=== PATIENT | male | born 1940 | race Caucasian/White ===

== ENCOUNTER → 2017-07-11 08:20 | Outpatient (CLI) | payer MEDICARE, SELFPAY ==
[2017-07-11 08:59] VITALS: BMI 25.4
== END ==
PROVIDERS: Family Provider Nurse Practitioner Family; PCP Nurse Practitioner Family; Visit Provider Internal Medicine
DX: Z45.2 Encounter for adjustment and management of vascular access device (principal); C91.10 Chronic lymphocytic leukemia of B-cell type not having achieved remission
CPT/HCPCS: 96523; J1642

== ENCOUNTER 2017-08-15 09:45 | Outpatient (CLI) | payer MEDICARE, SELFPAY ==
[2017-08-15 10:06] VITALS: BMI 26.4
[2017-08-15 10:17] LABS: Basophils % 0.1 % (0.1-2.0); Eosinophils # 0.5 K/mm3 (0.0-0.4); Eosinophils % 7.9 % (0.1-12.0); Hematocrit 37.8 % (42.0-52.0); Hemoglobin 12.1 g/dL (14.1-18.0); Lymphocytes # 1.9 K/mm3 (0.7-4.5); Mean Corpuscular HGB Conc 31.9 g/dL (31.8-35.4); Mean Corpuscular Hemoglobin 26.9 pg (27.0-31.2); Mean Corpuscular Volume 84.3 fl (80-94); Monocytes # 0.6 K/mm3 (0.1-1.0); Monocytes % 8.6 % (1.7-9.3); Neutrophils # 3.9 K/mm3 (1.8-7.8); Neutrophils % 56.4 % (37.0-80.0); Platelet Count 206 K/mm3 (142-424); Red Blood Count 4.49 M/mm3 (4.60-6.20); Red Cell Distribution Width 13.9 % (11.5-17.5); White Blood Count 6.9 K/mm3 (4.8-10.8)
[2017-08-15 10:26] LABS: Alanine Aminotransferase 19 U/L (12-78); Albumin Level 3.3 gm/dL (3.4-5.0); Albumin/Globulin Ratio 0.9 (1.1-1.8); Alkaline Phosphatase 80 U/L (46-116); Anion Gap 12.9 mEq/L (5-15); Aspartate Amino Transferase 14 U/L (15-37); Bilirubin,Total 0.4 mg/dL (0.2-1.0); Blood Urea Nitrogen 29 mg/dL (7-18); Calcium 8.4 mg/dL (8.5-10.1); Carbon Dioxide 26 mmol/L (21.0-32.0); Chloride 107 mmol/L (98-107); Creatinine Clearance Estimated 53 mL/min (0-300); Creatinine,Serum 1.33 mg/dL (0.70-1.30); Estimated Glomerular Filt Rate 52 ml/min (>60); GFR (African American) 63 ML/MIN (>60); Globulin 3.6 gm/dl (1.3-3.2); Glucose 87 mg/dL (74-106); Potassium 3.9 mmoL/L (3.5-5.1); Sodium 142 mmol/L (136-145); Total Protein,Serum 6.9 gm/dL (6.4-8.2)
== END 2017-08-15 10:10 | disposition home or self-care (01) ==
LOC: INF 18:31
PROVIDERS: Family Provider Nurse Practitioner Family; PCP Nurse Practitioner Family; Visit Provider Internal Medicine
DX: C91.10 Chronic lymphocytic leukemia of B-cell type not having achieved remission (principal)
CPT/HCPCS: 80053; 85025; J1642

== ENCOUNTER 2017-09-12 09:45 | Outpatient (CLI) | payer MEDICARE, SELFPAY | END 2017-09-12 10:29 | disposition home or self-care (01) | LOC: INF 10:11 | PROVIDERS: Family Provider Nurse Practitioner Family; PCP Nurse Practitioner Family; Visit Provider Internal Medicine | DX: C91.10 Chronic lymphocytic leukemia of B-cell type not having achieved remission (principal); Z45.2 Encounter for adjustment and management of vascular access device | CPT/HCPCS: 96523; J1642 ==

== ENCOUNTER 2017-10-10 10:05 | Outpatient (CLI) | payer MEDICARE, SELFPAY | END 2017-10-10 10:30 | disposition home or self-care (01) | LOC: INF 14:48 | PROVIDERS: Family Provider Nurse Practitioner Family; PCP Nurse Practitioner Family; Visit Provider Internal Medicine | DX: Z45.2 Encounter for adjustment and management of vascular access device (principal) | CPT/HCPCS: 96523; J1642 ==

== ENCOUNTER 2017-10-10 18:07 | Observation (INO) ==
--- NOTE | 2017-10-10 18:58 | Emergency Department Note ---
ED Disposition Clinical Impression: Angina pectoris Disposition: Still a Patient Condition on Discharge: Good Referrals: Randy Flores APRN [Primary Care Provider] - - Critical Care Critical Care Time: No Attestation: On 10/10/17, the high probability of a clinically significant, sudden or life threatening deterioration of the following system(s) required my full and direct attention, intervention and personal management. The time I documented below is in addition to time spent performing reported procedures but includes the following listed in this critical care notation. Medical Decision Making - Ryan Inquiry Pt receiving controlled substance: No Vital Signs: 10/10/17 18:08 Temperature 98.0 F Temperature Source Oral Pulse Rate [Right Brachial] 70 Respiratory Rate 18 Blood Pressure [Right Arm] 151/78 Blood Pressure Mean [Right Arm] 102 Blood Pressure Source [Right Arm] Manual Cuff/ Doppler Blood Pressure Position [Right Arm] Sitting 02 Sat by Pulse Oximetry 98 Oxygen Delivery Method Room Air - Lab Data Lab Results 10/10/17 18:30: Sodium 144, Potassium 4.0, Chloride 109 H, Carbon Dioxide 25, Anion Gap 14.0, BUN 23 H, Creatinine 1.09, Estimated Creat Clear 62, Estimated GFR 66, Est GFR ( Amer) 79, Glucose 82, Calcium 8.9, Total Bilirubin 0.2 , AST 21, ALT 19, Alkaline Phosphatase 83, Total Creatine Kinase 152, CK-MB (CK- 2) 3.5, CK-MB (CK-2) Rel Index 2.3, Troponin I < 0.02, Total Protein 7.5, Albumin 3.8, Globulin 3.7 H, Albumin/Globulin Ratio 1.0 L 10/10/17 19:02: WBC 6.4, RBC 4.57 L, Hgb 12.8 L, Hct 39.5 L, MCV 86.5, MCH 28.1 , MCHC 32.5, RDW 14.2, Plt Count 197, MPV 8.0, Neut % (Auto) 53.6, Lymph % (Auto ) 32.2, [place] % (Auto) 7.2, Eos % (Auto) 6.9, Baso % (Auto) 0.1, Neut # (Auto) 3.4, Lymph # (Auto) 2.1, [place] # (Auto) 0.5, Eos # (Auto) 0.4, Baso # (Auto) 0.0 Result diagrams: 10/10/17 19:02 10/10/17 18:30 Orders (Tests/Meds): ED MEDICATIONS Discontinued Medications Generic Name Dose Route Start Last Admin Trade Name Willie PRN Reason Stop Dose Admin Aspirin 324 mg 10/10/17 19:09 Aspirin 81mg Chewable Tablet PO 10/10/17 19:10 ONCE ONE ORDERS Category Date Time Status XR chest portable Stat Exams 10/10/17 18:13 Taken 12-lead EKG Request [ECG Request by /Nse] Stat Y 10/10/17 18:13 Ordered - Radiology Data #1 Image(s): Chest Image Reviewed: Yes I reviewed the patient's radiology image hiatal hernia, nad. port-a-cath, pacer, cabg. - ECG Data Tracing #1 EKG interpreted by Baldomero Madden MD: Rhythm: Dual-chamber paced rhythm Rate: 70 Medical Decision Narrative: 8:00 PM: I have discussed the case with Dr. Garcia who agrees to admit the patient to the hospital. We discussed the patient's clinical information, including history, exam, laboratory and radiology results and ED course. Per hospital procedure, I will write temporary bridge inpatient orders on the patient. Specific orders requested by the admitting physician: consult Dr. Musa 7:45 PM: Dr. Musa notified. Chest Pain HPI - General Chief Complaint: PAIN Stated Complaint: INTERMITTENT CP Time Seen by Provider: 10/10/17 18:57 Mode of Arrival: Ambulatory Limitations: No Limitations Description of Symptoms (Recalled from ER Triage Doc. by RN): INTERMITTENT CP - History of Present Illness HPI narrative: The patient is sent from his primary care provider's office, Randy Flores. He has a prior history of coronary artery disease with coronary artery bypass graft several years ago. States he has been having intermittent chest pain left anterior chest for 2 weeks that last about 5 minutes. Shortness of breath "yes and no". No diaphoresis or nausea. No pain at present. States he has had similar pains every 2-3 months since his bypass surgery but now it is more frequent, coming on every 2-3 days. States the only medication he takes his pain medication for his knees. He used to be on a baby aspirin a day, but stopped taking it because nobody told him that he needed to keep taking it. Former smoker. He is not on any medications for blood pressure or cholesterol. Gymnastics Coach Or Instructor is Dr. Musa. - Related Data Previous Rx's Medication Instructions Recorded aspirin 325 mg tablet 325 mg PO DAILY #90 tab 10/10/17 hydrocodone 7.5 mg-acetaminophen 1 tab PO TIDP PRN #90 tab 10/10/17 325 mg tablet tamsulosin 0.4 mg capsule 0.4 mg PO DAILY #90 cap 10/10/17 Allergies Allergy/AdvReac Type Severity Reaction Status Date / Time No Known Allergies Allergy Verified 10/10/17 13:11 [place] History I have reviewed the patient's past medical history: Yes Medical History: Reports:: Cancer Laterality Cases: Bilateral: Tonsillectomy Other Surgeries: Yes: Cardiac Surgery Amputation: No Fractures: No - Social History Smoking Status: Never smoker Tobacco Type: cigarettes Alcohol Intake: never Substance Use Type: denies use - Psychiatric History Expresses thoughts of harming self/others: None Suicide Plan Description: No Plan Family Hx:: No significant family history ROS Obtained: Yes All systems reviewed & no additional complaints - Constitutional Constitutional: Denies excessive sweating, Denies fever(s) - Cardiovascular Cardiovascular: Reports chest pain, Denies leg edema - Respiratory Respiratory: No cough, Yes dyspnea - Gastrointestinal Gastrointestingal: Denies: abdominal pain, nausea, vomiting Physical Exam - General General appearance: alert, in no apparent distress - Head Head exam: atraumatic, normocephalic, normal inspection - Eye Eye exam: Present: normal appearance, PERRL, EOMI - ENT ENT exam: Present: normal exam, normal oropharynx, mucous membranes moist, TM's normal bilaterally, normal external ear exam - Neck Neck exam: Present: normal inspection, full ROM, trachea midline. Absent: meningismus, lymphadenopathy - Chest Chest inspection: Present: normal inspection, symmetric chest wall rise. Absent : tenderness - Respiratory Respiratory exam: Present: normal lung sounds bilaterally. Absent: respiratory distress - Cardiovascular Cardiovascular exam: Present: regular rate, normal rhythm. Absent: JVD - Abdominal Exam Abdominal exam: Present: soft, normal bowel sounds. Absent: distention, tenderness, guarding - Extremities Exam Extremities exam: Present: normal inspection, full ROM, normal capillary refill. Absent: calf tenderness - Back Exam Back exam: Present: normal inspection. Absent: tenderness - Neurological Exam Neurological exam: Present: alert, oriented X3 - Psychiatric Psychiatric exam: Present: normal affect, normal mood - Skin Skin exam: Present: warm, dry, intact, normal color
[2017-10-10 19:08] LABS: Basophils % 0.1 % (0.1-2.0); Eosinophils # 0.4 K/mm3 (0.0-0.4); Eosinophils % 6.9 % (0.1-12.0); Hematocrit 39.5 % (42.0-52.0); Hemoglobin 12.8 g/dL (14.1-18.0); Lymphocytes # 2.1 K/mm3 (0.7-4.5); Lymphocytes % 32.2 K/mm3 (10-50); Mean Corpuscular HGB Conc 32.5 g/dL (31.8-35.4); Mean Corpuscular Hemoglobin 28.1 pg (27.0-31.2); Mean Corpuscular Volume 86.5 fl (80-94); Monocytes # 0.5 K/mm3 (0.1-1.0); Monocytes % 7.2 % (1.7-9.3); Neutrophils # 3.4 K/mm3 (1.8-7.8); Neutrophils % 53.6 % (37.0-80.0); Platelet Count 197 K/mm3 (142-424); Red Blood Count 4.57 M/mm3 (4.60-6.20); Red Cell Distribution Width 14.2 % (11.5-17.5); White Blood Count 6.4 K/mm3 (4.8-10.8)
[2017-10-10 19:21] LABS: Alanine Aminotransferase 19 U/L (12-78); Albumin Level 3.8 gm/dL (3.4-5.0); Alkaline Phosphatase 83 U/L (46-116); Aspartate Amino Transferase 21 U/L (15-37); Bilirubin,Total 0.2 mg/dL (0.2-1.0); Blood Urea Nitrogen 23 mg/dL (7-18); Calcium 8.9 mg/dL (8.5-10.1); Carbon Dioxide 25 mmol/L (21.0-32.0); Chloride 109 mmol/L (98-107); Creatine Kinase 152 U/L (39-308); Globulin 3.7 gm/dl (1.3-3.2); Glucose 82 mg/dL (74-106); Sodium 144 mmol/L (136-145); Total Protein,Serum 7.5 gm/dL (6.4-8.2)
--- NOTE | 2017-10-11 07:34 | Pharmacy Consult Notes ---
[facility] Pharmacy VTE Monitoring - Patient Demographics Admission date: 10/11/17 Report Date: 10/11/17 Time: 07:34 Allergies/Adverse Reactions: Patient Allergies No Known Allergies Allergy (Verified 10/10/17 13:11) Height: 1.75 m Weight: 76.657 kg Patient Problems: Current Active Problems Angina pectoris (Acute) - VTE Risk Labs: VTE Related Lab Results Hgb 12.8 g/dL (14.1-18.0) L 10/10/17 19:02 Hct 39.5 % (42.0-52.0) L 10/10/17 19:02 Plt Count 197 K/mm3 (142-424) 10/10/17 19:02 BUN 23 mg/dL (7-18) H 10/10/17 18:30 Creatinine 1.09 mg/dL (0.70-1.30) 10/10/17 18:30 Estimated Creat Clear 62 mL/min (0-300) 10/10/17 18:30 Was VTE Risk Assessment Performed: Yes VTE Risk Level: Very Low Risk - Prophylaxis VTE Prophylaxis Ordered?: Yes Types of VTE Prophylaxis: TEDS Knee High Location of Applied Device: Bilateral Lower Extremeties - VTE Diagnosis Confirmed Treatment or plan recommended: Continue Current Treatment
--- NOTE | 2017-10-11 10:07 | Consult Report ---
History of Present Illness Consult date: 10/11/17 Requesting physician: James Garcia Consult reason: chest pain Chief complaint: Chest pain and shortness of breath Additional Medical History:: 1. Coronary Artery Disease. a. Coronary Artery Bypass Graft in 2000 (Bicuspid aortic valve) b. Angioplasty in 2001 2. Dual chamber pacemaker (2016) 3. Murmur at the Left sternal border radiating toward the neck. a. History of Systolic ejection murmur. Last Echo (2016) LVEF 60%. 4. Carotid Bruit Left a. Last CNI (2015) Impression: 20-49% stenosis of right carotid and 50-60% stenosis of left internal 4. Hypertension- uncontrolled. a. No current medication regimen. 5. Hyperlipidemia a. No current medication regimen. 6. Chronic Lymphotic Leukemia a. Diagnosed in 2016. No treatment for the past 4 months. 7. Arthritis History of present illness: 77 year old white male admitted to ICU last evening with angina pectoris and shortness of breath. Pt is a poor historian. Daughter at bedside. Daughter stated "not certain on all father's medical history". Pt stated he has been having increase midsternal shooting chest pain with shortness of breath for the past two weeks, lasting for a few minutes. Pt stated last episode of chest pain was yesterday when he was being evaluated by his PCP. Denies physical exertion prior to chest pain. Pt stated, "the pain just comes and goes". Pt stated that his shortness of breath only occurs with the chest pain. Pt complains of dizziness accompanying the chest pain. Pt stated one episode of falling due to the dizziness in the past few days. No injuries noted from the fall. Pt noted on assessment with systolic murmur. Carotid bruit also noted on the left. Pt has history of coronary artery disease, coronary bypass graft ( Bicuspid valve) and dual chamber pacemaker (2016). There is also history of hypertension and hyperlipidemia. Pt is not currently taking any medications. Pt stated that "he was not told he needed to continue to take his medications. Pt had been diagnosed with Chronic Lymphotic Leukemia (2016). Last treatment was 4 months ago. Pt denies chest pain or shortness of breath during this cardiology consult. Pt was last seen via Dr. Musa ([facility] in 2017). Initial EKG performed in the ER, revealed Electronic atrial pacemaker with Nonspecific intraventricular block with rate of 70bpm. Baseline labs in the ER were unremarkable with exception of BUN 23 and Troponin < 0.02. Only one Troponin was drawn prior to hospital admission. Chest xray: moderate size hiatal hernia, prior CABG with no change with no acute findings. Therefore patient was admitted to ICU with Cardiac consult for further evaluation and treatment. [facility] History Medical History: Reports:: Arrhythmia, Cancer (hx of Leukemia), Carotid Stenosis , Internal Pacemaker (2017), Myocardial Infarction Denies:: Diabetes Mellitus Type 1, Diabetes Mellitus Type 2, MRSA Other Medical History: Reports: Arthritis, Chemotherapy Laterality Cases: Left: Other, Bilateral: Tonsillectomy Other Surgeries: Yes: Angioplasty (1999), CABG (1999), Cardiac Surgery, Pacemaker (2016) Amputation: No Fractures: No - *Social History Educational Level: Completed High School Smoking Status: Former smoker Tobacco Type: cigarettes # Packs/Day (cigarettes): 1 #Yrs smoked (if former smoker): 30 Smoking End Date: 1982 Alcohol Intake: never Substance Use Type: denies use Occupational Status: retired Housing: house Household Members: spouse, family, children - Psychiatric History Expresses thoughts of harming self/others: None Suicide Plan Description: No Plan *Family Hx:: No significant family history, Cancer Meds Home Medications Medication Instructions Recorded Confirmed Type Aspirin [Aspirin 325mg Tab] 325 mg PO DAILY 10/11/17 10/11/17 History Hydrocodone/Acetaminophen 1 each PO TIDP PRN 10/11/17 10/11/17 History [Hydrocodon-Acetaminoph 7.5-325] Tamsulosin HCl [Flomax] 0.4 mg PO DAILY 10/11/17 10/11/17 History Allergies Allergy/AdvReac Type Severity Reaction Status Date / Time No Known Allergies Allergy Verified 10/10/17 13:11 Review of Systems - Constitutional Reports fatigue, Reports weakness - ENT Reports abnormal hearing, Reports poor balance, Reports dizziness - *Cardiovascular Reports chest pain, Reports chest pain at rest, Reports chest pain with activity , Reports shortness of breath, Reports shortness of breath with activity, Reports lightheadedness - *Respiratory Reports shortness of breath, Reports shortness of breath with activity, Denies cough, Denies pain on inspiration, Denies pain with cough, Denies stridor, Denies wheezing - *Gastrointestinal Denies abdominal pain, Denies belching - *Genitourinary Denies difficulty urinating Comments: Pt denies Prostate issues even though pt is currently taking Flomax daily at home. - Integumentary/Breasts Denies non-healing lesions - *Neurologic Reports lack of coordination Comments: One fall noted a few days prior to admission. - Endocrine Denies cold intolerance, Denies excessive sweating, Denies heat intolerance, Denies rapid, pounding, or irregular heartbeat Exam Vital signs and Labs for Last 24 Hours: Temp Pulse Resp BP Pulse Ox 98.1 F 70 20 190/150 99 10/11/17 08:00 10/11/17 08:00 10/11/17 08:00 10/11/17 09:32 10/11/17 08:00 I & O for Last 24 hours: Intake & Output 10/08/17 10/09/17 10/10/17 10/11/17 23:59 23:59 23:59 23:59 Intake Total 240 / 240 Balance 240 / 240 Weight 169 lb 169 lb - Constitutional no acute distress, average body habitus, cooperative - *Routine Neck Exam Present: supple, full ROM, carotid bruit, trachea midline. Absent: JVD Comments: Carotid Bruit noted of the Left carotid. - *Routine Respiratory Exam Present: CTA bilaterally. Absent: rales, rhonchi, stridor, wheezes, crackles - *Routine Cardiovascular Exam Present: Normal S1, Normal S2, murmur - *Routine Abdominal Exam Present: soft. Absent: distended, guarding, mass - *Routine Extremities Exam Present: full ROM, pulses intact, normal capillary refill. Absent: cyanosis, clubbing, edema - *Routine Neurological Exam Present: alert, oriented X3, CN II-XII intact, normal speech - Detailed Cardiovascular Exam Comments: Systolic murmur Assessment and Plan (1) Pacemaker Current visit: Yes Status: Acute Category: Medical Code(s): Z95.0 - Presence of cardiac pacemaker (2) Angina pectoris Current visit: Yes Status: Acute Category: Medical Code(s): I20.9 - Angina pectoris, unspecified (3) Dizziness Current visit: No Status: Acute Category: Medical Code(s): R42 - Dizziness and giddiness (4) Intermittent left-sided chest pain Current visit: No Status: Acute Category: Medical Code(s): R07.89 - Other chest pain (5) Coronary artery disease Current visit: Yes Status: Acute Category: Medical Code(s): I25.10 - Atherosclerotic heart disease of [place] coronary artery without angina pectoris (6) Hypertension Current visit: Yes Status: Acute Category: Medical Code(s): I10 - Essential (primary) hypertension (7) Carotid stenosis Current visit: Yes Status: Acute Category: Medical Code(s): I65.29 - Occlusion and stenosis of unspecified carotid artery (8) Chronic lymphocytic leukemia Current visit: Yes Status: Acute Category: Medical Code(s): C91.90 - Lymphoid leukemia, unspecified not having achieved remission - Assessment and plan all Dx Assessment and Plan for all problems:: Plan: 1. Left Heart Catherization: Intermittent chest pain and shortness of breath. Recommended benefits of heart catherization due to chest pain. Pt and family agreeable. 2. Obtain Echocardiogram to assess LV function and valve status. Systolic murmur was noted. 3. Obtain Carotid doppler duplex to assess severity of Carotid Bruit. 4. Obtain Liver and Lipid panel for hyperlipidemia 5. Start Coreg 12.5mg po twice daily for hypertension. 6. Start Aspirin 81mg po daily for coronary artery disease. 7. Start Atorvastatin 40mg po nightly for hyperlipidemia. 8. Start Losartan 50/12.5mg po daily for Hypertension. 9. Add Aldactone 25mg po daily for Hypertension. 10. Repeat BMP in am and in one week 11. Follow up in clinic one week.
--- NOTE | 2017-10-11 13:09 | Carotid Imaging Report ---
"Cerebrovascular Exam Indications: 780.4 Dizziness and giddiness. IMPRESSIONS 1. The bilateral vertebral arteries are patent with normal antegrade flow. 2. Study suggests 20-49% stenosis involving the right internal carotid artery. No change from the study of January 2016. 3. Study suggests 50-69% stenosis involving the left internal carotid artery. No change from the study of January 2016. Carotid duplex study. Complete study and Doppler flow study including spectral analysis, color and islas scale imaging. Height: Height: 175.3cm. Height: 69in. Weight: Weight: 76.7kg. Weight: 168.6lb. Body mass index: BMI: 25kg/m^2. Body surface area: BSA: 1.94m^2. Location: Bedside. Patient status: Inpatient. Tables: Arterial flow: + +---------+---------+ |Location |V sys |V ed | + +---------+---------+ |Right CCA - proximal|101cm/s |32.2cm/s | + +---------+---------+ |Right CCA - distal |-81.7cm/s|-21.2cm/s| + +---------+---------+ |Right ECA |-220cm/s |-58.9cm/s| + +---------+---------+ |Right ICA - proximal|-92.3cm/s|-30.4cm/s| + +---------+---------+ |Right ICA - mid |-99.2cm/s|-37.7cm/s| + +---------+---------+ |Right ICA - distal |-92.2cm/s|-32.1cm/s| + +---------+---------+ |Right vertebral |-46.8cm/s|-17.7cm/s| + +---------+---------+ |Left CCA - proximal |108cm/s |27cm/s | + +---------+---------+ |Left CCA - distal |-79.8cm/s|-26.4cm/s| + +---------+---------+ |Left ECA |-110cm/s |-20.1cm/s| + +---------+---------+ |Left ICA - proximal |-131cm/s |-45.6cm/s| + +---------+---------+ |Left ICA - mid |-139cm/s |-55cm/s | + +---------+---------+ |Left ICA - distal |-119cm/s |-51.9cm/s| + +---------+---------+ |Left vertebral |-39.7cm/s|-18.1cm/s| + +---------+---------+ Velocity ratios: + + + + | |Right, V sys|Left, V sys| + + + + |Max ICA/dist CCA|1.2 |1.7 | + + + + (Report amended ) Electronically signed by: Dima Malik [id number]"
--- NOTE | 2017-10-11 17:00 | H&P/Discharge Summary ---
General - General Admission date: 10/11/17 Discharge date: 10/11/17 *Admission Date: 10/11/17 *Chief complaint: chest pain *History of present illness: 77 year old white male admitted to ICU last evening with angina pectoris and shortness of breath. Pt is a poor historian. Daughter at bedside. Daughter stated "not certain on all father's medical history". Pt stated he has been having increase midsternal shooting chest pain with shortness of breath for the past two weeks, lasting for a few minutes. Pt stated last episode of chest pain was yesterday when he was being evaluated by his PCP. Denies physical exertion prior to chest pain. Pt stated, "the pain just comes and goes". Pt stated that his shortness of breath only occurs with the chest pain. Pt complains of dizziness accompanying the chest pain. Pt stated one episode of falling due to the dizziness in the past few days. No injuries noted from the fall. Pt noted on assessment with systolic murmur. Carotid bruit also noted on the left. Pt has history of coronary artery disease, coronary bypass graft ( Bicuspid valve) and dual chamber pacemaker (2015). There is also history of hypertension and hyperlipidemia. Pt is not currently taking any medications. Pt stated that "he was not told he needed to continue to take his medications. Pt had been diagnosed with Chronic Lymphotic Leukemia (2015). Last treatment was 4 months ago. Pt denies chest pain or shortness of breath during this cardiology consult. Pt was last seen via Dr. Musa ([facility] in 2017). [facility] History I have reviewed the patient's past medical history: Yes Medical History: Reports:: Arrhythmia, Cancer (hx of Leukemia), Carotid Stenosis , Internal Pacemaker (2017), Myocardial Infarction Denies:: Diabetes Mellitus Type 1, Diabetes Mellitus Type 2, MRSA Other Medical History: Reports: Arthritis, Chemotherapy Laterality Cases: Left: Other, Bilateral: Tonsillectomy Other Surgeries: Yes: Angioplasty (1999), CABG (1999), Cardiac Surgery, Pacemaker (2016) Amputation: No Fractures: No - *Social History Educational Level: Completed High School Smoking Status: Former smoker Tobacco Type: cigarettes # Packs/Day (cigarettes): 1 #Yrs smoked (if former smoker): 30 Smoking End Date: 1982 Alcohol Intake: never Substance Use Type: denies use Occupational Status: retired Housing: house Household Members: spouse, family, children - Psychiatric History Expresses thoughts of harming self/others: None Suicide Plan Description: No Plan *Family Hx:: No significant family history, Cancer Review of Systems - Constitutional Denies fatigue - Eyes Denies bulging eyes - ENT Denies change in voice - *Cardiovascular Reports chest pain, Reports chest pain at rest, Reports chest pain with activity , Reports shortness of breath, Denies fast heart rate - *Respiratory Denies chest congestion - *Gastrointestinal Denies change in bowel habits - *Genitourinary Denies urinary incontinence - *Musculoskeletal Denies decreased muscle mass - Integumentary/Breasts Denies rash - *Neurologic Reports abnormal hearing, Reports unsteadiness, Reports dizziness, Reports lack of coordination, Reports weakness - Psychiatric Denies anxiety - Endocrine Denies flushing - Hematologic/Lymphatic Denies enlarged lymph nodes - Allergic/Immunologic Denies hives Exam Vital signs and Labs for Last 24 Hours: Temp Pulse Resp BP Pulse Ox 98.1 F 70 16 98/61 95 10/11/17 08:00 10/11/17 14:10 10/11/17 14:10 10/11/17 14:10 10/11/17 14:10 I & O for Last 24 hours: Intake & Output 10/09/17 10/10/17 10/11/17 10/12/17 11:59 11:59 11:59 11:59 Intake Total 240 / 240 Balance 240 / 240 Weight 169 lb - Constitutional no acute distress - *Routine HEENT Exam Head: Present: normocephalic Eye: Present: PERRL ENT: Present: mucous membranes moist - *Routine Neck Exam Present: full ROM - *Routine Respiratory Exam Present: CTA bilaterally - *Routine Cardiovascular Exam Comments: pacemaker - *Routine Abdominal Exam Present: soft, normoactive bowel sounds - *Routine Extremities Exam Present: full ROM - Routine Back/Spine/Pelvis Exam Back/Spine: Present: full ROM - *Routine Skin Exam Present: intact Comments: cath site no signs of bleeding - *Routine Neurological Exam Present: alert, oriented X3 - Routine Psychiatric Exam Present: normal affect Hospital Course Hospital Course: cartid IMPRESSIONS 1. The bilateral vertebral arteries are patent with normal antegrade flow. 2. Study suggests 20-49% stenosis involving the right internal carotid artery. No change from the study of January 2016. 3. Study suggests 50-69% stenosis involving the left internal carotid artery. No change from the study of January 2016. Carotid duplex study. Complete study and Doppler flow study including spectral analysis, color and islas scale imaging. Height: Height: 175.3cm. Height: 69in. Weight: Weight: 76.7kg. Weight: 168.6lb. Body mass index: BMI: 25kg/m^2. Body surface area: BSA: 1.94m^2. Location: Bedside cath iMPRESSION: 1. Coronary artery disease as described above 2. Left ventricular dysfunction with large anterior apical hypokinesis 3. Elevated LVEDP 4. Small vessel vasculopathy PLAN: 1. Medical management for coronary artery disease 2. LDL less than 55 3. Standard therapy for systolic congestive heart failure 4. Cardiac rehabilitation 5. Urge medical compliance with patient cardiology consult: Plan: 1. Left Heart Catherization: Intermittent chest pain and shortness of breath. Recommended benefits of heart catherization due to chest pain. Pt and family agreeable. 2. Obtain Echocardiogram to assess LV function and valve status. Systolic murmur was noted. 3. Obtain Carotid doppler duplex to assess severity of Carotid Bruit. 4. Obtain Liver and Lipid panel for hyperlipidemia 5. Start Coreg 12.5mg po twice daily for hypertension. 6. Start Aspirin 81mg po daily for coronary artery disease. 7. Start Atorvastatin 40mg po nightly for hyperlipidemia. 8. Start Losartan 50/12.5mg po daily for Hypertension. 9. Add Aldactone 25mg po daily for Hypertension.- hold for now per tr 10. Repeat BMP in am and in one week 11. Follow up in clinic one week Discharge Medications Discharge Medications: Home Medications Medication Instructions Recorded Confirmed Type Aspirin [Aspirin 325mg Tab] 325 mg PO DAILY 10/11/17 10/11/17 History Hydrocodone/Acetaminophen 1 each PO TIDP PRN 10/11/17 10/11/17 History [Hydrocodon-Acetaminoph 7.5-325] Tamsulosin HCl [Flomax] 0.4 mg PO DAILY 10/11/17 10/11/17 History Disposition Disposition: Home, Self-Care
--- NOTE | 2017-10-12 12:39 | Cardiology Report ---
PROCEDURE: 2-D M-mode and color Doppler study INDICATIONS FOR THE TEST: Chest pain X COPD Heart Murmur Tobacco Smoking Palpitations Fatigue Syncope Edema Hypertension Diabetes Mellitus Rheumatic Fever SOB LOPEZ Obesity Hyperlipidemia Family History HD Additional History CAD,CABG,PACEMAKER PATIENT INFORMATION HEIGHT: 69 WEIGHT:145 GENDER: Male B/P:151/78 2-D/M-MODE INTERPRETATION: 2-D MEASUREMENTS OBSERVED VALUES IN CMS Right Ventricular Dimension (RVDd) 1.9 Interventricular Septum (Thickness)(IVsd) 1.4 Left Ventricular Internal Dimensions(LVIDd) 4.4 Left Ventricular Posterior Wall (Thickness)(LVPWd) 1.2 Aortic Root 3.5 Aortic Cusp Separation 1.8 Left Atrial Dimensions (LAD) 3.0 2D 1. Left atrium is mildly enlarged, left ventricle is normal size, there is mild concentric left ventricular hypertrophy, visually estimated ejection fraction approximately 45-50%, there appears to be moderate hypokinesis involving the distal septum and apical wall. 2. The right atrium and right ventricle are relatively normal size and function, there is a pacemaker lead seen in the right atrium and right ventricle. 3. The aortic valve is thickened and calcified leaflet continue to display mobility. 4. The mitral valve and tricuspid valve leaflets are minimally thickened. 5. The pulmonic valve is poorly visualized. 6. No significant pericardial effusion noted. DOPPLER INTERROGATION: Doppler interrogation of the aortic, mitral and tricuspid valvular presence of mild aortic, mitral and tricuspid regurgitation, the aortic outflow velocities mildly increased does not represent any significant aortic stenosis, diastolic parameters are inconclusive. Tricuspid regurgitant jet velocity insufficient for calculation of the right ventricular systolic pressure. CONCLUSION: 1. Technically difficult study because of the patient's factor and poor acoustic windows 2. Mildly enlarged left atrium, normal left ventricular size, mild concentric left ventricular hypertrophy, visually estimated ejection fraction approximately 45-50% with segmental wall motion abnormality described above. Diastolic parameters 3. Thickened and calcified aortic valve without significant aortic stenosis, there is mild aortic insufficiency. 4. Mild mitral and tricuspid regurgitation 5. No significant pericardial effusion noted.
== END 2017-10-11 18:30 | disposition home or self-care (01) ==
LOC: ICU 18:07 → ER 18:07 → ICU 20:39
PROVIDERS: ADMIT Emergency Medicine; ATTEND Emergency Medicine

== ENCOUNTER → 2017-10-25 13:02 | Outpatient (CLI) | payer MEDICARE, SELFPAY ==
--- NOTE | 2017-10-25 13:04 | NM_ITS ---
Cardiac MUGA scan: Indications for the test: Evaluate left ventricular systolic function. Procedure: Patient received total of 24.9 mCi of sodium pretechnitate, resting MIBI scan was performed in the standard view. Results: Resting cardiac MUGA scan showed an ejection fraction 53% with no obvious regional wall motion abnormality.
== END ==
PROVIDERS: Family Provider Nurse Practitioner Family; PCP Nurse Practitioner Family; Visit Provider Internal Medicine
DX: I20.9 Angina pectoris, unspecified (principal); R07.89 Other chest pain
CPT/HCPCS: 78473; A9512; A9560

== ENCOUNTER 2017-11-08 13:56 | Outpatient (CLI) | payer MEDICARE, SELFPAY ==
[2017-11-08 14:00] VITALS: BP 143/80; PULSE 91; RESP 18; TEMP 36.7; O2SAT 95
== END 2017-11-08 14:10 | disposition home or self-care (01) ==
LOC: INF 13:56
PROVIDERS: Family Provider Nurse Practitioner Family; PCP Nurse Practitioner Family; Visit Provider Internal Medicine
DX: Z45.2 Encounter for adjustment and management of vascular access device (principal)
CPT/HCPCS: 96523; J1642

== ENCOUNTER 2017-12-12 10:10 | Outpatient (CLI) | payer MEDICARE, SELFPAY ==
[2017-12-12 10:20] VITALS: BMI 24.9
[2017-12-12 10:35] VITALS: BP 112/59; PULSE 70; RESP 18; O2SAT 96
[2017-12-12 11:11] LABS: Basophils % 0.2 % (0.1-2.0); Eosinophils # 0.4 K/mm3 (0.0-0.4); Eosinophils % 4.7 % (0.1-12.0); Hemoglobin 11.9 g/dL (14.1-18.0); Lymphocytes % 40.3 K/mm3 (10-50); Mean Corpuscular HGB Conc 31.2 g/dL (31.8-35.4); Mean Corpuscular Hemoglobin 26.8 pg (27.0-31.2); Mean Corpuscular Volume 85.8 fl (80-94); Mean Platelet Volume 8.3 fl (7.4-10.4); Monocytes # 0.4 K/mm3 (0.1-1.0); Monocytes % 5.3 % (1.7-9.3); Neutrophils # 3.7 K/mm3 (1.8-7.8); Neutrophils % 49.5 % (37.0-80.0); Platelet Count 209 K/mm3 (142-424); Red Blood Count 4.43 M/mm3 (4.60-6.20); White Blood Count 7.4 K/mm3 (4.8-10.8)
[2017-12-12 11:19] LABS: Alanine Aminotransferase 18 U/L (12-78); Albumin Level 3.2 gm/dL (3.4-5.0); Alkaline Phosphatase 79 U/L (46-116); Anion Gap 13.5 mEq/L (5-15); Aspartate Amino Transferase 16 U/L (15-37); Bilirubin,Total 0.4 mg/dL (0.2-1.0); Blood Urea Nitrogen 22 mg/dL (7-18); Calcium 8.4 mg/dL (8.5-10.1); Carbon Dioxide 24 mmol/L (21.0-32.0); Chloride 111 mmol/L (98-107); Creatinine Clearance Estimated 64 mL/min (0-300); Creatinine,Serum 1.04 mg/dL (0.70-1.30); Estimated Glomerular Filt Rate 69 ml/min (>60); GFR (African American) 84 ML/MIN (>60); Globulin 3.1 gm/dl (1.3-3.2); Glucose 157 mg/dL (74-106); Potassium 3.5 mmoL/L (3.5-5.1); Sodium 145 mmol/L (136-145); Total Protein,Serum 6.3 gm/dL (6.4-8.2)
== END 2017-12-12 10:50 | disposition home or self-care (01) ==
LOC: INF 10:17
PROVIDERS: Family Provider Nurse Practitioner Family; PCP Nurse Practitioner Family; Visit Provider Internal Medicine
DX: Z45.2 Encounter for adjustment and management of vascular access device (principal); C91.10 Chronic lymphocytic leukemia of B-cell type not having achieved remission
CPT/HCPCS: 80053; 85025; 96523; J1642

== ENCOUNTER 2018-01-09 09:10 | Outpatient (CLI) | payer MEDICARE, SELFPAY ==
[2018-01-09 09:30] VITALS: BP 122/78; PULSE 68; RESP 20; TEMP 37.1; O2SAT 98
[2018-01-09 09:35] VITALS: BP 122/78; PULSE 68; RESP 20; TEMP 37.1; O2SAT 98
== END 2018-01-09 09:40 | disposition home or self-care (01) ==
LOC: INF 09:10
PROVIDERS: Family Provider Nurse Practitioner Family; PCP Nurse Practitioner Family; Visit Provider Internal Medicine
DX: Z45.2 Encounter for adjustment and management of vascular access device (principal)
CPT/HCPCS: 96523; J1642

== ENCOUNTER 2018-02-06 10:11 | Outpatient (CLI) | payer MEDICARE, SELFPAY | END 2018-02-06 10:15 | disposition home or self-care (01) | LOC: INF 10:11 | PROVIDERS: Family Provider Nurse Practitioner Family; PCP Nurse Practitioner Family; Visit Provider Internal Medicine | DX: Z45.2 Encounter for adjustment and management of vascular access device (principal) | CPT/HCPCS: 96523; J1642 ==

== ENCOUNTER 2018-03-12 10:20 | Outpatient (CLI) | payer MEDICARE, SELFPAY ==
[2018-03-12 10:30] VITALS: BP 124/73; PULSE 74; RESP 18; TEMP 36.6; O2SAT 99
== END 2018-03-12 10:50 | disposition home or self-care (01) ==
LOC: INF 10:20
PROVIDERS: Family Provider Nurse Practitioner Family; PCP Nurse Practitioner Family; Visit Provider Internal Medicine
DX: Z45.2 Encounter for adjustment and management of vascular access device (principal)
CPT/HCPCS: 96523; J1642

== ENCOUNTER 2018-04-23 08:38 | Outpatient (CLI) | payer MEDICARE, SELFPAY ==
[2018-04-23 08:38] VITALS: BMI 24.9
[2018-04-23 09:15] VITALS: BP 122/70; PULSE 68; RESP 20; TEMP 36.9; O2SAT 96
[2018-04-23 09:50] LABS: Basophils # 0.1 K/mm3 (0-0.2); Basophils % 0.4 % (0.1-2.0); Eosinophils # 0.5 K/mm3 (0.0-0.4); Eosinophils % 1.9 % (0.1-12.0); Hematocrit 39.2 % (42.0-52.0); Hemoglobin 12.5 g/dL (14.1-18.0); Lymphocytes # 16.6 K/mm3 (0.7-4.5); Lymphocytes % 66.9 K/mm3 (10-50); Mean Corpuscular HGB Conc 31.8 g/dL (31.8-35.4); Mean Corpuscular Hemoglobin 27.5 pg (27.0-31.2); Mean Corpuscular Volume 86.6 fl (80-94); Monocytes # 0.9 K/mm3 (0.1-1.0); Monocytes % 3.4 % (1.7-9.3); Neutrophils # 6.8 K/mm3 (1.8-7.8); Neutrophils % 27.3 % (37.0-80.0); Platelet Count 278 K/mm3 (142-424); Red Blood Count 4.53 M/mm3 (4.60-6.20); Red Cell Distribution Width 14.4 % (11.5-17.5); White Blood Count 24.8 K/mm3 (4.8-10.8)
[2018-04-23 09:52] LABS: MANUAL DIFFERENTIAL MANUAL DIFFERENTIAL (MANUAL DIFF)
[2018-04-23 09:53] LABS: Alanine Aminotransferase 16 U/L (12-78); Albumin Level 3.2 gm/dL (3.4-5.0); Albumin/Globulin Ratio 0.9 (1.1-1.8); Alkaline Phosphatase 73 U/L (46-116); Anion Gap 13.4 mEq/L (5-15); Aspartate Amino Transferase 16 U/L (15-37); Bilirubin,Total 0.3 mg/dL (0.2-1.0); Blood Urea Nitrogen 31 mg/dL (7-18); Calcium 8.5 mg/dL (8.5-10.1); Carbon Dioxide 25 mmol/L (21.0-32.0); Chloride 107 mmol/L (98-107); Creatinine Clearance Estimated 55 mL/min (0-300); Creatinine,Serum 1.21 mg/dL (0.70-1.30); Estimated Glomerular Filt Rate 58 ml/min (>60); GFR (African American) 70 ML/MIN (>60); Globulin 3.6 gm/dl (1.3-3.2); Glucose 96 mg/dL (74-106); Potassium 4.4 mmoL/L (3.5-5.1); Sodium 141 mmol/L (136-145); Total Protein,Serum 6.8 gm/dL (6.4-8.2)
[2018-04-23 10:11] LABS: Eosinophils % 2 % (0-3); Lymphocytes % 67 % (10-50); Monocytes % 6 % (2-9); Neutrophils % 25 % (42-76); Platelet Estimate Normal; RBC Morphology Normal; Total Cells Counted 100
== END 2018-04-23 10:10 | disposition home or self-care (01) ==
LOC: INF 08:38
PROVIDERS: Family Provider Nurse Practitioner Family; PCP Nurse Practitioner Family; Visit Provider Internal Medicine Medical Oncology
DX: Z45.2 Encounter for adjustment and management of vascular access device (principal); C91.10 Chronic lymphocytic leukemia of B-cell type not having achieved remission
CPT/HCPCS: 80053; 85007; 85025; J1642

== ENCOUNTER 2018-05-10 09:56 | Outpatient (CLI) | payer MEDICARE, SELFPAY ==
[2018-05-10 09:31] VITALS: BMI 23.9
[2018-05-10 09:56] LABS: Basophils # 0.1 K/mm3 (0-0.2); Basophils % 0.5 % (0.1-2.0); Eosinophils # 0.6 K/mm3 (0.0-0.4); Eosinophils % 2.6 % (0.1-12.0); Hematocrit 38.9 % (42.0-52.0); Hemoglobin 12.5 g/dL (14.1-18.0); Lymphocytes % 67.4 % (10-50); Mean Corpuscular HGB Conc 32.1 g/dL (31.8-35.4); Mean Corpuscular Hemoglobin 27.3 pg (27.0-31.2); Mean Platelet Volume 7.4 fl (7.4-10.4); Monocytes # 0.8 K/mm3 (0.1-1.0); Monocytes % 3.2 % (1.7-9.3); Neutrophils # 6.3 K/mm3 (1.8-7.8); Neutrophils % 26.3 % (37.0-80.0); Platelet Count 244 K/mm3 (142-424); Red Blood Count 4.58 M/mm3 (4.60-6.20); Red Cell Distribution Width 14.2 % (11.5-17.5); White Blood Count 23.8 K/mm3 (4.8-10.8)
[2018-05-10 10:00] LABS: MANUAL DIFFERENTIAL MANUAL DIFFERENTIAL (MANUAL DIFF)
[2018-05-10 10:02] LABS: Alanine Aminotransferase 16 U/L (12-78); Albumin Level 3.3 gm/dL (3.4-5.0); Albumin/Globulin Ratio 0.8 (1.1-1.8); Alkaline Phosphatase 89 U/L (46-116); Anion Gap 12.5 mEq/L (5-15); Aspartate Amino Transferase 18 U/L (15-37); Bilirubin,Total 0.3 mg/dL (0.2-1.0); Blood Urea Nitrogen 25 mg/dL (7-18); Calcium 8.8 mg/dL (8.5-10.1); Carbon Dioxide 26 mmol/L (21.0-32.0); Chloride 103 mmol/L (98-107); Creatinine Clearance Estimated 61 mL/min (50-200); Creatinine,Serum 1.05 mg/dL (0.70-1.30); Estimated Glomerular Filt Rate 68 ml/min (>60); GFR (African American) 83 ML/MIN (>60); Globulin 4.1 gm/dl (1.3-3.2); Glucose 87 mg/dL (74-106); Potassium 4.5 mmoL/L (3.5-5.1); Sodium 137 mmol/L (136-145); Total Protein,Serum 7.4 gm/dL (6.4-8.2)
--- NOTE | 2018-05-10 10:02 | CT_ITS ---
CT chest w con HISTORY: Chronic lymphocytic leukemia follow-up ITS.REASON: CLL ORDERING PHYSICIAN: Bharti Pugh MD PATIENT AGE: 77 years COMPARISON: 03/21/2016 TECHNIQUE: Axial images obtained following the administration of 75 mL of Isovue 370 . Sagittal, and coronal reformatted images are also generated and reviewed. All CT scans at the facility use one or more dose reduction, viz: automated exposure control, ma/kV adjustment per patient size (including targeted exams where dose is matched to indication, i.e. head), or iterative reconstruction technique. FINDINGS: Mildly prominent axillary lymph nodes are present bilaterally measuring up to 3.8 x 2 cm and the left axillary region and 3.1 x 1.7 cm in the right axillary region. The nodes are slightly less bulky compared to the previous exam. There is mild mediastinal adenopathy with a precarinal node measuring 2.3 x 1.7 cm. This node previously measured 2 x 1.4 cm slightly more prominent on today's exam. Subcarinal adenopathy also noted at 3.2 x 1.9 cm not significantly changed. There is a moderate sized hiatal hernia. There has been prior median sternotomy. Small nodes are present intermedius time slightly more prominent measuring up to 2.2 x 2.4 cm previously 1.8 x 1.9 cm. There are centrilobular emphysematous changes with scattered areas of fibrosis and old granulomatous disease. No change in the 4 mm nodule in the left upper lobe. No change 5 mm nodule right middle lobe. No new nodules identified Fibrotic changes present in the right apex posteriorly unchanged. No effusions or infiltrates. No acute bony anomalies. IMPRESSION: 1. Mediastinal and axillary adenopathy. There is a mixed response. The axillary adenopathy appears somewhat less bulky although mediastinal adenopathy is slightly more bulky. Supraclavicular adenopathy is unchanged. 2. No change lateral pulmonary nodule. Centrilobular emphysema with coarsened bronchovascular markings noted 3. Hiatal hernia
--- NOTE | 2018-05-10 10:02 | CT_ITS ---
CT abdomen pelvis w con CLINICAL INDICATION: Chronic lymphocytic leukemia ITS.REASON: CLL ORDERING PHYSICIAN: Bharti Pugh MD PATIENT AGE: 77 years COMPARISON: None TECHNIQUE: Axial images obtained with sagittal and coronal reformats. All CT scans at the facility use one or more dose reduction, viz: automated exposure control, ma/kV adjustment per patient size (including targeted exams where dose is matched to indication, i.e. head), or iterative reconstruction technique. PROCEDURE: Oral Contrast: Redicat IV Contrast: 75 mL's of Isovue-370. FINDINGS: There is a moderate-sized hiatal hernia. Hypodense lesion once again noted involving the mid aspect of the liver at 8 mm unchanged. A small area of decreased attenuation is present along the falciform ligament region anteriorly at 8 mm and could be due to an area of fatty liver involvement. The spleen and left adrenal glands are unremarkable. There is a right adrenal nodule at 1.6 cm which is hypodense consistent with an adrenal mild low lipoma. The kidneys have an unremarkable appearance. Unremarkable appendix. There is diverticulosis of the sigmoid colon but no evidence of diverticulitis. Prostate is slightly enlarged at 5 cm. The urinary bladder wall is slightly thickened. There is retroperitoneal adenopathy as well as scattered small lymph nodes in the abdomen. The largest node is anterior to the left psoas muscle measuring 4.5 x 2.5 cm previously 4.3 x 2.5 cm not significant changed. Extensive adenopathy is present in the external iliac region and may be very slightly more bulky compared to the previous study with the largest node measuring 5.3 x 2.9 cm previously 5.3 x 2.3 cm. No acute bony anomalies. IMPRESSION: Moderate abdominal, Donn. Annual, and pelvic adenopathy. The adenopathy is very slightly more bulky compared to the previous exam.
[2018-05-10 10:52] LABS: Eosinophils % 1 % (0-3); Lymphocytes % 62 % (10-50); Monocytes % 4 % (2-9); Neutrophils % 26 % (42-76); Platelet Estimate Normal; Total Cells Counted 100
--- NOTE | 2018-05-10 11:02 | HMH.ITSHM ---
Current Home Medications as stated by this patient Joe Davies or in home sales representative. []HYDROC
== END 2018-05-10 11:00 | disposition home or self-care (01) ==
LOC: RAD 09:56
PROVIDERS: PCP Nurse Practitioner Family; Visit Provider Internal Medicine Medical Oncology
DX: C91.10 Chronic lymphocytic leukemia of B-cell type not having achieved remission (principal)
CPT/HCPCS: 71260; 74177; 80053; 85007; 85025; J1642; Q9967

== ENCOUNTER → 2018-05-13 09:22 | Outpatient (CLI) | payer MEDICARE, SELFPAY ==
[2018-05-13] VITALS (10 sets, daily range): BP systolic 116–128; BP diastolic 71–74; PULSE 68–81; RESP 18–20; TEMP 36.9–37.1; O2SAT 95–97
== END ==
PROVIDERS: Visit Provider Internal Medicine Medical Oncology
DX: Z51.11 Encounter for antineoplastic chemotherapy (principal); C91.10 Chronic lymphocytic leukemia of B-cell type not having achieved remission
CPT/HCPCS: 96375; 96413; 96415; J9310

== ENCOUNTER 2018-05-20 09:00 | Outpatient (CLI) | payer MEDICARE, SELFPAY ==
[2018-05-20] VITALS (8 sets, daily range): BP systolic 115–142; BP diastolic 65–80; PULSE 66–72; RESP 20; TEMP 36.7–37.1; O2SAT 95–96; BMI 23.9
[2018-05-20 09:12] LABS: Basophils % 0.2 % (0.1-2.0); Eosinophils # 0.6 K/mm3 (0.0-0.4); Eosinophils % 4.2 % (0.1-12.0); Hematocrit 36.4 % (42.0-52.0); Hemoglobin 11.8 g/dL (14.1-18.0); Lymphocytes # 4.6 K/mm3 (0.7-4.5); Lymphocytes % 35.1 % (10-50); Mean Corpuscular HGB Conc 32.4 g/dL (31.8-35.4); Mean Corpuscular Hemoglobin 27.9 pg (27.0-31.2); Mean Corpuscular Volume 86.2 fl (80-94); Mean Platelet Volume 7.4 fl (7.4-10.4); Monocytes # 0.7 K/mm3 (0.1-1.0); Monocytes % 5.6 % (1.7-9.3); Neutrophils # 7.3 K/mm3 (1.8-7.8); Platelet Count 283 K/mm3 (142-424); Red Blood Count 4.23 M/mm3 (4.60-6.20); Red Cell Distribution Width 14.5 % (11.5-17.5); White Blood Count 13.2 K/mm3 (4.8-10.8)
== END 2018-05-20 14:00 | disposition home or self-care (01) ==
LOC: INF 09:00
PROVIDERS: Visit Provider Internal Medicine Medical Oncology
DX: Z51.11 Encounter for antineoplastic chemotherapy (principal); C91.10 Chronic lymphocytic leukemia of B-cell type not having achieved remission
CPT/HCPCS: 85025; 96413; 96415; J9310

== ENCOUNTER 2018-05-29 09:05 | Outpatient (CLI) | payer MEDICARE, SELFPAY ==
[2018-05-29] VITALS (12 sets, daily range): BP systolic 122–164; BP diastolic 62–96; PULSE 66–72; RESP 16–18; O2SAT 97; BMI 23.9
[2018-05-29 10:02] LABS: Basophils % 0.2 % (0.1-2.0); Eosinophils # 0.6 K/mm3 (0.0-0.4); Eosinophils % 4.8 % (0.1-12.0); Hematocrit 37.1 % (42.0-52.0); Hemoglobin 11.7 g/dL (14.1-18.0); Lymphocytes # 4.3 K/mm3 (0.7-4.5); Lymphocytes % 33.7 % (10-50); Mean Corpuscular HGB Conc 31.4 g/dL (31.8-35.4); Mean Corpuscular Hemoglobin 27.1 pg (27.0-31.2); Mean Corpuscular Volume 86.3 fl (80-94); Mean Platelet Volume 7.4 fl (7.4-10.4); Monocytes # 1.1 K/mm3 (0.1-1.0); Monocytes % 8.4 % (1.7-9.3); Neutrophils # 6.7 K/mm3 (1.8-7.8); Neutrophils % 52.9 % (37.0-80.0); Platelet Count 275 K/mm3 (142-424); Red Cell Distribution Width 14.6 % (11.5-17.5); White Blood Count 12.7 K/mm3 (4.8-10.8)
== END 2018-05-29 15:15 | disposition home or self-care (01) ==
LOC: INF 09:11
PROVIDERS: Visit Provider Internal Medicine Medical Oncology
DX: Z51.11 Encounter for antineoplastic chemotherapy (principal); C91.10 Chronic lymphocytic leukemia of B-cell type not having achieved remission
CPT/HCPCS: 85025; 96413; 96415; J9310

== ENCOUNTER 2018-06-03 08:37 | Outpatient (CLI) | payer MEDICARE, SELFPAY ==
[2018-06-03] VITALS (7 sets, daily range): BP systolic 123–154; BP diastolic 62–90; PULSE 69–78; RESP 18–20; TEMP 36.6; O2SAT 97–98; BMI 23.9
[2018-06-03 09:17] LABS: Basophils % 0.2 % (0.1-2.0); Eosinophils # 0.7 K/mm3 (0.0-0.4); Eosinophils % 5.1 % (0.1-12.0); Hematocrit 35.5 % (42.0-52.0); Hemoglobin 11.4 g/dL (14.1-18.0); Lymphocytes # 4.5 K/mm3 (0.7-4.5); Mean Corpuscular HGB Conc 32.1 g/dL (31.8-35.4); Mean Corpuscular Hemoglobin 27.8 pg (27.0-31.2); Mean Corpuscular Volume 86.5 fl (80-94); Mean Platelet Volume 7.3 fl (7.4-10.4); Monocytes # 0.8 K/mm3 (0.1-1.0); Monocytes % 5.8 % (1.7-9.3); Neutrophils # 7.6 K/mm3 (1.8-7.8); Platelet Count 291 K/mm3 (142-424); Red Blood Count 4.11 M/mm3 (4.60-6.20); Red Cell Distribution Width 14.5 % (11.5-17.5); White Blood Count 13.6 K/mm3 (4.8-10.8)
--- NOTE | 2018-06-03 10:09 | PC.NURSE ---
06/03/18 at 0930-labs noted to be in appropriate range for tx-contacted pharmacy to notify and pt premedicated at this time per order using tylenol, benedryl and solumedrol iv.
--- NOTE | 2018-06-03 10:11 | PC.NURSE ---
06/03/18 at 0945-cath estrella instilled to pt's pac while awaiting medication to be mixed per pharmacy. will reevaluate blood return in 30 min.
== END 2018-06-03 13:35 | disposition home or self-care (01) ==
LOC: INF 08:37
PROVIDERS: Visit Provider Internal Medicine Medical Oncology
DX: Z51.11 Encounter for antineoplastic chemotherapy (principal); C91.10 Chronic lymphocytic leukemia of B-cell type not having achieved remission
CPT/HCPCS: 36415; 85025; 96413; 96415; J9310

== ENCOUNTER 2018-07-08 09:17 | Outpatient (CLI) | payer MEDICARE, SELFPAY ==
[2018-07-08] VITALS (7 sets, daily range): BP systolic 132–152; BP diastolic 58–79; PULSE 69–76; RESP 18–20; TEMP 36.6; O2SAT 97–98; BMI 22.7
[2018-07-08 10:05] LABS: Basophils % 0.1 % (0.1-2.0); Eosinophils # 0.6 K/mm3 (0.0-0.4); Eosinophils % 4.8 % (0.1-12.0); Hemoglobin 11.5 g/dL (14.1-18.0); Lymphocytes # 3.1 K/mm3 (0.7-4.5); Lymphocytes % 26.5 % (10-50); Mean Corpuscular Hemoglobin 27.1 pg (27.0-31.2); Mean Corpuscular Volume 84.7 fl (80-94); Mean Platelet Volume 7.5 fl (7.4-10.4); Monocytes # 0.8 K/mm3 (0.1-1.0); Monocytes % 6.3 % (1.7-9.3); Neutrophils # 7.4 K/mm3 (1.8-7.8); Neutrophils % 62.3 % (37.0-80.0); Platelet Count 277 K/mm3 (142-424); Red Blood Count 4.25 M/mm3 (4.60-6.20); Red Cell Distribution Width 14.1 % (11.5-17.5); White Blood Count 11.8 K/mm3 (4.8-10.8)
== END 2018-07-08 13:35 | disposition home or self-care (01) ==
LOC: INF 09:17
PROVIDERS: Visit Provider Internal Medicine Medical Oncology
DX: Z51.11 Encounter for antineoplastic chemotherapy (principal); C91.10 Chronic lymphocytic leukemia of B-cell type not having achieved remission
CPT/HCPCS: 85025; 96413; 96415; J1642; J9312

== ENCOUNTER 2018-08-05 08:25 | Outpatient (CLI) | payer MEDICARE, SELFPAY ==
[2018-08-05] VITALS (7 sets, daily range): BP systolic 118–159; BP diastolic 64–88; PULSE 70–78; RESP 20; TEMP 36.6; O2SAT 96–98; BMI 24.7
[2018-08-05 09:09] LABS: Basophils % 0.2 % (0.1-2.0); Eosinophils # 0.5 K/mm3 (0.0-0.4); Eosinophils % 5.8 % (0.1-12.0); Hematocrit 35.8 % (42.0-52.0); Hemoglobin 11.2 g/dL (14.1-18.0); Lymphocytes # 2.4 K/mm3 (0.7-4.5); Lymphocytes % 28.3 % (10-50); Mean Corpuscular HGB Conc 31.2 g/dL (31.8-35.4); Mean Corpuscular Hemoglobin 26.4 pg (27.0-31.2); Mean Corpuscular Volume 84.7 fl (80-94); Mean Platelet Volume 7.3 fl (7.4-10.4); Monocytes # 0.5 K/mm3 (0.1-1.0); Neutrophils % 59.6 % (37.0-80.0); Platelet Count 246 K/mm3 (142-424); Red Blood Count 4.22 M/mm3 (4.60-6.20); White Blood Count 8.3 K/mm3 (4.8-10.8)
== END 2018-08-05 13:05 | disposition home or self-care (01) ==
LOC: INF 08:35
PROVIDERS: Visit Provider Internal Medicine Medical Oncology
DX: C91.10 Chronic lymphocytic leukemia of B-cell type not having achieved remission (principal); Z51.11 Encounter for antineoplastic chemotherapy
CPT/HCPCS: 85025; 96413; 96415; J1642; J9312

== ENCOUNTER 2018-09-02 09:29 | Outpatient (CLI) | payer MEDICARE, SELFPAY ==
[2018-09-02] VITALS (7 sets, daily range): BP systolic 130–152; BP diastolic 69–85; PULSE 69–71; RESP 18; TEMP 36.6; O2SAT 97–98; BMI 24.2
[2018-09-02 10:08] LABS: Basophils % 0.3 % (0.1-2.0); Eosinophils # 0.4 K/mm3 (0.0-0.4); Eosinophils % 4.7 % (0.1-12.0); Hematocrit 37.8 % (42.0-52.0); Hemoglobin 11.9 g/dL (14.1-18.0); Lymphocytes # 2.2 K/mm3 (0.7-4.5); Mean Corpuscular HGB Conc 31.4 g/dL (31.8-35.4); Mean Corpuscular Hemoglobin 26.5 pg (27.0-31.2); Mean Corpuscular Volume 84.3 fl (80-94); Mean Platelet Volume 8.1 fl (7.4-10.4); Monocytes # 0.6 K/mm3 (0.1-1.0); Monocytes % 7.2 % (1.7-9.3); Neutrophils # 4.6 K/mm3 (1.8-7.8); Neutrophils % 59.9 % (37.0-80.0); Platelet Count 279 K/mm3 (142-424); Red Blood Count 4.49 M/mm3 (4.60-6.20); Red Cell Distribution Width 13.7 % (11.5-17.5); White Blood Count 7.7 K/mm3 (4.8-10.8)
== END 2018-09-02 13:45 | disposition home or self-care (01) ==
LOC: INF 09:29
PROVIDERS: Visit Provider Internal Medicine Medical Oncology
DX: Z51.11 Encounter for antineoplastic chemotherapy (principal); C91.10 Chronic lymphocytic leukemia of B-cell type not having achieved remission
CPT/HCPCS: 85025; 96413; 96415; J9312

== ENCOUNTER → 2018-09-10 13:10 | Outpatient (CLI) | payer MEDICARE, SELFPAY ==
[2018-09-10 13:35] LABS: Basophils % 0.3 % (0.1-2.0); Eosinophils # 0.3 K/mm3 (0.0-0.4); Eosinophils % 4.6 % (0.1-12.0); Hematocrit 37.9 % (42.0-52.0); Hemoglobin 12.3 g/dL (14.1-18.0); Lymphocytes # 2.1 K/mm3 (0.7-4.5); Lymphocytes % 28.8 % (10-50); Mean Corpuscular HGB Conc 32.5 g/dL (31.8-35.4); Mean Corpuscular Volume 82.9 fl (80-94); Mean Platelet Volume 8.2 fl (7.4-10.4); Monocytes # 0.5 K/mm3 (0.1-1.0); Monocytes % 6.6 % (1.7-9.3); Neutrophils # 4.3 K/mm3 (1.8-7.8); Neutrophils % 59.6 % (37.0-80.0); Platelet Count 283 K/mm3 (142-424); Red Blood Count 4.57 M/mm3 (4.60-6.20); Red Cell Distribution Width 13.6 % (11.5-17.5); White Blood Count 7.2 K/mm3 (4.8-10.8)
[2018-09-10 14:58] LABS: Alanine Aminotransferase 17 U/L (12-78); Albumin Level 3.3 gm/dL (3.4-5.0); Albumin/Globulin Ratio 0.9 (1.1-1.8); Alkaline Phosphatase 83 U/L (46-116); Anion Gap 15.2 mEq/L (5-15); Aspartate Amino Transferase 22 U/L (15-37); Bilirubin,Total 0.2 mg/dL (0.2-1.0); Blood Urea Nitrogen 19 mg/dL (7-18); Calcium 8.9 mg/dL (8.5-10.1); Carbon Dioxide 25 mmol/L (21.0-32.0); Chloride 105 mmol/L (98-107); Creatinine,Serum 1.06 mg/dL (0.70-1.30); Estimated Glomerular Filt Rate 68 ml/min (>60); GFR (African American) 82 ML/MIN (>60); Globulin 3.5 gm/dl (1.3-3.2); Glucose 84 mg/dL (74-106); Potassium 4.2 mmoL/L (3.5-5.1); Sodium 141 mmol/L (136-145); Total Protein,Serum 6.8 gm/dL (6.4-8.2)
== END ==
PROVIDERS: Visit Provider Nurse Practitioner Family
DX: R39.89 Other symptoms and signs involving the genitourinary system (principal); G89.29 Other chronic pain; M54.9 Dorsalgia, unspecified; F43.9 Reaction to severe stress, unspecified
CPT/HCPCS: 80053; 85025; 87086

== ENCOUNTER 2018-10-02 08:25 | Outpatient (CLI) | payer MEDICARE, SELFPAY ==
[2018-10-02] VITALS (8 sets, daily range): BP systolic 133–158; BP diastolic 70–80; PULSE 69–74; RESP 18; TEMP 36.6; O2SAT 97–98; BMI 24.2
[2018-10-02 09:13] LABS: Basophils % 0.2 % (0.1-2.0); Eosinophils # 0.4 K/mm3 (0.0-0.4); Eosinophils % 6.4 % (0.1-12.0); Hematocrit 36.2 % (42.0-52.0); Hemoglobin 11.8 g/dL (14.1-18.0); Lymphocytes # 2.1 K/mm3 (0.7-4.5); Lymphocytes % 31.8 % (10-50); Mean Corpuscular HGB Conc 32.7 g/dL (31.8-35.4); Mean Corpuscular Hemoglobin 27.1 pg (27.0-31.2); Mean Corpuscular Volume 82.9 fl (80-94); Mean Platelet Volume 7.8 fl (7.4-10.4); Monocytes # 0.5 K/mm3 (0.1-1.0); Monocytes % 7.2 % (1.7-9.3); Neutrophils # 3.5 K/mm3 (1.8-7.8); Neutrophils % 54.4 % (37.0-80.0); Platelet Count 210 K/mm3 (142-424); Red Blood Count 4.37 M/mm3 (4.60-6.20); Red Cell Distribution Width 14.1 % (11.5-17.5); White Blood Count 6.5 K/mm3 (4.8-10.8)
== END 2018-10-02 13:15 | disposition home or self-care (01) ==
LOC: INF 08:25
PROVIDERS: Visit Provider Internal Medicine Medical Oncology
DX: Z51.11 Encounter for antineoplastic chemotherapy (principal); C91.10 Chronic lymphocytic leukemia of B-cell type not having achieved remission
CPT/HCPCS: 85025; 96413; 96415; J1642; J9312

== ENCOUNTER 2018-11-05 08:23 | Outpatient (CLI) | payer MEDICARE, SELFPAY ==
[2018-11-05] VITALS (7 sets, daily range): BP systolic 105–155; BP diastolic 53–91; PULSE 69–74; RESP 18–20; TEMP 36.4; O2SAT 97–98; BMI 24.2
[2018-11-05 09:05] LABS: Basophils % 0.2 % (0.1-2.0); Eosinophils # 0.5 K/mm3 (0.0-0.4); Eosinophils % 5.3 % (0.1-12.0); Hematocrit 37.9 % (42.0-52.0); Hemoglobin 12.3 g/dL (14.1-18.0); Lymphocytes # 2.3 K/mm3 (0.7-4.5); Lymphocytes % 24.6 % (10-50); Mean Corpuscular HGB Conc 32.5 g/dL (31.8-35.4); Mean Corpuscular Hemoglobin 26.2 pg (27.0-31.2); Mean Corpuscular Volume 80.7 fl (80-94); Mean Platelet Volume 7.8 fl (7.4-10.4); Monocytes # 0.6 K/mm3 (0.1-1.0); Monocytes % 6.4 % (1.7-9.3); Neutrophils # 5.9 K/mm3 (1.8-7.8); Neutrophils % 63.4 % (37.0-80.0); Platelet Count 289 K/mm3 (142-424); Red Cell Distribution Width 13.9 % (11.5-17.5); White Blood Count 9.2 K/mm3 (4.8-10.8)
== END 2018-11-05 13:30 | disposition home or self-care (01) ==
LOC: INF 08:23
PROVIDERS: Visit Provider Internal Medicine Medical Oncology
DX: Z51.11 Encounter for antineoplastic chemotherapy (principal); C91.10 Chronic lymphocytic leukemia of B-cell type not having achieved remission
CPT/HCPCS: 36415; 85025; 96413; 96415; J9312

== ENCOUNTER → 2018-11-18 13:43 | Outpatient (CLI) | payer MEDICARE, SELFPAY ==
--- NOTE | 2018-11-18 13:50 | XR_ITS ---
XR chest 2V HISTORY: Cough and right-sided chest pain ITS.REASON: cough ORDERING PHYSICIAN: Lorna Sims APRN PATIENT AGE: 78 years COMPARISON: 10/10/2017 FINDINGS: Prior median sternotomy. Bipolar pacemaker present from left subclavian approach. Right subclavian Mediport catheter present with the tip in the region of the SVC. There is calcified granuloma in right upper lobe and one in the left hilum. No lobar consolidation or collapse. No acute bony findings. There is a hiatal hernia noted. IMPRESSION: Chronic changes with hiatal hernia. No change with no acute finding
== END ==
PROVIDERS: PCP Nurse Practitioner Family; Visit Provider Nurse Practitioner Family
DX: R05 Cough (principal); R68.89 Other general symptoms and signs
CPT/HCPCS: 71046; 87086

== ENCOUNTER 2018-11-29 09:02 | Outpatient (CLI) | payer MEDICARE, SELFPAY ==
[2018-11-29 08:25] VITALS: BMI 23.9
[2018-11-29 08:51] LABS: Basophils % 0.2 % (0.1-2.0); Eosinophils # 0.5 K/mm3 (0.0-0.4); Eosinophils % 5.9 % (0.1-12.0); Hemoglobin 10.9 g/dL (14.1-18.0); Lymphocytes # 1.5 K/mm3 (0.7-4.5); Lymphocytes % 19.5 % (10-50); Mean Corpuscular Hemoglobin 26.1 pg (27.0-31.2); Mean Corpuscular Volume 79.1 fl (80-94); Mean Platelet Volume 7.3 fl (7.4-10.4); Monocytes # 0.5 K/mm3 (0.1-1.0); Monocytes % 5.9 % (1.7-9.3); Neutrophils # 5.4 K/mm3 (1.8-7.8); Neutrophils % 68.4 % (37.0-80.0); Platelet Count 306 K/mm3 (142-424); Red Blood Count 4.17 M/mm3 (4.60-6.20); Red Cell Distribution Width 13.7 % (11.5-17.5); White Blood Count 7.8 K/mm3 (4.8-10.8)
[2018-11-29 09:05] LABS: Alanine Aminotransferase 14 U/L (12-78); Albumin Level 2.7 gm/dL (3.4-5.0); Albumin/Globulin Ratio 0.7 (1.1-1.8); Alkaline Phosphatase 86 U/L (46-116); Anion Gap 14.5 mEq/L (5-15); Aspartate Amino Transferase 18 U/L (15-37); Bilirubin,Total 0.4 mg/dL (0.2-1.0); Blood Urea Nitrogen 15 mg/dL (7-18); Calcium 8.1 mg/dL (8.5-10.1); Carbon Dioxide 25 mmol/L (21.0-32.0); Chloride 104 mmol/L (98-107); Creatinine Clearance Estimated 60 mL/min (50-200); Creatinine,Serum 1.05 mg/dL (0.70-1.30); Estimated Glomerular Filt Rate 68 ml/min (>60); GFR (African American) 83 ML/MIN (>60); Globulin 3.8 gm/dl (1.3-3.2); Glucose 80 mg/dL (74-106); Potassium 3.5 mmoL/L (3.5-5.1); Sodium 140 mmol/L (136-145); Total Protein,Serum 6.5 gm/dL (6.4-8.2)
--- NOTE | 2018-11-29 09:10 | CT_ITS ---
CT abdomen pelvis w con CLINICAL INDICATION: Follow-up lymphoma ITS.REASON: LYMPHOMA ORDERING PHYSICIAN: Bharti Pugh MD PATIENT AGE: 78 years COMPARISON: None TECHNIQUE: Axial images obtained with sagittal and coronal reformats. All CT scans at the facility use one or more dose reduction, viz: automated exposure control, ma/kV adjustment per patient size (including targeted exams where dose is matched to indication, i.e. head), or iterative reconstruction technique. PROCEDURE: Oral Contrast: Redicat IV Contrast: 75 mL Optiray 350 performed in conjunction with the chest CT. FINDINGS: There is a large hiatal hernia. There is a central isodensity of the liver unchanged at 7 mm consistent with a cyst. Decreased attenuation is present involving the medial segment of the left hepatic lobe at the area of the falciform ligament probably related to focal fatty infiltration somewhat more prominent from the previous exam. Spleen and pancreas are unremarkable. 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 Kidneys are unremarkable. No evidence of appendicitis, intestinal obstruction, or free air. There is colonic diverticulosis with no evidence of diverticulitis. There is redundancy of the sigmoid colon.. Urinary bladder wall shows thickening. Prostate is slightly enlarged at 5 cm. There are scattered small mesenteric lymph nodes. Prominent lymph nodes are present in the external iliac region bilaterally measuring up to 4 x 2.4 cm and the left external iliac area and 2.6 cm in the right external iliac area. Is or not significantly changed. There are small inguinal lymph nodes as well. There is mild retroperitoneal adenopathy not significantly changed. There is haziness of the mesenteric fat with a small No acute bony anomalies. IMPRESSION: Overall stable CT appearance of the abdomen and pelvis. Retroperitoneal, mesenteric, and pelvic adenopathy is once again noted not significantly changed. Peripheral isodensity of the medial segment of left hepatic lobe slightly more prominent along the falciform ligament region which may be related to focal fatty infiltration
--- NOTE | 2018-11-29 09:10 | CT_ITS ---
CT chest w con HISTORY: Follow-up lymphoma ITS.REASON: LYMPHOMA ORDERING PHYSICIAN: Bharti Pugh MD PATIENT AGE: 78 years COMPARISON: 05/10/2018 TECHNIQUE: Axial images obtained following the administration of 75 mL of Optiray 350 . Sagittal, and coronal reformatted images are also generated and reviewed. All CT scans at the facility use one or more dose reduction, viz: automated exposure control, ma/kV adjustment per patient size (including targeted exams where dose is matched to indication, i.e. head), or iterative reconstruction technique. FINDINGS: There is mild diffuse thickening of the esophagus throughout its length suggesting esophagitis. There is a large hiatal hernia. There is increased soft tissue density at the GE junction possibly due to nondistention. Inflammation or neoplasm is also a consideration. Barium swallow or upper endoscopy suggested for further evaluation. Bilateral axillary adenopathy and subpectoral adenopathy is once again noted. It is somewhat difficult to compare to the previous exam as today's study was performed with the patient's arms above their head the previous study performed with the patient's arm by their side probably overall not significant changed. Small mediastinal and hilar lymph nodes are stable with the largest node in the precarinal region at 2.5 cm similar to the previous exam There are changes of COPD with centrilobular emphysema. There is a stable right apical nodule at 9 mm there is a stable nodule right middle lobe 5 mm. There are multiple small nodular opacities in the right lower lobe posteriorly which have developed in the interval which measure up to 5 mm. There is a 4 mm nodule in the left upper lobe are stable. A subpleural nodule is present in the left upper lobe anteriorly at 8 mm unchanged. No effusions or infiltrates. There are scattered granulomas. Upper abdominal images are unremarkable. There is a sclerotic area involving the right first rib and sternal junction which is unchanged. IMPRESSION: 1. Centrilobular emphysema with COPD with bilateral axillary adenopathy overall not significant change. 2. There are new nodular opacities in the right lung base posteriorly. This could be neoplastic or infectious or inflammatory. Continued follow-up suggested. Other nodular densities are stable. 3. Large hiatal hernia
== END 2018-11-29 09:15 | disposition home or self-care (01) ==
LOC: INF 09:03
PROVIDERS: PCP Emergency Medicine; Visit Provider Internal Medicine Medical Oncology
DX: C91.10 Chronic lymphocytic leukemia of B-cell type not having achieved remission (principal); K44.9 Diaphragmatic hernia without obstruction or gangrene; K76.89 Other specified diseases of liver; J43.2 Centrilobular emphysema
CPT/HCPCS: 71260; 74177; 80053; 85025; Q9967

== ENCOUNTER → 2018-12-02 08:39 | Outpatient (CLI) | payer MEDICARE, SELFPAY ==
--- NOTE | 2018-12-02 09:20 | CA_ITS ---
PROCEDURE: 2-D M-mode and color Doppler study INDICATIONS FOR THE TEST: Chest pain COPD Heart Murmur Tobacco Smoking Palpitations Fatigue+ Syncope+ Edema Hypertension+Diabetes Mellitus Rheumatic Fever SOB+LOPEZ Obesity Hyperlipidemia+ Family History HD Additional History VICKY, PACER, LEUKEMIA, [place] PATIENT INFORMATION HEIGHT: 69 WEIGHT:159 GENDER: Male B/P:97/53 2-D/M-MODE INTERPRETATION: 2-D MEASUREMENTS OBSERVED VALUES IN CMS Right Ventricular Dimension (RVDd) 2.6 Interventricular Septum (Thickness)(IVsd) 1.3 Left Ventricular Internal Dimensions(LVIDd) 5.5 Left Ventricular Posterior Wall (Thickness)(LVPWd) 0.9 Aortic Root 3.2 Aortic Cusp Separation 1.6 Left Atrial Dimensions (LAD) 3.6 2D 1. Technically difficult study because of the patient's factor and poor acoustic windows 2. Left atrium is mildly enlarged, left ventricle is normal size, mild concentric left ventricular hypertrophy, visually estimated ejection fraction 45-50%, there is abnormal septal motion. 3. The right atrium and right ventricle are normal size and contractility, there is a pacemaker lead seen right atrium and right ventricle. 4. The aortic valve is thickened and calcified with mild resection the leaflet mobility. 5. The mitral and tricuspid valve leaflets are minimally thickened. 6. The pulmonic valve is poorly present. 7. No significant pericardial effusion noted. DOPPLER INTERROGATION: 1. The maximum aortic out flow velocity recorded study 2.3 m/s, resulting in a mean gradient across valve of 10 mmHg, this represents mild aortic stenosis, there is moderate aortic insufficiency. 2. The mitral inflow velocity within normal range, there is no mitral stenosis, there is mild mitral regurgitation 3. There is moderate tricuspid regurgitation noted, calculated right ventricular systolic pressure is 35 mmHg. 4. Diastolic parameters are inconclusive. CONCLUSION: 1. Mildly enlarged left atrium, normal left ventricular size, mild concentric left ventricular hypertrophy, visually estimated ejection fraction 45-50%, there is abnormal septal motion. Diastolic parameters are inconclusive. 2. Thickened and calcified aortic valve with mild aortic stenosis, there is moderate aortic insufficiency. 3. Mild mitral and moderate tricuspid regurgitation, calculated right ventricular systolic pressure 35 mmHg. 4. No significant pericardial effusion noted.
--- NOTE | 2018-12-02 09:20 | CI_ITS ---
Cerebrovascular Exam Indications: Follow-up carotid 433.10. IMPRESSIONS 1. The bilateral vertebral arteries are patent with normal antegrade flow. 2. Study suggests 20-49% stenosis involving the right internal carotid artery. 3. Study suggests 50-69% stenosis involving the left internal carotid artery. Carotid duplex study. Complete study and Doppler flow study including spectral analysis, color and islas scale imaging. Height: Height: 175.3cm. Height: 69in. Weight: Weight: 72.6kg. Weight: 159.7lb. Body mass index: BMI: 23.6kg/m^2. Body surface area: BSA: 1.88m^2. Location: Vascular laboratory. Patient status: Outpatient. Tables: Arterial flow: + +--------+--------+ Location V sys V ed + +--------+--------+ Right CCA - proximal 104cm/s 30.6cm/s + +--------+--------+ Right CCA - distal 98.2cm/s 29.9cm/s + +--------+--------+ Right ECA 227cm/s -------- + +--------+--------+ Right ICA - proximal 108cm/s 32.4cm/s + +--------+--------+ Right ICA - mid 111cm/s 31.4cm/s + +--------+--------+ Right ICA - distal 108cm/s 33.4cm/s + +--------+--------+ Right vertebral 49.5cm/s -------- + +--------+--------+ Left CCA - proximal 98.2cm/s 25.5cm/s + +--------+--------+ Left CCA - distal 92.3cm/s 25.5cm/s + +--------+--------+ Left ECA 150cm/s -------- + +--------+--------+ Left ICA - proximal 136cm/s 41.6cm/s + +--------+--------+ Left ICA - mid 145cm/s 57.4cm/s + +--------+--------+ Left ICA - distal 119cm/s 39.3cm/s + +--------+--------+ Left vertebral 34.6cm/s -------- + +--------+--------+ Velocity ratios: + + + + + + Right, V sys Right, V ed Left, V sys Left, V ed + + + + + + Max ICA/dist CCA 1.13 1.12 1.57 2.25 + + + + + + (Report amended ) Electronically signed by: Dima Malik [id number]
--- NOTE | 2018-12-02 12:07 | NM_ITS ---
CARDIOLITE SPECT MYOCARDIAL PERFUSION LEXISCAN, REST AND STRESS: [facility] REVIEW QGS EF AND WALL MOTION EVALUATION: QPS - PERFUSION EVALUATION HISTORY: SYNCOPE, CAD DOSE: 1030 mCi technetium 99m mibi intravenously at rest followed by 30.5 mCi technetium 99m mibi following the intravenous ministration of 0.4 mg of Lexiscan. Resting blood pressure is 170/94. Stress blood pressure 139/69. FINDINGS: Ejection fraction is calculated to be 49%. Stress images reveal decreased activity in the inferior wall septum and apex while rest images reveal mildly improved activity in the above regions. Gated images calculated ejection fraction of 49% with dyskinesis of the apex and mid anterior wall. IMPRESSION: High risk abnormal stress test with inferior wall septal wall and apical wall ischemia accompanied by dyskinesis of the mid anterior apical wall. Reduced ejection fraction
--- NOTE | 2018-12-02 13:23 | HMH.ITSHM ---
Current Home Medications as stated by this patient Joe Davies or pest control service representative. []HYDROCODONE GABAPENTIN CEPHALEXIN BENZONATATE ASA ESCITALOPRAM
== END ==
PROVIDERS: PCP Emergency Medicine; Visit Provider Internal Medicine
DX: C91.90 Lymphoid leukemia, unspecified not having achieved remission (principal); I10 Essential (primary) hypertension; I25.10 Atherosclerotic heart disease of native coronary artery without angina pectoris; I65.23 Occlusion and stenosis of bilateral carotid arteries; R42 Dizziness and giddiness; R53.82 Chronic fatigue, unspecified; R55 Syncope and collapse; Z95.0 Presence of cardiac pacemaker; R09.89 Other specified symptoms and signs involving the circulatory and respiratory systems
CPT/HCPCS: 78452; 93017; 93306; 93880; A9502; J2785

== ENCOUNTER 2018-12-10 08:33 | Outpatient (CLI) | payer MEDICARE, SELFPAY ==
[2018-12-10] VITALS (8 sets, daily range): BP systolic 115–151; BP diastolic 63–74; PULSE 69–71; RESP 18–20; TEMP 36.6; O2SAT 96–97; BMI 24.2
== END 2018-12-10 13:11 | disposition home or self-care (01) ==
LOC: INF 08:33
PROVIDERS: Visit Provider Internal Medicine Medical Oncology
DX: Z51.11 Encounter for antineoplastic chemotherapy (principal); C91.10 Chronic lymphocytic leukemia of B-cell type not having achieved remission
CPT/HCPCS: 96413; 96415; J9312

== ENCOUNTER 2019-01-07 08:36 | Outpatient (CLI) | payer MEDICARE, SELFPAY ==
[2019-01-07 08:40] VITALS: BMI 23.9
[2019-01-07 09:06] LABS: Basophils % 0.3 % (0.1-2.0); Eosinophils # 0.4 K/mm3 (0.0-0.4); Eosinophils % 9.6 % (0.1-12.0); Hematocrit 36.3 % (42.0-52.0); Hemoglobin 11.4 g/dL (14.1-18.0); Lymphocytes # 1.3 K/mm3 (0.7-4.5); Lymphocytes % 28.6 % (10-50); Mean Corpuscular HGB Conc 31.4 g/dL (31.8-35.4); Mean Corpuscular Hemoglobin 26.3 pg (27.0-31.2); Mean Corpuscular Volume 83.8 fl (80-94); Mean Platelet Volume 8.3 fl (7.4-10.4); Monocytes # 0.3 K/mm3 (0.1-1.0); Monocytes % 5.9 % (1.7-9.3); Neutrophils # 2.5 K/mm3 (1.8-7.8); Neutrophils % 55.6 % (37.0-80.0); Platelet Count 236 K/mm3 (142-424); Red Blood Count 4.34 M/mm3 (4.60-6.20); Red Cell Distribution Width 15.2 % (11.5-17.5); White Blood Count 4.5 K/mm3 (4.8-10.8)
[2019-01-07 10:38] VITALS: BP 115/60; PULSE 69; RESP 20; TEMP 36.3; O2SAT 95
[2019-01-07 11:18] VITALS: BP 115/69; PULSE 71; RESP 20; O2SAT 96
[2019-01-07 11:48] VITALS: BP 133/86; PULSE 71; RESP 18; O2SAT 96
[2019-01-07 12:18] VITALS: BP 143/60; PULSE 70; RESP 20; O2SAT 96
[2019-01-07 12:48] VITALS: BP 136/67; PULSE 70; RESP 20; O2SAT 96
[2019-01-07 13:18] VITALS: BP 131/66; PULSE 72; RESP 20; O2SAT 97
== END 2019-01-07 13:20 | disposition home or self-care (01) ==
LOC: INF 08:36
PROVIDERS: Visit Provider Internal Medicine Medical Oncology
DX: C91.10 Chronic lymphocytic leukemia of B-cell type not having achieved remission (principal)
CPT/HCPCS: 85025; 96375; 96413; 96415; J9312

== ENCOUNTER 2019-02-04 08:28 | Outpatient (CLI) | payer MEDICARE, SELFPAY ==
[2019-02-04] VITALS (7 sets, daily range): BP systolic 101–127; BP diastolic 53–67; PULSE 69–78; RESP 18–20; TEMP 36.6; O2SAT 96–97; BMI 23.9
[2019-02-04 09:05] LABS: Basophils % 0.2 % (0.1-2.0); Eosinophils # 0.5 K/mm3 (0.0-0.4); Eosinophils % 5.4 % (0.1-12.0); Hematocrit 34.5 % (42.0-52.0); Hemoglobin 11.1 g/dL (14.1-18.0); Lymphocytes # 1.6 K/mm3 (0.7-4.5); Lymphocytes % 18.6 % (10-50); Mean Corpuscular HGB Conc 32.1 g/dL (31.8-35.4); Mean Corpuscular Volume 81.1 fl (80-94); Mean Platelet Volume 7.4 fl (7.4-10.4); Monocytes # 0.7 K/mm3 (0.1-1.0); Monocytes % 8.6 % (1.7-9.3); Neutrophils # 5.7 K/mm3 (1.8-7.8); Neutrophils % 67.2 % (37.0-80.0); Platelet Count 260 K/mm3 (142-424); Red Blood Count 4.26 M/mm3 (4.60-6.20); Red Cell Distribution Width 15.2 % (11.5-17.5); White Blood Count 8.5 K/mm3 (4.8-10.8)
== END 2019-02-04 13:00 | disposition home or self-care (01) ==
LOC: INF 08:29
PROVIDERS: Visit Provider Internal Medicine Medical Oncology
DX: Z51.11 Encounter for antineoplastic chemotherapy (principal); C91.10 Chronic lymphocytic leukemia of B-cell type not having achieved remission
CPT/HCPCS: 36415; 85025; 96375; 96413; 96415; J9312

== ENCOUNTER → 2019-02-28 13:58 | Outpatient (CLI) | payer MEDICARE, SELFPAY ==
[2019-02-28 15:12] LABS: Amphetamine/Metha Screen,Urine Negative ng/mL (<1000); Barbiturates Screen,Urine Negative ng/mL (<200); Benzodiazepines Screen,Urine Negative ng/mL (<200); Cannabinoid Screen,Urine Negative ng/mL (<50); Cocaine Screen,Urine Negative ng/mL (<300); Methadone Screen,Urine Negative ng/mL (<300); Opiate Screen,Urine Positive ng/mL (<300); Phencyclidine Screen,Urine Negative ng/mL (<25)
== END ==
PROVIDERS: Visit Provider Nurse Practitioner Family
DX: Z79.899 Other long term (current) drug therapy (principal)
CPT/HCPCS: 80305

== ENCOUNTER 2019-03-04 08:32 | Outpatient (CLI) | payer MEDICARE, SELFPAY ==
[2019-03-04] VITALS (7 sets, daily range): BP systolic 94–137; BP diastolic 48–73; PULSE 69–70; RESP 20; TEMP 36.5; O2SAT 96–97; BMI 23.9
[2019-03-04 08:52] LABS: Basophils % 0.3 % (0.1-2.0); Eosinophils # 0.3 K/mm3 (0.0-0.4); Eosinophils % 3.7 % (0.1-12.0); Hematocrit 36.6 % (42.0-52.0); Hemoglobin 11.7 g/dL (14.1-18.0); Lymphocytes # 1.3 K/mm3 (0.7-4.5); Lymphocytes % 19.5 % (10-50); Mean Corpuscular HGB Conc 31.9 g/dL (31.8-35.4); Mean Corpuscular Hemoglobin 26.2 pg (27.0-31.2); Mean Corpuscular Volume 82.2 fl (80-94); Mean Platelet Volume 7.4 fl (7.4-10.4); Monocytes # 0.3 K/mm3 (0.1-1.0); Monocytes % 4.8 % (1.7-9.3); Neutrophils # 4.8 K/mm3 (1.8-7.8); Neutrophils % 71.7 % (37.0-80.0); Platelet Count 250 K/mm3 (142-424); Red Blood Count 4.46 M/mm3 (4.60-6.20); Red Cell Distribution Width 14.9 % (11.5-17.5); White Blood Count 6.7 K/mm3 (4.8-10.8)
== END 2019-03-04 12:45 | disposition home or self-care (01) ==
LOC: INF 08:32
PROVIDERS: Visit Provider Internal Medicine Medical Oncology
DX: Z51.11 Encounter for antineoplastic chemotherapy (principal); C91.10 Chronic lymphocytic leukemia of B-cell type not having achieved remission
CPT/HCPCS: 85025; 96413; 96415; J9312

== ENCOUNTER 2019-04-08 08:08 | Outpatient (CLI) | payer MEDICARE, SELFPAY ==
[2019-04-08] VITALS (11 sets, daily range): BP systolic 131–161; BP diastolic 60–84; PULSE 63–72; RESP 18; TEMP 35.8–36.2; O2SAT 97–98; BMI 24.2
[2019-04-08 08:54] LABS: Basophils % 0.1 % (0.1-2.0); Eosinophils # 0.5 K/mm3 (0.0-0.4); Eosinophils % 6.4 % (0.1-12.0); Hematocrit 40.1 % (42.0-52.0); Lymphocytes # 1.6 K/mm3 (0.7-4.5); Lymphocytes % 20.5 % (10-50); Mean Corpuscular Hemoglobin 25.5 pg (27.0-31.2); Mean Corpuscular Volume 84.8 fl (80-94); Mean Platelet Volume 7.8 fl (7.4-10.4); Monocytes # 0.7 K/mm3 (0.1-1.0); Monocytes % 8.6 % (1.7-9.3); Neutrophils % 64.3 % (37.0-80.0); Platelet Count 251 K/mm3 (142-424); Red Blood Count 4.73 M/mm3 (4.60-6.20); Red Cell Distribution Width 15.7 % (11.5-17.5); White Blood Count 7.8 K/mm3 (4.8-10.8)
== END 2019-04-08 13:30 | disposition home or self-care (01) ==
LOC: INF 08:08
PROVIDERS: Visit Provider Internal Medicine Medical Oncology
DX: Z51.11 Encounter for antineoplastic chemotherapy (principal); C91.10 Chronic lymphocytic leukemia of B-cell type not having achieved remission
CPT/HCPCS: 85025; 96374; 96375; 96413; 96415; J9312

== ENCOUNTER 2019-04-22 18:25 | Inpatient (IN) ==
--- NOTE | 2019-04-22 17:47 | Emergency Department Note ---
ED Disposition Clinical Impression: Fracture of hip, right, closed Disposition: Admitted As Inpatient Condition on Discharge: Serious Referrals: Provider,Referral, [Referring] - Time of Disposition: 19:29 - Critical Care Critical Care Time: No Attestation: On , the high probability of a clinically significant, sudden or life threatening deterioration of the following system(s) required my full and direct attention, intervention and personal management. The time I documented below is in addition to time spent performing reported procedures but includes the following listed in this critical care notation. Medical Decision Making - Medical Records Medical records reviewed: Yes: I reviewed the patient's medical records. - Ryan Inquiry Pt receiving controlled substance: No Vital Signs: 04/22/19 17:43 04/22/19 18:44 04/22/19 19:13 Temperature 98.2 F Temperature Source Oral Pulse Rate [Right Radial] 81 88 88 Respiratory Rate 16 Blood Pressure [Right Arm] 131/77 140/71 134/56 L Blood Pressure Mean [Right Arm] 95 94 82 Blood Pressure Source [Right Arm] Automatic Cuff Blood Pressure Position [Right Arm] Sitting Sitting Sitting 02 Sat by Pulse Oximetry 93 L 94 L 98 Oxygen Delivery Method Room Air Nasal Cannula Nasal Cannula Oxygen Flow Rate (LPM) 4 4 - Lab Data Lab results reviewed: Yes: I reviewed the patient's lab results. Lab Results 04/22/19 18:11: WBC 16.7 H, RBC 4.78, Hgb 12.6 L, Hct 41.2 L, MCV 86.1, MCH 26.3 L, MCHC 30.5 L, RDW 15.1, Plt Count 217, MPV 8.5, Neut % (Auto) 80.7 H, Lymph % (Auto) 13.2, [place] % (Auto) 3.8, Eos % (Auto) 2.2, Baso % (Auto) 0.1, Neut # (Auto) 13.5 H, Lymph # (Auto) 2.2, [place] # (Auto) 0.6, Eos # (Auto) 0.4, Baso # (Auto) 0.0, Total Counted 100, Neutrophils % (Manual) 82 H, Lymphocytes % (Manual) 11, Monocytes % (Manual) 4, Eosinophils % (Manual) 3, Platelet Estimate Normal, Hypochromasia 1+ 04/22/19 18:11: Sodium 142, Potassium 4.0, Chloride 104, Carbon Dioxide 26, Anion Gap 16.0 H, BUN 27 H, Creatinine 1.24, Estimated Creat Clear 60, Estimated GFR 56 L, Est GFR ( Amer) 68, Glucose 109 H, Calcium 9.0, Total Bilirubin 0.4, AST 15, ALT 17, Alkaline Phosphatase 84, Troponin I < 0.02, Total Protein 7.3, Albumin 3.7, Globulin 3.6 H, Albumin/Globulin Ratio 1.0 L 04/22/19 18:11: B-Natriuretic Peptide 59 04/22/19 18:11: PT 9.9, INR 0.95 04/22/19 18:11: APTT 26.8 Result diagrams: 04/22/19 18:11 04/22/19 18:11 Orders (Tests/Meds): ED MEDICATIONS Discontinued Medications Generic Name Dose Route Start Last Admin Trade Name Freq PRN Reason Stop Dose Admin Hydromorphone HCl 1 mg 04/22/19 17:53 04/22/19 17:55 Dilaudid 2mg/Ml Syringe IV 04/22/19 17:54 1 mg ONCE ONE Administration Hydromorphone HCl 1 mg 04/22/19 19:13 04/22/19 19:14 Dilaudid 2mg/Ml Syringe IV 04/22/19 19:14 1 mg ONCE ONE Administration Ondansetron HCl 4 mg 04/22/19 17:56 04/22/19 17:56 Zofran 4mg/2ml Vial IV 04/22/19 17:57 4 mg ONCE ONE Administration ORDERS Category Date Time Status Hip XR right minimum 2 views [XR hip RT 2-3V w/pelvis] Exams 04/22/19 17:50 Taken Stat Fall HPI - General Chief Complaint: Fall Stated Complaint: FALL, RT HIP PAIN Time Seen by Provider: 04/22/19 17:40 Mode of Arrival: EMS Source of Information: Patient - History of Present Illness HPI Narrative: 78-year-old male who fell off his porch at home and landed on his right hip. EMS found pain and swelling in the right hip as well as minor deformity. MD complaint: fall Onset (ago): hour(s) (1) Fall from: standing, from height (distance) (3 ft) Fall witnessed: yes, by bystander Place fall occurred: home Loss of consciousness: none Prolonged down time: no Symptoms prior to fall: none Context: tripped/slipped Location of injury: other (Right hip) - Related Data Home Medications Medication Instructions Recorded Confirmed atorvastatin 40 mg tablet 40 mg PO DAILY 12/25/18 03/27/19 Previous Rx's Medication Instructions Recorded aspirin 81 mg tablet,delayed 81 mg PO DAILY #90 tab 03/15/18 release gabapentin 100 mg capsule 100 mg PO QHS #30 cap 03/27/19 hydrocodone 7.5 mg-acetaminophen 1 tab PO TID PRN #90 tab 03/27/19 325 mg tablet Allergies Allergy/AdvReac Type Severity Reaction Status Date / Time No Known Allergies Allergy Verified 03/27/19 08:45 [facility] History - Hepatitis A Screen Drug use history?: No Attestation statement:: This patient has been screened for Hepatitis A risk factors. I have reviewed the patient's past medical history: Yes Medical History: Reports:: Arrhythmia, Cancer, Carotid Stenosis, Coronary Artery Disease, Hyperlipidemia, Hypertension, Internal Pacemaker, Myocardial Infarction Denies:: Diabetes Mellitus Type 1, Diabetes Mellitus Type 2, MRSA Other Medical History: Reports: Arthritis, Chemotherapy, Other Comment: CHRONIC KNEE PAIN, LEUKEMIA Laterality Cases: Left: Arthroscopy Knee, Other, Bilateral: Tonsillectomy Other Surgeries: Yes: Angioplasty (1999), CABG (1999), Cardiac Catheterization, Cardiac Surgery, Open Heart Surgery, Pacemaker, Other Amputation: No Fractures: Yes Comment: OPEN HEART SURGERY, LEFT LEG SURGERY - Social History Smoking Status: Former smoker Tobacco Type: cigarettes # Packs/Day (cigarettes): 1 #Yrs smoked (if former smoker): 30 Alcohol Intake: never Alcohol Intake Frequency:: holidays/special occasions only Substance Use Type: denies use Occupational Status: retired Housing: house Household Members: spouse, family Family Hx:: Hypertension, Hyperlipidemia, Heart Attack ROS Obtained: Yes Systems reviewed as appropriate & no additional complaints - Constitutional Constitutional: Reports system reviewed and no additional complaints, except as docu - Eyes Eyes: Reports system reviewed and no additional complaints, except as docu - ENT Ears, Nose, Mouth, and Throat: Reports system reviewed and no additional complaints, except as docu - Cardiovascular Cardiovascular: Reports system reviewed and no additional complaints, except as docu - Respiratory Respiratory: Yes system reviewed and no additional complaints, except as docu - Gastrointestinal Gastrointestingal: Reports: system reviewed and no additional complaints, except as docu - Genitourinary Male Genitourinary: Reports system reviewed and no additional complaints, except as docu - Musculoskeletal Musculoskeletal: Reports joint pain, Reports joint swelling - Integumentary/Breasts Skin/Breast: Reports system reviewed and no additional complaints, except as docu - Neurologic Neurologic: Reports system reviewed and no additional complaints, except as docu - Endocrine Endocrine: Reports system reviewed and no additional complaints, except as docu - Hematologic/Lymphatic Henatologic/Lymphatic: Reports system reviewed and no additional complaints, except as docu - Allergic/Immunologic Allergic/Immunologic: Reports system reviewed and no additional complaints, except as docu Physical Exam - General General appearance: alert, in no apparent distress - Head Head exam: atraumatic, normocephalic, normal inspection - Eye Eye exam: Present: normal appearance, PERRL, EOMI - ENT ENT exam: Present: normal exam, normal oropharynx, mucous membranes moist - Neck Neck exam: Present: normal inspection, full ROM, trachea midline. Absent: meningismus, lymphadenopathy - Chest Chest inspection: Present: normal inspection, symmetric chest wall rise. Absent: tenderness - Respiratory Respiratory exam: Present: normal lung sounds bilaterally. Absent: respiratory distress - Cardiovascular Cardiovascular exam: Present: regular rate, normal rhythm. Absent: JVD - Abdominal Exam Abdominal exam: Present: soft, normal bowel sounds. Absent: distention, tenderness, guarding - Extremities Exam Extremities exam: Present: tenderness, normal capillary refill, other (Pain swelling and loss of movement in right hip.). Absent: calf tenderness - Back Exam Back exam: Present: normal inspection. Absent: tenderness - Neurological Exam Neurological exam: Present: alert, oriented X3, CN II-XII intact. Absent: motor sensory deficit - Psychiatric Psychiatric exam: Present: normal affect, normal mood - Skin Skin exam: Present: warm, dry, intact, normal color - Lymphatic Lymphatic Findings: no adenopathy
[2019-04-22 18:20] LABS: Basophils % 0.1 % (0.1-2.0); Eosinophils # 0.4 K/mm3 (0.0-0.4); Eosinophils % 2.2 % (0.1-12.0); Hematocrit 41.2 % (42.0-52.0); Hemoglobin 12.6 g/dL (14.1-18.0); Lymphocytes # 2.2 K/mm3 (0.7-4.5); Lymphocytes % 13.2 % (10-50); Mean Corpuscular HGB Conc 30.5 g/dL (31.8-35.4); Mean Corpuscular Volume 86.1 fl (80-94); Mean Platelet Volume 8.5 fl (7.4-10.4); Monocytes # 0.6 K/mm3 (0.1-1.0); Monocytes % 3.8 % (1.7-9.3); Neutrophils # 13.5 K/mm3 (1.8-7.8); Neutrophils % 80.7 % (37.0-80.0); Platelet Count 217 K/mm3 (142-424); Red Blood Count 4.78 M/mm3 (4.60-6.20); Red Cell Distribution Width 15.1 % (11.5-17.5); White Blood Count 16.7 K/mm3 (4.8-10.8)
[2019-04-22 18:26] LABS: INR 0.95 (0.9-1.1); Prothrombin Time 9.9 seconds (9.4-11.8)
[2019-04-22 18:34] LABS: Alanine Aminotransferase 17 U/L (12-78); Albumin Level 3.7 gm/dL (3.4-5.0); Alkaline Phosphatase 84 U/L (46-116); Aspartate Amino Transferase 15 U/L (15-37); Bilirubin,Total 0.4 mg/dL (0.2-1.0); Blood Urea Nitrogen 27 mg/dL (7-18); Carbon Dioxide 26 mmol/L (21.0-32.0); Chloride 104 mmol/L (98-107); Globulin 3.6 gm/dl (1.3-3.2); Glucose 109 mg/dL (74-106); Sodium 142 mmol/L (136-145); Total Protein,Serum 7.3 gm/dL (6.4-8.2)
[2019-04-22 18:38] LABS: Eosinophils % 3 % (0-3); Lymphocytes % 11 % (10-50); Monocytes % 4 % (2-9); Neutrophils % 82 % (42-76); Total Cells Counted 100
[2019-04-22 18:39] LABS: Hypochromasia 1+
--- NOTE | 2019-04-22 20:41 | History & Physical Report ---
*Admission Date: 04/22/19 *Chief complaint: Fall at home with right hip fracture *History of present illness: 78-year-old white male with history of chronic lymphocytic leukemia, pacemaker implantation and coronary disease-status post CABG 10 years ago-who presented to the hospital after going down his back steps at his home to feed his dogs and missing a step and landing in the yard. He was unable to walk because of right hip pain. Brought to the emergency department where fracture of the trochanter on the right side was noted. Admitted to hospital for pain control and orthopedic consultation for fixation. [facility] History I have reviewed the patient's past medical history: Yes Medical History: Reports:: Arrhythmia, Cancer (Chronic lymphocytic leukemia, currently in watchful waiting phase), Carotid Stenosis, Coronary Artery Disease (CABG 10 years ago, currently asymptomatic), Hyperlipidemia, Hypertension, Internal Pacemaker, Myocardial Infarction Denies:: Diabetes Mellitus Type 1, Diabetes Mellitus Type 2, MRSA *Have you ever received a pneumonia vaccine?: No *Have you received a flu vaccine this season?: No Other Medical History: Reports: Arthritis, Chemotherapy, Other Laterality Cases: Left: Arthroscopy Knee, Other, Bilateral: Tonsillectomy Other Surgeries: Yes: Angioplasty (1999), CABG (1999), Cardiac Catheterization, Cardiac Surgery, Open Heart Surgery, Pacemaker, Other Amputation: No Fractures: Yes - *Social History Educational Level: Completed High School Smoking Status: Never smoker Tobacco Type: cigarettes # Packs/Day (cigarettes): 1 #Yrs smoked (if former smoker): 30 Alcohol Intake: never Alcohol Intake Frequency:: holidays/special occasions only Substance Use Type: denies use *Occupational Status:: retired Housing: house Household Members: spouse, family *Travel in the last 8 weeks: None Family Hx:: Hypertension, Hyperlipidemia, Heart Attack Review of Systems - Review of Systems Review of systems:: pertinent systems reviewed and negative unless documented below Patient denies any kind of chest pain, reports that he might get short of breath if he walks far enough but his daughter notes that he is able to walk three fourths of a mile without shortness of air and keep up with his grandson who is on a bicycle. Does all of his activities of daily living without shortness of air or chest pain. Denies ankle swelling, denies palpitations. Takes care of his disabled at home with the assistance of his son. Only positive review of systems is joint arthritis and swelling, has seen orthopedics in the past for steroid injections. Meds Home Medications Medication Instructions Recorded Confirmed Type aspirin 81 mg tablet,delayed 81 mg PO DAILY #90 tab 03/15/18 04/22/19 Rx release atorvastatin 40 mg tablet 40 mg PO DAILY 12/25/18 04/22/19 History hydrocodone 7.5 mg-acetaminophen 1 tab PO TID PRN #90 tab 03/27/19 04/22/19 Rx 325 mg tablet Allergies Allergy/AdvReac Type Severity Reaction Status Date / Time No Known Allergies Allergy Verified 03/27/19 08:45 Exam Vital signs and Labs for Last 24 Hours: Temp Pulse Resp BP Pulse Ox 98.5 F 94 H 15 146/95 H 97 04/22/19 19:58 04/22/19 19:58 04/22/19 19:58 04/22/19 19:58 04/22/19 19:39 Laboratory Results - last 24 hr 04/22/19 18:11: WBC 16.7 H, RBC 4.78, Hgb 12.6 L, Hct 41.2 L, MCV 86.1, MCH 26.3 L, MCHC 30.5 L, RDW 15.1, Plt Count 217, MPV 8.5, Neut % (Auto) 80.7 H, Lymph % (Auto) 13.2, [place] % (Auto) 3.8, Eos % (Auto) 2.2, Baso % (Auto) 0.1, Neut # (Auto) 13.5 H, Lymph # (Auto) 2.2, [place] # (Auto) 0.6, Eos # (Auto) 0.4, Baso # (Auto) 0.0, Total Counted 100, Neutrophils % (Manual) 82 H, Lymphocytes % (Manual) 11, Monocytes % (Manual) 4, Eosinophils % (Manual) 3, Platelet Estimate Normal, Hypochromasia 1+ 04/22/19 18:11: Sodium 142, Potassium 4.0, Chloride 104, Carbon Dioxide 26, Anion Gap 16.0 H, BUN 27 H, Creatinine 1.24, Estimated Creat Clear 60, Estimated GFR 56 L, Est GFR ( Amer) 68, Glucose 109 H, Calcium 9.0, Total Bilirubin 0.4, AST 15, ALT 17, Alkaline Phosphatase 84, Troponin I < 0.02, Total Protein 7.3, Albumin 3.7, Globulin 3.6 H, Albumin/Globulin Ratio 1.0 L 04/22/19 18:11: B-Natriuretic Peptide 59 04/22/19 18:11: PT 9.9, INR 0.95 04/22/19 18:11: APTT 26.8 I & O for Last 24 hours: Intake & Output 04/20/19 04/21/19 04/22/19 04/23/19 11:59 11:59 11:59 11:59 Weight 190 lb Narrative: Patient is pleasant. Oriented x3. Slightly hard of hearing but otherwise seems to be a vigorous person in control of his faculties. Oropharynx dry but clear. No JVD. Heart rate regular with systolic ejection murmur without carotid radiation. Lungs are clear with excellent air movement bilaterally. Abdomen soft and nontender. Right hip is flexed, tender with movement. Distal extremities are warm and well-perfused. No cranial nerve deficits. Able to move all extremities well except he is limited in the right lower extremity by his hip pain. Assessment and Plan (1) Personal history of coronary atherosclerosis Current visit: Yes Status: Acute Category: Medical Code(s): Z86.79 - Personal history of other diseases of the circulatory system Patient is seen cardiology here, underwent diagnostic left heart cath in November 2018 with the following results: ANGIOGRAPHIC RESULTS: 1. The left main artery has a distal tendon 20% stenosis 2. The left anterior descending artery has an ostial 50-60% followed by a 70% stenosis which extends proximally through the mid segment. Competitive flow is identified distally from the LAD 3. The circumflex artery gives rise to a large bifurcating ramus intermedius H has 30% stenoses in the superior branch of the ramus and a proximal 40% stenosis and a large bifurcating inferior branch of the ramus. The true circumflex artery has a proximal 40% stenosis and gives rise to a small to medium solitary obtuse marginal artery 4. The right coronary artery is a dominant vessel and has proximal 20% stenosis mid vessel 30-40% stenoses 5. The HOOD ventriculogram reveals reduced ejection fraction of 45-50% 6. The left ventricular end-diastolic pressure 10 mmHg 7. The left internal mammary artery is widely patent to the mid LAD IMPRESSION: 1. Coronary artery disease as described above with adequate surgical revascularization with patent GU to the LAD 2. Mildly reduced ejection fraction 3. Normal left ventricular end-diastolic pressure Given his vigorous activity levels, excellent bypass graft results that continue as recently as November 2018 I believe patient is an excellent candidate for surgery with minimal risk. I will redo echocardiogram to make sure valvular issues are unchanged and no ejection fraction worsening has occurred. Start low-dose beta-serena at metoprolol 25 mg twice daily given his slightly elevated blood pressure and heart rate in the perioperative period. (2) Fracture of hip, right, closed Current visit: Yes Status: Acute Category: Medical Code(s): S72.001A - Fracture of unspecified part of neck of right femur, initial encounter for closed fracture Orthopedic consultation. Traction and pain control have been initiated. (3) Aortic insufficiency Current visit: No Status: Chronic Qualifiers: Cardiac valve disease etiology: etiology unspecified Qualified Code(s): I35.1 - Nonrheumatic aortic (valve) insufficiency Category: Medical Code(s): I35.1 - Nonrheumatic aortic (valve) insufficiency Check echocardiogram. Does not clinically appear hemodynamically significant.
--- NOTE | 2019-04-23 07:12 | Pharmacy Consult Notes ---
[facility] Pharmacy VTE Monitoring - Patient Demographics Admission date: 04/22/19 Report Date: 04/23/19 Time: 07:12 Allergies/Adverse Reactions: Patient Allergies No Known Allergies Allergy (Verified 03/27/19 08:45) Height: 1.83 m Weight: 72.121 kg Patient Problems: Current Active Problems Fracture of hip, right, closed (Acute) Personal history of coronary atherosclerosis (Acute) - VTE Risk Labs: VTE Related Lab Results Hgb 12.6 g/dL (14.1-18.0) L 04/22/19 18:11 Hct 41.2 % (42.0-52.0) L 04/22/19 18:11 Plt Count 217 K/mm3 (142-424) 04/22/19 18:11 PT 9.9 seconds (9.4-11.8) 04/22/19 18:11 INR 0.95 (0.9-1.1) 04/22/19 18:11 APTT 26.8 seconds (23.6-34.0) 04/22/19 18:11 BUN 27 mg/dL (7-18) H 04/22/19 18:11 Creatinine 1.24 mg/dL (0.70-1.30) 04/22/19 18:11 Estimated Creat Clear 60 mL/min (50-200) 04/22/19 18:11 Was VTE Risk Assessment Performed: Yes VTE Score: 4 VTE Risk Level: Low Risk Clinical Trial Participant: No - Prophylaxis VTE Prophylaxis Ordered?: Yes Types of VTE Prophylaxis: TEDS Knee High
--- NOTE | 2019-04-23 07:41 | Progress Note ---
Internal Medicine - PN: Subj *Date: 04/23/19 *Time: 07:41 Interval history: Patient did well overnight. Did require some oxygen. Continues to be in some pain. Alert and oriented this morning. Exam Vital signs and Labs for Last 24 Hours: Temp Pulse Resp BP Pulse Ox 99.2 F 90 14 103/65 L 91 L 04/23/19 04:00 04/23/19 04:00 04/23/19 04:00 04/23/19 04:00 04/23/19 04:00 Laboratory Results - last 24 hr 04/22/19 18:11: WBC 16.7 H, RBC 4.78, Hgb 12.6 L, Hct 41.2 L, MCV 86.1, MCH 26.3 L, MCHC 30.5 L, RDW 15.1, Plt Count 217, MPV 8.5, Neut % (Auto) 80.7 H, Lymph % (Auto) 13.2, [place] % (Auto) 3.8, Eos % (Auto) 2.2, Baso % (Auto) 0.1, Neut # (Auto) 13.5 H, Lymph # (Auto) 2.2, [place] # (Auto) 0.6, Eos # (Auto) 0.4, Baso # (Auto) 0.0, Total Counted 100, Neutrophils % (Manual) 82 H, Lymphocytes % (Manual) 11, Monocytes % (Manual) 4, Eosinophils % (Manual) 3, Platelet Estimate Normal, Hypochromasia 1+ 04/22/19 18:11: Sodium 142, Potassium 4.0, Chloride 104, Carbon Dioxide 26, Anion Gap 16.0 H, BUN 27 H, Creatinine 1.24, Estimated Creat Clear 60, Estimated GFR 56 L, Est GFR ( Amer) 68, Glucose 109 H, Calcium 9.0, Total Bilirubin 0.4, AST 15, ALT 17, Alkaline Phosphatase 84, Troponin I < 0.02, Total Protein 7.3, Albumin 3.7, Globulin 3.6 H, Albumin/Globulin Ratio 1.0 L 04/22/19 18:11: B-Natriuretic Peptide 59 04/22/19 18:11: PT 9.9, INR 0.95 04/22/19 18:11: APTT 26.8 I & O for Last 24 hours: Intake & Output 1004/21/19 04/22/19 04/23/19 11:59 11:59 11:59 11:59 Intake Total 1033 / 1033 Output Total 250 / 250 Balance 783 / 783 Weight 159 lb Narrative: Alert. Oriented x3. Lungs have good air movement. Heart rate regular. Abdomen soft and nontender. Right leg flexed and foreshortened. Significant pain with movement of the hip. Left side clear. Good distal perfusion in both feet. Assessment and Plan (1) Personal history of coronary atherosclerosis Current visit: Yes Status: Acute Category: Medical Code(s): Z86.79 - Personal history of other diseases of the circulatory system (2) Fracture of hip, right, closed Current visit: Yes Status: Acute Category: Medical Code(s): S72.001A - Fracture of unspecified part of neck of right femur, initial encounter for closed fracture (3) Aortic insufficiency Current visit: No Status: Chronic Qualifiers: Cardiac valve disease etiology: etiology unspecified Qualified Code(s): I35.1 - Nonrheumatic aortic (valve) insufficiency Category: Medical Code(s): I35.1 - Nonrheumatic aortic (valve) insufficiency - Assessment and plan all Dx Assessment and Plan for all problems:: See notes from yesterday. Agree with plan for surgery this afternoon.
[2019-04-23 08:15] LABS: Basophils % 0.1 % (0.1-2.0); Eosinophils # 0.3 K/mm3 (0.0-0.4); Eosinophils % 1.8 % (0.1-12.0); Hematocrit 41.8 % (42.0-52.0); Hemoglobin 13.2 g/dL (14.1-18.0); Lymphocytes # 2.4 K/mm3 (0.7-4.5); Lymphocytes % 14.9 % (10-50); Mean Corpuscular HGB Conc 31.6 g/dL (31.8-35.4); Mean Corpuscular Volume 84.6 fl (80-94); Mean Platelet Volume 8.6 fl (7.4-10.4); Monocytes # 0.7 K/mm3 (0.1-1.0); Monocytes % 4.3 % (1.7-9.3); Neutrophils # 12.7 K/mm3 (1.8-7.8); Platelet Count 203 K/mm3 (142-424); Red Blood Count 4.94 M/mm3 (4.60-6.20); Red Cell Distribution Width 14.9 % (11.5-17.5)
[2019-04-23 08:19] LABS: Anion Gap 13.5 mEq/L (5-15); Calcium 8.7 mg/dL (8.5-10.1)
--- NOTE | 2019-04-23 08:30 | Consult Report ---
*Admission Date: 04/22/19 *Reason for consult:: Fracture neck of femur, right hip *History of present illness: Patient is a 78-year-old white male with history of chronic lymphocytic leukemia, pacemaker implantation and coronary disease-status post CABG 10 years ago, admitted to hospital yesterday evening with right hip fracture. He presented to the hospital after going down his back steps at his home to feed his dogs and missing a step and landing in the yard. He was unable to get up and walk because of right hip pain. Brought to the emergency department where x-rays revealed a subcapital femoral neck fracture on the right side. Admitted to hospital for pain control and orthopedic management of the fracture. This morning he is complaining of some right hip pain worse with attempted movements. He denies any other injuries including head injury, neck injury, back injury, chest or abdominal injury or upper extremity injury. No numbness or tingling. No history of any dizziness, headache or neck pain. Patient denies loss of consciousness, chest pain and shortness of breath. Patient lives with his family and is fairly independent. Prior to the fall he used to walk without support and was fairly mobile and independent. He has history of degenerative arthritis and history of left tibial plateau fracture many years ago. He subsequently developed infection and the hardware was removed. He has severe degenerative arthritis in the left knee secondary to this. I have previously seen him in my office and performed steroid injections to various joints. Review of Systems - Review of Systems Review of systems:: pertinent systems reviewed and negative unless documented below - Constitutional Denies anorexia, Denies fever(s) - Eyes Denies change in vision - *Cardiovascular Denies chest pain, Denies shortness of breath - *Respiratory Denies cough, Denies shortness of breath - *Gastrointestinal Denies abdominal pain, Denies change in bowel habits - *Musculoskeletal Reports abnormal walking, Reports joint pain, Reports limited joint movement - *Neurologic Denies seizure-like activity, Denies lack of coordination [facility] History I have reviewed the patient's past medical history: Yes Medical History: Reports:: Arrhythmia, Cancer (Chronic lymphocytic leukemia, currently in watchful waiting phase), Carotid Stenosis, Coronary Artery Disease (CABG 10 years ago, currently asymptomatic), Hyperlipidemia, Hypertension, Internal Pacemaker, Myocardial Infarction Denies:: Diabetes Mellitus Type 1, Diabetes Mellitus Type 2, MRSA *Have you ever received a pneumonia vaccine?: Yes *Have you received a flu vaccine this season?: No Other Medical History: Reports: Arthritis, Chemotherapy, Other Laterality Cases: Left: Arthroscopy Knee, Other, Bilateral: Tonsillectomy Other Surgeries: Yes: Angioplasty (1999), CABG (1999), Cardiac Catheterization, Cardiac Surgery, Open Heart Surgery, Pacemaker, Other Amputation: No Fractures: Yes - *Social History Educational Level: Completed High School Smoking Status: Never smoker Tobacco Type: cigarettes # Packs/Day (cigarettes): 1 #Yrs smoked (if former smoker): 30 Alcohol Intake: never Alcohol Intake Frequency:: holidays/special occasions only Substance Use Type: denies use *Occupational Status:: retired Housing: house Household Members: spouse, family *Travel in the last 8 weeks: None Family Hx:: Hypertension, Hyperlipidemia, Heart Attack Meds Home Medications Medication Instructions Recorded Confirmed Type aspirin 81 mg tablet,delayed 81 mg PO DAILY #90 tab 03/15/18 04/22/19 Rx release atorvastatin 40 mg tablet 40 mg PO DAILY 12/25/18 04/22/19 History hydrocodone 7.5 mg-acetaminophen 1 tab PO TID PRN #90 tab 03/27/19 04/22/19 Rx 325 mg tablet Allergies Allergy/AdvReac Type Severity Reaction Status Date / Time No Known Allergies Allergy Verified 03/27/19 08:45 Exam Vital signs and Labs for Last 24 Hours: Temp Pulse Resp BP Pulse Ox 98.0 F 80 17 138/73 90 L 04/23/19 07:48 04/23/19 07:48 04/23/19 07:48 04/23/19 07:48 04/23/19 07:48 Laboratory Results - last 24 hr 04/22/19 18:11: WBC 16.7 H, RBC 4.78, Hgb 12.6 L, Hct 41.2 L, MCV 86.1, MCH 26.3 L, MCHC 30.5 L, RDW 15.1, Plt Count 217, MPV 8.5, Neut % (Auto) 80.7 H, Lymph % (Auto) 13.2, [place] % (Auto) 3.8, Eos % (Auto) 2.2, Baso % (Auto) 0.1, Neut # (Auto) 13.5 H, Lymph # (Auto) 2.2, [place] # (Auto) 0.6, Eos # (Auto) 0.4, Baso # (Auto) 0.0, Total Counted 100, Neutrophils % (Manual) 82 H, Lymphocytes % (Manual) 11, Monocytes % (Manual) 4, Eosinophils % (Manual) 3, Platelet Estimate Normal, Hypochromasia 1+ 04/22/19 18:11: Sodium 142, Potassium 4.0, Chloride 104, Carbon Dioxide 26, Anion Gap 16.0 H, BUN 27 H, Creatinine 1.24, Estimated Creat Clear 60, Estimated GFR 56 L, Est GFR ( Amer) 68, Glucose 109 H, Calcium 9.0, Total Bilirubin 0.4, AST 15, ALT 17, Alkaline Phosphatase 84, Troponin I < 0.02, Total Protein 7.3, Albumin 3.7, Globulin 3.6 H, Albumin/Globulin Ratio 1.0 L 04/22/19 18:11: B-Natriuretic Peptide 59 04/22/19 18:11: PT 9.9, INR 0.95 04/22/19 18:11: APTT 26.8 I & O for Last 24 hours: Intake & Output 04/20/19 04/21/19 04/22/19 04/23/19 11:59 11:59 11:59 11:59 Intake Total 1033 / 1033 Output Total 250 / 250 Balance 783 / 783 Weight 159 lb - Constitutional no acute distress, average body habitus, cooperative - *Routine HEENT Exam Head: Present: normocephalic, atraumatic Eye: Present: EOMI ENT: Present: mucous membranes moist - *Routine Neck Exam Present: supple, full ROM, trachea midline. Absent: lymphadenopathy - *Routine Respiratory Exam Present: CTA bilaterally. Absent: respiratory distress - *Routine Cardiovascular Exam Present: RRR, Normal S1, Normal S2 - *Routine Abdominal Exam Present: soft, normoactive bowel sounds. Absent: organomegaly - *Routine Extremities Exam Comments: On examination of his lower extremities, there is shortening of the right leg and the foot is externally rotated. On examination of the right hip the skin is normal and intact. No lacerations or abrasions noted. He has tenderness over the right hip. Any attempted movements of the right hip are painful. Thigh and calf are soft and nontender. Dorsalis pedis and posterior tibial pulses are palpable 1+ bilaterally. Sensation is grossly intact. He has good range of active foot, ankle and toe movements. Diagnostic imaging imaging: X-rays of his pelvis/right hip reviewed along with the radiologist's report. The x-rays show a displaced intracapsular fracture neck of the right femur. No other acute changes noted. A degree of osteopenia noted. - Routine Back/Spine/Pelvis Exam Back/Spine: Absent: CVA tenderness, paraspinal tenderness, vertebral tenderness - *Routine Skin Exam Present: intact, warm, normal turgor - *Routine Neurological Exam Present: alert, oriented X3, CN II-XII intact - Routine Psychiatric Exam Present: normal affect, cooperative Results - Labs Result Diagrams: 04/22/19 18:11 04/22/19 18:11 Labs: Abnormal lab results 04/22/19 04/22/19 Range/Units 18:11 18:11 WBC 16.7 H (4.8-10.8) K/mm3 Hgb 12.6 L (14.1-18.0) g/dL Hct 41.2 L (42.0-52.0) % MCH 26.3 L (27.0-31.2) pg MCHC 30.5 L (31.8-35.4) g/dL Neut % (Auto) 80.7 H (37.0-80.0) % Neut # (Auto) 13.5 H (1.8-7.8) K/mm3 Neutrophils % (Manual) 82 H (42-76) % Anion Gap 16.0 H (5-15) mEq/L BUN 27 H (7-18) mg/dL Estimated GFR 56 L (>60) ml/min Glucose 109 H (74-106) mg/dL Globulin 3.6 H (1.3-3.2) gm/dl Albumin/Globulin Ratio 1.0 L (1.1-1.8) H & H 04/22/19 Range/Units 18:11 Hgb 12.6 L (14.1-18.0) g/dL Hct 41.2 L (42.0-52.0) % Coagulation 04/22/19 Range/Units 18:11 INR 0.95 (0.9-1.1) All other labs normal. Assessment and Plan (1) Personal history of coronary atherosclerosis Current visit: Yes Status: Acute Category: Medical Code(s): Z86.79 - Personal history of other diseases of the circulatory system (2) Fracture of hip, right, closed Current visit: Yes Status: Acute Category: Medical Code(s): S72.001A - Fracture of unspecified part of neck of right femur, initial encounter for closed fracture (3) Aortic insufficiency Current visit: No Status: Chronic Qualifiers: Cardiac valve disease etiology: etiology unspecified Qualified Code(s): I35.1 - Nonrheumatic aortic (valve) insufficiency Category: Medical Code(s): I35.1 - Nonrheumatic aortic (valve) insufficiency - Assessment and plan all Dx Assessment and Plan for all problems:: I have reviewed the clinical and x-ray findings with the patient and his family including his daughter who were with her in the room. I have discussed the diagnosis, natural history and management options in detail including both nonsurgical and surgical. I have recommended surgical remediation in the form of a hemiarthroplasty RIGHT hip. I explained the procedure, risks and benefits, alternatives and the expected postoperative course. I have shown them copies of the x-rays and explained to the patient and his family with drawings of the fracture and the proposed surgical procedure. The complications discussed include but are not limited to infection, injury to nerves and blood vessels, DVT and PE, femur fracture, limb length inequality, dislocation, implant failure, loosening, acetabular wear, osteolysis, periprosthetic femur fracture, heterotopic ossification, abductor weakness and limp, incomplete relief of pain, incomplete return of function or motion, likely need for further surgery in future including revision, anesthetic/medical complications including heart attack, stroke, transfusion reactions and even . We discussed how any of these events can be devastating. We have discussed nonsurgical alternatives as well. I've explained that the patient is at a significant surgical risk due to his age, medical comorbidities, and fragility of the bone. Family and patient seemed to understand and accept these risks. We have discussed nonsurgical alternatives as well. The nonoperative management would essentially consist of prolonged bed rest and traction (skeletal/skin) in bed and pain medication and has exceptionally poor outcome. This could result in nonunion and malunion of the fracture and almost certainly, the patient has a very high risk of decubitus ulcers, UTI, respiratory tract infections, DVT/PE and other complications from being bedridden. I have explained to them that the standard of care for this sort of injuries is surgical throughout the country unless the patient is very ill for surgical management. We also discussed the postoperative course including the rehab and physical therapy required. Patient lives with family but may need to go to a short-term rehab place after surgery. All their questions were answered and they verbalized a good understanding. Patient has been cleared for surgery by Dr. Flynn. I have personally discussed his management with Dr. Flynn. We would also obtain a preoperative anesthetic evaluation. I have recommended- Type and screen Continue nothing by mouth after midnight Continue IV fluids DVT prophylaxis as per protocol Analgesia as needed Consent patient for a hemiarthroplasty RIGHT hip. Order 2 g of IV Ancef and IV vancomycin (pharmacy to dose ) for preoperative prophylaxis to start half an hour before surgery. I am planning to take the patient for surgery at the earliest opportunity today. Thank you for the opportunity to take part in the care of this very pleasant patient.
[2019-04-23 10:34] LABS: Lymphocytes % 20 % (10-50); Monocytes % 2 % (2-9); Neutrophils % 77 % (42-76); Total Cells Counted 100
[2019-04-23 10:35] LABS: Hypochromasia 1+
[2019-04-23 12:57] LABS: Microscopic, Urine URINE MICROSCOPIC (MICROSCOPIC)
[2019-04-23 13:06] LABS: Appearance,Urine CLEAR (Clear); Bilirubin,Urine Negative (Negative); Blood, Urine 1+ (Negative); Color,Urine YELLOW (Yellow); Glucose,Urine (UA) Negative (Negative); Ketones,Urine Negative (Negative); Leukocyte Esterase,Urine Negative (Negative); PH,Urine 5.5 (5.0-8.5); Protein,Urine Negative (Negative); Specific Gravity, Urine 1.025 (1.005-1.030); Urobilinogen,Urine 0.2 EU/dl (0.2)
[2019-04-23 13:19] LABS: Bacteria,Urine 1+ /lpf; Hyaline Casts,Urine Occasional #/lpf (0)
--- NOTE | 2019-04-23 13:41 | Progress Note ---
[facility] Anesthesia Checklist - Patient Identification Patient Identification: Arm Band, Verbal (Name & ) - Structural Data Admitted From: Inpatient Planned Operative Procedure/s: Right hip bipolar Consent for Planned Operative Procedure(s) Verified: Yes Verified Documents: Surgical Consent, History and Physical - NPO Status Verified Time NPO: 00:00 - Chart Verification Results Verified: CBC, BMP, PT, PTT, INR - Additional verifications Anesthesia Reactions: No - Airway Assessment C-Spine Mobility Assessed: Yes TMJ Mobility Assessed: Yes Dentition: Poor Dentition - Neurological Assessment Level of Consciousness: Awake, Alert, Appropriate, Follows Commands Hx Seizures: No Numbness or tingling in extremities: No - Anesthesia Plan Anesthesia Risk discussed: Yes Anesthesia Plan: Verified ASA Class: II Anesthesia Type: Spinal [facility] History I have reviewed the patient's past medical history: Yes Medical History: Reports:: Arrhythmia, Cancer (Chronic lymphocytic leukemia, currently in watchful waiting phase), Carotid Stenosis, Coronary Artery Disease (CABG 10 years ago, currently asymptomatic), Hyperlipidemia, Hypertension, In ternal Pacemaker, Myocardial Infarction Denies:: Diabetes Mellitus Type 1, Diabetes Mellitus Type 2, MRSA *Have you ever received a pneumonia vaccine?: Yes *Have you received a flu vaccine this season?: No Other Medical History: Reports: Arthritis, Chemotherapy, Other Anesthesia experience/problems:: no complications Laterality Cases: Left: Arthroscopy Knee, Other, Bilateral: Tonsillectomy Other Surgeries: Yes: Angioplasty (1999), CABG (1999), Cardiac Catheterization, Cardiac Surgery, Open Heart Surgery, Pacemaker, Other Amputation: No Fractures: Yes - *Social History Educational Level: Completed High School Smoking Status: Never smoker Tobacco Type: cigarettes # Packs/Day (cigarettes): 1 #Yrs smoked (if former smoker): 30 Alcohol Intake: never Alcohol Intake Frequency:: holidays/special occasions only Substance Use Type: denies use *Occupational Status:: retired Housing: house Household Members: spouse, family *Travel in the last 8 weeks: None Family Hx:: Hypertension, Hyperlipidemia, Heart Attack
--- NOTE | 2019-04-23 16:40 | Progress Note ---
[facility] Anesthesia Record Part I Intake, IV Amount: 3,000 Estimated blood loss (mL): 200 Urine output (mL): 100 Blood Pressure: 105/51 SaO2: 95 Pulse Rate: 72 Respiratory Rate: 14 Temperature: 98.2 F Patient is:: Awake Stable to PACU at:: 16:35
--- NOTE | 2019-04-23 16:40 | Progress Note ---
[facility] Anesthesia Record Part II Discharge Time: 17:05 Destination: floor PACU nurse assessment reviewed?: Yes Patient Condition:: Good Anesthesia Complications:: None Swallowing reflex intact?: Yes Cyanosis?: No
--- NOTE | 2019-04-23 20:23 | Operative Note ---
Date of procedure: 04/23/19 Pre-op Diagnosis:: Closed, displaced fracture neck of femur, right Post-op Diagnosis:: Same Procedure performed:: Uncemented bipolar hemiarthroplasty, right hip Surgeon:: Bill Joshua MD Resort Housekeeper(s):: Aracelis [place] SALESPERSON FLOOR COVERINGS:: Stephen Rivera Anesthesia: spinal Estimated blood loss (mL): 200 Clinical Note:: Patient is a 78-year-old male who sustained a displaced intracapsular fracture neck of right femur following a mechanical fall. A hemiarthroplasty is indicated to relieve pain and restore function. The operation is clinically indicated and is the standard of care for this type of fracture. Please refer to my consult note for full details. Operative findings:: Displaced sub capital femoral neck fracture of the right hip as noted on the preoperative hip x-rays. The articular cartilage of the acetabulum is well maintained without evidence of any significant arthritis. The proximal femur bone quality is good. Operative note:: On the day of the procedure the patient and family were met on the floor, and a physical examination was performed. The operating side and site were marked and initialed by me. I reviewed the diagnosis, natural history and management options in detail including both the nonsurgical and surgical. Given the nature of the fracture, I have recommended surgery in the form of a hemiarthroplasty of the right hip. I have discussed the procedure, risks and benefits, alternatives and expected outcomes with the patient and family. The complications discussed include but are not limited to infection, injury to nerves and blood vessels, DVT and PE, femur fracture, limb length inequality, dislocation, implant sabrina lure, loosening, acetabular wear, osteolysis, periprosthetic femur fracture, heterotopic ossification, abductor weakness and a limp, incomplete relief of pain, incomplete return of function or motion, likely need for further surgery in future including revision, anesthetic/medical complications including heart attack, stroke, transfusion reactions and even . We discussed how any of these events can be devastating. We have discussed nonsurgical alternatives as well. We also discussed the postoperative course including the rehab and physical therapy required. Patient understood the risks, agreed to proceed with surgery, signed the consent form and no guarantees or assurances were given or implied. The patient was brought to the operating room and a spinal anesthesia was administered by the hook puller. The patient was then transferred onto the operating table and positioned in the left lateral decubitus position with the right hip facing upwards. All the bony prominences were well-padded. The right lower extremity was then prepped and draped in the usual sterile fashion. The entire operative team used isolation suits and room traffic was controlled. The surgical landmarks and incision was marked over the skin with a marking pen. Ioban sterile drape was used to cover the operative site and isolate the perineum completely from the operative field. Administration of prophylactic antibiotics IV Ancef and vancomycin was confirmed with the anesthetic team. A preprocedure timeout was performed as per hospital protocol. A posterior approach was used to the hip joint. An electrocautery was used for hemostasis. The skin incision was made centering over the posterior border of the greater trochanter extending posteriorly in a curvilinear fashion across the buttock. The dissection was carried through subcutaneous tissue down to the fascia maria elena. The fascia maria elena and gluteus fascia were split and a Charnley retractor was placed. The trochanteric bursa was then removed with blunt dissection. The sciatic nerve was identified and kept out of the harm's way throughout the rest of the procedure. The hip was then internally rotated and the fat over the external rotators was cleared with a sponge. The short external rotator muscles were identified, a tag stitch was placed near their insertion, and they were divided close to the greater trochanter with electrocautery. This exposed the joint capsule which was opened with a T shaped incision and tag stitches were applied to both the leaves of the capsule. Upon entering the joint capsule, a fracture hematoma was noted as well as the displaced sub-capital femoral neck fracture. A corkscrew was then used to remove the femoral head from the acetabulum and passed to the groundwater monitoring technician to be sized on the back table. It measured 50 mm. All bone fragments were then removed from the acetabulum and surrounding soft tissue. The acetabulum was then inspected and found to be clear. The articular cartilage was noted to be well maintained without any significant arthritic changes. Our attention was then turned to the preparation of proximal femur where a cutting guide was used to danielle the neck for the femoral neck cut. An oscillating saw was then used to finish the femoral cut. A box osteotome was then used to remove the bone from the proximal femur. A canal entry reamer was then used to open the femoral canal paying close attention to keep the reamer in a lateral position. Next we performed femoral broaching starting with a small broach, making efforts to lateralize the broach. The broaching was continued sequentially up to size 5 broach. We found this to be a very good fit without any rocking. We then used the calcar reamer to finish the femoral preparation. We then performed a trial reduction using the size 5 broach, -4 mm neck and 50 mm bipolar head. The hip was taken through range of motion and tested in adduction, internal and external rotation as well as with a shuck and posteriorly directed force on a flexed hip. It was noted that the hip was very stable with these trial components throughout the range of motion. We also noted that the limb lengths were equal with these components. Next, the trial components were removed and the femur and acetabulum were irrigated with pulse lavage and suctioned out. The size 5 Marni accolade 132 degree femoral stem was introduced and seated to the appropriate level. This gave us a very good fit without any play whatsoever. We then irrigated and dried the [place] taper and then placed the definitive 50 mm bipolar femoral head assembly on the stem and tapped into place. The hip was then reduced and again taken through range of motion and noted to be stable. The limb length was also well corrected. The hip joint was then soaked with dilute Betadine solution for 3 minutes, then suctioned out and irrigated with normal saline pulse lavage. We confirmed good hemostasis and then proceeded to close the wound. The capsule was closed with interrupted #1 Vicryl sutures followed by reattachment of the external rotators to the greater trochanter with #1 Vicryl sutures. Next the fascia maria elena and the gluteus fascia were closed with #1 Vicryl sutures. The wound was then again irrigated copiously with pulse lavage and suctioned dry. Next the subcutaneous tissues were closed with 2-0 Vicryl sutures. The skin was closed with 4-0 Monocryl subcuticular sutures, Dermabond and Steri-Strips. Sterile dressings were applied consisting of Xeroform, 4 x 4 and ABDs as well as adhesive tape. No drains were placed. The patient was then transferred from the operating table onto the bed. The leg lengths were again checked in supine position and noted to be equal. An abduction pillow was placed between the legs. The patient was then transported to the postoperative recovery area in a stable condition. Patient tolerated the procedure well and there were no immediate complications. Swab, needle and instrument counts were correct according to the scrub team at the end of the procedure. Portable X-rays of the right hip AP and lateral views were obtained in the recovery area and noted to be satisfactory. Postoperatively, continue standard precautions for a posterior hip approach. To mobilize weightbearing as tolerated with the help of a walker by physical therapist and to commence standard physical therapy and precautions for a posterior hip approach. Implant: [place] Accolade II 132 degree neck angle V 40, hip stem- size 5 Marni UHR universal head bipolar component-50 mm outer diameter/28 mm inner diameter Marni LFIT V40 femoral head, 28 mm outer diameter, -4 mm offset (Industry insurance account representative: Srinivasan Merida from [facility]) Condition: stable Disposition: PACU Specimens:: None Complications:: None
[2019-04-24 07:21] LABS: Albumin Level 2.8 gm/dL (3.4-5.0); Albumin/Globulin Ratio 0.9 (1.1-1.8); Calcium 8.3 mg/dL (8.5-10.1); Total Protein,Serum 5.8 gm/dL (6.4-8.2)
[2019-04-24 07:31] LABS: Basophils % 0.1 % (0.1-2.0); Eosinophils # 0.1 K/mm3 (0.0-0.4); Eosinophils % 0.8 % (0.1-12.0); Hematocrit 33.1 % (42.0-52.0); Lymphocytes # 1.9 K/mm3 (0.7-4.5); Lymphocytes % 11.1 % (10-50); Mean Corpuscular HGB Conc 31.8 g/dL (31.8-35.4); Mean Corpuscular Volume 83.4 fl (80-94); Mean Platelet Volume 9.4 fl (7.4-10.4); Monocytes % 5.9 % (1.7-9.3); Neutrophils # 14.1 K/mm3 (1.8-7.8); Neutrophils % 82.1 % (37.0-80.0); Platelet Count 171 K/mm3 (142-424); Red Blood Count 3.97 M/mm3 (4.60-6.20); Red Cell Distribution Width 14.9 % (11.5-17.5); White Blood Count 17.2 K/mm3 (4.8-10.8)
[2019-04-24 07:48] LABS: Hemoglobin 10.6 g/dL (14.1-18.0)
--- NOTE | 2019-04-24 08:42 | Progress Note ---
<Gen Arriola - Last Filed: 04/24/19 08:55> Internal Medicine - PN: Subj *Date: 04/24/19 *Time: 08:55 Interval history: 78-year-old male patient laying in bed resting quietly, daughter at bedside. He underwent Uncemented bipolar hemiarthroplasty, right hip 04/23/[address] Joshua. He reports that his pain is under control, dressing applied to right hip clean dry and intact. He was encouraged to use his incentive spirometer hourly, he verbalizes understanding. We discussed further plans for him regarding discharging to home with physical therapy or [facility]. He is receptive to [facility] and daughter is in agreement, will discuss with case workers on placement. Exam Vital signs and Labs for Last 24 Hours: Temp Pulse Resp BP Pulse Ox 99.3 F 94 H 18 121/64 95 04/24/19 07:53 04/24/19 07:53 04/24/19 07:53 04/24/19 07:53 04/24/19 07:53 Laboratory Results - last 24 hr 04/23/19 08:05: Total Counted 100, Neutrophils % (Manual) 77 H, Band Neutrophils % 1.0, Lymphocytes % (Manual) 20, Monocytes % (Manual) 2, Platelet Estimate Normal, Hypochromasia 1+ 04/23/19 08:05: Blood Type O Positive, Antibody Screen Negative 04/23/19 12:30: Urine Color Yellow, Urine Appearance Clear, Urine pH 5.5, Ur Specific [place] 1.025, Urine Protein Negative, Urine Glucose (UA) Negative, Urine Ketones Negative, Urine Blood 1+, Urine Nitrate Negative, Urine Bilirubin Negative, Urine Urobilinogen 0.2, Ur Leukocyte Esterase Negative, Urine RBC 10- 20, Urine WBC 10-20, Ur Squamous Epith Cells 10-20, Urine Bacteria 1+, Hyaline Casts Occasional 04/24/19 05:27: POC Glucose 101 04/24/19 07:02: WBC 17.2 H, RBC 3.97 L, Hgb 10.6 L D, Hct 33.1 L, MCV 83.4, MCH 26.5 L, MCHC 31.8, RDW 14.9, Plt Count 171, MPV 9.4, Neut % (Auto) 82.1 H, Lymph % (Auto) 11.1, [place] % (Auto) 5.9, Eos % (Auto) 0.8, Baso % (Auto) 0.1, Neut # (Auto) 14.1 H, Lymph # (Auto) 1.9, [place] # (Auto) 1.0, Eos # (Auto) 0.1, Baso # (Auto) 0.0 04/24/19 07:02: Sodium 134 L, Potassium 4.0, Chloride 102, Carbon Dioxide 22, Anion Gap 14.0, BUN 13 D, Creatinine 1.03, Estimated Creat Clear 63, Estimated GFR 70, Est GFR ( Amer) 85, Glucose 116 H D, Calcium 8.3 L, Total Bilirubin 1.0, AST 32 D, ALT 17, Alkaline Phosphatase 72, Total Protein 5.8 L, Albumin 2.8 L, Globulin 3.0, Albumin/Globulin Ratio 0.9 L I & O for Last 24 hours: Intake & Output 04/21/19 04/22/19 04/23/19 04/24/19 23:59 23:59 23:59 23:59 Intake Total 4796 / 4796 847 / 847 Output Total 350 / 350 550 / 550 Balance 4446 / 4446 297 / 297 Weight 159 lb 1 oz 159 lb 165 lb - Constitutional no acute distress - *Routine HEENT Exam Head: Present: normocephalic, atraumatic Eye: Present: EOMI, PERRL, normal accommodation ENT: Present: mucous membranes dry - *Routine Neck Exam Present: full ROM, trachea midline. Absent: JVD, tracheal deviation - *Routine Respiratory Exam Present: CTA bilaterally. Absent: accessory muscle use, rales - *Routine Cardiovascular Exam Present: RRR, murmur - *Routine Abdominal Exam Present: soft, normoactive bowel sounds. Absent: tenderness, firm - *Routine Extremities Exam Present: pulses intact, normal capillary refill. Absent: calf tenderness - Routine Back/Spine/Pelvis Exam Back/Spine: Absent: CVA tenderness, muscle spasm - *Routine Skin Exam Present: wounds. Absent: cyanosis Comments: Elastoplast dressing to right hip clean dry and intact - *Routine Neurological Exam Present: alert, oriented X3, CN II-XII intact - Routine Psychiatric Exam Present: normal affect, normal thought process. Absent: anxious, agitated Assessment and Plan (1) Personal history of coronary atherosclerosis Current visit: Yes Status: Acute Category: Medical Code(s): Z86.79 - Personal history of other diseases of the circulatory system (2) Fracture of hip, right, closed Current visit: Yes Status: Acute Category: Medical Code(s): S72.001A - Fracture of unspecified part of neck of right femur, initial encounter for closed fracture (3) Aortic insufficiency Current visit: No Status: Chronic Qualifiers: Cardiac valve disease etiology: etiology unspecified Qualified Code(s): I35.1 - Nonrheumatic aortic (valve) insufficiency Category: Medical Code(s): I35.1 - Nonrheumatic aortic (valve) insufficiency (4) History of hemiarthroplasty of right hip Current visit: Yes Status: Acute Category: Surgical Code(s): Z96.641 - Presence of right artificial hip joint - Assessment and plan all Dx Assessment and Plan for all problems:: Rounded with Dr. Sanabria all orders per Dr. Sanabria 1. YENIFER Anderson 2. Plan for discharge to [facility] 3. We will review Ortho notes <Ankit Sanabria - Last Filed: 04/24/19 13:41> Internal Medicine - PN: Subj *Date: 04/24/19 *Time: 13:41 Interval history: Rounded with nurse practitioner. Agree with exam findings and care plan as documented. Exam Vital signs and Labs for Last 24 Hours: Temp Pulse Resp BP Pulse Ox 98.3 F 86 17 126/61 91 L 04/24/19 11:36 04/24/19 11:36 04/24/19 11:36 04/24/19 11:36 04/24/19 11:36 Laboratory Results - last 24 hr 04/24/19 05:27: POC Glucose 101 04/24/19 07:02: WBC 17.2 H, RBC 3.97 L, Hgb 10.6 L D, Hct 33.1 L, MCV 83.4, MCH 26.5 L, MCHC 31.8, RDW 14.9, Plt Count 171, MPV 9.4, Neut % (Auto) 82.1 H, Lymph % (Auto) 11.1, [place] % (Auto) 5.9, Eos % (Auto) 0.8, Baso % (Auto) 0.1, Neut # (Auto) 14.1 H, Lymph # (Auto) 1.9, [place] # (Auto) 1.0, Eos # (Auto) 0.1, Baso # (Auto) 0.0, Total Counted 100, Neutrophils % (Manual) 85 H, Lymphocytes % ( Manual) 9 L, Monocytes % (Manual) 5, Metamyelocytes % 1.0, Platelet Estimate Normal, RBC Morphology Normal 04/24/19 07:02: Sodium 134 L, Potassium 4.0, Chloride 102, Carbon Dioxide 22, Anion Gap 14.0, BUN 13 D, Creatinine 1.03, Estimated Creat Clear 63, Estimated GFR 70, Est GFR ( Amer) 85, Glucose 116 H D, Calcium 8.3 L, Total Bilirubin 1.0, AST 32 D, ALT 17, Alkaline Phosphatase 72, Total Protein 5.8 L, Albumin 2.8 L, Globulin 3.0, Albumin/Globulin Ratio 0.9 L I & O for Last 24 hours: Intake & Output 04/21/19 04/22/19 04/23/19 04/24/19 23:59 23:59 23:59 23:59 Intake Total 4796 / 4796 847 / 847 Output Total 350 / 350 925 / 925 Balance 4446 / 4446 -78 / -78 Weight 72.15 kg 72.121 kg 74.843 kg Microbiology Reports for the Last 24 Hours: Microbiology 04/23/19 12:30 Urine,Catheterized Urine Culture - Preliminary NO GROWTH AFTER 24 HOURS Assessment and Plan (1) Personal history of coronary atherosclerosis Current visit: Yes Status: Acute Category: Medical Code(s): Z86.79 - Personal history of other diseases of the circulatory system (2) Fracture of hip, right, closed Current visit: Yes Status: Acute Category: Medical Code(s): S72.001A - Fracture of unspecified part of neck of right femur, initial encounter for closed fracture (3) Aortic insufficiency Current visit: No Status: Chronic Qualifiers: Cardiac valve disease etiology: etiology unspecified Qualified Code(s): I35.1 - Nonrheumatic aortic (valve) insufficiency Category: Medical Code(s): I35.1 - Nonrheumatic aortic (valve) insufficiency (4) History of hemiarthroplasty of right hip Current visit: Yes Status: Acute Category: Surgical Code(s): Z96.641 - Presence of right artificial hip joint
[2019-04-24 08:45] LABS: Lymphocytes % 9 % (10-50); Monocytes % 5 % (2-9); Neutrophils % 85 % (42-76); Total Cells Counted 100
[2019-04-24 08:46] LABS: RBC Morphology Normal
--- NOTE | 2019-04-24 14:49 | Progress Note ---
Subjective Date: 04/24/19 Time: 14:00 Principal diagnosis: Status post hemiarthroplasty right hip Interval history: Patient is status post right hip bipolar hemiarthroplasty post op day #1. Patient is sitting out in the chair. His daughter is in the room with the patient. Patient says he is doing well and reports no problems. Patient has minimal pain and says it's well-controlled with medication. No history of any nausea or vomiting. No history of any cough, chest pain, shortness of breath or palpitations. No history of any distal tingling or numbness. His daughter says he is eating drinking well. PN: Obj Ex Vital signs: Temp Pulse Resp BP Pulse Ox 98.3 F 86 17 126/61 91 L 04/24/19 11:36 04/24/19 11:36 04/24/19 11:36 04/24/19 11:36 04/24/19 11:36 Narrative: Laboratory Results - last 24 hr 04/24/19 05:27: POC Glucose 101 04/24/19 07:02: WBC 17.2 H, RBC 3.97 L, Hgb 10.6 L D, Hct 33.1 L, MCV 83.4, MCH 26.5 L, MCHC 31.8, RDW 14.9, Plt Count 171, MPV 9.4, Neut % (Auto) 82.1 H, Lymph % (Auto) 11.1, [place] % (Auto) 5.9, Eos % (Auto) 0.8, Baso % (Auto) 0.1, Neut # (Auto) 14.1 H, Lymph # (Auto) 1.9, [place] # (Auto) 1.0, Eos # (Auto) 0.1, Baso # (Auto) 0.0, Total Counted 100, Neutrophils % (Manual) 85 H, Lymphocytes % (Manual) 9 L, Monocytes % (Manual) 5, Metamyelocytes % 1.0, Platelet Estimate Normal, RBC Morphology Normal 04/24/19 07:02: Sodium 134 L, Potassium 4.0, Chloride 102, Carbon Dioxide 22, Anion Gap 14.0, BUN 13 D, Creatinine 1.03, Estimated Creat Clear 63, Estimated GFR 70, Est GFR ( Amer) 85, Glucose 116 H D, Calcium 8.3 L, Total Bilirubin 1.0, AST 32 D, ALT 17, Alkaline Phosphatase 72, Total Protein 5.8 L, Albumin 2.8 L, Globulin 3.0, Albumin/Globulin Ratio 0.9 L Intake & Output 04/22/19 04/23/19 04/24/19 04/25/19 11:59 11:59 11:59 11:59 Intake Total 1033 / 1033 4610 / 4610 Output Total 250 / 250 1025 / 1025 Balance 783 / 783 3585 / 3585 Weight 159 lb 165 lb Exam General appearance: alert, active, awake, no acute distress Cardiovascular: regular rate & rhythm, normal peripheral pulses Respiratory: Speaks in full sentences; no respiratory distress noted ABD: soft and non tender On examination of the lower extremities the limb lengths are equal. Thigh and calf are soft and nontender. On examination of the right hip the dressings are clean, dry and intact. No evidence of any bleeding or other complications noted. Distal pulses are 1+. Distal sensation is intact to light touch throughout. No motor deficits noted distally. Postoperative check x-ray is satisfactory. A paper copy of the x-ray given to the family. - Urinary Catheter Management Anderson Cath placed during this visit: yes Urethral indwelling: Yes Reason for continuing: Surgical procedure Insertion date: 04/23/19 Insertion time: 12:00 Progress Note: A&P (1) Personal history of coronary atherosclerosis Status: Acute Current Visit: Yes (2) Fracture of hip, right, closed Status: Acute Current Visit: Yes (3) Aortic insufficiency Status: Chronic Current Visit: No (4) History of hemiarthroplasty of right hip Status: Acute Current Visit: Yes Assessment and Plan for All Diagnoses:: I have reviewed the findings and progress with the patient and his daughter. Overall he is doing well and reports no problems. He started mobilization with physical therapy this morning and I have advised him to continue. Use abduction pillow when in bed and continue using this for 6 weeks postop. Continue standard precautions for posterior approach to the hip joint. Continue DVT prophylaxis, as needed pain medication and mobilization as comfortable. Continue PT/OT. Discontinue IV fluids as he is eating and drinking well. Care management consult regarding discharge planning. Continue medical management as per Dr. Sanabria.
--- NOTE | 2019-04-24 21:42 | Discharge Summary ---
General - General Admission date:: 04/22/19 <Randy Flores - 04/25/19 08:59> 04/22/19 <Ankit Sanabria - 04/24/19 21:42> Discharge date: 04/25/19 <Ankit Sanabria - 04/24/19 21:42> HPI HPI: 78-year-old white male with history of chronic lymphocytic leukemia, pacemaker implantation and coronary disease-status post CABG 10 years ago-who presented to the hospital after going down his back steps at his home to feed his dogs and missing a step and landing in the yard. He was unable to walk because of right hip pain. Brought to the emergency department where fracture of the trochanter on the right side was noted. Admitted to hospital for pain control and orthopedic consultation for fixation. <Ankit Sanabria - 04/24/19 21:42> Hospital Course Hospital Course: Right hip fracture-s/p right hip bipolar hemiarthroplasty see orthopedic note Patient walking with assist x1 to the restroom and doing well with physical therapy. Patient has been using his incentive spirometer frequently. Patient states pain is well controlled. Patient will be discharged to [facility] for rehab. He will be discharged on aspirin 325 mg p.o. daily for 38 more days for DVT prophylactics. Patient's goal is to be discharged from rehab to home with family and outpatient PT & OT. Patient is well motivated to regain mobility. Does have chronic knee pain but states pain is well controlled with current regimen. <Randy Flores - 04/25/19 08:59> Objective Vital signs: Temp Pulse Resp BP Pulse Ox 99.7 F H 68 17 112/54 L 93 L 04/25/19 08:00 04/25/19 08:00 04/25/19 08:00 04/25/19 08:00 04/25/19 08:00 <Randy Flores - 04/25/19 08:59> Temp Pulse Resp BP Pulse Ox 98.4 F 84 17 129/68 91 L 04/24/19 19:34 04/24/19 19:34 04/24/19 19:34 04/24/19 19:34 04/24/19 19:34 <Ankit Sanabria - 04/24/19 21:42> Results Labs on day of discharge: Labs from last 24 hours 04/25/19 04/25/19 06:55 06:55 WBC 13.3 H RBC 3.98 L Hgb 10.1 L Hct 33.4 L MCV 83.9 MCH 25.4 L MCHC 30.3 L RDW 15.4 Plt Count 152 MPV 8.7 Neut % (Auto) 77.8 Lymph % (Auto) 13.6 [place] % (Auto) 6.9 Eos % (Auto) 1.6 Baso % (Auto) 0.1 Neut # (Auto) 10.3 H Lymph # (Auto) 1.8 [place] # (Auto) 0.9 Eos # (Auto) 0.2 Baso # (Auto) 0.0 Sodium 136 Potassium 3.6 Chloride 103 Carbon Dioxide 26 Anion Gap 10.6 BUN 20 H D Creatinine 1.16 Estimated Creat Clear 56 Estimated GFR 61 Est GFR ( Amer) 74 Glucose 94 Calcium 8.1 L Preliminary micro results at discharge 04/23/19 12:30 Urine Culture - Preliminary Urine,Catheterized NO GROWTH AFTER 24 HOURS <Randy Flores - 04/25/19 08:59> Labs from last 24 hours 04/24/19 04/24/19 04/24/19 07:02 07:02 05:27 WBC 17.2 H RBC 3.97 L Hgb 10.6 L D Hct 33.1 L MCV 83.4 MCH 26.5 L MCHC 31.8 RDW 14.9 Plt Count 171 MPV 9.4 Neut % (Auto) 82.1 H Lymph % (Auto) 11.1 [place] % (Auto) 5.9 Eos % (Auto) 0.8 Baso % (Auto) 0.1 Neut # (Auto) 14.1 H Lymph # (Auto) 1.9 [place] # (Auto) 1.0 Eos # (Auto) 0.1 Baso # (Auto) 0.0 Total Counted 100 Neutrophils % (Manual) 85 H Lymphocytes % (Manual) 9 L Monocytes % (Manual) 5 Metamyelocytes % 1.0 Platelet Estimate Normal RBC Morphology Normal Sodium 134 L Potassium 4.0 Chloride 102 Carbon Dioxide 22 Anion Gap 14.0 BUN 13 D Creatinine 1.03 Estimated Creat Clear 63 Estimated GFR 70 Est GFR ( Amer) 85 Glucose 116 H D POC Glucose 101 Calcium 8.3 L Total Bilirubin 1.0 AST 32 D ALT 17 Alkaline Phosphatase 72 Total Protein 5.8 L Albumin 2.8 L Globulin 3.0 Albumin/Globulin Ratio 0.9 L Preliminary micro results at discharge 04/23/19 12:30 Urine Culture - Preliminary Urine,Catheterized NO GROWTH AFTER 24 HOURS <Ankit Sanabria - 04/24/19 21:42> - Additional Comments Rounded with Dr. Sanabria all orders per Dr. Sanabria Discharged to [facility] for rehab <Randy Flores - 04/25/19 08:59> DS: Diagnosis - Discharge Diagnosis (1) Personal history of coronary atherosclerosis Status: Acute (2) Fracture of hip, right, closed Status: Acute (3) Aortic insufficiency Status: Chronic (4) History of hemiarthroplasty of right hip Status: Acute <Randy Flores - 04/25/19 08:59> (1) Personal history of coronary atherosclerosis Status: Acute (2) Fracture of hip, right, closed Status: Acute (3) Aortic insufficiency Status: Chronic (4) History of hemiarthroplasty of right hip Status: Acute <Ankit Sanabria - 04/24/19 21:39> Discharge Plan - Patient Discharge Instructions ACTIVITY: Continue current activity, Up with assistance <Randy Flores - 04/25/19 08:59> Up with assistance <Ankit Sanabria - 04/24/19 21:42> DIET: continue same diet <Randy Flores - 04/25/19 08:59> continue same diet <Ankit Sanabria - 04/24/19 21:42> Patient Instructions: Hip Fracture, Hip Replacement, DI for Hip Replacement, DI for Surgical Site Infection <Randy Flores - 04/25/19 08:59> Forms: <Randy Flores - 04/25/19 08:59> - Follow up Plan Follow up with: James Garcia MD [Primary Care Provider] - Bill Joshua MD [Staff Physician] - <Randy Flores - 04/25/19 08:59> Disposition: [facility] <Randy Flores - 04/25/19 08:59> Home Medications: Home Medications Medication Instructions Recorded Confirmed Type aspirin 81 mg tablet,delayed 81 mg PO DAILY #90 tab 03/15/18 04/22/19 Rx release atorvastatin 40 mg tablet 40 mg PO DAILY 12/25/18 04/22/19 History Gabapentin [Gabapentin 100mg Cap] 100 mg PO HS 04/23/19 04/23/19 History Aspirin [Aspirin 325mg Tab] 325 mg PO DAILY 38 Days #38 tab 04/25/19 Rx Hydrocodone/Acetaminophen 1 tab PO TID PRN #90 tab 04/25/19 Rx [Hydrocodone-Acetamin 7.5-325] <Randy Flores - 04/25/19 08:59> Prescriptions/Medication Reconciliation: New Sennosides [Senokot 8.6mg tablet] 8.6 mg PO BIDP PRN tablet PRN Reason: Constipation Aspirin [Aspirin 325mg Tab] 325 mg PO DAILY 38 Days #38 tab Acetaminophen [Acetaminophen 325mg tab] 650 mg PO Q6HP PRN tablet PRN Reason: Mild To Moderate Pain Continued atorvastatin 40 mg tablet 40 mg PO DAILY Gabapentin [Gabapentin 100mg Cap] 100 mg PO HS Hydrocodone/Acetaminophen [Hydrocodone-Acetamin 7.5-325] 1 tab PO TID PRN #90 tab PRN Reason: pain Discontinued aspirin 81 mg tablet,delayed release 81 mg PO DAILY #90 tab <Randy Flores - 04/25/19 08:59> - Problem Reconciliation Problems Reviewed?: Yes <Randy Flores - 04/25/19 08:59> Yes <Ankit Sanabria - 04/24/19 21:42>
[2019-04-25 07:21] LABS: Basophils % 0.1 % (0.1-2.0); Eosinophils # 0.2 K/mm3 (0.0-0.4); Eosinophils % 1.6 % (0.1-12.0); Hematocrit 33.4 % (42.0-52.0); Hemoglobin 10.1 g/dL (14.1-18.0); Lymphocytes # 1.8 K/mm3 (0.7-4.5); Lymphocytes % 13.6 % (10-50); Mean Corpuscular HGB Conc 30.3 g/dL (31.8-35.4); Mean Corpuscular Volume 83.9 fl (80-94); Mean Platelet Volume 8.7 fl (7.4-10.4); Monocytes # 0.9 K/mm3 (0.1-1.0); Monocytes % 6.9 % (1.7-9.3); Neutrophils # 10.3 K/mm3 (1.8-7.8); Neutrophils % 77.8 % (37.0-80.0); Platelet Count 152 K/mm3 (142-424); Red Blood Count 3.98 M/mm3 (4.60-6.20); Red Cell Distribution Width 15.4 % (11.5-17.5); White Blood Count 13.3 K/mm3 (4.8-10.8)
[2019-04-25 07:36] LABS: Anion Gap 10.6 mEq/L (5-15); Calcium 8.1 mg/dL (8.5-10.1)
--- NOTE | 2019-04-25 14:13 | Progress Note ---
Subjective Date: 04/25/19 Time: 13:15 Principal diagnosis: Status post hemiarthroplasty right hip Interval history: Patient is status post right hip bipolar hemiarthroplasty post op day #2. Patient is lying down on the bed and appears comfortable. He is daughter is with him in the room. Patient says he is doing well and reports no problems. Patient has minimal pain and says it's well-controlled with medication. No history of any nausea or vomiting. No history of any cough, chest pain, shortness of breath or palpitations. No history of any distal tingling or numbness. PN: Obj Ex Vital signs: Temp Pulse Resp BP Pulse Ox 99.7 F H 68 17 112/54 L 93 L 04/25/19 08:00 04/25/19 08:00 04/25/19 08:00 04/25/19 08:00 04/25/19 08:00 Narrative: Laboratory Results - last 24 hr 04/25/19 06:55: WBC 13.3 H, RBC 3.98 L, Hgb 10.1 L, Hct 33.4 L, MCV 83.9, MCH 25.4 L, MCHC 30.3 L, RDW 15.4, Plt Count 152, MPV 8.7, Neut % (Auto) 77.8, Lymph % (Auto) 13.6, [place] % (Auto) 6.9, Eos % (Auto) 1.6, Baso % (Auto) 0.1, Neut # ( Auto) 10.3 H, Lymph # (Auto) 1.8, [place] # (Auto) 0.9, Eos # (Auto) 0.2, Baso # (Auto) 0.0 04/25/19 06:55: Sodium 136, Potassium 3.6, Chloride 103, Carbon Dioxide 26, Anion Gap 10.6, BUN 20 H D, Creatinine 1.16, Estimated Creat Clear 56, Estimated GFR 61, Est GFR ( Amer) 74, Glucose 94, Calcium 8.1 L Exam General appearance: alert, active, awake, no acute distress Cardiovascular: regular rate & rhythm, normal peripheral pulses Respiratory: Speaks in full sentences; no respiratory distress stress noted ABD: soft and non tender Neuro: alert, awake On examination of the lower extremities the limb lengths are equal. Thigh and calf are soft and nontender. On examination of the right hip the dressings are clean, dry and intact. No evidence of any bleeding or other complications noted. I have changed the dressings and the surgical incision looks clean, dry and healthy. There is no discharge or signs of infection. Distal pulses are 1+. Distal sensation is intact to light touch throughout. No motor deficits noted distally. - Urinary Catheter Management Anderson Cath placed during this visit: yes Urethral indwelling: Yes Reason for continuing: Surgical procedure Insertion date: 04/23/19 Insertion time: 12:00 Progress Note: A&P (1) Personal history of coronary atherosclerosis Status: Acute Current Visit: Yes (2) Fracture of hip, right, closed Status: Acute Current Visit: Yes (3) Aortic insufficiency Status: Chronic Current Visit: No (4) History of hemiarthroplasty of right hip Status: Acute Current Visit: Yes Assessment and Plan for All Diagnoses:: I have reviewed the findings and progress with the patient and his daughter. Overall he is doing well and reports no problems. Continue PT/OT and mobilization as comfortable. Use abduction pillow when in bed and continue using this for 6 weeks postop. Continue standard precautions for posterior approach to the hip joint. Continue DVT prophylaxis for 5 weeks (Appropriate agents include [id number] aspirin, subcu Lovenox, warfarin, Xarelto, Eliquis and similar). The dressings were changed by me today and the surgical incision looks healthy. Patient is likely to be discharged to SNF today. Follow-up in my office in 2 weeks time. Please feel free to call our office at [phone] for any orthopaedic questions. Medical management as per Dr. Sanabria.
--- NOTE | 2019-04-25 15:06 | Progress Note ---
<Randy Flores - Last Filed: 04/25/19 16:26> Internal Medicine - PN: Subj *Date: 04/25/19 *Time: 16:26 Interval history: pt up out of bed to bathroom and doing well with assist x1 and walker. Exam Vital signs and Labs for Last 24 Hours: Temp Pulse Resp BP Pulse Ox 99.7 F H 68 17 112/54 L 93 L 04/25/19 08:00 04/25/19 08:00 04/25/19 08:00 04/25/19 08:00 04/25/19 08:00 Laboratory Results - last 24 hr 04/25/19 06:55: WBC 13.3 H, RBC 3.98 L, Hgb 10.1 L, Hct 33.4 L, MCV 83.9, MCH 25.4 L, MCHC 30.3 L, RDW 15.4, Plt Count 152, MPV 8.7, Neut % (Auto) 77.8, Lymph % (Auto) 13.6, [place] % (Auto) 6.9, Eos % (Auto) 1.6, Baso % (Auto) 0.1, Neut # (Auto) 10.3 H, Lymph # (Auto) 1.8, [place] # (Auto) 0.9, Eos # (Auto) 0.2, Baso # (Auto) 0.0 04/25/19 06:55: Sodium 136, Potassium 3.6, Chloride 103, Carbon Dioxide 26, Anion Gap 10.6, BUN 20 H D, Creatinine 1.16, Estimated Creat Clear 56, Estimated GFR 61, Est GFR ( Amer) 74, Glucose 94, Calcium 8.1 L I & O for Last 24 hours: Intake & Output 04/23/19 04/24/19 04/25/19 04/26/19 11:59 11:59 11:59 11:59 Intake Total 1033 / 1033 4610 / 4610 1200 / 1200 240 / 240 Output Total 250 / 250 1025 / 1025 600 / 600 Balance 783 / 783 3585 / 3585 600 / 600 240 / 240 Weight 159 lb 165 lb 165 lb 3 oz Microbiology Reports for the Last 24 Hours: Microbiology 04/23/19 12:30 Urine,Catheterized Urine Culture - Final NO GROWTH AFTER 48 HOURS - Constitutional no acute distress - *Routine HEENT Exam Head: Present: normocephalic Eye: Present: PERRL ENT: Present: mucous membranes moist - *Routine Neck Exam Present: supple. Absent: lymphadenopathy - *Routine Respiratory Exam Present: CTA bilaterally - *Routine Cardiovascular Exam Present: RRR - *Routine Abdominal Exam Present: soft, normoactive bowel sounds. Absent: tenderness - *Routine Extremities Exam Absent: cyanosis, clubbing, edema Comments: dressing c/d/i - *Routine Skin Exam Present: warm. Absent: rash Comments: dressing c/d/i - *Routine Neurological Exam Present: alert, oriented X3 - Routine Psychiatric Exam Present: normal affect Assessment and Plan (1) Personal history of coronary atherosclerosis Current visit: Yes Status: Acute Category: Medical Code(s): Z86.79 - Personal history of other diseases of the circulatory system (2) Fracture of hip, right, closed Current visit: Yes Status: Acute Category: Medical Code(s): S72.001A - Fracture of unspecified part of neck of right femur, initial encounter for closed fracture (3) Aortic insufficiency Current visit: No Status: Chronic Qualifiers: Cardiac valve disease etiology: etiology unspecified Qualified Code(s): I35.1 - Nonrheumatic aortic (valve) insufficiency Category: Medical Code(s): I35.1 - Nonrheumatic aortic (valve) insufficiency (4) History of hemiarthroplasty of right hip Current visit: Yes Status: Acute Category: Surgical Code(s): Z96.641 - Presence of right artificial hip joint - Assessment and plan all Dx Assessment and Plan for all problems:: rounded with DR sanabria and all orders per him <Ankit Sanabria - Last Filed: 04/25/19 17:24> Internal Medicine - PN: Subj *Date: 04/25/19 *Time: 17:24 Interval history: Rounded with nurse practitioner. Agree with exam findings and care plan as documented. Exam Vital signs and Labs for Last 24 Hours: Temp Pulse Resp BP Pulse Ox 98.4 F 71 17 121/61 93 L 04/25/19 16:00 04/25/19 16:00 04/25/19 16:00 04/25/19 16:00 04/25/19 16:00 Laboratory Results - last 24 hr 04/25/19 06:55: WBC 13.3 H, RBC 3.98 L, Hgb 10.1 L, Hct 33.4 L, MCV 83.9, MCH 25.4 L, MCHC 30.3 L, RDW 15.4, Plt Count 152, MPV 8.7, Neut % (Auto) 77.8, Lymph % (Auto) 13.6, [place] % (Auto) 6.9, Eos % (Auto) 1.6, Baso % (Auto) 0.1, Neut # (Auto) 10.3 H, Lymph # (Auto) 1.8, [place] # (Auto) 0.9, Eos # (Auto) 0.2, Baso # (Auto) 0.0 04/25/19 06:55: Sodium 136, Potassium 3.6, Chloride 103, Carbon Dioxide 26, Anion Gap 10.6, BUN 20 H D, Creatinine 1.16, Estimated Creat Clear 56, Estimated GFR 61, Est GFR ( Amer) 74, Glucose 94, Calcium 8.1 L I & O for Last 24 hours: Intake & Output 04/22/19 04/23/19 04/24/19 04/25/19 23:59 23:59 23:59 23:59 Intake Total 4796 / 4796 1807 / 1807 480 / 480 Output Total 350 / 350 1275 / 1275 250 / 250 Balance 4446 / 4446 532 / 532 230 / 230 Weight 72.15 kg 72.121 kg 74.843 kg 74.928 kg Microbiology Reports for the Last 24 Hours: Microbiology 04/23/19 12:30 Urine,Catheterized Urine Culture - Final NO GROWTH AFTER 48 HOURS Assessment and Plan (1) Personal history of coronary atherosclerosis Current visit: Yes Status: Acute Category: Medical Code(s): Z86.79 - Personal history of other diseases of the circulatory system (2) Fracture of hip, right, closed Current visit: Yes Status: Acute Category: Medical Code(s): S72.001A - Fracture of unspecified part of neck of right femur, initial encounter for closed fracture (3) Aortic insufficiency Current visit: No Status: Chronic Qualifiers: Cardiac valve disease etiology: etiology unspecified Qualified Code(s): I35.1 - Nonrheumatic aortic (valve) insufficiency Category: Medical Code(s): I35.1 - Nonrheumatic aortic (valve) insufficiency (4) History of hemiarthroplasty of right hip Current visit: Yes Status: Acute Category: Surgical Code(s): Z96.641 - Presence of right artificial hip joint
--- NOTE | 2019-04-26 08:34 | Discharge Summary ---
General - General Admission date:: 04/22/19 Discharge date: 04/26/19 HPI HPI: 78-year-old white male with history of chronic lymphocytic leukemia, pacemaker implantation and coronary disease-status post CABG 10 years ago-who presented to the hospital after going down his back steps at his home to feed his dogs and missing a step and landing in the yard. He was unable to walk because of right hip pain. Brought to the emergency department where fracture of the trochanter on the right side was noted. Admitted to hospital for pain control and orthopedic consultation for fixation. Hospital Course Hospital Course: Patient was admitted. Cardiac records were reviewed and patient was deemed an acceptable candidate for surgery. He tolerated pain medication and traction well and was taken to the OR where orthopedics intervened with an ORIF of the right hip. Patient tolerated this very nicely. Recovered well from the surgical procedure and the anesthesia and transferred back to the floor in good condition. Over the next couple of days patient did well. Progressed nicely with inpatient physical therapy but was deemed necessary to continue in a skilled care situation and was accepted at the [facility] for transfer for ongoing PT/OT/rehabilitation. Will be transferred there today. Please see medication list as noted below. He will be under my service at the [facility]. Please note he will require a CBC and BMP on Sunday, April 28, please note he will require PT/OT consultation. Please note he will follow a cardiac diet. Please note the patient will be on full dose aspirin daily-325 mg-for DVT prophylaxis post surgical. Objective Vital signs: Temp Pulse Resp BP Pulse Ox 98.8 F 75 17 151/71 H 93 L 04/26/19 07:19 04/26/19 07:19 04/26/19 07:19 04/26/19 07:19 04/26/19 07:19 Narrative: Patient is pleasant. Talkative. Hard of hearing status as previously noted. Oropharynx clear, no JVD. Cranial nerves intact. Heart rate regular with 2/6 systolic ejection murmur. Lungs clear in the anterior hawkins. Abdomen soft and nontender. Legs equal length. No unusual deformity noted. Right hip surgical incision looks good and clean and dry. Good distal perfusion. Able to move ankles and feet equally. Otherwise neurologic exam intact. DS: Diagnosis - Discharge Diagnosis (1) Personal history of coronary atherosclerosis Status: Chronic (2) Fracture of hip, right, closed Status: Resolved (3) Aortic insufficiency Status: Chronic (4) History of hemiarthroplasty of right hip Status: Acute Discharge Plan - Patient Discharge Instructions ACTIVITY: Continue current activity, Up with assistance DIET: continue same diet Patient Instructions: Hip Fracture, Hip Replacement, DI for Hip Replacement, DI for Surgical Site Infection - Follow up Plan Follow up with: Bill Joshua MD [Staff Physician] - 05/07/19 1:00 pm (Come about 30 minutes prior to the appointment time to have an x-ray) Eligio Flynn MD [Staff Physician] - 1 week Disposition: [facility] Home Medications: Home Medications Medication Instructions Recorded Confirmed Type aspirin 81 mg tablet,delayed 81 mg PO DAILY #90 tab 03/15/18 04/22/19 Rx release atorvastatin 40 mg tablet 40 mg PO DAILY 12/25/18 04/22/19 History Gabapentin [Gabapentin 100mg Cap] 100 mg PO HS 04/23/19 04/23/19 History Aspirin [Aspirin 325mg Tab] 325 mg PO DAILY 38 Days #38 tab 04/25/19 Rx Hydrocodone/Acetaminophen 1 tab PO TID PRN #90 tab 04/25/19 Rx [Hydrocodone-Acetamin 7.5-325] Prescriptions/Medication Reconciliation: New Sennosides [Senokot 8.6mg tablet] 8.6 mg PO BIDP PRN tablet PRN Reason: Constipation Aspirin [Aspirin 325mg Tab] 325 mg PO DAILY 38 Days #38 tab Acetaminophen [Acetaminophen 325mg tab] 650 mg PO Q6HP PRN tablet PRN Reason: Mild To Moderate Pain Continued atorvastatin 40 mg tablet 40 mg PO DAILY Gabapentin [Gabapentin 100mg Cap] 100 mg PO HS Hydrocodone/Acetaminophen [Hydrocodone-Acetamin 7.5-325] 1 tab PO TID PRN #90 tab PRN Reason: pain Discontinued aspirin 81 mg tablet,delayed release 81 mg PO DAILY #90 tab - Problem Reconciliation Problems Reviewed?: Yes
--- NOTE | 2019-04-26 16:55 | Progress Note ---
Subjective Date: 04/26/19 Time: 17:00 Principal diagnosis: Status post hemiarthroplasty right hip Interval history: The patient is doing well today. Ambulating with a rolling walker, pain well- controlled. Tolerating PO, no complaints of chest pain, shortness of breath, a bdominal pain; no fevers/chills. PN: Obj Ex Vital signs: Temp Pulse Resp BP Pulse Ox 98.1 F 74 18 148/68 H 94 L 04/26/19 15:09 04/26/19 15:09 04/26/19 15:09 04/26/19 15:09 04/26/19 15:09 Narrative: General appearance: alert, active, awake, no acute distress Cardiovascular: regular rate & rhythm, normal peripheral pulses Respiratory: Speaks in full sentences; no respiratory distress stress noted ABD: soft and non tender Neuro: alert, awake Extremities: R hip dressing c/d/i, no strikethrough +DF/PF/EHL RLE SILT distally RLE R calf soft, non-tender palpable pedal pulses RLE - Urinary Catheter Management Anderson Cath placed during this visit: yes Urethral indwelling: Yes Reason for continuing: Not indwelling catheter Insertion date: 04/23/19 Insertion time: 12:00 Progress Note: A&P (1) Personal history of coronary atherosclerosis Status: Chronic Current Visit: Yes (2) Fracture of hip, right, closed Status: Resolved Current Visit: Yes (3) Aortic insufficiency Status: Chronic Current Visit: No (4) History of hemiarthroplasty of right hip Status: Acute Current Visit: Yes Assessment and Plan for All Diagnoses:: 78yo M POD #3 s/p R hip hemiarthroplasty -- WBAT RLE, continue PT/OT, posterior hip precautions/abduction pillow -- continue DVT prophy per primary -- encourage IS 10x/hr while awake -- pain control -- SCDs BLE -- awaiting acceptance at SNF for transfer, anticipate Sunday
--- NOTE | 2019-04-27 07:25 | Progress Note ---
Internal Medicine - PN: Subj *Date: 04/27/19 *Time: 07:24 Interval history: Patient has no complaints this morning. His pain is controlled. He has been out of bed to chair and is walking back and forth to the bathroom. Exam Vital signs and Labs for Last 24 Hours: Temp Pulse Resp BP Pulse Ox 98.1 F 115 H 20 147/98 H 96 04/27/19 07:21 04/27/19 07:21 04/27/19 07:21 04/27/19 07:21 04/27/19 07:21 I & O for Last 24 hours: Intake & Output 04/24/19 04/25/19 04/26/19 04/27/19 11:59 11:59 11:59 11:59 Intake Total 4610 / 4610 1200 / 1200 970 / 970 480 / 480 Output Total 1025 / 1025 600 / 600 Balance 3585 / 3585 600 / 600 970 / 970 480 / 480 Weight 165 lb 165 lb 3 oz 173 lb 167 lb 6 oz Narrative: He looks well and is sitting up in bed eating breakfast. Lungs are clear. Heart has a regular rate and rhythm. Assessment and Plan (1) Personal history of coronary atherosclerosis Current visit: Yes Status: Chronic Category: Medical Code(s): Z86.79 - Personal history of other diseases of the circulatory system (2) Fracture of hip, right, closed Current visit: Yes Status: Resolved Category: Medical Code(s): S72.001A - Fracture of unspecified part of neck of right femur, initial encounter for closed fracture (3) Aortic insufficiency Current visit: No Status: Chronic Qualifiers: Cardiac valve disease etiology: etiology unspecified Qualified Code(s): I35.1 - Nonrheumatic aortic (valve) insufficiency Category: Medical Code(s): I35.1 - Nonrheumatic aortic (valve) insufficiency (4) History of hemiarthroplasty of right hip Current visit: Yes Status: Acute Category: Surgical Code(s): Z96.641 - Presence of right artificial hip joint - Assessment and plan all Dx Assessment and Plan for all problems:: Patient will be discharged to senior living facility once insurance precertification is obtained
--- NOTE | 2019-04-27 17:55 | Progress Note ---
Subjective Date: 04/27/19 Time: 17:00 Principal diagnosis: Status post hemiarthroplasty right hip Interval history: The patient is doing well this evening. He is sitting in the bedside chair watching television, has just eaten a full dinner. Reports mild discomfort in th e R hip, nothing severe. Denies numbness/tingling in the RLE. No fevers/chills, no chest pain/shortness of breath. PN: Obj Ex Vital signs: Temp Pulse Resp BP Pulse Ox 97.7 F 70 20 137/87 98 04/27/19 15:37 04/27/19 15:37 04/27/19 15:37 04/27/19 15:37 04/27/19 15:37 Narrative: General appearance: alert, active, awake, no acute distress Cardiovascular: regular rate & rhythm, normal peripheral pulses Respiratory: Speaks in full sentences; no respiratory distress stress noted ABD: soft and non tender Neuro: alert, awake Extremities: R hip dressing c/d/i, no strikethrough +DF/PF/EHL RLE SILT distally RLE R calf soft, non-tender palpable pedal pulses RLE - Urinary Catheter Management Anderson Cath placed during this visit: yes Urethral indwelling: No Insertion date: 04/23/19 Insertion time: 12:00 Progress Note: A&P (1) Personal history of coronary atherosclerosis Status: Chronic Current Visit: Yes (2) Fracture of hip, right, closed Status: Resolved Current Visit: Yes (3) Aortic insufficiency Status: Chronic Current Visit: No (4) History of hemiarthroplasty of right hip Status: Acute Current Visit: Yes Assessment and Plan for All Diagnoses:: 78yo M POD #4 s/p R hip hemiarthroplasty -- WBAT RLE, continue PT/OT, posterior hip precautions/abduction pillow -- continue DVT prophy per primary -- encourage IS 10x/hr while awake -- pain control -- SCDs BLE -- awaiting acceptance at SNF for transfer, anticipate tomorrow
--- NOTE | 2019-04-28 08:47 | Progress Note ---
Internal Medicine - PN: Subj *Date: 04/28/19 *Time: 08:45 Interval history: Over the last couple of days patient is done well and continues to make some nice progress. His insurance company has inappropriately not given precertification for skilled care and has quite simply delayed his ability to go to needed skilled care. Our care management staff informed his insurance company of his need for skilled care 4 days ago and nothing has been done by the insurance company. Exam Vital signs and Labs for Last 24 Hours: Temp Pulse Resp BP Pulse Ox 98.5 F 70 18 116/74 97 04/28/19 07:50 04/28/19 07:50 04/28/19 07:50 04/28/19 07:50 04/28/19 07:50 I & O for Last 24 hours: Intake & Output 04/25/19 04/26/19 04/27/19 04/28/19 11:59 11:59 11:59 11:59 Intake Total 1200 / 1200 970 / 970 480 / 480 720 / 720 Output Total 600 / 600 275 / 275 Balance 600 / 600 970 / 970 480 / 480 445 / 445 Weight 165 lb 3 oz 173 lb 167 lb 6 oz 166 lb 1 oz Narrative: See orthopedic note regarding his hip fracture wound. Heart rate regular, lungs clear. Abdomen soft nontender. Assessment and Plan (1) Personal history of coronary atherosclerosis Current visit: Yes Status: Chronic Category: Medical Code(s): Z86.79 - Personal history of other diseases of the circulatory system (2) Fracture of hip, right, closed Current visit: Yes Status: Resolved Category: Medical Code(s): S72.001A - Fracture of unspecified part of neck of right femur, initial encounter for closed fracture (3) Aortic insufficiency Current visit: No Status: Chronic Qualifiers: Cardiac valve disease etiology: etiology unspecified Qualified Code(s): I35.1 - Nonrheumatic aortic (valve) insufficiency Category: Medical Code(s): I35.1 - Nonrheumatic aortic (valve) insufficiency (4) History of hemiarthroplasty of right hip Current visit: Yes Status: Acute Category: Surgical Code(s): Z96.641 - Presence of right artificial hip joint - Assessment and plan all Dx Assessment and Plan for all problems:: No changes in plan. See discharge summary notes.
--- NOTE | 2019-04-28 13:44 | Cardiology Report ---
[facility] RADIOLOGICAL CONSULTATION Patient Name : SUZANNA BECKETT X-RAY # : [id number] Physician: LIZ DOOLEY AGE: 78Y : 1940 00:00:00 ( M ) Exam : CA ECHO DOPPLER COMPLETE ACC # : [id number] Study Date : 04/23/2019 06:34:12 Patient Class : I FINAL REPORT CLINICAL DATA: FINDINGS: TRANSCRIBED REPORT EXAM: Comprehensive 2D, Doppler, and color-flow Echocardiogram Yard Spotter: Orly Gray CRT Ht: 6 ft 0 in Wt: 190lbs BSA: 2.08 BP: 97/53 mmHg Indications: pre-op hip fx, murmur, eve,cad, cabg, old mi 2D Dimensions IVSd 1.40 cm LVEF (Visual) 61.00 % PWd 1.10 cm LVDd 4.90 cm LVDs 3.30 cm Aortic Root 1.50 cm LVOT 1.50 cm (M/F) 1.5-2.5 M-Mode Dimensions RVDd 2.50 cm (0.9-2.6)LA Diam 3.80 cm (1.9-4.0) LVDd 4.90 cm (3.5-5.7)Ao Diam 3.00 cm (2.0-3.7) LVDs 3.50 cm (3.5-5.7)AV Cusp 1.70 cm (1.5-2.6) IVSd 1.70 cm (0.6-1.1)PWd 0.80 cm (0.6-1.1) EF (Teich) 55.00% FS 28.60% EDV (Teich) 113.00 mLESV (Teich) 50.90 mL LV Diastology E/A Ratio 0.80MED E' 6.34 (< 7 cm/sec) E'/MED E' Ratio17.50 (>14) Aortic Valve LVOT Max 201.00 (70-110 cm/s)LVOT VTI 39.20 cm AoV Peak Ruben. 281.00 (50-130 cm/s)AI PHT 549.00 ms AO Peak GR. 32.00 mmHgAO Mean GR. 13.00 (<5 mmHg) AO VTI 45.60 (18-25 cm)LAKIA (VTI) 1.52 (2.5-4.5 cm2) Mitral Valve MV E Max Ruben. 111.00 (40-130 cm/s)MV A Velocity 137.00 (40-130 cm/s) E/A Ratio 0.[address] End VMAX 121.00 cm/s PA Accel Time 109.00 (>120 msec) Tricuspid Valve TR P. Hwuaecrv265.00 cm/sRAP Estimate 10.00 mmHg RVSP 39.00 mmHg Electronically signed by : IMPRESSION: Dictated by at Transcribed by at
== END 2019-04-28 10:17 | DRG 470 ==
LOC: ER 18:25 → 2ND 19:42
PROVIDERS: ADMIT Internal Medicine Adolescent Medicine; ATTEND Internal Medicine Adolescent Medicine
CPT/HCPCS: 36415; 71010; 71045; 73502; 80048; 80053; 81001; 82962; 83880; 84484; 85007; 85025; 85610; 85730; 86850; 87086; 93306; 94761; 97116; 97161; 97166; 97530; 97535; 99284; C1713; C1776; J2405; J3370

== ENCOUNTER → 2019-05-07 12:58 | Outpatient (CLI) | payer MEDICARE, SELFPAY ==
--- NOTE | 2019-05-07 13:02 | XR_ITS ---
PROCEDURE: XR HIP RT 2-3V W/PELVIS CLINICAL INDICATION: sp RT hip uncemented bipolar hemiarthroplasty COMPARISON: ABDPELW CT abdomen pelvis w con from 05/10/2018 XR HIP RT 2-3V W/PELVIS from 04/23/2019 FINDINGS: The status post right hemiarthroplasty hip replacement with good alignment. No fracture or dislocation. There is a prominent defect in the right ilium which may be due to prior graft harvesting site or may be due to old fracture IMPRESSION: . no change good alignment status post right hip hemiarthroplasty Dictated by: Dima Malik MD 05/07/2019 14:26 Electronically signed by Dima Malik MD in [place] 05/07/2019 14:26
== END ==
PROVIDERS: PCP Emergency Medicine; Visit Provider Orthopaedic Surgery
DX: Z48.89 Encounter for other specified surgical aftercare (principal); M25.551 Pain in right hip
CPT/HCPCS: 73502

== ENCOUNTER 2019-05-13 08:30 | Outpatient (CLI) | payer MEDICARE, SELFPAY ==
[2019-05-13] VITALS (12 sets, daily range): BP systolic 117–166; BP diastolic 61–83; PULSE 69–85; RESP 18; TEMP 36.1; O2SAT 99; BMI 24.3
[2019-05-13 08:51] LABS: Basophils % 0.3 % (0.1-2.0); Eosinophils # 0.4 K/mm3 (0.0-0.4); Eosinophils % 6.7 % (0.1-12.0); Hematocrit 36.5 % (42.0-52.0); Hemoglobin 11.2 g/dL (14.1-18.0); Lymphocytes # 1.9 K/mm3 (0.7-4.5); Lymphocytes % 31.3 % (10-50); Mean Corpuscular HGB Conc 30.6 g/dL (31.8-35.4); Mean Corpuscular Hemoglobin 26.8 pg (27.0-31.2); Mean Corpuscular Volume 87.6 fl (80-94); Mean Platelet Volume 8.5 fl (7.4-10.4); Monocytes # 0.5 K/mm3 (0.1-1.0); Monocytes % 7.8 % (1.7-9.3); Neutrophils # 3.3 K/mm3 (1.8-7.8); Neutrophils % 53.9 % (37.0-80.0); Platelet Count 371 K/mm3 (142-424); Red Blood Count 4.17 M/mm3 (4.60-6.20); Red Cell Distribution Width 14.9 % (11.5-17.5); White Blood Count 6.2 K/mm3 (4.8-10.8)
== END 2019-05-13 13:10 | disposition home or self-care (01) ==
LOC: INF 08:30
PROVIDERS: Visit Provider Internal Medicine Medical Oncology
DX: Z51.11 Encounter for antineoplastic chemotherapy (principal); C91.10 Chronic lymphocytic leukemia of B-cell type not having achieved remission
CPT/HCPCS: 85025; 96413; 96415; J9312

== ENCOUNTER → 2019-06-10 12:44 | Outpatient (CLI) | payer MEDICARE, SELFPAY ==
--- NOTE | 2019-06-10 12:46 | XR_ITS ---
PROCEDURE: XR DEXA AXIAL SKELETON CLINICAL HISTORY: screening for osteoporosis COMPARISON: No exams were available for comparison FINDINGS: L1-L4 density is 1.182 grams/centimeters sq with a T-score of -0.3. Left femoral neck density is 0.689 grams/centimeters sq with T-score -2.9 consistent osteoporosis. IMPRESSION: Osteoporosis with high fracture risk. Treatment advised. Recommend follow-up exam June 2020 Dictated by: Dima Malik MD 06/10/2019 16:58 Electronically signed by Dima Malik MD in [place] 06/10/2019 16:58
== END ==
PROVIDERS: PCP Emergency Medicine; Visit Provider Orthopaedic Surgery
DX: M81.0 Age-related osteoporosis without current pathological fracture (principal)
CPT/HCPCS: 77080

== ENCOUNTER 2019-06-19 11:32 | Outpatient (CLI) | payer MEDICARE, SELFPAY ==
[2019-06-19 11:33] VITALS: BMI 22.8
[2019-06-19 11:56] LABS: Alanine Aminotransferase 11 U/L (12-78); Albumin Level 3.2 gm/dL (3.4-5.0); Alkaline Phosphatase 73 U/L (46-116); Anion Gap 13.8 mEq/L (5-15); Aspartate Amino Transferase 13 U/L (15-37); Bilirubin,Total 0.3 mg/dL (0.2-1.0); Blood Urea Nitrogen 27 mg/dL (7-18); Carbon Dioxide 24 mmol/L (21.0-32.0); Chloride 108 mmol/L (98-107); Creatinine Clearance Estimated 51 mL/min (50-200); Creatinine,Serum 1.19 mg/dL (0.70-1.30); Estimated Glomerular Filt Rate 59 ml/min (>60); GFR (African American) 72 ML/MIN (>60); Globulin 3.2 gm/dl (1.3-3.2); Glucose 89 mg/dL (74-106); Potassium 3.8 mmoL/L (3.5-5.1); Sodium 142 mmol/L (136-145); Total Protein,Serum 6.4 gm/dL (6.4-8.2)
[2019-06-19 12:15] LABS: Basophils % 0.4 % (0.1-2.0); Eosinophils # 0.6 K/mm3 (0.0-0.4); Eosinophils % 8.9 % (0.1-12.0); Hematocrit 35.4 % (42.0-52.0); Hemoglobin 11.3 g/dL (14.1-18.0); Lymphocytes # 1.9 K/mm3 (0.7-4.5); Lymphocytes % 29.5 % (10-50); Mean Corpuscular Hemoglobin 27.2 pg (27.0-31.2); Mean Corpuscular Volume 84.9 fl (80-94); Mean Platelet Volume 8.1 fl (7.4-10.4); Monocytes # 0.4 K/mm3 (0.1-1.0); Monocytes % 6.7 % (1.7-9.3); Neutrophils # 3.4 K/mm3 (1.8-7.8); Neutrophils % 54.4 % (37.0-80.0); Platelet Count 184 K/mm3 (142-424); Red Blood Count 4.16 M/mm3 (4.60-6.20); Red Cell Distribution Width 14.8 % (11.5-17.5); White Blood Count 6.3 K/mm3 (4.8-10.8)
== END 2019-06-19 12:10 | disposition home or self-care (01) ==
LOC: INF 11:32
PROVIDERS: PCP Emergency Medicine; Visit Provider Internal Medicine Medical Oncology
DX: C91.10 Chronic lymphocytic leukemia of B-cell type not having achieved remission (principal); Z45.2 Encounter for adjustment and management of vascular access device
CPT/HCPCS: 80053; 85025; J1642

== ENCOUNTER 2019-07-01 08:44 | Outpatient (CLI) | payer MEDICARE, SELFPAY ==
[2019-07-01 08:54] VITALS: BMI 22.8
--- NOTE | 2019-07-01 09:00 | CT_ITS ---
PROCEDURE: CT CHEST WO CON Patient Age:78Y CLINICAL INDICATION: LYMPHOMA follow-up. CLL COMPARISON: [facility] CT CHEST W/ CONTRAST from 03/21/[address] abdomen pelvis w con from 05/10/[address] chest w con from 05/10/2018 TECHNIQUE: 75 cc Omnipaque 350 IV contrast utilized. Axial images obtained with sagittal and coronal reformats. All CT scans at the facility use one or more dose reduction, viz: automated exposure control, ma/kV adjustment per patient size (including targeted exams where dose is matched to indication, i.e. head), or iterative reconstruction technique. FINDINGS: Mediastinal and axillary adenopathy are again observed. Overall stable to perhaps a few nodes incrementally smaller prominent axillary lymph nodes present bilaterally. The patient arms are above head on today's study, which changes the CT orientation and appearance of some of these axillary nodes: Left axilla: Node overlying the left chest wall 1 mm smaller both dimensions now measuring 3 cm x 1.55 cm.. Just lateral to this the large node which is oriented differently today overall stable overall size when all all projections are considered, measuring a nearly 3.9 cm length. X 1.8 cm wide Right axilla largest node measuring 3.9 x 1.5 cm. This is slightly decreased overall volume previously measuring 4.5 cm length x 1.5 cm. The. Other right axillary nodes appear similar size versus 2018 a the the in mediastinal adenopathy persist: precarinal node measuring 2.3 x 1.6 cm is fairly stable perhaps less than 1 mm smaller. . Subcarinal collection of nodes stable at 3.7 cm length on coronal image, 1.7 cm AP cm overall, of question incrementally smaller overall series of smaller nodes behind the left bronchus (&anterior to the aorta) overall appear similar size.. few small nodes right paratracheal region are slightly less evident remains small. The largest just above the azygos now [id number] mm X 8 mm; a previously measuring. 12mm the x 10 mm Soft tissue and echo tissue at the base superior right carlos, the appears stable At the base the neck 2 tiny less than 1 cm supraclavicular nodes are less evident Median sternotomy. Mild cardiomegaly. The coronary artery stents are calcifications. Pacemaker wire. No pericardial effusion. Generous sized hiatal hernia stable Lungs:== The lungs are better expanded today; centrilobular emphysematous changes with scattered areas of fibrosis and old granulomatous disease.. Mild apical scarring most evident on right-stable Stable subtle nodules: No change small less than 6 mm nodule anteriorly KRISS possibly reflect scarring (axial slice 30) but no change faint 4 mm nodule in the left upper lobe (axial image 21). No definite change 5 mm nodule right middle lobe when compared back to 2016. No new nodules identified Benign calcified granuloma at the right upper lobe unchanged 7.3 mm size the .. No effusions or infiltrates. No acute bony anomalies. IMPRESSION: 1. Mediastinal and axillary adenopathy overall appear a fairly stable at chest. No significant progression of nodes. Rather the suggestion of subtle slightincremental decreased size of a few nodes axilla and right paratracheal, and subclavicular as well as. Also suggestion/hint of subtle decreased size at few of the larger central mediastinal nodes . Overall fairly stable appearance larger mediastinal nodes 2. Stable small pulmonary nodules, no significant change.. 3. No acute pulmonary findings Centrilobular emphysema with coarsened bronchovascular markings. Fibrotic changes most evident towards left lung base 3. Hiatal hernia.
--- NOTE | 2019-07-01 09:00 | CT_ITS ---
PROCEDURE: CT ABDOMEN PELVIS WO/W CON Patient Age:78Y CLINICAL INDICATION: LYMPHOMA follow-up COMPARISON: ABDPELW CT ABD PELVIS W/ CONTRAST from 03/21/[address] abdomen pelvis w con from 05/10/[address] chest w con from 05/10/2018 TECHNIQUE: IV Contrast: 75ML OPTIRAY 350 Oral Contrast none given Axial images obtained with sagittal and coronal reformats. All CT scans at the facility use one or more dose reduction, viz: automated exposure control, ma/kV adjustment per patient size (including targeted exams where dose is matched to indication, i.e. head), or iterative reconstruction technique. FINDINGS: Lower thorax: No acute finding see CT chest report. Stable generous size hiatal hernia contains majority of stomach. ABDOMEN: Liver: Stable. Small less than 7 mm cyst near hilum liver unchanged. No masses or biliary dilatation. Gallbladder: Unremarkable nondistended. No radio opaque stones. Pancreas: Unremarkable no pancreatic mass nor ductal dilatation. Spleen: unremarkable but modest size Adrenals: Stable 16 mm fat density right benign adrenal nodule-likely myelolipoma or lowdensity adenoma. = tract====== Kidneys and ureters unremarkable. The no renal tract calculi nor obstruction. PELVIS: Pelvic adenopathy again observed as discussed below. Fairly stable mild diffuse urinary bladder wall thickening warrants interval correlation with urinalysis, may reflect bladder wall hypertrophy noted in the moderate enlarged prostate 5.4 transverse measurement.. GI tract ====== The no bowel dilatation or obstruction. generous hiatal hernia again noted. Distal stomach remains below the diaphragm. Duodenal loop unremarkable. Small bowel unremarkable. Large bowel: Moderate stool throughout. Colonic diverticulosis most evident at sigmoid colon but no diverticulitis Peritoneum: No abnormal fluid collections. No obvious inflammatory changes. No free air. LYMPH NODES: Enlarged retroperitoneal, pelvic and inguinal lymph nodes again observed and basically stable. Retroperitoneal periaortic nodes:. Collection of left periaortic nodes (axial image 62 coronal image 38 36-) just below the left renal artery is incrementally smaller. Previously measuring 25 X 13 mm x 4.5 cm length, today measuring 23 X 11 x 4.2 cm length mm. Small the node between the aorta and IVC at the same region is very slightly smaller previously measuring nearly 12 mm now measuring 10 mm. small nodes behind IVC are stable the Fairly stable appearance of the prominent numerous enlarged PELVIC nodes/pelvic adenopathy. Beginning superiorly at the level aortic bifurcation and posterior to the left common iliac artery enlarged node measures up to 5 cm length on both today and previous study (as viewed on today's sagittal image 55) with the similar AP dimension roughly 2.3 cm. Overall fairly stable Numerous other enlarged nodes a throughout the pelvis sidewall and iliac chain bilaterally appears stable and have not not changed appreciably. Largest, most bulky appearing nodes are seen towards adjacent to the distal external iliac artery leading towards femoral canal. These bulky enlarged grouping of nodes are more evident left femoral sheath than right than right. Overall appears fairly stable bulky nodes, particularly on the left. One of the largest node measuring up to 5.1 cm length x 2.5 transverse at the left inguinal region may be 1 mm incrementally smaller MESENTERY: Scattered moderate nodes at mesentery shows slightly mixed pattern-. Node anterior to the descending duodenum which appears to be incrementally larger (axial image 57 56, coronal 30) today this node measures nearly 2.7 cm length X 15 mm today. Previous
[2019-07-01 10:05] LABS: Blood Urea Nitrogen 27 mg/dL (7-18); Creatinine Clearance Estimated 57 mL/min (50-200); Creatinine,Serum 1.07 mg/dL (0.70-1.30); Estimated Glomerular Filt Rate 67 ml/min (>60); GFR (African American) 81 ML/MIN (>60)
== END 2019-07-01 10:45 | disposition home or self-care (01) ==
LOC: RAD 08:46
PROVIDERS: PCP Emergency Medicine; Visit Provider Internal Medicine Medical Oncology
DX: C91.11 Chronic lymphocytic leukemia of B-cell type in remission (principal)
CPT/HCPCS: 36415; 71250; 74178; 82565; 84520; J1642; Q9967

== ENCOUNTER → 2019-08-27 09:12 | Outpatient (CLI) | payer MEDICARE, SELFPAY ==
--- NOTE | 2019-08-27 09:19 | XR_ITS ---
PROCEDURE: XR HIP RT 2-3V W/PELVIS CLINICAL INDICATION: right hip bipolar hemiarthroplasty Follow-up hip replacement COMPARISON: XR HIP RT 2-3V W/PELVIS from 05/07/2019 FINDINGS: Status post bipolar hemiarthroplasty on the right with good alignment and no evidence of orthopedic complication. Postsurgical changes are present involving the right ilium laterally as before. IMPRESSION: No change good alignment status post right hip hemiarthroplasty Dictated by: Dima Malik MD 08/27/2019 12:16 Electronically signed by Dima Malik MD in [place] 08/27/2019 12:16
== END ==
PROVIDERS: PCP Emergency Medicine; Visit Provider Orthopaedic Surgery
DX: Z96.641 Presence of right artificial hip joint (principal); M25.551 Pain in right hip
CPT/HCPCS: 73502

== ENCOUNTER 2019-10-02 11:06 | Outpatient (CLI) | payer MEDICARE, SELFPAY ==
[2019-10-02 11:06] VITALS: BMI 23.8
[2019-10-02 11:25] VITALS: BP 146/71; PULSE 71; RESP 18; TEMP 36.5; O2SAT 98
[2019-10-02 11:37] LABS: Basophils % 0.3 % (0.1-2.0); Eosinophils # 0.6 K/mm3 (0.0-0.4); Eosinophils % 3.9 % (0.1-12.0); Hematocrit 41.1 % (42.0-52.0); Hemoglobin 13.2 g/dL (14.1-18.0); Lymphocytes # 7.5 K/mm3 (0.7-4.5); Lymphocytes % 52.6 % (10-50); Mean Corpuscular HGB Conc 32.1 g/dL (31.8-35.4); Mean Corpuscular Hemoglobin 27.4 pg (27.0-31.2); Mean Corpuscular Volume 85.4 fl (80-94); Mean Platelet Volume 8.7 fl (7.4-10.4); Monocytes # 0.6 K/mm3 (0.1-1.0); Monocytes % 4.1 % (1.7-9.3); Neutrophils # 5.6 K/mm3 (1.8-7.8); Neutrophils % 39.1 % (37.0-80.0); Platelet Count 185 K/mm3 (142-424); Red Blood Count 4.81 M/mm3 (4.60-6.20); White Blood Count 14.2 K/mm3 (4.8-10.8)
[2019-10-02 11:39] LABS: MANUAL DIFFERENTIAL MANUAL DIFFERENTIAL (MANUAL DIFF)
[2019-10-02 11:47] LABS: Chloride 106 mmol/L (98-107)
[2019-10-02 11:48] LABS: Potassium 4.2 mmoL/L (3.5-5.1); Sodium 141 mmol/L (136-145)
[2019-10-02 11:50] LABS: Alanine Aminotransferase 12 U/L (12-78); Alkaline Phosphatase 63 U/L (38-126); Anion Gap 13.2 mEq/L (5-15); Aspartate Amino Transferase 26 U/L (17-59); Bilirubin,Total 0.4 mg/dl (0.2-1.3); Blood Urea Nitrogen 22 mg/dl (9-20); Carbon Dioxide 26 mmol/L (22.0-30.0); Creatinine Clearance Estimated 48 mL/min (50-200); Estimated Glomerular Filt Rate 53 ml/min (>60); GFR (African American) 64 ML/MIN (>60)
[2019-10-02 11:51] LABS: Albumin Level 4.2 g/dl (3.5-5.0); Albumin/Globulin Ratio 1.5 (1.1-1.8); Calcium 9.2 mg/dl (8.4-10.2); Eosinophils % 5 % (0-3); Globulin 2.8 g/dL (1.3-3.2); Glucose 67 mg/dl (74-100); Lymphocytes % 63 % (10-50); Monocytes % 4 % (2-9); Neutrophils % 27 % (42-76); Platelet Estimate Normal; RBC Morphology Normal; Total Cells Counted 100
== END 2019-10-02 11:29 | disposition home or self-care (01) ==
LOC: INF 11:06
PROVIDERS: Visit Provider Internal Medicine Medical Oncology
DX: C91.10 Chronic lymphocytic leukemia of B-cell type not having achieved remission (principal); Z45.2 Encounter for adjustment and management of vascular access device
CPT/HCPCS: 80053; 85007; 85025; J1642

== ENCOUNTER → 2020-02-12 14:02 | Outpatient (CLI) | payer MEDICARE, SELFPAY ==
[2020-02-12 14:22] LABS: Basophils # 0.1 K/mm3 (0-0.2); Basophils % 0.3 % (0.1-2.0); Eosinophils # 0.6 K/mm3 (0.0-0.4); Eosinophils % 1.3 % (0.1-12.0); Hemoglobin 12.6 g/dL (14.1-18.0); Lymphocytes # 32.4 K/mm3 (0.7-4.5); Lymphocytes % 78.7 % (10-50); Mean Corpuscular HGB Conc 33.3 g/dL (31.8-35.4); Mean Corpuscular Hemoglobin 28.9 pg (27.0-31.2); Mean Corpuscular Volume 86.7 fl (80-94); Mean Platelet Volume 9.4 fl (7.4-10.4); Monocytes # 0.7 K/mm3 (0.1-1.0); Monocytes % 1.6 % (1.7-9.3); Neutrophils # 7.4 K/mm3 (1.8-7.8); Platelet Count 213 K/mm3 (142-424); Red Blood Count 4.38 M/mm3 (4.60-6.20); Red Cell Distribution Width 14.8 % (11.5-17.5)
[2020-02-12 14:27] LABS: Alanine Aminotransferase 13 U/L (12-78); Albumin Level 4.2 g/dl (3.5-5.0); Albumin/Globulin Ratio 1.7 (1.1-1.8); Alkaline Phosphatase 76 U/L (38-126); Aspartate Amino Transferase 29 U/L (17-59); Bilirubin,Total 0.5 mg/dl (0.2-1.3); Blood Urea Nitrogen 29 mg/dl (9-20); Calcium 9.4 mg/dl (8.4-10.2); Carbon Dioxide 24 mmol/L (22.0-30.0); Chloride 106 mmol/L (98-107); Chol/HDL Ratio 3.4 (1-3.5); Cholesterol 191 mg/dl (140-200); Estimated Glomerular Filt Rate 53 ml/min (>60); GFR (African American) 64 ML/MIN (>60); Globulin 2.5 g/dL (1.3-3.2); Glucose 119 mg/dl (74-100); HDL Cholesterol 56 mg/dl (40-60); Sodium 141 mmol/L (136-145); Total Protein,Serum 6.7 g/dl (6.3-8.2); Triglycerides 130 mg/dl (30-150); VLDL Cholesterol 26 mg/dL (0-40)
[2020-02-12 14:37] LABS: MANUAL DIFFERENTIAL MANUAL DIFFERENTIAL (MANUAL DIFF); White Blood Count 41.2 K/mm3 (4.8-10.8)
[2020-02-12 14:45] LABS: T4 (Thyroxine) 9.7 ug/dl (5.53-11.0)
[2020-02-12 14:58] LABS: Thyroid Stimulating Hormone 4.92 uIU/mL (0.465-4.68)
[2020-02-12 15:03] LABS: Eosinophils % 1 % (0-3); Lymphocytes % 81 % (10-50); Monocytes % 1 % (2-9); Neutrophils % 17 % (42-76); Platelet Estimate Normal; RBC Morphology Normal; Total Cells Counted 100
[2020-02-12 15:59] LABS: Anion Gap 15.1 mEq/L (5-15); Potassium 4.1 mmoL/L (3.5-5.1)
[2020-02-21 10:15] LABS: 1,25 Dihydroxy Vitamin D 40 pg/mL (.); 1,25-Dihydroxy, Vitamin D-2 <10 pg/mL (.); 1,25-Dihydroxy, Vitamin D-3 40 pg/mL (.)
== END ==
PROVIDERS: Visit Provider Nurse Practitioner Family
DX: I10 Essential (primary) hypertension (principal); I20.9 Angina pectoris, unspecified; I27.20 Pulmonary hypertension, unspecified; Z12.5 Encounter for screening for malignant neoplasm of prostate
CPT/HCPCS: 80053; 80061; 82652; 84436; 84443; 85007; 85025; G0103

== ENCOUNTER → 2020-02-19 10:41 | Outpatient (CLI) | payer MEDICARE, SELFPAY ==
--- NOTE | 2020-02-19 10:43 | CA_ITS ---
APPROVED REPORT EXAM: Comprehensive 2D, Doppler, and color-flow Echocardiogram Outside Sales Account Manager: Yolanda Martinez RDCS Ht: 5 ft 9 in Wt: 160lbs BSA: 1.88 BP: 140/88 mmHg Indications: CAD,CABG,SOA,PP,CP 2D Dimensions LVOT 1.55 cm (M/F) 1.5-2.5 M-Mode Dimensions RVDd 2.43 cm (0.9-2.6) LVDd 5.74 cm (3.5-5.7) LVDs 4.48 cm (3.5-5.7) IVSd 1.10 cm (0.6-1.1) PWd 0.91 cm (0.6-1.1) EF (Teich) 43.70% FS 22.00% EDV (Teich) 162.60 mL ESV (Teich) 91.50 mL LV Diastology E/A Ratio 0.66 Aortic Valve LVOT Max 90.00 (70-110 cm/s) LVOT VTI 18.05 cm Mitral Valve MV A Velocity 85.00 (40-130 cm/s) Left Ventricle Left atrium is mildly enlarged, left ventricle is normal size, mild concentric left ventricular hypertrophy, visually estimated ejection fraction 45%, there is abnormal septal motion, there appears to be mild hypokinesis involving the distal septum and apical wall. Doppler evidence of impaired LV relaxation seen, tissue Doppler is inconclusive for left atrial pressure. Right Ventricle Right atrium and right ventricle are mildly enlarged with normal contractility, pacemaker lead seen in right ventricle. Aortic Valve Aortic valve is thickened and calcified, mean gradient across valve is 13 mmHg represents mild aortic stenosis, there is moderate aortic insufficiency. Mitral Valve Mitral valve leaflets are minimally thickened, there is no mitral stenosis, there is moderate mitral regurgitation. Tricuspid Valve Tricuspid valve is grossly normal, there is mild tricuspid regurgitation, calculated right ventricular systolic pressure 32 mmHg. Pulmonic Valve Pulmonic valve is poorly visualized. Great Vessels Aortic root is normal size. Pericardium No significant pericardial effusion noted Conclusion 1. Biatrial enlargement, normal left ventricular size, mild concentric left ventricular hypertrophy, visually estimated ejection fraction 45% with segmental wall motion abnormality described above, there is abnormal septal motion. Doppler evidence of impaired LV relaxation seen, tissue Doppler is inconclusive for left atrial pressure. 2. Moderate aortic and moderate mitral regurgitation. Mild aortic stenosis 3. Mild tricuspid regurgitation, calculated right ventricular systolic pressure 32 mmHg. 4. No significant pericardial effusion noted. Electronically signed by : Kristofer Chou, 02/19/2020 15:37:54
== END ==
PROVIDERS: PCP Nurse Practitioner Family; Visit Provider Internal Medicine Cardiovascular Disease
DX: I10 Essential (primary) hypertension (principal); I20.9 Angina pectoris, unspecified; I27.20 Pulmonary hypertension, unspecified; I35.1 Nonrheumatic aortic (valve) insufficiency; I65.23 Occlusion and stenosis of bilateral carotid arteries; R06.02 Shortness of breath; Z95.0 Presence of cardiac pacemaker
CPT/HCPCS: 93306

== ENCOUNTER → 2020-02-25 06:36 | Outpatient (CLI) | payer MEDICARE, SELFPAY ==
--- NOTE | 2020-02-25 06:37 | NM_ITS ---
APPROVED REPORT Exam: Nuclear Stress Test Indication: CAD, HTN, C.P., PACEMAKER Patient Location: Outpatient Stress Tech: Anabell Valerie NM Tech:Roxy Montanez, ARRT, RT (R)(N) Ht: 5 ft 9 in Wt: 160 lbs HR: 70 bpm BP: 153/71 mmHg BSA: 1.88 m2 BMI: 23.6 History: CAD, HTN, C.P., PACEMAKER Procedure: Patient received a 0.4 mg of intravenous Lexiscan, resting heart rate 70 bpm, resting blood pressure 153/71 mmHg, with Lexiscan maximum heart rate achived was 79 bpm which is Less than 85 % of the maximum predicted heart rate and blood pressure was 136/69 mmHg. With Lexiscan, patient denied any complaint of chest pain. Electrocardiogram Resting electrocardiogram showed electronically paced rhythm, with Lexiscan there is less than 1.[address] segment depression noted from the baseline EKG. The EKG portion of the Lexiscan Myoview is nondiagnostic. Cardiac Stress and Resting SPECT Images: Cardiac Stress and Resting SPECT images were obtained using technetium 99m Myoview 31.7 mCi stress and 10.22 mCi at rest. Gated SPECT for the analysis of segmental wall motion and calculation of the ejection fraction also done. Cardiac stress and resting SPECT images show partial reversible defect involving the anterior apical and inferior wall consistent with mixed ischemia and scar, computer derived ejection fraction is 32% with moderate inferior and inferior apical wall hypokinesis. Right ventricle is normal size and contractility. Conclusion: 1. The EKG portion of the Lexiscan Myoview is nondiagnostic. 2. Scintigraphic evidence of mixed ischemia and scar involving the anterior apical and inferior wall, computer derived ejection fraction is 32% with segmental wall motion abnormalities described above, right ventricle is normal size and contractility. 3. Abnormal Lexiscan Myoview study. Electronically signed by : Kristofer Chou, 02/26/2020 09:39:34
--- NOTE | 2020-02-25 06:37 | CA_ITS ---
APPROVED REPORT Exam: Pharmacologic Technologist: Macy Padilla, Ht: 5 ft 9 in Wt: 165 lbs BSA: 1.90 m2 HR: 70 bpm BP: 153/71 mmHg Rhythm: ELECTRONICALLY PACED RHYTHM Medical History Medical History: Hyperlipidemia Medications: Asa,,,,, Gabapentin,,,,, Escitalopram,,,,, Flonase,,,,, Crestor,,,,, OxYCODONE,,,,, Cardiac Risk Factors: Hyperlipidemia, FHX of CAD Stress Test Details Test: LEXISCAN HR Resting HR: 70 bpm Max Heart Rate (APMHR): 141 bpm Max HR Achieved: 90 bpm Target HR (85% APMHR): 119 bpm % of APMHR: 63 Recovery HR: 79 bpm BP Resting BP: 153.0/71.0 mmHg Max BP: 153.0/71.0 mmHg Recovery BP: 136.0/69.0 mmHg ECG Resting ECG: ELECTRONICALLY PACED Clinical Exercise duration: 04:19 min Highest Stage Achieved: Exercise capacity: 1.0 METs Stress ECG Conclusion DURING INFUSION OF LEXISCAN PATIENT HAD SOA,NAUSEA ABD HEADACHE. NO CHEST PAIN. NO ARRHYTHMIAS/ECTOPY. NS T WAVE CHANGES. UNREMARKABLE LEXISCAN STRESS. MYOVIEW IMAGES REPORTED SEPARATELY. Electronically signed by : Kristofer Chou, 02/26/2020 09:36:21
--- NOTE | 2020-02-25 07:43 | HMH.ITSHM ---
Current Home Medications as stated by this patient Joe Davies or promotional representative. []TRIAMCINOLONE ROSUVASTATIN METOPROLOL HYDROCODONE GABAPENTIN ESCITALOPRAM ASA
== END ==
PROVIDERS: PCP Nurse Practitioner Family; Visit Provider Internal Medicine Cardiovascular Disease
DX: I20.9 Angina pectoris, unspecified; Z95.0 Presence of cardiac pacemaker; C91.10 Chronic lymphocytic leukemia of B-cell type not having achieved remission; R07.89 Other chest pain; R06.02 Shortness of breath; I65.23 Occlusion and stenosis of bilateral carotid arteries; I27.20 Pulmonary hypertension, unspecified
CPT/HCPCS: 78452; 93017; A9502; J2785

== ENCOUNTER → 2020-02-26 09:30 | Outpatient (CLI) | payer MEDICARE, SELFPAY ==
[2020-02-26 09:33] VITALS: BMI 24.3
[2020-02-26 10:06] LABS: Alanine Aminotransferase 13 U/L (12-78); Albumin Level 3.9 g/dl (3.5-5.0); Albumin/Globulin Ratio 1.3 (1.1-1.8); Alkaline Phosphatase 68 U/L (38-126); Anion Gap 13.2 mEq/L (5-15); Aspartate Amino Transferase 30 U/L (17-59); Basophils # 0.5 K/mm3 (0-0.2); Basophils % 1.3 % (0.1-2.0); Bilirubin,Total 0.5 mg/dl (0.2-1.3); Blood Urea Nitrogen 29 mg/dl (9-20); Calcium 8.8 mg/dl (8.4-10.2); Carbon Dioxide 26 mmol/L (22.0-30.0); Chloride 105 mmol/L (98-107); Creatinine Clearance Estimated 49 mL/min (50-200); Eosinophils # 0.5 K/mm3 (0.0-0.4); Eosinophils % 1.2 % (0.1-12.0); Estimated Glomerular Filt Rate 53 ml/min (>60); GFR (African American) 64 ML/MIN (>60); Globulin 2.9 g/dL (1.3-3.2); Glucose 91 mg/dl (74-100); Hematocrit 36.1 % (42.0-52.0); Hemoglobin 12.3 g/dL (14.1-18.0); Lymphocytes # 31.9 K/mm3 (0.7-4.5); Lymphocytes % 81.6 % (10-50); Mean Corpuscular HGB Conc 34.2 g/dL (31.8-35.4); Mean Corpuscular Hemoglobin 29.9 pg (27.0-31.2); Mean Corpuscular Volume 87.2 fl (80-94); Mean Platelet Volume 8.6 fl (7.4-10.4); Monocytes # 0.7 K/mm3 (0.1-1.0); Monocytes % 1.8 % (1.7-9.3); Neutrophils # 5.5 K/mm3 (1.8-7.8); Platelet Count 192 K/mm3 (142-424); Potassium 4.2 mmoL/L (3.5-5.1); Red Blood Count 4.13 M/mm3 (4.60-6.20); Red Cell Distribution Width 14.9 % (11.5-17.5); Sodium 140 mmol/L (136-145); Total Protein,Serum 6.8 g/dl (6.3-8.2); White Blood Count 39.1 K/mm3 (4.8-10.8)
[2020-02-26 10:08] LABS: MANUAL DIFFERENTIAL MANUAL DIFFERENTIAL (MANUAL DIFF)
[2020-02-26 10:22] LABS: Eosinophils % 1 % (0-3); Lymphocytes % 83 % (10-50); Monocytes % 1 % (2-9); Neutrophils % 15 % (42-76); Total Cells Counted 100
[2020-02-26 10:23] LABS: Platelet Estimate Normal; RBC Morphology Normal
== END ==
PROVIDERS: Visit Provider Internal Medicine Medical Oncology
DX: Z45.2 Encounter for adjustment and management of vascular access device (principal)
CPT/HCPCS: 80053; 85007; 85025; J1642

== ENCOUNTER 2020-03-04 08:09 | Outpatient (CLI) | payer MEDICARE, SELFPAY ==
[2020-03-04] VITALS (8 sets, daily range): BP systolic 101–143; BP diastolic 51–86; PULSE 69–72; RESP 20; TEMP 36.4; O2SAT 94–96; BMI 24.0
[2020-03-05 07:26] LABS: Hep A Ab, IgM Negative (Negative); Hepatitis B Core Antibody IgM Negative (Negative); Hepatitis B Surface Antigen Negative (Negative)
[2020-03-05 09:09] LABS: Hepatitis C Antibody <0.1 s/co ratio (0.0-0.9)
== END 2020-03-04 12:05 | disposition home or self-care (01) ==
LOC: INF 08:09
PROVIDERS: Visit Provider Internal Medicine Medical Oncology
DX: Z51.11 Encounter for antineoplastic chemotherapy (principal); C91.10 Chronic lymphocytic leukemia of B-cell type not having achieved remission; R53.83 Other fatigue
CPT/HCPCS: 80074; 96413; 96415; J1642; J9312

== ENCOUNTER 2020-03-05 08:57 | Day surgery (SDC) | payer MEDICARE, SELFPAY ==
[2020-03-05] VITALS (12 sets, daily range): BP systolic 143–177; BP diastolic 74–97; PULSE 70–81; RESP 16; TEMP 36.8; O2SAT 92–98; BMI 24.3
--- NOTE | 2020-03-05 | IR_ITS ---
APPROVED REPORT Patient Location: Outpatient [employer] Machine Operator: MIGUEL Couch RT (R) PROCEDURES Left heart catheterization Left ventriculogram Selective coronary angiogram Selective engagement of left internal mammary artery Drug-eluting stent deployment to the proximal dominant right coronary artery INDICATION Coronary artery disease, History of coronary bypass surgery, High risk abnormal Myoview, Typical angina pectoris Informed consent was obtained prior to the procedure. COMPLICATIONS NONE Estimated Blood Loss: LESS THAN 10 ML TECHNIQUE One percent lidocaine used to anesthetize the right groin. The right femoral artery was accessed via the Seldinger technique and a 5 Thai sheath was placed in the right femoral artery. A JL 4, JR4 catheter were used to perform left heart catheterization, left ventriculogram selective coronary angiography as well as selective engagement of the left internal mammary artery. At the end of the diagnostic angiogram therapeutic heparin was administered giving an ACT of 312 seconds. A JR4 guide catheter was placed in the right coronary artery and a Choice PT extra-support wire was placed distal to the stenosis. A 3 mm x 12 mm noncompliant balloon was deployed at 18 jef on 2 occasions to reduce the stenosis. A 3. 5 x 30 mm resolute richelle stent was deployed at 20 jef reducing the stenosis to 0%. At the end of the procedure the apparatus was removed the groin was reprepped gloves were changed sheath was removed good hemostasis was achieved using Perclose device patient was transferred to the postop holding area stable condition ANGIOGRAPHIC RESULTS The left main artery Has a distal 20% stenosis The left anterior descending artery Proximally occluded The circumflex artery Gives rise to a large ramus intermedius which has proximal and mid vessel 50% stenoses. The circumflex artery itself is nondominant and has proximal 20% stenosis The right coronary artery Is a large dominant vessel and has a proximal complex 90% stenosis. Distally the vessel has 30% stenosis The HOOD ventriculogram reveals Reduced ejection fraction estimated at 40% with inferior hypokinesis The left ventricular end-diastolic pressure 10 mmHg The GU is widely patent makes anastomosis onto the LAD. At the anastomosis site there is a 30% stenosis IMPRESSION Critical disease in the proximal dominant right coronary artery with successful stenting reducing the critical disease to 0% with one drug-eluting stent Reduced ejection fraction as described above Persistent moderate to severe stenosis in a large ramus intermedius Normal left ventricular end-diastolic pressure PLAN 1. Dual antiplatelet therapy 2. LDL less than 55 3. Cardiac rehabilitation 4. Standard therapy for systolic heart failure 5. I believe the large ramus intermedius can be managed medically at this time. Should patient continue to experience angina he can be brought back to the [facility] and undergo stenting of this large bifurcating ramus intermedius. At this time a very competent patient's angina stems from the critical dominant right stenosis Electronically signed by : Artis Musa, 03/05/2020 11:45:05
[2020-03-05 09:51] LABS: Basophils # 0.3 K/mm3 (0-0.2); Basophils % 1.2 % (0.1-2.0); Eosinophils # 0.3 K/mm3 (0.0-0.4); Eosinophils % 1.1 % (0.1-12.0); Hematocrit 36.3 % (42.0-52.0); Hemoglobin 11.8 g/dL (14.1-18.0); Lymphocytes # 16.9 K/mm3 (0.7-4.5); Lymphocytes % 58.2 % (10-50); Mean Corpuscular HGB Conc 32.7 g/dL (31.8-35.4); Mean Corpuscular Hemoglobin 28.5 pg (27.0-31.2); Mean Corpuscular Volume 87.3 fl (80-94); Mean Platelet Volume 8.7 fl (7.4-10.4); Monocytes # 0.8 K/mm3 (0.1-1.0); Monocytes % 2.8 % (1.7-9.3); Neutrophils # 10.7 K/mm3 (1.8-7.8); Neutrophils % 36.7 % (37.0-80.0); Platelet Count 185 K/mm3 (142-424); Red Blood Count 4.15 M/mm3 (4.60-6.20); Red Cell Distribution Width 14.9 % (11.5-17.5)
[2020-03-05 09:55] LABS: MANUAL DIFFERENTIAL MANUAL DIFFERENTIAL (MANUAL DIFF); White Blood Count 29.1 K/mm3 (4.8-10.8)
[2020-03-05 09:58] LABS: Chloride 110 mmol/L (98-107); Sodium 140 mmol/L (136-145)
[2020-03-05 10:01] LABS: Blood Urea Nitrogen 25 mg/dl (9-20); Creatinine Clearance Estimated 63 mL/min (50-200); Estimated Glomerular Filt Rate 72 ml/min (>60)
[2020-03-05 10:02] LABS: Carbon Dioxide 21 mmol/L (22.0-30.0); GFR (African American) 87 ML/MIN (>60); Glucose 104 mg/dl (74-100)
[2020-03-05 10:07] LABS: Lymphocytes % 53 % (10-50); Neutrophils % 47 % (42-76); Platelet Estimate Normal; RBC Morphology Normal; Total Cells Counted 100
[2020-03-05 10:20] LABS: Coronavirus 19 IgG Antibody Negative (Negative); Coronavirus 19 IgM Antibody Negative (Negative)
[2020-03-05 13:26] LABS: CATHL Activated Clotting Time 312 SEC (74-125)
--- NOTE | 2020-03-05 14:04 | HMH.PHACLD ---
Joe Davies has received discharge medication counseling on the following medications: PATIENT IS CURRENTLY TAKING: ASPIRIN 81 MG DAILY METOPROLOL SUCCINATE 25 MG DAILY ROSUVASTATIN 10 MG HS MD ADDING LISINOPRIL 20 MG DAILY AND BRILINTA 90 MG BID.
== END 2020-03-05 15:00 | disposition home or self-care (01) ==
PROVIDERS: PCP Nurse Practitioner Family; Visit Provider Internal Medicine
DX: I25.118 Atherosclerotic heart disease of native coronary artery with other forms of angina pectoris (principal); I10 Essential (primary) hypertension; I65.23 Occlusion and stenosis of bilateral carotid arteries; I35.1 Nonrheumatic aortic (valve) insufficiency; I27.20 Pulmonary hypertension, unspecified; Z95.0 Presence of cardiac pacemaker; Z95.1 Presence of aortocoronary bypass graft; Z79.82 Long term (current) use of aspirin; Z79.899 Other long term (current) drug therapy; C91.10 Chronic lymphocytic leukemia of B-cell type not having achieved remission
CPT/HCPCS: 80048; 85007; 85025; 85347; 86328; 92928; 93459; 99152; 99153; C1725; C1760; C1769; C1876; C1894; C9600; J1642; J1644; Q9967

== ENCOUNTER 2020-03-09 10:11 | Outpatient (CLI) | payer MEDICARE, SELFPAY ==
[2020-03-09] VITALS (7 sets, daily range): BP systolic 128–154; BP diastolic 64–82; PULSE 71–78; RESP 18; TEMP 36.4; O2SAT 98–99
--- NOTE | 2020-03-09 10:15 | CT_ITS ---
PROCEDURE: CT CHEST W CON CLINCAL INDICATION: CLL Follow-up leukemia COMPARISON: CT CHW CT CHEST W/ CONTRAST from 03/21/[address] CHEST WO CON from 07/01/2019 TECHNIQUE: IV Contrast: 75ml Optiray 350 Axial images obtained with sagittal and coronal reformats. All CT scans at the facility use one or more dose reduction, viz: automated exposure control, ma/kV adjustment per patient size (including targeted exams where dose is matched to indication, i.e. head), or iterative reconstruction technique. FINDINGS: There is a moderate amount mediastinal adenopathy and bilateral hilar adenopathy. Precarinal mediastinal lymph node measures 2.7 by 2 cm previously measuring 2.3 x 1.6 cm.. Subcarinal echo area measures 3.3 by 2.5 cm previously 3.1 by 2 cm.. There are mildly enlarged right hilar lymph nodes measuring up to 2 cm previously at 1.8 cm. Coronary artery calcifications are present. There is a moderate sized hiatal hernia containing approximately 1/2 of the stomach with thickening at the GE junction. There has been a prior CABG. There is right apical pleural thickening which may be due to scarring slightly more prominent compared to the previous study. Nodular opacity is present in the right upper lobe posteriorly at 8 mm not significantly changed. There are centrilobular emphysematous changes. A stable 5 mm nodules present in the right middle lobe. A stable 3 mm nodules present in the right middle lobe a 4 mm nodules present in the right lower lobe superiorly unchanged. There is nodular thickening of the right minor fissure unchanged. There is a stable 6 mm nodule in the left upper lobe anteriorly. Stable small nodular densities noted in the left major fissure. There is a stable 4 mm nodule in the left upper lobe. There is bilateral axillary adenopathy. The largest node is in the left axillary region and measures 4.9 x 2.3 cm previously measuring 3.9 by 1.7 cm. On the right side the largest node is 2.7 cm previously 2.4 cm. IMPRESSION: Mediastinal and axillary adenopathy as described above. This does appears somewhat progressed than when compared to the previous exam. Pulmonary nodules appear stable. There are other nonacute findings as described above. Dictated by: Dima Malik MD 03/10/2020 09:53 Dima Malik MD in [place] 03/10/2020 09:53
--- NOTE | 2020-03-09 10:15 | CT_ITS ---
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 All CT scans at the facility use one or more dose reduction, viz: automated exposure control, ma/kV adjustment per patient size (including targeted exams where dose is matched to indication, i.e. head), or iterative reconstruction technique. FINDINGS: The liver, spleen, gallbladder, left adrenal gland, and pancreas have an unremarkable appearance. There is a 1.8 cm hypodense nodule involving the right adrenal gland not significantly changed consistent with an adenoma. No renal or ureteral calculi. No hydronephrosis. There is a moderate-sized hiatal hernia. No evidence of appendicitis. There is colonic diverticulosis with no evidence of diverticulitis. Prostate is prominent at 5 cm. Urinary bladder wall is slightly thickened with some asymmetric thickening along the anterior and right lateral wall. Abdominal and pelvic adenopathy is present. There are periportal lymph nodes. The combined echo mass in the upper mesenteric region is 3.7 x 2 cm previously 2.9 x 1.6 cm. A cluster of periportal nodes measures 3.1 by 3 cm with the largest node measuring 2.2 cm previously measuring 1.6 cm. Adenopathy is present within the mesenteries and right lower quadrant. Retroperitoneal adenopathy is noted in the iliac region bilaterally. Bilateral external iliac adenopathy noted more prominent on the left measuring 6.2 x 2.4 cm previously 5.9 by 2.3 cm. There is bilateral inguinal adenopathy with stranding of the fat noted in the right inguinal region. Right inguinal lymph nodes appear slightly larger. Artifact is present from right hip prosthesis. No acute bony findings are evident. Seminal vesicles are somewhat prominent. IMPRESSION: 1. Extensive abdominal and retroperitoneal adenopathy which is slightly worse compared to the previous study. 2. Colonic diverticulosis without diverticulitis. 3. Other nonacute findings as described above Dictated by: Dima Malik MD 03/10/2020 10:11 Dima Malik MD in [place] 03/10/2020 10:11
== END 2020-03-09 15:15 | disposition home or self-care (01) ==
LOC: RAD 10:11 → INF 10:28
PROVIDERS: PCP Nurse Practitioner Family; Visit Provider Internal Medicine Medical Oncology
DX: Z51.11 Encounter for antineoplastic chemotherapy (principal); C91.90 Lymphoid leukemia, unspecified not having achieved remission
CPT/HCPCS: 71260; 74177; 96413; 96415; J1642; J9312; Q9967

== ENCOUNTER 2020-03-18 13:29 | Outpatient (CLI) | payer MEDICARE, SELFPAY ==
[2020-03-18 13:31] VITALS: BMI 24.0
[2020-03-18 14:07] LABS: Basophils # 0.1 K/mm3 (0-0.2); Basophils % 0.5 % (0.1-2.0); Eosinophils # 0.4 K/mm3 (0.0-0.4); Eosinophils % 2.2 % (0.1-12.0); Hematocrit 36.2 % (42.0-52.0); Hemoglobin 11.7 g/dL (14.1-18.0); Lymphocytes # 13.7 K/mm3 (0.7-4.5); Lymphocytes % 67.6 % (10-50); Mean Corpuscular HGB Conc 32.3 g/dL (31.8-35.4); Mean Corpuscular Hemoglobin 28.4 pg (27.0-31.2); Monocytes # 0.6 K/mm3 (0.1-1.0); Monocytes % 2.8 % (1.7-9.3); Neutrophils # 5.5 K/mm3 (1.8-7.8); Platelet Count 219 K/mm3 (142-424); Red Blood Count 4.12 M/mm3 (4.60-6.20); Red Cell Distribution Width 14.9 % (11.5-17.5); White Blood Count 20.3 K/mm3 (4.8-10.8)
[2020-03-18 14:09] LABS: MANUAL DIFFERENTIAL MANUAL DIFFERENTIAL (MANUAL DIFF)
[2020-03-18 14:13] LABS: Chloride 107 mmol/L (98-107); Potassium 3.8 mmoL/L (3.5-5.1); Sodium 141 mmol/L (136-145)
[2020-03-18 14:15] LABS: Blood Urea Nitrogen 24 mg/dl (9-20); Creatinine Clearance Estimated 57 mL/min (50-200); Estimated Glomerular Filt Rate 65 ml/min (>60); GFR (African American) 78 ML/MIN (>60)
[2020-03-18 14:16] LABS: Alanine Aminotransferase 13 U/L (12-78); Albumin Level 3.8 g/dl (3.5-5.0); Albumin/Globulin Ratio 1.4 (1.1-1.8); Alkaline Phosphatase 68 U/L (38-126); Anion Gap 12.8 mEq/L (5-15); Aspartate Amino Transferase 28 U/L (17-59); Bilirubin,Total 0.5 mg/dl (0.2-1.3); Calcium 8.6 mg/dl (8.4-10.2); Carbon Dioxide 25 mmol/L (22.0-30.0); Globulin 2.7 g/dL (1.3-3.2); Glucose 94 mg/dl (74-100); Total Protein,Serum 6.5 g/dl (6.3-8.2)
[2020-03-18 14:22] LABS: Eosinophils % 3 % (0-3); Lymphocytes % 71 % (10-50); Monocytes % 2 % (2-9); Neutrophils % 24 % (42-76); Platelet Estimate Normal; RBC Morphology Normal; Total Cells Counted 100
[2020-03-18 14:48] LABS: Lactate Dehydrogenase 237 U/L (313-618); Uric Acid 5.5 mg/dl (3.5-8.5)
== END 2020-03-18 13:55 | disposition home or self-care (01) ==
LOC: INF 13:29
PROVIDERS: Visit Provider Internal Medicine Medical Oncology
DX: C91.10 Chronic lymphocytic leukemia of B-cell type not having achieved remission (principal); Z45.2 Encounter for adjustment and management of vascular access device
CPT/HCPCS: 80053; 83615; 84550; 85007; 85025; J1642

== ENCOUNTER 2020-03-19 08:35 | Outpatient (CLI) | payer MEDICARE, SELFPAY ==
[2020-03-19] VITALS (12 sets, daily range): BP systolic 94–163; BP diastolic 49–108; PULSE 70–74; RESP 16–18; TEMP 36.4; O2SAT 95
== END 2020-03-19 12:45 | disposition home or self-care (01) ==
LOC: INF 08:39
PROVIDERS: Visit Provider Internal Medicine Medical Oncology
DX: Z51.11 Encounter for antineoplastic chemotherapy (principal); C91.10 Chronic lymphocytic leukemia of B-cell type not having achieved remission
CPT/HCPCS: 96413; 96415; J1642; J9312

== ENCOUNTER 2020-03-26 08:25 | Outpatient (CLI) | payer MEDICARE, SELFPAY ==
[2020-03-26 08:31] VITALS: BMI 24.0
[2020-03-26 08:50] LABS: Basophils # 0.1 K/mm3 (0-0.2); Basophils % 0.7 % (0.1-2.0); Eosinophils # 0.6 K/mm3 (0.0-0.4); Eosinophils % 2.8 % (0.1-12.0); Hematocrit 36.2 % (42.0-52.0); Hemoglobin 12.3 g/dL (14.1-18.0); Lymphocytes # 13.9 K/mm3 (0.7-4.5); Mean Corpuscular HGB Conc 33.9 g/dL (31.8-35.4); Mean Corpuscular Hemoglobin 29.9 pg (27.0-31.2); Mean Corpuscular Volume 88.3 fl (80-94); Mean Platelet Volume 7.8 fl (7.4-10.4); Monocytes # 0.6 K/mm3 (0.1-1.0); Monocytes % 2.7 % (1.7-9.3); Neutrophils % 24.7 % (37.0-80.0); Platelet Count 201 K/mm3 (142-424); Red Cell Distribution Width 15.1 % (11.5-17.5); White Blood Count 20.2 K/mm3 (4.8-10.8)
[2020-03-26 09:05] LABS: MANUAL DIFFERENTIAL MANUAL DIFFERENTIAL (MANUAL DIFF)
[2020-03-26 09:59] LABS: Eosinophils % 7 % (0-3); Lymphocytes % 75 % (10-50); Monocytes % 1 % (2-9); Neutrophils % 17 % (42-76); Total Cells Counted 100
[2020-03-26 10:00] VITALS: BP 104/51; PULSE 69; RESP 20; TEMP 36.9; O2SAT 95
[2020-03-26 10:02] LABS: Poikilocytosis 1+
[2020-03-26 10:03] LABS: Ovalocytes 1+
[2020-03-26 10:04] LABS: Platelet Estimate Normal
[2020-03-26 10:30] VITALS: BP 106/58; PULSE 68; RESP 20; TEMP 36.9; O2SAT 95
[2020-03-26 11:00] VITALS: BP 113/57; PULSE 70; RESP 20; TEMP 36.9; O2SAT 95
[2020-03-26 12:00] VITALS: BP 112/74; PULSE 76; RESP 20; TEMP 36.9; O2SAT 95
[2020-03-26 12:30] VITALS: BP 125/74; PULSE 68; RESP 20; TEMP 36.9; O2SAT 95
[2020-03-26 12:40] VITALS: BP 105/57; PULSE 68; RESP 20; TEMP 36.9; O2SAT 95
== END 2020-03-26 12:40 | disposition home or self-care (01) ==
LOC: INF 08:32
PROVIDERS: Visit Provider Internal Medicine Medical Oncology
DX: Z51.11 Encounter for antineoplastic chemotherapy (principal); C91.10 Chronic lymphocytic leukemia of B-cell type not having achieved remission
CPT/HCPCS: 85007; 85025; 96413; 96415; J1642; J9312

== ENCOUNTER 2020-05-04 09:40 | Outpatient (CLI) | payer MEDICARE, SELFPAY ==
[2020-05-04] VITALS (13 sets, daily range): BP systolic 131–171; BP diastolic 50–80; PULSE 69–78; RESP 18; O2SAT 97; BMI 24.0
[2020-05-04 10:01] LABS: Basophils # 0.1 K/mm3 (0-0.2); Basophils % 0.3 % (0.1-2.0); Eosinophils # 0.5 K/mm3 (0.0-0.4); Eosinophils % 3.7 % (0.1-12.0); Hematocrit 38.2 % (42.0-52.0); Hemoglobin 12.3 g/dL (14.1-18.0); Lymphocytes # 6.4 K/mm3 (0.7-4.5); Lymphocytes % 47.8 % (10-50); Mean Corpuscular HGB Conc 32.3 g/dL (31.8-35.4); Mean Corpuscular Hemoglobin 28.6 pg (27.0-31.2); Mean Corpuscular Volume 88.4 fl (80-94); Mean Platelet Volume 7.6 fl (7.4-10.4); Monocytes # 0.7 K/mm3 (0.1-1.0); Monocytes % 4.9 % (1.7-9.3); Neutrophils # 5.8 K/mm3 (1.8-7.8); Neutrophils % 43.2 % (37.0-80.0); Platelet Count 250 K/mm3 (142-424); Red Blood Count 4.32 M/mm3 (4.60-6.20); White Blood Count 13.4 K/mm3 (4.8-10.8)
[2020-05-04 10:05] LABS: Chloride 109 mmol/L (98-107); Sodium 140 mmol/L (136-145)
[2020-05-04 10:08] LABS: Alanine Aminotransferase 11 U/L (12-78); Albumin/Globulin Ratio 1.6 (1.1-1.8); Alkaline Phosphatase 62 U/L (38-126); Aspartate Amino Transferase 27 U/L (17-59); Bilirubin,Total 0.5 mg/dl (0.2-1.3); Blood Urea Nitrogen 26 mg/dl (9-20); Carbon Dioxide 25 mmol/L (22.0-30.0); Creatinine Clearance Estimated 57 mL/min (50-200); Estimated Glomerular Filt Rate 65 ml/min (>60); GFR (African American) 78 ML/MIN (>60); Globulin 2.5 g/dL (1.3-3.2); Total Protein,Serum 6.5 g/dl (6.3-8.2)
[2020-05-04 10:09] LABS: Glucose 90 mg/dl (74-100)
== END 2020-05-04 13:56 | disposition home or self-care (01) ==
LOC: INF 09:46
PROVIDERS: Visit Provider Internal Medicine Medical Oncology
DX: Z51.11 Encounter for antineoplastic chemotherapy (principal); C91.90 Lymphoid leukemia, unspecified not having achieved remission
CPT/HCPCS: 80053; 85025; 96413; 96415; J1642; J9312

== ENCOUNTER 2020-06-01 08:54 | Outpatient (CLI) | payer MEDICARE, SELFPAY ==
[2020-06-01] VITALS (10 sets, daily range): BP systolic 109–158; BP diastolic 61–107; PULSE 69–81; RESP 18; TEMP 36.4; BMI 24.1
[2020-06-01 09:27] LABS: Basophils # 0.1 K/mm3 (0-0.2); Basophils % 0.8 % (0.1-2.0); Eosinophils # 0.6 K/mm3 (0.0-0.4); Eosinophils % 4.7 % (0.1-12.0); Hematocrit 38.5 % (42.0-52.0); Hemoglobin 12.5 g/dL (14.1-18.0); Lymphocytes # 5.9 K/mm3 (0.7-4.5); Lymphocytes % 49.2 % (10-50); Mean Corpuscular HGB Conc 32.3 g/dL (31.8-35.4); Mean Corpuscular Hemoglobin 28.5 pg (27.0-31.2); Mean Corpuscular Volume 88.1 fl (80-94); Mean Platelet Volume 8.8 fl (7.4-10.4); Monocytes # 0.6 K/mm3 (0.1-1.0); Monocytes % 5.3 % (1.7-9.3); Neutrophils # 4.8 K/mm3 (1.8-7.8); Platelet Count 223 K/mm3 (142-424); Red Blood Count 4.37 M/mm3 (4.60-6.20); Red Cell Distribution Width 14.4 % (11.5-17.5); White Blood Count 11.9 K/mm3 (4.8-10.8)
== END 2020-06-01 12:33 | disposition home or self-care (01) ==
LOC: INF 08:54
PROVIDERS: Visit Provider Internal Medicine Medical Oncology
DX: Z51.11 Encounter for antineoplastic chemotherapy (principal); C91.90 Lymphoid leukemia, unspecified not having achieved remission
CPT/HCPCS: 85025; 96413; 96415; J1642; J9312

== ENCOUNTER 2020-06-30 08:41 | Outpatient (CLI) | payer MEDICARE, SELFPAY ==
[2020-06-30] VITALS (8 sets, daily range): BP systolic 96–132; BP diastolic 46–80; PULSE 62–77; RESP 18; TEMP 36.2; O2SAT 96–97; BMI 24.9
[2020-06-30 09:05] LABS: Basophils % 0.5 % (0.1-2.0); Eosinophils # 0.4 K/mm3 (0.0-0.4); Eosinophils % 4.7 % (0.1-12.0); Hematocrit 38.5 % (42.0-52.0); Hemoglobin 11.9 g/dL (14.1-18.0); Lymphocytes # 4.1 K/mm3 (0.7-4.5); Lymphocytes % 44.6 % (10-50); Mean Corpuscular Hemoglobin 27.8 pg (27.0-31.2); Mean Corpuscular Volume 89.6 fl (80-94); Mean Platelet Volume 7.9 fl (7.4-10.4); Monocytes # 0.5 K/mm3 (0.1-1.0); Neutrophils # 4.2 K/mm3 (1.8-7.8); Neutrophils % 45.2 % (37.0-80.0); Platelet Count 191 K/mm3 (142-424); Red Cell Distribution Width 14.1 % (11.5-17.5); White Blood Count 9.2 K/mm3 (4.8-10.8)
[2020-06-30 09:13] LABS: Chloride 110 mmol/L (98-107); Sodium 141 mmol/L (136-145)
[2020-06-30 09:15] LABS: Blood Urea Nitrogen 32 mg/dl (9-20); Creatinine Clearance Estimated 50 mL/min (50-200); Estimated Glomerular Filt Rate 53 ml/min (>60); GFR (African American) 64 ML/MIN (>60)
[2020-06-30 09:16] LABS: Alanine Aminotransferase 11 U/L (12-78); Albumin/Globulin Ratio 1.4 (1.1-1.8); Alkaline Phosphatase 68 U/L (38-126); Aspartate Amino Transferase 28 U/L (17-59); Bilirubin,Total 0.5 mg/dl (0.2-1.3); Calcium 9.1 mg/dl (8.4-10.2); Carbon Dioxide 24 mmol/L (22.0-30.0); Globulin 2.9 g/dL (1.3-3.2); Glucose 95 mg/dl (74-100); Total Protein,Serum 6.9 g/dl (6.3-8.2)
== END 2020-06-30 13:00 | disposition home or self-care (01) ==
LOC: INF 08:41
PROVIDERS: Visit Provider Internal Medicine Medical Oncology
DX: Z51.11 Encounter for antineoplastic chemotherapy (principal); C91.90 Lymphoid leukemia, unspecified not having achieved remission
CPT/HCPCS: 80053; 85025; 96413; 96415; J1642; J9312

== ENCOUNTER → 2020-07-23 14:19 | Outpatient (CLI) | payer MEDICARE, SELFPAY ==
[2020-07-23 15:20] LABS: Amphetamine/Metha Screen,Urine Negative ng/ml (<1000)
[2020-07-23 15:21] LABS: Barbiturates Screen,Urine Negative ng/ml (<200); Benzodiazepines Screen,Urine Negative ng/ml (<200)
[2020-07-23 15:22] LABS: Methadone Screen,Urine Negative ng/ml (<300)
[2020-07-23 15:23] LABS: Cannabinoid Screen,Urine Negative ng/ml (<50); Cocaine Screen,Urine Negative ng/ml (<300)
[2020-07-23 15:24] LABS: Opiate Screen,Urine Positive ng/ml (<300); Phencyclidine Screen,Urine Negative ng/ml (<25)
[2020-07-29 13:10] LABS: Codeine Negative (Cutoff=100); Hydrocodone Positive (.); Hydromorphone Negative (Cutoff=100); Morphine Negative (Cutoff=100)
[2020-07-29 13:46] LABS: Hydrocodone Confirm 2392 ng/mL (Cutoff=100); Opiates Positive (.)
== END ==
LOC: LAB.DROPOF 14:20
PROVIDERS: Visit Provider Nurse Practitioner Family
DX: Z79.899 Other long term (current) drug therapy (principal)
CPT/HCPCS: 80305; 80361; G0480

== ENCOUNTER 2020-07-30 09:00 | Outpatient (CLI) | payer MEDICARE, SELFPAY ==
[2020-07-30] VITALS (9 sets, daily range): BP systolic 105–138; BP diastolic 49–73; PULSE 67–75; RESP 18–20; TEMP 36.9; O2SAT 95; BMI 23.0
[2020-07-30 09:26] LABS: Basophils # 0.1 K/mm3 (0-0.2); Basophils % 0.4 % (0.1-2.0); Eosinophils # 0.6 K/mm3 (0.0-0.4); Eosinophils % 4.8 % (0.1-12.0); Hemoglobin 14.2 g/dL (14.1-18.0); Lymphocytes # 4.8 K/mm3 (0.7-4.5); Lymphocytes % 41.4 % (10-50); Mean Corpuscular Hemoglobin 28.5 pg (27.0-31.2); Mean Corpuscular Volume 86.3 fl (80-94); Mean Platelet Volume 8.2 fl (7.4-10.4); Monocytes # 0.6 K/mm3 (0.1-1.0); Neutrophils # 5.6 K/mm3 (1.8-7.8); Neutrophils % 48.4 % (37.0-80.0); Platelet Count 248 K/mm3 (142-424); Red Blood Count 4.98 M/mm3 (4.60-6.20); Red Cell Distribution Width 14.4 % (11.5-17.5); White Blood Count 11.5 K/mm3 (4.8-10.8)
[2020-07-30 09:29] LABS: Alanine Aminotransferase 10 U/L (12-78); Albumin Level 4.4 g/dl (3.5-5.0); Albumin/Globulin Ratio 1.4 (1.1-1.8); Alkaline Phosphatase 74 U/L (38-126); Anion Gap 14.1 mEq/L (5-15); Aspartate Amino Transferase 28 U/L (17-59); Bilirubin,Total 0.4 mg/dl (0.2-1.3); Blood Urea Nitrogen 30 mg/dl (9-20); Calcium 9.5 mg/dl (8.4-10.2); Carbon Dioxide 26 mmol/L (22.0-30.0); Chloride 107 mmol/L (98-107); Creatinine Clearance Estimated 40 mL/min (50-200); Estimated Glomerular Filt Rate 45 ml/min (>60); GFR (African American) 55 ML/MIN (>60); Globulin 3.2 g/dL (1.3-3.2); Glucose 80 mg/dl (74-100); Potassium 4.1 mmoL/L (3.5-5.1); Sodium 143 mmol/L (136-145); Total Protein,Serum 7.6 g/dl (6.3-8.2)
== END 2020-07-30 13:35 | disposition home or self-care (01) ==
LOC: INF 09:15
PROVIDERS: Visit Provider Internal Medicine Medical Oncology
DX: Z51.11 Encounter for antineoplastic chemotherapy (principal); C91.90 Lymphoid leukemia, unspecified not having achieved remission
CPT/HCPCS: 80053; 85025; 96413; 96415; J1642; J9312

== ENCOUNTER 2020-08-23 09:32 | Outpatient (CLI) | payer MEDICARE, SELFPAY ==
[2020-08-23] VITALS (12 sets, daily range): BP systolic 108–129; BP diastolic 53–65; PULSE 66–76; RESP 18; TEMP 36.6; O2SAT 96; BMI 23.0
[2020-08-23 09:52] LABS: Basophils % 0.3 % (0.1-2.0); Eosinophils # 0.7 K/mm3 (0.0-0.4); Eosinophils % 6.3 % (0.1-12.0); Hematocrit 39.1 % (42.0-52.0); Hemoglobin 12.6 g/dL (14.1-18.0); Lymphocytes # 4.4 K/mm3 (0.7-4.5); Lymphocytes % 42.1 % (10-50); Mean Corpuscular HGB Conc 32.1 g/dL (31.8-35.4); Mean Corpuscular Hemoglobin 27.5 pg (27.0-31.2); Mean Corpuscular Volume 85.6 fl (80-94); Monocytes # 0.7 K/mm3 (0.1-1.0); Monocytes % 7.1 % (1.7-9.3); Neutrophils # 4.6 K/mm3 (1.8-7.8); Neutrophils % 44.2 % (37.0-80.0); Platelet Count 225 K/mm3 (142-424); Red Blood Count 4.57 M/mm3 (4.60-6.20); Red Cell Distribution Width 14.3 % (11.5-17.5); White Blood Count 10.4 K/mm3 (4.8-10.8)
== END 2020-08-23 14:07 | disposition home or self-care (01) ==
LOC: INF 09:32
PROVIDERS: Visit Provider Internal Medicine Medical Oncology
DX: C91.10 Chronic lymphocytic leukemia of B-cell type not having achieved remission (principal)
CPT/HCPCS: 85025; 96413; 96415; J1642; J9312

== ENCOUNTER → 2020-08-26 13:52 | Outpatient (CLI) | payer MEDICARE, SELFPAY ==
[2020-08-26 14:02] LABS: Chloride 109 mmol/L (98-107); Sodium 140 mmol/L (136-145)
[2020-08-26 14:05] LABS: Alanine Aminotransferase 10 U/L (12-78); Albumin Level 3.9 g/dl (3.5-5.0); Albumin/Globulin Ratio 1.4 (1.1-1.8); Alkaline Phosphatase 77 U/L (38-126); Aspartate Amino Transferase 23 U/L (17-59); Bilirubin,Total 0.4 mg/dl (0.2-1.3); Blood Urea Nitrogen 31 mg/dl (9-20); Calcium 9.2 mg/dl (8.4-10.2); Carbon Dioxide 25 mmol/L (22.0-30.0); Cholesterol 281 mg/dl (140-200); Estimated Glomerular Filt Rate 58 ml/min (>60); GFR (African American) 71 ML/MIN (>60); Globulin 2.8 g/dL (1.3-3.2); Glucose 145 mg/dl (74-100); Total Protein,Serum 6.7 g/dl (6.3-8.2); Triglycerides 187 mg/dl (30-150); VLDL Cholesterol 37 mg/dL (0-40)
[2020-08-26 14:06] LABS: Chol/HDL Ratio 5.4 (1-3.5); HDL Cholesterol 52 mg/dl (40-60)
[2020-08-26 14:17] LABS: Direct LDL Cholesterol 185.62 mg/dL (100-129)
[2020-08-26 14:18] LABS: Basophils # 0.1 K/mm3 (0-0.2); Basophils % 0.7 % (0.1-2.0); Eosinophils # 0.6 K/mm3 (0.0-0.4); Eosinophils % 5.1 % (0.1-12.0); Hematocrit 42.5 % (42.0-52.0); Hemoglobin 13.3 g/dL (14.1-18.0); Lymphocytes # 5.2 K/mm3 (0.7-4.5); Lymphocytes % 47.5 % (10-50); Mean Corpuscular HGB Conc 31.2 g/dL (31.8-35.4); Mean Corpuscular Hemoglobin 27.5 pg (27.0-31.2); Mean Platelet Volume 8.3 fl (7.4-10.4); Monocytes # 0.5 K/mm3 (0.1-1.0); Monocytes % 4.6 % (1.7-9.3); Neutrophils # 4.6 K/mm3 (1.8-7.8); Neutrophils % 42.1 % (37.0-80.0); Platelet Count 252 K/mm3 (142-424); Red Blood Count 4.83 M/mm3 (4.60-6.20); Red Cell Distribution Width 14.3 % (11.5-17.5)
[2020-08-26 14:23] LABS: T4 (Thyroxine) 10.1 ug/dl (5.53-11.0)
[2020-08-26 14:33] LABS: 25-OH Vitamin D, Total < 12.8 ng/mL (30-100)
[2020-08-26 14:37] LABS: Thyroid Stimulating Hormone 3.94 uIU/mL (0.465-4.68)
== END ==
LOC: LAB.DROPOF 13:53
PROVIDERS: Visit Provider Nurse Practitioner Family
DX: C91.90 Lymphoid leukemia, unspecified not having achieved remission (principal); I10 Essential (primary) hypertension; R53.83 Other fatigue; I20.9 Angina pectoris, unspecified; E55.9 Vitamin D deficiency, unspecified
CPT/HCPCS: 80053; 80061; 82306; 84436; 84443; 85025

== ENCOUNTER 2020-09-23 08:21 | Outpatient (CLI) | payer MEDICARE, SELFPAY ==
[2020-09-23] VITALS (8 sets, daily range): BP systolic 117–162; BP diastolic 55–71; PULSE 60–73; RESP 18; TEMP 36.4; O2SAT 98–99; BMI 24.0
[2020-09-23 08:40] LABS: Basophils % 0.5 % (0.1-2.0); Eosinophils # 0.4 K/mm3 (0.0-0.4); Eosinophils % 4.5 % (0.1-12.0); Hematocrit 37.8 % (42.0-52.0); Hemoglobin 12.5 g/dL (14.1-18.0); Lymphocytes # 3.2 K/mm3 (0.7-4.5); Lymphocytes % 34.4 % (10-50); Mean Corpuscular HGB Conc 33.1 g/dL (31.8-35.4); Mean Corpuscular Hemoglobin 27.9 pg (27.0-31.2); Mean Corpuscular Volume 84.5 fl (80-94); Monocytes # 0.7 K/mm3 (0.1-1.0); Monocytes % 7.6 % (1.7-9.3); Neutrophils % 53.1 % (37.0-80.0); Platelet Count 202 K/mm3 (142-424); Red Blood Count 4.47 M/mm3 (4.60-6.20); Red Cell Distribution Width 14.5 % (11.5-17.5); White Blood Count 9.4 K/mm3 (4.8-10.8)
[2020-09-23 08:46] LABS: Chloride 111 mmol/L (98-107); Potassium 3.9 mmoL/L (3.5-5.1); Sodium 141 mmol/L (136-145)
[2020-09-23 08:48] LABS: Blood Urea Nitrogen 29 mg/dl (9-20); Creatinine Clearance Estimated 56 mL/min (50-200); Estimated Glomerular Filt Rate 64 ml/min (>60); GFR (African American) 78 ML/MIN (>60)
[2020-09-23 08:49] LABS: Alanine Aminotransferase 11 U/L (12-78); Albumin/Globulin Ratio 1.6 (1.1-1.8); Alkaline Phosphatase 73 U/L (38-126); Anion Gap 9.9 mEq/L (5-15); Aspartate Amino Transferase 23 U/L (17-59); Bilirubin,Total 0.5 mg/dl (0.2-1.3); Calcium 8.8 mg/dl (8.4-10.2); Carbon Dioxide 24 mmol/L (22.0-30.0); Globulin 2.5 g/dL (1.3-3.2); Glucose 99 mg/dl (74-100); Total Protein,Serum 6.5 g/dl (6.3-8.2)
== END 2020-09-23 12:30 | disposition home or self-care (01) ==
LOC: INF 08:21
PROVIDERS: Visit Provider Internal Medicine Medical Oncology
DX: Z51.11 Encounter for antineoplastic chemotherapy (principal); C91.10 Chronic lymphocytic leukemia of B-cell type not having achieved remission
CPT/HCPCS: 80053; 85025; 96413; 96415; J1642; J9312

== ENCOUNTER 2020-10-20 09:25 | Outpatient (CLI) | payer MEDICARE, SELFPAY ==
[2020-10-20] VITALS (12 sets, daily range): BP systolic 104–164; BP diastolic 45–87; PULSE 69–71; RESP 18–20; TEMP 36.1; O2SAT 97; BMI 24.7
[2020-10-20 09:51] LABS: Basophils # 0.1 K/mm3 (0-0.2); Basophils % 0.7 % (0.1-2.0); Eosinophils # 0.6 K/mm3 (0.0-0.4); Eosinophils % 5.8 % (0.1-12.0); Hematocrit 38.3 % (42.0-52.0); Hemoglobin 12.5 g/dL (14.1-18.0); Lymphocytes # 4.1 K/mm3 (0.7-4.5); Lymphocytes % 40.7 % (10-50); Mean Corpuscular HGB Conc 32.6 g/dL (31.8-35.4); Mean Corpuscular Hemoglobin 27.5 pg (27.0-31.2); Mean Corpuscular Volume 84.5 fl (80-94); Mean Platelet Volume 8.2 fl (7.4-10.4); Monocytes # 0.6 K/mm3 (0.1-1.0); Monocytes % 5.5 % (1.7-9.3); Neutrophils # 4.8 K/mm3 (1.8-7.8); Neutrophils % 47.3 % (37.0-80.0); Platelet Count 184 K/mm3 (142-424); Red Blood Count 4.53 M/mm3 (4.60-6.20); Red Cell Distribution Width 14.5 % (11.5-17.5); White Blood Count 10.2 K/mm3 (4.8-10.8)
== END 2020-10-20 14:00 | disposition home or self-care (01) ==
LOC: INF 09:27
PROVIDERS: Visit Provider Internal Medicine Medical Oncology
DX: Z51.11 Encounter for antineoplastic chemotherapy (principal); C91.10 Chronic lymphocytic leukemia of B-cell type not having achieved remission
CPT/HCPCS: 85025; 96413; 96415; J1642; J9312

== ENCOUNTER 2020-11-17 08:45 | Outpatient (CLI) | payer MEDICARE, SELFPAY ==
[2020-11-17] VITALS (12 sets, daily range): BP systolic 105–165; BP diastolic 58–93; PULSE 60–70; RESP 18–20; TEMP 35.9; O2SAT 94; BMI 24.6
[2020-11-17 09:20] LABS: Basophils % 0.5 % (0.1-2.0); Eosinophils # 0.4 K/mm3 (0.0-0.4); Eosinophils % 5.6 % (0.1-12.0); Hematocrit 36.8 % (42.0-52.0); Hemoglobin 12.3 g/dL (14.1-18.0); Mean Corpuscular HGB Conc 33.5 g/dL (31.8-35.4); Mean Corpuscular Hemoglobin 28.1 pg (27.0-31.2); Mean Corpuscular Volume 83.8 fl (80-94); Mean Platelet Volume 8.3 fl (7.4-10.4); Monocytes # 0.7 K/mm3 (0.1-1.0); Monocytes % 9.4 % (1.7-9.3); Neutrophils # 3.2 K/mm3 (1.8-7.8); Neutrophils % 43.4 % (37.0-80.0); Platelet Count 187 K/mm3 (142-424); Red Blood Count 4.39 M/mm3 (4.60-6.20); Red Cell Distribution Width 14.6 % (11.5-17.5); White Blood Count 7.3 K/mm3 (4.8-10.8)
== END 2020-11-17 13:25 | disposition home or self-care (01) ==
LOC: INF 08:47
PROVIDERS: Visit Provider Internal Medicine Medical Oncology
DX: Z51.11 Encounter for antineoplastic chemotherapy (principal); C91.90 Lymphoid leukemia, unspecified not having achieved remission
CPT/HCPCS: 85025; 96413; 96415; J1642; J9312

== ENCOUNTER 2020-12-14 19:03 | Emergency (ER) | payer MEDICARE, SELFPAY ==
[2020-12-14 19:05] VITALS: BP 145/66; PULSE 74; RESP 17; TEMP 36.5; O2SAT 96; BMI 23.6
--- NOTE | 2020-12-14 19:13 | XR_ITS ---
PROCEDURE INFORMATION: Exam: XR Left Wrist Exam date and time: 12/14/2020 7:13 PM Age: 80 years old Clinical indication: Injury or trauma; Fall; Blunt trauma (contusions or hematomas); Wrist; Left TECHNIQUE: Imaging protocol: XR Left wrist. Views: 3 or more views. Total images: 3 COMPARISON: No relevant prior studies available. FINDINGS: Bones/joints: Diffuse osteopenia. Transverse distal radial metaphyseal fracture demonstrating about 3 mm impaction at the lateral cortical margin. There is mild sclerosis along the fracture interface which could be due to trabecular compaction or could indicate subacute fracture elements. Suspect nondisplaced articular extension into the central portion of the distal radial articular surface. No gross scapholunate widening. Nondisplaced ulnar styloid avulsion. Abnormal transverse lucency and adjacent sclerosis in the scaphoid waist is suspicious for nondisplaced scaphoid fracture and mild trabecular compaction. No signs of osteonecrosis. 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 Mild-moderate osteoarthritic sclerosis in the midcarpal joint. Soft tissues: Moderate soft tissue swelling around the wrist. IMPRESSION: 1. Transverse distal radial metaphyseal fracture with mild impaction and suspected nondisplaced articular extension the central portion of the distal radial articular surface. 2. Nondisplaced ulnar styloid avulsion. 3. Suspect nondisplaced scaphoid waist fracture. 4. Generalized osteopenia and moderate osteoarthritic changes.
--- NOTE | 2020-12-14 19:17 | HMH.EDGENADL ---
ED Disposition Clinical Impression: Fracture of wrist Qualifiers: Encounter type: initial encounter Fracture type: closed Laterality: right Qualified Code(s): S62.101A - Fracture of unspecified carpal bone, right wrist, initial encounter for closed fracture Disposition: Home, Self-Care Condition on Discharge: Good Instructions: DI for Distal Radius Fracture Prescriptions: Oxycodone HCl/Acetaminophen [Oxycodone-Acetaminophen 5-325] 1 each PO Q6H PRN #12 tab PRN Reason: Moderate To Severe Pain Transmission Status: Received by [facility] Referrals: Randy Flores APRN [Primary Care Provider] - Bill Joshua MD [Staff Physician] - - Critical Care Critical Care Time: No Attestation: On , the high probability of a clinically significant, sudden or life threatening deterioration of the following system(s) required my full and direct attention, intervention and personal management. The time I documented below is in addition to time spent performing reported procedures but includes the following listed in this critical care notation. Medical Decision Making - Ryan Inquiry Pt receiving controlled substance: Yes Ryan was queried for this patient: Yes Risks and benefits of using a controlled substance: were discussed with pt by me Vital Signs: 12/14/20 19:05 Temperature 97.7 F Temperature Source Oral Pulse Rate [Right] 74 Respiratory Rate 17 Blood Pressure [Right Arm] 145/66 H Blood Pressure Mean [Right Arm] 92 Blood Pressure Source [Right Arm] Automatic Cuff 02 Sat by Pulse Oximetry 96 Oxygen Delivery Method Room Air Orders (Tests/Meds): ED MEDICATIONS Discontinued Medications Generic Name Dose Route Start Last Admin Trade Name Freq PRN Reason Stop Dose Admin Oxycodone/Acetaminophen 1 each 12/14/20 19:17 12/14/20 19:35 Oxycodone 5mg W/Apap 325mg Tablet PO 12/14/20 19:18 1 each ONCE ONE Administration ORDERS Category Date Time Status XR wrist LT min 3V Stat Exams 12/14/20 19:13 Taken Medical Decision Narrative: xr with distal radius fx with minimal displacement/ pt placed in radial gutter splitn and given f/u with ortho. General Adult HPI - General Stated complaint: AO 12/14/20 1600 injury to left wrist Time Seen by Provider: 12/14/20 19:18 - History of Present Illness HPI narrative: 80-year-old male presents to the emergency department with a left wrist injury. Reports that he fell while bathing. He landed on his left wrist. No other injuries at that time. This occurred around 4 this afternoon. No meds taken prior to arrival. Pain is localized to the wrist and extends into the mid forearm. No other injuries. Did not hit head or lose consciousness. - Related Data Home Medications Medication Instructions Recorded Confirmed Escitalopram Oxalate 5 mg PO DAILY 03/04/20 11/17/20 Fluticasone Propionate [Flonase 1 spray INTRANASAL QDAY 03/04/20 11/17/20 Allergy Relief NS] Triamcinolone Acetonide 1 applic TOPICAL BID 03/04/20 11/17/20 Aspirin [Low Dose Aspirin EC] 81 mg PO DAILY 06/30/20 11/17/20 Ergocalciferol (Vitamin D2) 50,000 unit PO QWEEK 09/23/20 11/17/20 [Drisdol] Rosuvastatin Calcium 20 mg PO DAILY 10/20/20 11/17/20 Previous Rx's Medication Instructions Recorded ticagrelor 90 mg tablet 90 mg PO BID #60 tab 03/29/20 lisinopril 20 mg tablet 20 mg PO DAILY #30 tab 06/18/20 metoprolol succinate 25 mg 25 mg PO DAILY #90 tab 08/16/20 tablet,extended release 24 hr gabapentin 100 mg capsule 100 mg PO HS #30 cap 08/26/20 Oxycodone HCl/Acetaminophen 1 each PO Q6H PRN #12 tab 12/14/20 [Oxycodone-Acetaminophen 5-325] Allergies Allergy/AdvReac Type Severity Reaction Status Date / Time No Known Allergies Allergy Verified 10/15/20 11:06 [facility] History - Hepatitis A Screen Attestation statement:: This patient has been screened for Hepatitis A risk factors. I have reviewed the patient's past medical history: Yes Medic
[2020-12-14 20:01] VITALS: BP 107/64; PULSE 76; RESP 18; TEMP 36.6; O2SAT 96
== END 2020-12-14 20:08 | disposition home or self-care (01) ==
PROVIDERS: Emergency Provider Emergency Medicine; PCP Nurse Practitioner Family
DX: S52.502A Unspecified fracture of the lower end of left radius, initial encounter for closed fracture (principal); W16.212A Fall in (into) filled bathtub causing other injury, initial encounter; Y92.012 Bathroom of single-family (private) house as the place of occurrence of the external cause; I10 Essential (primary) hypertension; E78.5 Hyperlipidemia, unspecified; J44.9 Chronic obstructive pulmonary disease, unspecified; I25.2 Old myocardial infarction; I25.10 Atherosclerotic heart disease of native coronary artery without angina pectoris; Z87.891 Personal history of nicotine dependence; Z79.899 Other long term (current) drug therapy
CPT/HCPCS: 29125; 73110; 99283

== ENCOUNTER 2020-12-23 08:26 | Outpatient (CLI) | payer MEDICARE, SELFPAY ==
[2020-12-23] VITALS (7 sets, daily range): BP systolic 110–160; BP diastolic 59–95; PULSE 60–74; RESP 18; TEMP 36.5; O2SAT 98–99; BMI 23.6
[2020-12-23 08:45] LABS: Basophils # 0.1 K/mm3 (0-0.2); Basophils % 0.8 % (0.1-2.0); Eosinophils # 0.5 K/mm3 (0.0-0.4); Eosinophils % 5.9 % (0.1-12.0); Hematocrit 36.3 % (42.0-52.0); Hemoglobin 12.3 g/dL (14.1-18.0); Lymphocytes # 3.1 K/mm3 (0.7-4.5); Lymphocytes % 38.6 % (10-50); Mean Corpuscular HGB Conc 33.7 g/dL (31.8-35.4); Mean Corpuscular Hemoglobin 28.1 pg (27.0-31.2); Mean Corpuscular Volume 83.4 fl (80-94); Mean Platelet Volume 7.8 fl (7.4-10.4); Monocytes # 0.6 K/mm3 (0.1-1.0); Monocytes % 6.8 % (1.7-9.3); Neutrophils # 3.9 K/mm3 (1.8-7.8); Platelet Count 200 K/mm3 (142-424); Red Blood Count 4.36 M/mm3 (4.60-6.20); Red Cell Distribution Width 14.8 % (11.5-17.5); White Blood Count 8.1 K/mm3 (4.8-10.8)
[2020-12-23 08:55] LABS: Alanine Aminotransferase 12 U/L (12-78); Albumin/Globulin Ratio 1.4 (1.1-1.8); Alkaline Phosphatase 70 U/L (38-126); Anion Gap 9.8 mEq/L (5-15); Aspartate Amino Transferase 36 U/L (17-59); Bilirubin,Total 0.7 mg/dl (0.2-1.3); Blood Urea Nitrogen 25 mg/dl (9-20); Calcium 8.8 mg/dl (8.4-10.2); Carbon Dioxide 27 mmol/L (22.0-30.0); Chloride 106 mmol/L (98-107); Creatinine Clearance Estimated 57 mL/min (50-200); Estimated Glomerular Filt Rate 64 ml/min (>60); GFR (African American) 78 ML/MIN (>60); Globulin 2.8 g/dL (1.3-3.2); Glucose 86 mg/dl (74-100); Potassium 3.8 mmoL/L (3.5-5.1); Sodium 139 mmol/L (136-145); Total Protein,Serum 6.8 g/dl (6.3-8.2)
== END 2020-12-23 14:00 | disposition home or self-care (01) ==
LOC: INF 08:26
PROVIDERS: Visit Provider Internal Medicine Medical Oncology
DX: Z51.11 Encounter for antineoplastic chemotherapy (principal); C91.10 Chronic lymphocytic leukemia of B-cell type not having achieved remission
CPT/HCPCS: 80053; 85025; 96413; 96415; J1642; J9312

== ENCOUNTER → 2020-12-24 08:53 | Outpatient (CLI) | payer MEDICARE, SELFPAY ==
--- NOTE | 2020-12-24 08:58 | XR_ITS ---
PROCEDURE: XR WRIST LT MIN 3V CLINICAL INDICATION: left wrist fracture Fracture follow up COMPARISON: CR XR WRIST LT MIN 3V from 12/14/2020 FINDINGS: Status post cast placement. Impacted distal radial fracture in nondisplaced ulnar fracture once again noted with good alignment overall not significantly changed. There is mild dorsal displacement of the dorsal fracture fragment. IMPRESSION: Status post cast placement with good alignment of the distal radial and ulnar fractures Dictated by: Dima Malik MD 12/24/2020 11:18 Dima Malik MD in [place] 12/24/2020 11:18
== END ==
LOC: RAD 08:56
PROVIDERS: PCP Nurse Practitioner Family; Visit Provider Orthopaedic Surgery
DX: S52.502A Unspecified fracture of the lower end of left radius, initial encounter for closed fracture (principal); S62.009A Unspecified fracture of navicular [scaphoid] bone of unspecified wrist, initial encounter for closed fracture
CPT/HCPCS: 73110

== ENCOUNTER → 2020-12-31 09:03 | Outpatient (CLI) | payer MEDICARE, SELFPAY ==
--- NOTE | 2020-12-31 09:08 | XR_ITS ---
PROCEDURE: XR WRIST LT MIN 3V CLINICAL INDICATION: LT wrist fx COMPARISON: CR XR WRIST LT MIN 3V from 12/14/2020 CR XR WRIST LT MIN 3V from 12/24/2020 FINDINGS: Cast is in placed. There is healing distal radial and ulnar fracture as previously described with good alignment. Minimal dorsal displacement of distal radial dorsal fracture fragment as before. 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 IMPRESSION: No change healing distal radial and ulnar fractures with cast in place Dictated by: Dima Malik MD 12/31/2020 10:04 Dima Malik MD in [place] 12/31/2020 10:04
== END ==
PROVIDERS: PCP Nurse Practitioner Family; Visit Provider Orthopaedic Surgery
DX: S62.102A Fracture of unspecified carpal bone, left wrist, initial encounter for closed fracture (principal)
CPT/HCPCS: 73110

== ENCOUNTER 2021-01-19 09:00 | Outpatient (CLI) | payer MEDICARE, SELFPAY ==
[2021-01-19] VITALS (14 sets, daily range): BP systolic 101–176; BP diastolic 46–87; PULSE 58–73; RESP 17; TEMP 36.8; O2SAT 97–98; BMI 24.0
[2021-01-19 09:28] LABS: Basophils # 0.1 K/mm3 (0-0.2); Basophils % 0.8 % (0.1-2.0); Eosinophils # 0.5 K/mm3 (0.0-0.4); Eosinophils % 6.5 % (0.1-12.0); Hematocrit 35.4 % (42.0-52.0); Hemoglobin 11.9 g/dL (14.1-18.0); Lymphocytes # 2.9 K/mm3 (0.7-4.5); Lymphocytes % 39.7 % (10-50); Mean Corpuscular HGB Conc 33.7 g/dL (31.8-35.4); Mean Corpuscular Hemoglobin 28.2 pg (27.0-31.2); Mean Corpuscular Volume 83.8 fl (80-94); Mean Platelet Volume 8.3 fl (7.4-10.4); Monocytes # 0.4 K/mm3 (0.1-1.0); Monocytes % 5.6 % (1.7-9.3); Neutrophils # 3.5 K/mm3 (1.8-7.8); Neutrophils % 47.3 % (37.0-80.0); Platelet Count 186 K/mm3 (142-424); Red Blood Count 4.23 M/mm3 (4.60-6.20); Red Cell Distribution Width 14.8 % (11.5-17.5); White Blood Count 7.3 K/mm3 (4.8-10.8)
== END 2021-01-19 13:55 | disposition home or self-care (01) ==
LOC: INF 09:03
PROVIDERS: Visit Provider Internal Medicine Medical Oncology
DX: C91.10 Chronic lymphocytic leukemia of B-cell type not having achieved remission (principal)
CPT/HCPCS: 85025; 96413; 96415; J1642; J9312

== ENCOUNTER → 2021-01-28 09:01 | Outpatient (CLI) | payer MEDICARE, SELFPAY ==
--- NOTE | 2021-01-28 09:05 | XR_ITS ---
PROCEDURE: XR WRIST LT MIN 3V CLINICAL INDICATION: LT wrist Follow-up fracture COMPARISON: CR XR WRIST LT MIN 3V from 12/14/2020 CR XR WRIST LT MIN 3V from 12/24/2020 CR XR WRIST LT MIN 3V from 12/31/2020 FINDINGS: The cast has been removed. Comminuted fracture of the distal radius with an inverted T shape is once again noted with longitudinal component extending to the articular surface. There is sclerosis developing at the fracture site with developing callus formation consistent with healing. There is some mild dorsal angulation and dorsal displacement of the distal fracture fragment. Osteoarthritic changes are present at the 1st carpal metacarpal junction. There is a nondisplaced fracture at the base of the ulnar styloid process with good alignment. IMPRESSION: Healing distal radial fracture as described above Dictated by: Dima Malik MD 01/28/2021 10:02 Dima Malik MD in [place] 01/28/2021 10:02
== END ==
PROVIDERS: PCP Nurse Practitioner Family; Visit Provider Orthopaedic Surgery
DX: S62.102A Fracture of unspecified carpal bone, left wrist, initial encounter for closed fracture (principal)
CPT/HCPCS: 73110

== ENCOUNTER 2021-01-28 10:39 | Outpatient (RCR) | payer MEDICARE, SELFPAY | END 2021-01-28 11:26 | disposition home or self-care (01) | LOC: OT 10:39 | PROVIDERS: Visit Provider Orthopaedic Surgery | DX: S62.102A Fracture of unspecified carpal bone, left wrist, initial encounter for closed fracture (principal) | CPT/HCPCS: 97763 ==

== ENCOUNTER → 2021-02-14 12:08 | Outpatient (CLI) | payer MEDICARE, SELFPAY | PROVIDERS: PCP Nurse Practitioner Family; Visit Provider Nurse Practitioner | DX: Z20.822 Contact with and (suspected) exposure to COVID-19 (principal); U07.1 COVID-19 | CPT/HCPCS: U0003 ==

== ENCOUNTER 2021-02-16 10:00 | Outpatient (RCR) | payer MEDICARE, SELFPAY ==
--- NOTE | 2021-02-02 09:04 | HMH.OTOPEV ---
OT Inpatient Evaluation Rehab OT Outpatient Eval Start: 02/02/21 08:45 Freq: Status: Active Protocol: Document 02/02/21 08:49 FELY (Rec: 02/02/21 09:04 PANTERARUTHIE [id number]) Electronically Signed By Taniya Owens OT 02/02/21 08:49 Outpatient Therapy Subjective History Subjective History 80 year old female referred to skilled OP OT services after having a fall in the tub resulting in left scaphoid fx. Patient is currently 6 weeks out with cast removed and thumb spica splint in place. Chief Complaint Pain,Weakness,Decreased Gear Changer Strength Symptom Type Ache Symptoms Relieved By Brace/Support Symptoms Aggravated By Physical Activity Prior Functional Limitations None Current Functional Limitations Reaching,Lifting,Driving, Recreation Activity Symptom Description Constant and Continuous Level of pain today (0-10) 4 Pain scale - at its best (0-10) 4 Pain scale - at its worst (0-10) 4 Wrist/Hand Eval Wrist Range of Motion Left Wrist Extension Active Range of Motion ( 55 degrees) Wrist Flexion Active Range of Motion ( 52 degrees) Wrist Radial Deviation Active Range of 10 Motion (degrees) Wrist Ulnar Deviation Active Range of 15 Motion (degrees) Forearm Supination Active Range of 80 Motion (degrees) Forearm Pronation Active Range of Motion 90 (degrees) Gear Changer/Pinch Strength Right Gear Changer Strength Measurement (lbs) 40 Left Gear Changer Strength Measurement (lbs) 20 OT Outpatient Assessment Impairments Problems/Impairments Impaired Range of Motion, Impaired Strength,Impaired Endurance,Subjective C/O Pain Prognosis Rehab Potential Good Clinical Impression Consistent with Diagnosis Yes Short Term Goals Number of Weeks 2 Increase Range of Motion Yes: AROM of L UE wrist flex: 60; ext:60; RD:15; UD:20; SUP: 85 Increase Strength Yes: Increase L UE hooker off strength: 30# Decrease Subjective C/O Pain Yes: 3/10 pain at worst Patient to be Ind w/ HEP Yes: AAROM Patient to be Ind w/ Advanced HEP Yes: Strengthening Usp Goals Number of Weeks 4 Increase Range of Motion Yes: AROM of L UE wrist flex: 70; ext:70; RD:20; UD: 25 SUP: 90 Increase Strength
== END 2021-02-16 10:05 | disposition home or self-care (01) ==
LOC: OT 10:00
PROVIDERS: PCP Nurse Practitioner Family; Visit Provider Orthopaedic Surgery
DX: S62.102A Fracture of unspecified carpal bone, left wrist, initial encounter for closed fracture (principal)
CPT/HCPCS: 97110; 97140; 97165

== ENCOUNTER 2021-02-22 13:44 | Emergency (ER) | payer MEDICARE, SELFPAY ==
[2021-02-22 13:46] VITALS: BP 127/75; PULSE 86; RESP 16; TEMP 36.9; O2SAT 97; BMI 23.6
--- NOTE | 2021-02-22 14:06 | XR_ITS ---
PROCEDURE: XR CHEST PORTABLE CLINICAL HISTORY: fatigue, covid COMPARISON: CR CXR1 CHEST-PORTABLE from 05/31/2016 CR CXR1VP XR chest portable from 10/10/2017 CR XR CHEST PORTABLE from 04/22/[address] CHEST W CON from 03/09/2020 FINDINGS: Prior median sternotomy. Bipolar pacemaker is present from left subclavian approach. MediPort catheter is present from right subclavian approach. Patchy areas of slight increased density are present in the left mid to lower lung zone and in the right lower lung zone suspicious for bilateral Covid19 pneumonia. No large effusions. Degenerative changes are present in the right shoulder. IMPRESSION: Patchy bilateral infiltrates suspicious for Covid19 pneumonia Dictated by: Dima Malik MD 02/22/2021 14:27 Dima Malik MD in [place] 02/22/2021 14:27
--- NOTE | 2021-02-22 14:41 | HMH.EDGENADL ---
ED Disposition Clinical Impression: COVID-19, Decreased oral intake Disposition: Home, Self-Care Condition on Discharge: Fair Instructions: DI for COVID-19 (Suspected or Confirmed ) Additional Instructions: You have been evaluated for decreased oral intake. This is likely due to COVID-19 infection. Please try to eat and drink throughout the day. Follow-up with your primary care doctor by video or in person. Return to the emergency department at once for any new or worsening symptoms. Referrals: James Garcia MD [Primary Care Provider] - Time of Disposition: 16:18 - Critical Care Critical Care Time: No Attestation: On 02/22/21, the high probability of a clinically significant, sudden or life threatening deterioration of the following system(s) required my full and direct attention, intervention and personal management. The time I documented below is in addition to time spent performing reported procedures but includes the following listed in this critical care notation. Medical Decision Making - Medical Records Medical records reviewed: Yes: I reviewed the patient's medical records. - Ryan Inquiry Pt receiving controlled substance: No Vital Signs: 02/22/21 13:46 Temperature 98.4 F Temperature Source Oral Pulse Rate [Right Radial] 86 Respiratory Rate 16 Blood Pressure [Right Arm] 127/75 Blood Pressure Mean [Right Arm] 92 Blood Pressure Source [Right Arm] Automatic Cuff Blood Pressure Position [Right Arm] Sitting 02 Sat by Pulse Oximetry 97 Oxygen Delivery Method Room Air - Lab Data Lab Results 02/22/21 14:05: WBC 15.7 H, RBC 5.19, Hgb 14.2, Hct 43.3, MCV 83.5, MCH 27.5, MCHC 32.9, RDW 14.8, Plt Count 274, MPV 8.8, Neut % (Auto) 68.3, Lymph % (Auto) 30.0, [place] % (Auto) 1.4 L, Eos % (Auto) 0.1, Baso % (Auto) 0.2, Neut # (Auto) 10.7 H, Lymph # (Auto) 4.7 H, [place] # (Auto) 0.2, Eos # (Auto) 0.0, Baso # (Auto) 0.0, Total Counted 100, Neutrophils % (Manual) 77 H, Lymphocytes % (Manual) 21, Monocytes % (Manual) 2, Platelet Estimate Normal, Hypochromasia 1+, Microcytosis 2+ 02/22/21 14:05: Sodium 134 L, Potassium 4.1, Chloride 103, Carbon Dioxide 15 L, Anion Gap 20.1 H, BUN 38 H, Creatinine 1.40 H, Estimated Creat Clear 43, Estimated GFR 49 L, Est GFR ( Amer) 59, Glucose 102 H, Calcium 8.6, Ferritin 391, Total Bilirubin 0.7, AST 46, ALT 22, Alkaline Phosphatase 108, Troponin I 0.02, C-Reactive Protein 26.8 H, Total Protein 7.0, Albumin 3.9, Globulin 3.1, Albumin/Globulin Ratio 1.3 Result diagrams: 02/22/21 14:05 02/22/21 14:05 Orders (Tests/Meds): ED MEDICATIONS Discontinued Medications Generic Name Dose Route Start Last Admin Trade Name Freq PRN Reason Stop Dose Admin Sodium Chloride 1,000 mls @ 999 mls/hr 02/22/21 14:45 02/22/21 14:54 Sod Chlor 0.9% 1000ml Bag IV 02/22/21 15:45 999 mls/hr .Q1H1M ERAN Administration Ondansetron HCl 4 mg 02/22/21 14:31 02/22/21 14:54 Ondansetron 4mg/2ml Vial IV 02/22/21 14:32 4 mg ONCE ONE Administration ORDERS Category Date Time Status Troponin I Q3H Lab 02/22/21 17:15 Ordered Troponin I Q3H Lab 02/22/21 20:15 Ordered ECG Request by /Alda Stat Y 02/22/21 14:06 Ordered Medical Decision Narrative: In summary this is an 80-year-old male presenting to the emergency department with decreased intake and COVID-19. Patient clinically stable on arrival. Vital signs within normal limits. No hypoxia or tachycardia. Does not appear to be in any distress. Denying any particular abdominal pain, doubt acute surgical abnormality. Most likely due to COVID-19 virus. Patient given IV fluids. Will obtain CBC, CMP, chest x-ray, troponin profile, EKG Laboratory results show creatinine of 1.4 with an anion gap of 20. Patient is receiving IV fluids. Other laboratory results reassuring. Chest x-ray shows patchy infiltrates, consistent with Covid pneumonia. Patient is not hypoxic or tachypneic. On reassessment he was able to to
[2021-02-22 15:02] LABS: Basophils % 0.2 % (0.1-2.0); Eosinophils % 0.1 % (0.1-12.0); Hematocrit 43.3 % (42.0-52.0); Hemoglobin 14.2 g/dL (14.1-18.0); Lymphocytes # 4.7 K/mm3 (0.7-4.5); Mean Corpuscular HGB Conc 32.9 g/dL (31.8-35.4); Mean Corpuscular Hemoglobin 27.5 pg (27.0-31.2); Mean Corpuscular Volume 83.5 fl (80-94); Mean Platelet Volume 8.8 fl (7.4-10.4); Monocytes # 0.2 K/mm3 (0.1-1.0); Monocytes % 1.4 % (1.7-9.3); Neutrophils # 10.7 K/mm3 (1.8-7.8); Neutrophils % 68.3 % (37.0-80.0); Platelet Count 274 K/mm3 (142-424); Red Blood Count 5.19 M/mm3 (4.60-6.20); Red Cell Distribution Width 14.8 % (11.5-17.5); White Blood Count 15.7 K/mm3 (4.8-10.8)
[2021-02-22 15:03] LABS: Chloride 103 mmol/L (98-107); Sodium 134 mmol/L (136-145)
[2021-02-22 15:04] LABS: Potassium 4.1 mmoL/L (3.5-5.1)
[2021-02-22 15:06] LABS: Alanine Aminotransferase 22 U/L (12-78); Alkaline Phosphatase 108 U/L (38-126); Anion Gap 20.1 mEq/L (5-15); Aspartate Amino Transferase 46 U/L (17-59); Bilirubin,Total 0.7 mg/dl (0.2-1.3); Blood Urea Nitrogen 38 mg/dl (9-20); Carbon Dioxide 15 mmol/L (22.0-30.0); Creatinine Clearance Estimated 43 mL/min (50-200); Estimated Glomerular Filt Rate 49 ml/min (>60); GFR (African American) 59 ML/MIN (>60); MANUAL DIFFERENTIAL MANUAL DIFFERENTIAL (MANUAL DIFF)
[2021-02-22 15:07] LABS: Albumin Level 3.9 g/dl (3.5-5.0); Albumin/Globulin Ratio 1.3 (1.1-1.8); Calcium 8.6 mg/dl (8.4-10.2); Globulin 3.1 g/dL (1.3-3.2); Glucose 102 mg/dl (74-100)
[2021-02-22 15:21] LABS: Lymphocytes % 21 % (10-50); Monocytes % 2 % (2-9); Neutrophils % 77 % (42-76); Total Cells Counted 100
[2021-02-22 15:22] LABS: C-Reactive Protein 26.8 mg/L (0-4); Hypochromasia 1+; Microcytosis 2+; Platelet Estimate Normal
[2021-02-22 15:33] LABS: Troponin I 0.02 ng/ml (0.00-0.034)
[2021-02-22 15:56] LABS: Ferritin 391 ng/ml (17.9-464)
[2021-02-22 17:20] VITALS: BP 105/79; PULSE 80; RESP 20; TEMP 37.1; O2SAT 99
== END 2021-02-22 17:21 | disposition home or self-care (01) ==
PROVIDERS: Emergency Provider Emergency Medicine; PCP Emergency Medicine
DX: U07.1 COVID-19 (principal); I25.10 Atherosclerotic heart disease of native coronary artery without angina pectoris; J44.9 Chronic obstructive pulmonary disease, unspecified; E78.5 Hyperlipidemia, unspecified; C91.90 Lymphoid leukemia, unspecified not having achieved remission; I10 Essential (primary) hypertension; I25.2 Old myocardial infarction; Z95.0 Presence of cardiac pacemaker; Z79.899 Other long term (current) drug therapy
CPT/HCPCS: 71045; 80053; 82728; 84484; 85007; 85025; 86140; 96365; 96375; 99282; J2405

== ENCOUNTER → 2021-03-18 14:33 | Outpatient (CLI) | payer MEDICARE, SELFPAY | PROVIDERS: Visit Provider Nurse Practitioner Family | DX: N39.0 Urinary tract infection, site not specified (principal) | CPT/HCPCS: 87086 ==

== ENCOUNTER 2021-03-24 10:20 | Outpatient (CLI) | payer MEDICARE, SELFPAY ==
[2021-03-24] VITALS (12 sets, daily range): BP systolic 107–150; BP diastolic 58–83; PULSE 77–92; RESP 16–18; TEMP 35.7; O2SAT 97; BMI 24.6
[2021-03-24 11:23] LABS: Basophils % 0.4 % (0.1-2.0); Eosinophils # 0.6 K/mm3 (0.0-0.4); Eosinophils % 6.8 % (0.1-12.0); Hemoglobin 10.4 g/dL (14.1-18.0); Lymphocytes % 22.3 % (10-50); Mean Corpuscular HGB Conc 30.6 g/dL (31.8-35.4); Mean Corpuscular Hemoglobin 27.1 pg (27.0-31.2); Mean Corpuscular Volume 88.5 fl (80-94); Mean Platelet Volume 8.9 fl (7.4-10.4); Monocytes # 0.6 K/mm3 (0.1-1.0); Monocytes % 6.1 % (1.7-9.3); Neutrophils # 5.9 K/mm3 (1.8-7.8); Neutrophils % 64.4 % (37.0-80.0); Platelet Count 397 K/mm3 (142-424); Red Blood Count 3.85 M/mm3 (4.60-6.20); Red Cell Distribution Width 15.6 % (11.5-17.5); White Blood Count 9.1 K/mm3 (4.8-10.8)
[2021-03-24 11:31] LABS: Chloride 109 mmol/L (98-107)
[2021-03-24 11:32] LABS: Potassium 4.1 mmoL/L (3.5-5.1); Sodium 141 mmol/L (136-145)
[2021-03-24 11:34] LABS: Alanine Aminotransferase 10 U/L (12-78); Anion Gap 10.1 mEq/L (5-15); Aspartate Amino Transferase 23 U/L (17-59); Bilirubin,Total 0.3 mg/dl (0.2-1.3); Blood Urea Nitrogen 16 mg/dl (9-20); Carbon Dioxide 26 mmol/L (22.0-30.0); Creatinine Clearance Estimated 63 mL/min (50-200); Estimated Glomerular Filt Rate 72 ml/min (>60); GFR (African American) 87 ML/MIN (>60)
[2021-03-24 11:35] LABS: Albumin Level 3.1 g/dl (3.5-5.0); Albumin/Globulin Ratio 1.2 (1.1-1.8); Alkaline Phosphatase 81 U/L (38-126); Calcium 8.4 mg/dl (8.4-10.2); Globulin 2.6 g/dL (1.3-3.2); Glucose 78 mg/dl (74-100); Total Protein,Serum 5.7 g/dl (6.3-8.2)
== END 2021-03-24 15:50 | disposition home or self-care (01) ==
LOC: INF 10:21
PROVIDERS: PCP Emergency Medicine; Visit Provider Internal Medicine Medical Oncology
DX: Z51.11 Encounter for antineoplastic chemotherapy (principal); C91.10 Chronic lymphocytic leukemia of B-cell type not having achieved remission
CPT/HCPCS: 80053; 85025; 96413; 96415; J1642; J9312

== ENCOUNTER → 2021-04-15 19:30 | Outpatient (CLI) | payer MEDICARE, SELFPAY | PROVIDERS: Visit Provider Family Medicine | DX: N39.0 Urinary tract infection, site not specified (principal) | CPT/HCPCS: 87086 ==

== ENCOUNTER 2021-04-21 10:10 | Outpatient (CLI) | payer MEDICARE, SELFPAY ==
[2021-04-21] VITALS (8 sets, daily range): BP systolic 103–147; BP diastolic 54–73; PULSE 69–80; RESP 18; TEMP 36.2; O2SAT 97–99; BMI 21.9
--- NOTE | 2021-04-21 10:52 | PC.NURSE ---
pac accessed per demi capone rn and blood return verified. not enough blood was able to be obtained for labs as ordered per md even anfter multiple flushes with saline. pt accessed using butterfly needle to lt ac and blood obtained for labs. specimen sent to lab for analysis.
[2021-04-21 10:55] LABS: Basophils % 0.5 % (0.1-2.0); Eosinophils # 0.7 K/mm3 (0.0-0.4); Eosinophils % 9.9 % (0.1-12.0); Hematocrit 38.6 % (42.0-52.0); Hemoglobin 11.6 g/dL (14.1-18.0); Lymphocytes # 1.7 K/mm3 (0.7-4.5); Lymphocytes % 22.4 % (10-50); Mean Corpuscular HGB Conc 30.1 g/dL (31.8-35.4); Mean Corpuscular Hemoglobin 26.5 pg (27.0-31.2); Mean Platelet Volume 7.6 fl (7.4-10.4); Monocytes # 0.6 K/mm3 (0.1-1.0); Monocytes % 8.5 % (1.7-9.3); Neutrophils # 4.4 K/mm3 (1.8-7.8); Neutrophils % 58.7 % (37.0-80.0); Platelet Count 307 K/mm3 (142-424); Red Blood Count 4.39 M/mm3 (4.60-6.20); Red Cell Distribution Width 14.8 % (11.5-17.5); White Blood Count 7.5 K/mm3 (4.8-10.8)
[2021-04-21 12:02] LABS: Prostate Specific Ag Screen 3.9 ng/ml (0.0-4.0)
== END 2021-04-21 14:42 | disposition home or self-care (01) ==
LOC: INF 10:11
PROVIDERS: Urology; PCP Nurse Practitioner Family; Visit Provider Internal Medicine Medical Oncology
DX: Z51.11 Encounter for antineoplastic chemotherapy (principal); C91.10 Chronic lymphocytic leukemia of B-cell type not having achieved remission; Z12.5 Encounter for screening for malignant neoplasm of prostate
CPT/HCPCS: 85025; 96413; 96415; G0103; J1642; J9312

== ENCOUNTER 2021-05-20 08:40 | Outpatient (CLI) | payer MEDICARE, SELFPAY | END 2021-05-20 09:10 | disposition home or self-care (01) | LOC: INF 08:42 | PROVIDERS: PCP Nurse Practitioner Family; Visit Provider Internal Medicine Adolescent Medicine | DX: Z45.2 Encounter for adjustment and management of vascular access device (principal) | CPT/HCPCS: 96523; J1642 ==

== ENCOUNTER 2021-06-09 08:44 | Outpatient (CLI) | payer MEDICARE, SELFPAY ==
[2021-06-09 08:50] VITALS: BMI 22.4
[2021-06-09 10:44] LABS: Basophils % 0.6 % (0.1-2.0); Eosinophils # 0.4 K/mm3 (0.0-0.4); Eosinophils % 6.9 % (0.1-12.0); Hematocrit 36.5 % (42.0-52.0); Hemoglobin 11.8 g/dL (14.1-18.0); Lymphocytes # 2.4 K/mm3 (0.7-4.5); Lymphocytes % 37.9 % (10-50); Mean Corpuscular HGB Conc 32.4 g/dL (31.8-35.4); Mean Corpuscular Hemoglobin 26.8 pg (27.0-31.2); Mean Corpuscular Volume 82.7 fl (80-94); Mean Platelet Volume 8.5 fl (7.4-10.4); Monocytes # 0.4 K/mm3 (0.1-1.0); Monocytes % 5.9 % (1.7-9.3); Neutrophils % 48.7 % (37.0-80.0); Platelet Count 218 K/mm3 (142-424); Red Blood Count 4.41 M/mm3 (4.60-6.20); Red Cell Distribution Width 14.4 % (11.5-17.5); White Blood Count 6.2 K/mm3 (4.8-10.8)
[2021-06-09 10:57] LABS: Alanine Aminotransferase 13 U/L (12-78); Albumin Level 3.8 g/dl (3.5-5.0); Albumin/Globulin Ratio 1.5 (1.1-1.8); Alkaline Phosphatase 65 U/L (38-126); Anion Gap 7.3 mEq/L (5-15); Aspartate Amino Transferase 27 U/L (17-59); Bilirubin,Total 0.5 mg/dl (0.2-1.3); Blood Urea Nitrogen 22 mg/dl (9-20); Calcium 8.8 mg/dl (8.4-10.2); Carbon Dioxide 26 mmol/L (22.0-30.0); Chloride 110 mmol/L (98-107); Creatinine Clearance Estimated 48 mL/min (50-200); Estimated Glomerular Filt Rate 58 ml/min (>60); GFR (African American) 70 ML/MIN (>60); Globulin 2.5 g/dL (1.3-3.2); Glucose 136 mg/dl (74-100); Potassium 3.3 mmoL/L (3.5-5.1); Sodium 140 mmol/L (136-145); Total Protein,Serum 6.3 g/dl (6.3-8.2)
== END 2021-06-09 10:42 | disposition home or self-care (01) ==
LOC: INF 08:45
PROVIDERS: PCP Nurse Practitioner Family; Visit Provider Internal Medicine Medical Oncology
DX: C91.10 Chronic lymphocytic leukemia of B-cell type not having achieved remission (principal)
CPT/HCPCS: 80053; 85025; 96374; J1642

== ENCOUNTER → 2021-07-01 15:07 | Outpatient (CLI) | payer MEDICARE, SELFPAY | PROVIDERS: Visit Provider Urology | DX: N40.1 Benign prostatic hyperplasia with lower urinary tract symptoms (principal) | CPT/HCPCS: 87086 ==

== ENCOUNTER 2021-07-06 08:32 | Outpatient (CLI) | payer MEDICARE, SELFPAY | END 2021-07-06 09:04 | disposition home or self-care (01) | LOC: INF 08:34 | PROVIDERS: PCP Emergency Medicine; Visit Provider Internal Medicine Medical Oncology | DX: Z45.2 Encounter for adjustment and management of vascular access device (principal) | CPT/HCPCS: 96523; J1642 ==

== ENCOUNTER → 2021-07-06 13:13 | Outpatient (CLI) | payer MEDICARE, SELFPAY ==
[2021-07-06 16:14] LABS: Blood Urea Nitrogen 21 mg/dl (9-20); Estimated Glomerular Filt Rate 72 ml/min (>60); GFR (African American) 87 ML/MIN (>60)
== END ==
PROVIDERS: Visit Provider Urology
DX: R31.9 Hematuria, unspecified (principal); Z01.812 Encounter for preprocedural laboratory examination; Z11.52 Encounter for screening for COVID-19
CPT/HCPCS: 36415; 82565; 84520; 96523; C9803; J1642; U0003; U0005

== ENCOUNTER → 2021-07-07 09:34 | Outpatient (CLI) | payer MEDICARE, SELFPAY ==
--- NOTE | 2021-07-07 09:38 | CT_ITS ---
FINAL REPORT CLINICAL HISTORY: hematuria FINDINGS: The lung bases are clear. There is a moderate hiatal hernia. The gallbladder is present. The liver is normal in size and attenuation. The spleen is unremarkable. There is a low-attenuation mass in the right adrenal gland measuring 2.1 cm. This demonstrates a mean attenuation value of 22 Hounsfield units, indeterminate. The pancreas is unremarkable. The kidneys enhance appropriately. There is a multitude of enlarged lymph nodes in the root of the mesentery and in the periaortic region. The periaortic lymph nodes measure up to 4.8 cm in craniocaudal dimension as seen on image 39 of series 601. Extensive adenopathy is seen extending into the iliac regions bilaterally. External iliac lymph nodes measures up to 4.8 cm on the left. There is mild bilateral inguinal adenopathy. The urinary bladder is contracted. There is some heterogeneous, increased density within the urinary bladder and the wall appears thickened. On the post infusion images there are multiple enhancing mural masses in the urinary bladder with the largest measuring up to 3.1 cm in transverse dimension. Streak artifact is seen arising from right hip prosthesis. Precontrast images demonstrate no nephrolithiasis. IMPRESSION: Extensive mesenteric , retroperitoneal and iliac adenopathy highly concerning for underlying lymphoma. PET scan and tissue sampling is recommended. Multiple enhancing masses arising from the urinary bladder which is highly concerning for bladder neoplasm. Moderate hiatal hernia. Reviewed, Interpreted and Dictated by Michael Tucker MD Transcribed by Latoya Hurd Authenticated by Michael Tucker MD on 07/07/2021 03:54:16 PM [facility]
== END ==
LOC: RAD 09:35
PROVIDERS: PCP Nurse Practitioner Family; Visit Provider Urology
DX: R31.9 Hematuria, unspecified (principal)
CPT/HCPCS: 74178; Q9967

== ENCOUNTER 2021-08-22 06:52 | Observation (INO) | payer MEDICARE, SELFPAY ==
[2021-08-18 11:41] VITALS: BMI 29.9
[2021-08-22] VITALS (33 sets, daily range): BP systolic 111–180; BP diastolic 60–93; PULSE 70–102; RESP 11–18; TEMP 36.2–43; O2SAT 90–100
[2021-08-22 06:56] LABS: Coronavirus 19, PCR Not Detected (NotDetected); Influenza A, PCR Not Detected (NotDetected); Influenza B, PCR Not Detected (NotDetected)
[2021-08-22 07:16] LABS: Basophils # 0.4 K/mm3 (0-0.2); Basophils % 1.2 % (0.1-2.0); Eosinophils # 0.2 K/mm3 (0.0-0.4); Eosinophils % 0.7 % (0.1-12.0); Hematocrit 40.7 % (42.0-52.0); Hemoglobin 12.9 g/dL (14.1-18.0); Mean Corpuscular HGB Conc 31.8 g/dL (31.8-35.4); Mean Corpuscular Hemoglobin 26.9 pg (27.0-31.2); Mean Corpuscular Volume 84.7 fl (80-94); Mean Platelet Volume 8.3 fl (7.4-10.4); Monocytes # 0.6 K/mm3 (0.1-1.0); Monocytes % 1.9 % (1.7-9.3); Neutrophils # 4.7 K/mm3 (1.8-7.8); Neutrophils % 15.3 % (37.0-80.0); Platelet Count 177 K/mm3 (142-424); Red Blood Count 4.81 M/mm3 (4.60-6.20); Red Cell Distribution Width 15.5 % (11.5-17.5); White Blood Count 30.9 K/mm3 (4.8-10.8)
[2021-08-22 07:18] LABS: MANUAL DIFFERENTIAL MANUAL DIFFERENTIAL (MANUAL DIFF)
--- NOTE | 2021-08-22 07:26 | HMH.ANESCL ---
[facility] Anesthesia Checklist - Structural Data Admitted From: Home Planned Operative Procedure/s: turbt Consent for Planned Operative Procedure(s) Verified: Yes - Additional verifications Anesthesia Reactions: No Hx Blood Transfusions: No Blood Transfusion Reaction: No - Airway Assessment C-Spine Mobility Assessed: Yes TMJ Mobility Assessed: Yes Dentition: Poor Dentition - Neurological Assessment Level of Consciousness: Awake, Alert, Appropriate - Anesthesia Plan Anesthesia Risk discussed: Yes Anesthesia Plan: Verified ASA Class: III Anesthesia Type: General [facility] History I have reviewed the patient's past medical history: Yes Medical History: Reports:: Arrhythmia, Cancer (LEUKEMIA), Carotid Stenosis, Chronic Obstructive Pulmonary Disease (COPD), Coronary Artery Disease, Hyperlipidemia, Hypertension, Internal Pacemaker, Myocardial Infarction, Valvular Heart Disease Denies:: Diabetes Mellitus Type 1, Diabetes Mellitus Type 2, MRSA, Seizures *Have you ever received a pneumonia vaccine?: Yes *Have you received a flu vaccine this season?: Yes Other Medical History: Reports: Arthritis, Chemotherapy, Other. Denies: Blood Transfusion Reaction Anesthesia experience/problems:: none Laterality Cases: Left: Arthroscopy Knee, Other, Right: Total Hip Replacement, Bilateral: Tonsillectomy Other Surgeries: Yes: No Previous Surgery, Angioplasty (1999), CABG, Cancer Surgery, Cardiac Catheterization, Cardiac Surgery, Colonoscopy, Coronary Stent, Open Heart Surgery, Pacemaker, Other Amputation: No Fractures: Yes - *Social History Last grade of school completed: High school graduate Smoking Status: Former smoker Tobacco Type: cigarettes # Packs/Day (cigarettes): 1 #Yrs smoked (if former smoker): 30 Alcohol Intake: never Alcohol Intake Frequency:: holidays/special occasions only Substance Use Type: denies use *Occupational Status:: retired Housing: house Household Members: family *Travel in the last 8 weeks: None Family Hx:: Coronary Artery Disease
[2021-08-22 08:08] LABS: Chloride 107 mmol/L (98-107); Potassium 3.9 mmoL/L (3.5-5.1); Sodium 137 mmol/L (136-145)
[2021-08-22 08:11] LABS: Anion Gap 7.9 mEq/L (5-15); Blood Urea Nitrogen 27 mg/dl (9-20); Calcium 8.4 mg/dl (8.4-10.2); Carbon Dioxide 26 mmol/L (22.0-30.0); Creatinine Clearance Estimated 62 mL/min (50-200); Estimated Glomerular Filt Rate 64 ml/min (>60); GFR (African American) 78 ML/MIN (>60); Glucose 83 mg/dl (74-100)
[2021-08-22 08:14] LABS: Eosinophils % 1 % (0-3); Hypochromasia 1+; Lymphocytes % 75 % (10-50); Monocytes % 3 % (2-9); Neutrophils % 13 % (42-76); Platelet Estimate Normal; Total Cells Counted 100
[2021-08-22 08:19] LABS: Basophils # 0.2 K/mm3 (0-0.2); Basophils % 0.8 % (0.1-2.0); Eosinophils # 0.2 K/mm3 (0.0-0.4); Eosinophils % 0.6 % (0.1-12.0); Hematocrit 35.8 % (42.0-52.0); Lymphocytes # 22.1 K/mm3 (0.7-4.5); Lymphocytes % 81.2 % (10-50); Mean Corpuscular HGB Conc 32.1 g/dL (31.8-35.4); Mean Corpuscular Hemoglobin 26.8 pg (27.0-31.2); Mean Corpuscular Volume 83.4 fl (80-94); Mean Platelet Volume 7.9 fl (7.4-10.4); Monocytes # 0.5 K/mm3 (0.1-1.0); Monocytes % 1.9 % (1.7-9.3); Neutrophils # 4.2 K/mm3 (1.8-7.8); Neutrophils % 15.4 % (37.0-80.0); Platelet Count 176 K/mm3 (142-424); Red Cell Distribution Width 15.5 % (11.5-17.5); White Blood Count 27.2 K/mm3 (4.8-10.8)
--- NOTE | 2021-08-22 08:19 | HMH.PHAINT ---
Home med rec complete
[2021-08-22 08:23] LABS: Hemoglobin 11.6 g/dL (14.1-18.0)
--- NOTE | 2021-08-22 08:25 | HMH.PHAVTE ---
[facility] Pharmacy VTE Monitoring - Patient Demographics Admission date: 08/22/21 Report Date: 08/22/21 Time: 08:25 Allergies/Adverse Reactions: Patient Allergies No Known Allergies Allergy (Verified 08/18/21 11:45) Height: 1.65 m Weight: 81.647 kg - VTE Risk Labs: VTE Related Lab Results Hgb 11.6 g/dL (14.1-18.0) L D 08/22/21 08:06 Hct 35.8 % (42.0-52.0) L 08/22/21 08:06 Plt Count 176 K/mm3 (142-424) 08/22/21 08:06 BUN 27 mg/dl (9-20) H 08/22/21 07:00 Creatinine 1.10 mg/dl (0.66-1.25) 08/22/21 07:00 Estimated Creat Clear 62 mL/min (50-200) 08/22/21 07:00 - Prophylaxis VTE Prophylaxis Ordered?: Yes Types of VTE Prophylaxis: TEDS Knee High Location of Applied Device: Bilateral Lower Extremeties
--- NOTE | 2021-08-22 10:06 | P.PN_ITS ---
[facility] Anesthesia Record Part I Intake, IV Amount: 1,500 Estimated blood loss (mL): 0 Urine output (mL): 0 Blood Pressure: 169/85 SaO2: 94 Pulse Rate: 82 Respiratory Rate: 12 Temperature: 98.2 F Patient is:: Awake, Stable Stable to PACU at:: 10:00
--- NOTE | 2021-08-22 10:25 | HMH.OPNOTE ---
Date of procedure: 08/22/21 Pre-op Diagnosis:: Multiple bladder tumors Post-op Diagnosis:: Multiple bladder tumors Procedure performed:: Transurethral resection of multiple bladder tumors Surgeon:: Saeid Matias MD RESEARCH ASSISTANT MEMBER:: Stephen Rivera Anesthesia: LMA Estimated blood loss (mL): 0 Clinical Note:: 80-year-old white male with recent gross hematuria noted to have some enhancing bladder masses on CT scan. Operative findings:: Patient with multiple bladder tumors. A sessile bladder tumors noted on the right lateral wall and a papillary bladder tumors were noted along the posterior bladder wall and anteriorly. Operative note:: Patient taken to the operating room after informed consent was obtained. Was placed on the operating table in the supine position and general anesthesia administered. It is noted that his preoperative white count was elevated but he does have a history of leukemia and he is afebrile and feeling well. Preoperative antibiotics were given and sequential compression devices placed. He was then placed into the dorsal lithotomy position and prepped and draped in the standard surgical fashion. A 22 Avila passed into the urethra and into the bladder with minimal difficulty. The bladder was examined in a systematic fashion. Of note was papillary bladder tumors posteriorly and anteriorly with an aggregate of about 3 cm. There were smaller satellite tumors around the larger tumors. A 2 cm tumor was noted over the right lateral wall which appeared to be more sessile in nature. Some papillary tissue also noted at the bladder neck at the 6 o'clock position. The cystoscope removed and the 26 Micronesian resectoscope sheath attempted to be passed into the urethra but there was some urethral stenosis of the stenosis was dilated with Jacob sounds going from 20 Micronesian to 28 Micronesian. The 26 Micronesian sheath was then able to be passed into the bladder and the resectoscope passed through the sheath and we began resecting at the posterior papillary tissue. This was resected and the base of the tumors were fulgurated. We then turned our attention to the tumor on the right lateral wall and this was resected in total in the base of the tumor was fulgurated. The papillary tissue at the bladder neck to 6 o'clock position was also resected and fulgurated. The tissue for the anterior bladder for last and this was resected gently in the base of the tumor was fulgurated. All visible tumor was resected and/or fulgurated. All tumor specimen was sent for pathology. There was good hemostasis and scope removed. A 22 Micronesian three-way catheter was placed without difficulty and 10 cc placed into the balloon. Urojet was placed before the Anderson catheter. Three-way irrigation instituted. patient tolerated well. Condition: stable Disposition: PACU Specimens:: Bladder tumor Complications:: None
--- NOTE | 2021-08-22 10:31 | HMH.HP ---
*Admission Date: 08/22/21 *Chief complaint: Gross hematuria *History of present illness: Patient is an 80-year-old white male with history of urinary frequency, urgency and urge incontinence who began having some gross hematuria last week of June. CT scan was performed which showed multiple enhancing bladder lesions consistent with bladder cancer. He presents today for urologic management of the tumors. He denies any recent gross hematuria. Patient's white count today was noted to be 30,000 and he does have a history of leukemia. He is afebrile and otherwise feeling well. [facility] History Medical History: Reports:: Arrhythmia, Cancer (LEUKEMIA), Carotid Stenosis, Chronic Obstructive Pulmonary Disease (COPD), Coronary Artery Disease, Hyperlipidemia, Hypertension, Internal Pacemaker, Myocardial Infarction, Valvular Heart Disease Denies:: Diabetes Mellitus Type 1, Diabetes Mellitus Type 2, MRSA, Seizures *Have you ever received a pneumonia vaccine?: Yes *Have you received a flu vaccine this season?: Yes Other Medical History: Reports: Arthritis, Chemotherapy, Other. Denies: Blood Transfusion Reaction Anesthesia experience/problems:: none Laterality Cases: Left: Arthroscopy Knee, Other, Right: Total Hip Replacement, Bilateral: Tonsillectomy Other Surgeries: Yes: No Previous Surgery, Angioplasty (1999), CABG, Cancer Surgery, Cardiac Catheterization, Cardiac Surgery, Colonoscopy, Coronary Stent, Open Heart Surgery, Pacemaker, Other Amputation: No Fractures: Yes - *Social History Last grade of school completed: High school graduate Smoking Status: Former smoker Tobacco Type: cigarettes # Packs/Day (cigarettes): 1 #Yrs smoked (if former smoker): 30 Alcohol Intake: never Alcohol Intake Frequency:: holidays/special occasions only Substance Use Type: denies use *Occupational Status:: retired Housing: house Household Members: family *Travel in the last 8 weeks: None Family Hx:: Coronary Artery Disease Review of Systems - Review of Systems Review of systems:: pertinent systems reviewed and negative unless documented below - Constitutional Denies chills, Denies fever(s) - Eyes Denies bulging eyes - ENT Reports abnormal hearing, Denies difficulty swallowing - *Cardiovascular Reports shortness of breath with activity, Denies chest pain - *Respiratory Reports shortness of breath with activity, Denies cough - *Gastrointestinal Denies abdominal pain - *Genitourinary Reports blood in urine, Reports frequent nighttime urination, Reports urinary frequency, Reports urinary urgency, Denies painful urination - *Musculoskeletal Denies joint swelling - Integumentary/Breasts Denies bleeding lesions - *Neurologic Reports abnormal hearing Meds Home Medications Medication Instructions Recorded Confirmed Type lisinopril 20 mg tablet 20 mg PO DAILY #30 tab 01/14/21 08/22/21 Rx ticagrelor 90 mg tablet 90 mg PO BID #60 tab 01/14/21 08/22/21 Rx tamsulosin 0.4 mg capsule 1 cap PO DAILY 06/09/21 08/22/21 History escitalopram oxalate 5 mg tablet 5 mg PO DAILY #90 tab 07/13/21 08/22/21 Rx metoprolol succinate 25 mg 25 mg PO DAILY #90 tab 07/13/21 08/22/21 Rx tablet,extended release 24 hr rosuvastatin 20 mg tablet 20 mg PO HS #90 tab 07/13/21 08/22/21 Rx Allergies Allergy/AdvReac Type Severity Reaction Status Date / Time No Known Allergies Allergy Verified 08/18/21 11:45 Exam Vital signs and Labs for Last 24 Hours: Temp Pulse Resp BP Pulse Ox 98.2 F 82 12 169/85 H 100 08/22/21 10:06 08/22/21 10:06 08/22/21 10:06 08/22/21 10:06 08/22/21 06:53 Laboratory Results - last 24 hr 08/22/21 06:47: SARS-CoV-2 (PCR) Not detected, Influenza A Untype (PCR) Not detected, Influenza Type B (PCR) Not detected 08/22/21 07:00: WBC 30.9 H*, RBC 4.81, Hgb 12.9 L, Hct 40.7 L, MCV 84.7, MCH 26.9 L, MCHC 31.8, RDW 15.5, Plt Count 177, MPV 8.3, Neut % (Auto) 15.3 L, Lymph % (Auto) 81.0 H, [place] % (Auto) 1.9, Eos % (Auto) 0.7, Baso
--- NOTE | 2021-08-22 11:04 | PC.NURSE ---
1025-detailed report called to KENYA Harrell 1030-pt transported to 2nd floor room 216 via hospital bed with beck rails up and left in care of KENYA Harrell with bed locked in lowest position, vss, pt stable
--- NOTE | 2021-08-22 15:00 | PC.NURSE ---
NOTIFIED DR KAPLAN OF [facility]. SAYS HE WILL COME AND SEE PT
--- NOTE | 2021-08-22 16:40 | PC.NURSE ---
1640-Dr. Matias informed warehouse shipper of needing to take patient back to operating room for cystoscopy with fulguration of bleeding site. KENYA Reina, KENYA Hou and MYNOR Banuelos notified at this time of procedure.
--- NOTE | 2021-08-22 18:20 | SUR.OPER ---
1814 family provided with update
--- NOTE | 2021-08-22 19:42 | P.PN_ITS ---
[facility] Anesthesia Record Part I Intake, IV Amount: 1,000 Estimated blood loss (mL): 0 Urine output (mL): 0 Blood Pressure: 115/81 SaO2: 93 Pulse Rate: 102 Respiratory Rate: 11 Temperature: 97.2 F Patient is:: Awake Stable to PACU at:: 19:41
--- NOTE | 2021-08-22 20:19 | PC.NURSE ---
PT BACK TO FLOOR VIA BED FROM OR WITH STAFF @ 2018
--- NOTE | 2021-08-22 20:48 | SUR.PHASEI ---
2011 detailed report provided to Omar Araujo RN. Pt transported to med/surg floor via bed. Pt left in stable condition with Omar Araujo med/med surg nurse.
[2021-08-23] VITALS (7 sets, daily range): BP systolic 85–157; BP diastolic 49–92; PULSE 75–94; RESP 16–18; TEMP 36.2–36.8; O2SAT 94–96; BMI 21.5
[2021-08-23 05:39] LABS: Basophils # 0.2 K/mm3 (0-0.2); Basophils % 0.6 % (0.1-2.0); Eosinophils # 0.1 K/mm3 (0.0-0.4); Eosinophils % 0.4 % (0.1-12.0); Hematocrit 29.6 % (42.0-52.0); Lymphocytes # 22.9 K/mm3 (0.7-4.5); Lymphocytes % 68.9 % (10-50); Mean Corpuscular HGB Conc 31.9 g/dL (31.8-35.4); Mean Corpuscular Hemoglobin 26.8 pg (27.0-31.2); Mean Corpuscular Volume 83.9 fl (80-94); Mean Platelet Volume 8.8 fl (7.4-10.4); Monocytes % 3.1 % (1.7-9.3); Neutrophils # 8.9 K/mm3 (1.8-7.8); Platelet Count 167 K/mm3 (142-424); Red Blood Count 3.53 M/mm3 (4.60-6.20); Red Cell Distribution Width 16.4 % (11.5-17.5); White Blood Count 33.2 K/mm3 (4.8-10.8)
[2021-08-23 05:42] LABS: MANUAL DIFFERENTIAL MANUAL DIFFERENTIAL (MANUAL DIFF)
[2021-08-23 05:44] LABS: Chloride 108 mmol/L (98-107); Potassium 3.8 mmoL/L (3.5-5.1); Sodium 134 mmol/L (136-145)
[2021-08-23 05:47] LABS: Anion Gap 4.8 mEq/L (5-15); Blood Urea Nitrogen 18 mg/dl (9-20); Carbon Dioxide 25 mmol/L (22.0-30.0); Creatinine Clearance Estimated 68 mL/min (50-200); Estimated Glomerular Filt Rate 72 ml/min (>60); GFR (African American) 87 ML/MIN (>60); Glucose 125 mg/dl (74-100)
[2021-08-23 05:49] LABS: Hemoglobin 9.4 g/dL (14.1-18.0)
[2021-08-23 06:06] LABS: Lymphocytes % 64 % (10-50); Monocytes % 4 % (2-9); Neutrophils % 32 % (42-76); Total Cells Counted 100
[2021-08-23 06:07] LABS: Hypochromasia 1+; Ovalocytes 1+; Platelet Estimate Normal
--- NOTE | 2021-08-23 07:10 | P.PN_ITS ---
[facility] Anesthesia Record Part II Discharge Time: 20:11 Destination: Second Floor PACU nurse assessment reviewed?: Yes Patient Condition:: Good Anesthesia Complications:: None Swallowing reflex intact?: Yes Cyanosis?: No Blood Pressure: 152/92 Pulse Rate: 94 Temperature: 97.1 F Mental Status: Alert & Oriented Pain level:: 0 Nausea and/or vomitting:: None Intake, IV Amount: 0
--- NOTE | 2021-08-23 07:19 | HMH.ANESII ---
[facility] Anesthesia Record Part II Discharge Time: 10:30 Destination: Second Floor PACU nurse assessment reviewed?: Yes Patient Condition:: Good Anesthesia Complications:: None Swallowing reflex intact?: Yes Cyanosis?: No Blood Pressure: 157/85 Pulse Rate: 75 Temperature: 97.9 F Mental Status: Alert & Oriented Pain level:: 0 Nausea and/or vomitting:: None Intake, IV Amount: 0
--- NOTE | 2021-08-23 09:32 | HMH.ACPN2 ---
Internal Medicine - PN: Subj *Date: 08/23/21 *Time: 09:32 Interval history: 80-year-old white male with multiple bladder tumors underwent transurethral resection of multiple bladder tumors yesterday morning. Urine was clear postop but in the afternoon he developed some bleeding and bedside irrigation was unsuccessful at clearing the blood. He was taken to the operating room early evening of yesterday and clot evacuation of a large organized clot was performed revealing some bleeding at the dome of the bladder. The bleeding was fulgurated and three-way catheter replaced and patient tolerated well. Overnight he had no problems and was kept on slow CBI. This morning his urine is slightly pink and he denies any abdominal discomfort and is tolerating a diet. Exam Vital signs and Labs for Last 24 Hours: Temp Pulse Resp BP Pulse Ox 98.3 F 79 18 85/49 L 95 08/23/21 08:00 08/23/21 08:00 08/23/21 08:00 08/23/21 08:00 08/23/21 08:00 Laboratory Results - last 24 hr 08/23/21 05:30: WBC 33.2 H*, RBC 3.53 L, Hgb 9.4 L D, Hct 29.6 L, MCV 83.9, MCH 26.8 L, MCHC 31.9, RDW 16.4, Plt Count 167, MPV 8.8, Neut % (Auto) 27.0 L, Lymph % (Auto) 68.9 H, [place] % (Auto) 3.1, Eos % (Auto) 0.4, Baso % (Auto) 0.6, Neut # (Auto) 8.9 H, Lymph # (Auto) 22.9 H, [place] # (Auto) 1.0, Eos # (Auto) 0.1, Baso # (Auto) 0.2, Total Counted 100, Neutrophils % (Manual) 32 L, Lymphocytes % (Manual) 64 H, Monocytes % (Manual) 4, Platelet Estimate Normal, RBC Morphology Not Reportable, Hypochromasia 1+, Ovalocytes 1+ 08/23/21 05:30: Sodium 134 L, Potassium 3.8, Chloride 108 H, Carbon Dioxide 25, Anion Gap 4.8 L, BUN 18 D, Creatinine 1.00, Estimated Creat Clear 68, Estimated GFR 72, Est GFR ( Amer) 87, Glucose 125 H D, Calcium 7.0 L I & O for Last 24 hours: Intake & Output 08/20/21 08/21/21 08/22/21 08/23/21 23:59 23:59 23:59 23:59 Intake Total 2740 / 2740 1700 / 1700 Output Total 1670 / 1670 0 / 0 Balance 1070 / 1070 1700 / 1700 Weight 58.604 kg - Constitutional no acute distress - *Routine HEENT Exam Head: Present: normocephalic Eye: Present: EOMI, PERRL ENT: Present: mucous membranes moist - *Routine Neck Exam Present: supple. Absent: lymphadenopathy - *Routine Respiratory Exam Absent: accessory muscle use - *Routine Cardiovascular Exam Absent: JVD - *Routine Abdominal Exam Present: soft. Absent: tenderness, guarding - *Routine Extremities Exam Absent: cyanosis, clubbing, edema - *Routine Skin Exam Present: warm. Absent: rash - *Routine Neurological Exam Present: alert, oriented X3 Assessment and Plan (1) Bladder tumor Status: Acute Category: Medical Code(s): D49.4 - Neoplasm of unspecified behavior of bladder Postop day 1 status post transurethral resection of multiple bladder tumors complicated by some bleeding postoperatively and patient taken back to the operating room for clot evacuation and fulguration of bleeding. Overnight patient has done well and his urine is slightly pink this morning on minimal CBI. We will turn his CBI off and let him get up and walk around and check back on him at noon. If his urine remains clear plan on letting him go home with his Anderson catheter. He did have urethral stricture that was dilated and some bleeding was noted from this as well. Catheter will help tamponade any urethral bleeding.
--- NOTE | 2021-08-23 12:58 | PC.NURSE ---
DC instruction given to pt and family, verbalized understanding. They declined a smaller osullivan bag.
--- NOTE | 2021-08-23 13:39 | HMH.DCSUM ---
General - General Admission date:: 08/22/21 Discharge date: 08/23/21 HPI HPI: Patient is an 80-year-old white male with history of urinary frequency, urgency and urge incontinence who began having some gross hematuria last week of June. CT scan was performed which showed multiple enhancing bladder lesions consistent with bladder cancer. He presents today for urologic management of the tumors. He denies any recent gross hematuria. Patient's white count today was noted to be 30,000 and he does have a history of leukemia. He is afebrile and otherwise feeling well. Hospital Course Hospital Course: Patient taken to the operating room on August 22 where cystoscopy revealed multiple bladder tumors. The bladder tumors were resected in their entirety and three-way Anderson catheter placed to irrigation and patient transported to the recovery room and later to the floor. Later in the afternoon patient began having onset of bloody urine where it previously had been clear. Bedside irrigation did not improve the situation and I taken back to the operating room in the early evening of August 22 where a large organized bladder clot was noted emanating from the anterior portion of the bladder. This clot was broken up and removed and it revealed some bleeding at the dome of the bladder. A rollerball was used to fulgurate that bleeding and any other potential sources of bleeding. Three-way catheter was replaced to continuous bladder irrigation and patient transported back to the floor. On postop day 1 patient was doing well. His hemoglobin had drifted down to 9.6 but he was asymptomatic. He was tolerating regular diet and his abdomen was soft. His urine was pink on minimal irrigation. The continuous bladder irrigation was stopped and the patient was allowed to ambulate. Check back on him around lunchtime and his urine stayed pink and orders were written to discharged home with his Anderson catheter. Patient did have a urethral stricture which was dilated intraoperatively and there was some bleeding from this. The catheter will help in healing the stricture as well as preventing any urethral bleeding. He is to restrict any strenuous activities and push fluids. He will stay off of his Brilinta until he follows up next week with me. Objective Vital signs: Temp Pulse Resp BP Pulse Ox 98.3 F 79 18 85/49 L 95 08/23/21 08:00 08/23/21 08:00 08/23/21 08:00 08/23/21 08:00 08/23/21 08:00 no acute distress - *Routine HEENT Exam Head: Present: normocephalic Eye: Present: EOMI, PERRL ENT: Present: mucous membranes moist - *Routine Neck Exam Present: supple - *Routine Respiratory Exam Absent: accessory muscle use - *Routine Cardiovascular Exam Absent: JVD - *Routine Abdominal Exam Present: soft. Absent: tenderness - *Routine Extremities Exam Absent: cyanosis, clubbing, edema - *Routine Skin Exam Present: warm. Absent: rash - Detailed Eye Exam Eyelids: Bilateral normal inspection Results Labs on day of discharge: Labs from last 24 hours 08/23/21 08/23/21 05:30 05:30 WBC 33.2 H* RBC 3.53 L Hgb 9.4 L D Hct 29.6 L MCV 83.9 MCH 26.8 L MCHC 31.9 RDW 16.4 Plt Count 167 MPV 8.8 Neut % (Auto) 27.0 L Lymph % (Auto) 68.9 H [place] % (Auto) 3.1 Eos % (Auto) 0.4 Baso % (Auto) 0.6 Neut # (Auto) 8.9 H Lymph # (Auto) 22.9 H [place] # (Auto) 1.0 Eos # (Auto) 0.1 Baso # (Auto) 0.2 Total Counted 100 Neutrophils % (Manual) 32 L Lymphocytes % (Manual) 64 H Monocytes % (Manual) 4 Platelet Estimate Normal RBC Morphology Not Reportable Hypochromasia 1+ Ovalocytes 1+ Sodium 134 L Potassium 3.8 Chloride 108 H Carbon Dioxide 25 Anion Gap 4.8 L BUN 18 D Creatinine 1.00 Estimated Creat Clear 68 Estimated GFR 72 Est GFR ( Amer) 87 Glucose 125 H D Calcium 7.0 L DS: Diagnosis - Discharge Diagnosis (1) Bladder
--- NOTE | 2021-08-23 15:56 | HMH.OPNOTE ---
Date of procedure: 08/23/21 Pre-op Diagnosis:: Gross hematuria Post-op Diagnosis:: Bladder clot due to some mild bleeding at the anterior portion of the bladder Procedure performed:: Clot evacuation and fulguration of bleeding from anterior portion of the bladder. Surgeon:: Saeid Matias MD INSURANCE SALES PROFESSIONAL:: Breanne Guerra Anesthesia: LMA Estimated blood loss (mL): 5 Clinical Note:: 80-year-old white male status post resection of multiple bladder tumors this morning noted to have some increase in hematuria in his Anderson catheter this afternoon. Bedside irrigation revealed some persistent bleeding. Discussed the findings with the patient and his family and recommendation to go back to the operating room recommended. Operative findings:: Large adherent clot attached to the anterior portion of the bladder. After lengthy procedure to evacuate the clot there was bleeding at the anterior portion of the bladder near the dome. The rollerball was used to fulgurate bleeding from this area. Operative note:: Patient taken to the operating room after informed consent was obtained. Placed on the operating table in the supine position and general anesthesia administered. Sequential compression devices and antibiotics were on board. Anderson catheter removed and he was placed into the dorsal lithotomy position and prepped draped in the standard surgical fashion. The 22 [place] cystoscope passed into the urethra and into the bladder. There was large clot noted in the bladder. The Urovac bladder evacuator was attached to the scope but very little clot could be evacuated with this device. The cystoscope then removed and our 26 [place] resectoscope sheath with obturator passed into the urethra but was still a bit narrow and the urethra was once again dilated with [place] sounds to 28 Gren[place]. Our 26 [place] resectoscope sheath was then passed into the urethra and into the bladder. Again the Urovac bladder evacuator used to evacuate any loose clot but very little was obtained. We then placed our resectoscope with a 24 [place] Loop into the sheath and and began piecemeal breaking up the clot with use of the cautery. This took about an hour and a half to break up the large clot that was adherent to the anterior portion of the bladder. Once all clot was removed evaluation of the bladder revealed some oozing from the anterior portion of the bladder. The rollerball was then attached to the resectoscope and the anterior portion of the bladder was fulgurated with the rollerball. Any other possible areas of bleeding were also cauterized. The scope then removed and our 22 Gren[place] three-way catheter was replaced to continuous bladder irrigation. Patient tolerated the procedure well there are no complications. Condition: stable Disposition: PACU Specimens:: Bladder clot Complications:: None
== END 2021-08-23 13:31 | disposition home or self-care (01) ==
LOC: 2ND 06:53
PROVIDERS: Admitting Provider Urology; PCP Emergency Medicine; Visit Provider Urology
PROC: 0TBB8ZZ Excision of Bladder, Via Natural or Artificial Opening Endoscopic (ICD-10-PCS; principal; 2021-08-22 08:00)
PROC: 0TJB8ZZ Inspection of Bladder, Via Natural or Artificial Opening Endoscopic (ICD-10-PCS; CPT 52000; principal; 2021-08-22 17:30)
DX: C67.4 Malignant neoplasm of posterior wall of bladder (principal); I10 Essential (primary) hypertension; Z20.822 Contact with and (suspected) exposure to COVID-19; R31.0 Gross hematuria; D41.4 Neoplasm of uncertain behavior of bladder; J44.9 Chronic obstructive pulmonary disease, unspecified; I25.10 Atherosclerotic heart disease of native coronary artery without angina pectoris; Z95.5 Presence of coronary angioplasty implant and graft; Z95.1 Presence of aortocoronary bypass graft; Z95.0 Presence of cardiac pacemaker; Z87.891 Personal history of nicotine dependence; C95.90 Leukemia, unspecified not having achieved remission
CPT/HCPCS: 52001; 52235; G0378; G0379; 36415; 80048; 85007; 85025; 88307; 96374; C9803; J2405; U0003; U0005

== ENCOUNTER 2021-08-24 00:52 | Emergency (ER) | payer MEDICARE, SELFPAY ==
[2021-08-24 00:54] VITALS: BP 132/79; PULSE 91; RESP 18; TEMP 36.8; O2SAT 96; BMI 22.8
[2021-08-24 01:06] VITALS: BMI 22.2
--- NOTE | 2021-08-24 01:07 | CT_ITS ---
PROCEDURE INFORMATION: Exam: CT Abdomen And Pelvis With Contrast Exam date and time: 08/24/2021 1:07 AM Age: 80 years old Clinical indication: Device placement; Urinary device; Other: Hematuria; Prior surgery; Patient HX: New urinary catheter inserted; Additional info: Pulled cath out, recent bladder tumor surg TECHNIQUE: Imaging protocol: Computed tomography of the abdomen and pelvis with contrast. Radiation optimization: All CT scans at this facility use at least one of these dose optimization techniques: automated exposure control; mA and/or kV adjustment per patient size (includes targeted exams where dose is matched to clinical indication); or iterative reconstruction. Contrast material: ISOVUE; Contrast volume: 75 ml; Contrast route: IV; COMPARISON: CT ABDOMEN PELVIS WO/W CON 07/07/2021 10:16 AM FINDINGS: Lungs: No mass/infiltrate at either lung base. Small bibasilar pleural effusions. 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 A transvenous pacer is in place. Liver: The liver is normal in size and attenuation. No intrahepatic biliary dilitation. Gallbladder and bile ducts: Normal. No calcified stones. No ductal dilation. Gallbladder wall thickness is normal. Pancreas: Normal. No ductal dilation. Spleen: Normal. No splenomegaly. Adrenal glands: There is a well-circumscribed 2.3 cm stable hypodense mass within the right adrenal gland. It is compatible with an adenoma. The left adrenal gland is felt to be unremarkable. Kidneys and ureters: Mild bilateral hydroureteronephrosis. Similar findings noted on prior examination of 07/07/2021. Stomach and bowel: Very patulous esophageal hiatus with a large hiatal hernia which contains the majority of the stomach as well as a loop of mid transverse colon. There are enlarged lymph nodes identified within the large hiatal hernia thought to represent enlarged retrocrural lymph nodes. The largest of these measures 1.7 cm in diameter. Appendix: There is no evidence of acute appendicitis. Intraperitoneal space: There is stranding of fat within the perirectal region and extending into both iliac regions and involving portions of each inferior pericolic gutter. No evidence of ascites. There is no evidence of free intraperitoneal air. Vasculature: Arterial atheromatous calcifications are noted. No abdominal aortic aneurysm. Lymph nodes: There is extensive lymphadenopathy identified within the abdomen and pelvis. Prominent retroperitoneal lymph nodes are identified. There are enlarged gastrohepatic lymph nodes identified on the present examination. Extensive mesenteric adenopathy is identified. There is lymphadenopathy of both iliac echo chains. Bilateral inguinal lymphadenopathy is identified. Urinary bladder: Diffuse irregular thickening of the wall of the bladder identified. A Anderson catheter is within the bladder lumen. There is a small amount of air present within the lateral lumen. Reproductive: Unremarkable as visualized. Bones/joints: There are degenerative changes within the thoracic and lumbar spine. There is osteopenia of visualized bones. Right total hip arthroplasty has been performed. No acute fracture. Soft tissues: Unremarkable. IMPRESSION: 1. There is a Anderson catheter noted within and irregularly thick-walled bladder. Small amount of air is noted within the lumen of the bladder. 2. Extensive lymphadenopathy is identified within the abdomen pelvis, and is not appreciably changed when compared to prior examination. 3. Bilateral hydroureteronephrosis which is likely related to known bladder neoplasm and chronic obstruction. 4. Small bibasila
[2021-08-24 01:20] LABS: Basophils # 0.4 K/mm3 (0-0.2); Basophils % 1.1 % (0.1-2.0); Eosinophils # 0.2 K/mm3 (0.0-0.4); Eosinophils % 0.6 % (0.1-12.0); Hematocrit 27.9 % (42.0-52.0); Lymphocytes # 25.3 K/mm3 (0.7-4.5); Lymphocytes % 67.7 % (10-50); Mean Corpuscular HGB Conc 32.3 g/dL (31.8-35.4); Mean Corpuscular Hemoglobin 26.9 pg (27.0-31.2); Mean Corpuscular Volume 83.2 fl (80-94); Mean Platelet Volume 8.8 fl (7.4-10.4); Monocytes # 1.3 K/mm3 (0.1-1.0); Monocytes % 3.6 % (1.7-9.3); Neutrophils # 10.1 K/mm3 (1.8-7.8); Platelet Count 171 K/mm3 (142-424); Red Blood Count 3.36 M/mm3 (4.60-6.20); Red Cell Distribution Width 16.5 % (11.5-17.5); White Blood Count 37.4 K/mm3 (4.8-10.8)
[2021-08-24 01:28] LABS: Alanine Aminotransferase 13 U/L (12-78); Albumin Level 3.5 g/dl (3.5-5.0); Albumin/Globulin Ratio 1.7 (1.1-1.8); Alkaline Phosphatase 57 U/L (38-126); Amylase 87 U/L (30-110); Anion Gap 8.9 mEq/L (5-15); Aspartate Amino Transferase 42 U/L (17-59); Bilirubin,Total 0.7 mg/dl (0.2-1.3); Blood Urea Nitrogen 22 mg/dl (9-20); Calcium 7.8 mg/dl (8.4-10.2); Carbon Dioxide 23 mmol/L (22.0-30.0); Chloride 109 mmol/L (98-107); Creatinine Clearance Estimated 53 mL/min (50-200); Estimated Glomerular Filt Rate 64 ml/min (>60); GFR (African American) 78 ML/MIN (>60); Globulin 2.1 g/dL (1.3-3.2); Glucose 102 mg/dl (74-100); Lipase 94 U/L (23-300); Potassium 3.9 mmoL/L (3.5-5.1); Sodium 137 mmol/L (136-145); Total Protein,Serum 5.6 g/dl (6.3-8.2)
[2021-08-24 01:29] LABS: MANUAL DIFFERENTIAL MANUAL DIFFERENTIAL (MANUAL DIFF)
[2021-08-24 01:34] LABS: C-Reactive Protein 19.3 mg/L (0-4)
[2021-08-24 01:48] LABS: Procalcitonin 0.092 ng/mL (0.0-2.0)
[2021-08-24 02:05] LABS: Microscopic, Urine URINE MICROSCOPIC (MICROSCOPIC)
[2021-08-24 02:07] LABS: Appearance,Urine SL CLOUDY (Clear); Bilirubin,Urine Negative (Negative); Blood, Urine 3+ (Negative); Color,Urine YELLOW (Yellow); Glucose,Urine (UA) Negative (Negative); Ketones,Urine Negative (Negative); Leukocyte Esterase,Urine 1+ (Negative); Nitrate,Urine Negative (Negative); Protein,Urine 2+ (Negative); Specific Gravity, Urine 1.025 (1.005-1.030); Urobilinogen,Urine 0.2 EU/dl (0.2)
[2021-08-24 02:11] LABS: Erythrocyte Sedimentation Rate 56 mm/hr (0-20)
[2021-08-24 02:14] LABS: Lactic Acid 1.2 mmol/L (0.7-2.1)
[2021-08-24 02:28] LABS: Bacteria,Urine 2+ /lpf
[2021-08-24 02:33] LABS: Lymphocytes % 62 % (10-50); Neutrophils % 38 % (42-76); Platelet Estimate Normal; Total Cells Counted 100
[2021-08-24 02:34] LABS: Hypochromasia 1+; Ovalocytes 1+
--- NOTE | 2021-08-24 03:11 | HMH.EDUROGM ---
ED Disposition Clinical Impression: Chronic lymphocytic leukemia Hematuria Qualifiers: Hematuria type: gross Qualified Code(s): R31.0 - Gross hematuria Disposition: Home, Self-Care Condition on Discharge: Good Instructions: How to Care for Your Anderson Catheter -- Male Additional Instructions: call pcp and dr chiang for follow up Referrals: James Garcia MD [Primary Care Provider] - Saeid Chiang MD [Staff Physician] - - Critical Care Critical Care Time: No Attestation: On 08/24/21, the high probability of a clinically significant, sudden or life threatening deterioration of the following system(s) required my full and direct attention, intervention and personal management. The time I documented below is in addition to time spent performing reported procedures but includes the following listed in this critical care notation. Medical Decision Making - Medical Records Medical records reviewed: Yes: I reviewed the patient's medical records. - Ryan Inquiry Pt receiving controlled substance: No Vital Signs: 08/24/21 00:54 Temperature 98.3 F Temperature Source Oral Pulse Rate [Right] 91 H Respiratory Rate 18 Blood Pressure [Right Arm] 132/79 Blood Pressure Mean [Right Arm] 96 Blood Pressure Source [Right Arm] Automatic Cuff 02 Sat by Pulse Oximetry 96 Oxygen Delivery Method Room Air - Lab Data Lab results reviewed: Yes: I reviewed the patient's lab results. Lab Results 08/24/21 01:11: WBC 37.4 H*, RBC 3.36 L, Hgb 9.0 L, Hct 27.9 L, MCV 83.2, MCH 26.9 L, MCHC 32.3, RDW 16.5, Plt Count 171, MPV 8.8, Neut % (Auto) 27.0 L, Lymph % (Auto) 67.7 H, [place] % (Auto) 3.6, Eos % (Auto) 0.6, Baso % (Auto) 1.1, Neut # (Auto) 10.1 H, Lymph # (Auto) 25.3 H, [place] # (Auto) 1.3 H, Eos # (Auto) 0.2, Baso # (Auto) 0.4 H, Total Counted 100, Neutrophils % (Manual) 38 L, Lymphocytes % (Manual) 62 H, Platelet Estimate Normal, RBC Morphology Not Reportable, Hypochromasia 1+, Ovalocytes 1+, ESR 56 H 08/24/21 01:11: Sodium 137, Potassium 3.9, Chloride 109 H, Carbon Dioxide 23, Anion Gap 8.9, BUN 22 H, Creatinine 1.10, Estimated Creat Clear 53, Estimated GFR 64, Est GFR ( Amer) 78, Glucose 102 H, Calcium 7.8 L, Total Bilirubin 0.7, AST 42, ALT 13, Alkaline Phosphatase 57, C-Reactive Protein 19.3 H, Total Protein 5.6 L, Albumin 3.5, Globulin 2.1, Albumin/Globulin Ratio 1.7, Amylase 87, Lipase 94, Procalcitonin 0.092 08/24/21 02:00: Urine Color Yellow, Urine Appearance Sl cloudy, Urine pH 6.0, Ur Specific [place] 1.025, Urine Protein 2+, Urine Glucose (UA) Negative, Urine Ketones Negative, Urine Blood 3+, Urine Nitrate Negative, Urine Bilirubin Negative, Urine Urobilinogen 0.2, Ur Leukocyte Esterase 1+ A, Urine RBC 10-20, Urine WBC 3-5, Urine Bacteria 2+ 08/24/21 02:00: Lactate 1.2 Result diagrams: 08/24/21 01:11 08/24/21 01:11 Orders (Tests/Meds): ED MEDICATIONS Generic Name Dose Route Start Last Admin Trade Name Freq PRN Reason Stop Dose Admin Sodium Chloride 1,000 mls @ 999 mls/hr 08/24/21 01:15 08/24/21 02:05 Sod Chlor 0.9% 1000ml Bag IV 08/24/21 02:15 999 mls/hr .[id number] ERAN Administration Discontinued Medications Generic Name Dose Route Start Last Admin Trade Name Freq PRN Reason Stop Dose Admin Iopamidol 75 ml 08/24/21 02:22 08/24/21 02:23 Iopamidol-370 (76%);100ml Bottle IV 08/24/21 02:23 75 ml ONCE ONE Administration Lidocaine HCl 10 ml 08/24/21 01:45 08/24/21 01:46 Lidocaine 2% Urojet 10ml TOPICAL 08/24/21 01:46 10 ml ONCE ONE Administration Sodium Chloride 10 ml 08/24/21 02:22 08/24/21 02:23 Sodium Chloride 0.9% 10ml Syr (Rad Only) IV 08/24/21 02:23 10 ml ONCE ONE Administration ORDERS Category Date Time Status Blood Culture Stat Micro 08/24/21 02:00 Received Urine Culture Stat Micro 08/24/21 02:00 Received - CT Data CT Scan: Abdomen, Pelvis Time Received: 03:[address] Reviewed: Yes: I have viewed the radiologist's interpretation P
[2021-08-24 03:14] VITALS: BP 176/83; PULSE 87; RESP 19; TEMP 36.7; O2SAT 95
[2021-08-24 03:17] VITALS: PULSE 90; RESP 20; TEMP 36.7
== END 2021-08-24 03:21 | disposition home or self-care (01) ==
PROVIDERS: Emergency Provider Emergency Medicine; PCP Emergency Medicine
DX: T83.021A Displacement of indwelling urethral catheter, initial encounter (principal); R31.9 Hematuria, unspecified; C91.90 Lymphoid leukemia, unspecified not having achieved remission; D49.4 Neoplasm of unspecified behavior of bladder
CPT/HCPCS: 51702; 74177; 80053; 81001; 82150; 83605; 83690; 84145; 85007; 85025; 85651; 86140; 87040; 87086; 96365; 99281; 99284; Q9967

== ENCOUNTER 2021-08-24 09:54 | Emergency (ER) | payer MEDICARE, SELFPAY ==
[2021-08-24 10:35] VITALS: BP 132/70; PULSE 70; RESP 16; TEMP 36.8; O2SAT 98
[2021-08-24 10:48] VITALS: BP 132/70; PULSE 85; RESP 16; TEMP 36.8; O2SAT 98; BMI 21.9
--- NOTE | 2021-08-24 11:39 | PC.NURSE ---
Pt had surgery on 08/22 and accidentally pulled his osullivan out this morning and had returned to ED to have one replaced. 20 [place] Coude cath placed. Pt accidentally pulled it out and daughter brought him back earlier this am and it was placed. Later this morning he accidentally pulled it out again and she brought him back to have another placed. Advised he has cancer that has potentially mets and that anesthesia sometimes makes him loopy for a couple of days. Advises they have no concerns and only would like the osullivan replaced b/c he has follow-up with Dr. Matias in the am. I obtained 20F coude and replaced the cath with no issues. I attached a leg bag and educated the daughter on how to switch out the bags and placement of leg bag. Pt and daughter bother verbalized understanding. Pt d/c'ed home with daughter per this nurse.
== END 2021-08-24 10:37 | disposition home or self-care (01) ==
LOC: ER 10:32
PROVIDERS: Emergency Provider Student in an Organized Health Care Education/Training Program; PCP Emergency Medicine
DX: T83.021A Displacement of indwelling urethral catheter, initial encounter (principal)
CPT/HCPCS: 51702

== ENCOUNTER → 2021-09-13 16:14 | Outpatient (CLI) | payer MEDICARE, SELFPAY | LOC: LAB.DROPOF 09-15 16:14 | PROVIDERS: Visit Provider Urology | DX: R33.9 Retention of urine, unspecified (principal) | CPT/HCPCS: 87086 ==

== ENCOUNTER 2021-09-22 11:16 | Outpatient (CLI) | payer MEDICARE, SELFPAY ==
[2021-09-22 11:22] VITALS: BMI 22.7
[2021-09-22 11:56] LABS: Basophils # 0.4 K/mm3 (0-0.2); Eosinophils # 0.4 K/mm3 (0.0-0.4); Eosinophils % 1.1 % (0.1-12.0); Hematocrit 31.2 % (42.0-52.0); Hemoglobin 9.8 g/dL (14.1-18.0); Lymphocytes # 29.6 K/mm3 (0.7-4.5); Mean Corpuscular HGB Conc 31.5 g/dL (31.8-35.4); Mean Corpuscular Hemoglobin 26.5 pg (27.0-31.2); Mean Corpuscular Volume 84.3 fl (80-94); Mean Platelet Volume 8.8 fl (7.4-10.4); Monocytes # 0.6 K/mm3 (0.1-1.0); Monocytes % 1.5 % (1.7-9.3); Neutrophils # 7.4 K/mm3 (1.8-7.8); Neutrophils % 19.3 % (37.0-80.0); Platelet Count 287 K/mm3 (142-424); Red Cell Distribution Width 15.7 % (11.5-17.5); White Blood Count 38.4 K/mm3 (4.8-10.8)
[2021-09-22 11:58] LABS: Chloride 109 mmol/L (98-107); Sodium 140 mmol/L (136-145)
[2021-09-22 12:01] LABS: Alanine Aminotransferase 21 U/L (12-78); Albumin Level 3.7 g/dl (3.5-5.0); Albumin/Globulin Ratio 1.6 (1.1-1.8); Alkaline Phosphatase 88 U/L (38-126); Aspartate Amino Transferase 36 U/L (17-59); Bilirubin,Total 0.5 mg/dl (0.2-1.3); Blood Urea Nitrogen 26 mg/dl (9-20); Calcium 8.1 mg/dl (8.4-10.2); Carbon Dioxide 25 mmol/L (22.0-30.0); Creatinine Clearance Estimated 52 mL/min (50-200); Estimated Glomerular Filt Rate 64 ml/min (>60); GFR (African American) 78 ML/MIN (>60); Globulin 2.3 g/dL (1.3-3.2); Glucose 93 mg/dl (74-100)
[2021-09-22 12:02] LABS: MANUAL DIFFERENTIAL MANUAL DIFFERENTIAL (MANUAL DIFF)
[2021-09-22 13:17] LABS: Eosinophils % 2 % (0-3); Lymphocytes % 73 % (10-50); Monocytes % 2 % (2-9); Neutrophils % 21 % (42-76); Total Cells Counted 100
[2021-09-22 13:18] LABS: Hypochromasia 1+; Microcytosis 2+
[2021-09-22 13:19] LABS: Platelet Estimate Normal
[2021-09-22 13:48] LABS: Anion Gap 10.1 mEq/L (5-15); Potassium 4.1 mmoL/L (3.5-5.1)
== END 2021-09-22 12:19 | disposition home or self-care (01) ==
LOC: INF 11:17
PROVIDERS: PCP Emergency Medicine; Visit Provider Internal Medicine Medical Oncology
DX: C91.00 Acute lymphoblastic leukemia not having achieved remission (principal); Z45.2 Encounter for adjustment and management of vascular access device
CPT/HCPCS: 80053; 85007; 85025; J1642

== ENCOUNTER → 2021-10-17 10:02 | Outpatient (CLI) | payer MEDICARE, SELFPAY ==
--- NOTE | 2021-10-17 | CA_ITS ---
APPROVED REPORT EXAM: Comprehensive 2D, Doppler, and color-flow Echocardiogram Svp [employer]: Yeimi Lewis RT(R) Ht: 5 ft 9 in Wt: 149lbs BSA: 1.82 BP: 135/51 mmHg Indications: COPD, SOB, HTN, hyperlipidemia, PHTN, CABG, pacemaker 2D Dimensions LVOT 2.07 cm (M/F) 1.5-2.5 LVEF (De Anda's) 48.40 % M: 52 - 72 LV Volume 119.30 mL M: 62 - 150 LV Volume Index 65.54 mL/m2 M: 34 - 74 LA Volume 31.50 mL LA Volume Index 17.30 mL/m2 (M/F) 16-34 M-Mode Dimensions RVDd 2.84 cm (0.9-2.6) LA Diam 3.70 cm (1.9-4.0) LVDd 5.37 cm (3.5-5.7) Ao Diam 2.90 cm (2.0-3.7) LVDs 4.01 cm (3.5-5.7) IVSd 1.29 cm (0.6-1.1) PWd 0.76 cm (0.6-1.1) EF (Teich) 49.50% FS 25.30% EDV (Teich) 139.50 mL ESV (Teich) 70.40 mL LV Diastology E Decel Time 190.00 (160-240 msec) E/A Ratio 0.8 MED E' 3.60 (< 7 cm/sec) E'/MED E' Ratio 28.64 (>14) LAT E' 7.30 (<10 cm/sec) E/LAT E' Ratio 14.12 (>14) Aortic Valve LVOT Max 149.00 (70-110 cm/s) LVOT VTI 34.01 cm AoV Peak Ruben. 278.00 (50-130 cm/s) AI PHT 545.00 ms AO Peak GR. 31.00 mmHg AO Mean GR. 15.20 (<5 mmHg) AO VTI 61.86 (18-25 cm) [place] (VTI) 1.85 (2.5-4.5 cm2) Mitral Valve MV E Max Ruben. 103.00 (40-130 cm/s) MV A Velocity 125.00 (40-130 cm/s) E/A Ratio 0.82 MV Decel. Time 190.00 (160-240 ms) MV PHT 56.00 ms Tricuspid Valve TR P. Velocity 250.00 cm/s RAP Estimate 10.00 mmHg RVSP 35.00 mmHg Left Ventricle Left atrium is mildly enlarged, left ventricle is normal size, mild concentric left ventricular hypertrophy, estimated ejection fraction 55% with no regional wall motion abnormality, grade 1 diastolic dysfunction seen without tissue Doppler evidence of raise left atrial pressure. Right Ventricle Right atrium and right ventricle are normal size and contractility. Aortic Valve Aortic valve is thickened and calcified, mean gradient across aortic valve is 16 mmHg, valve area is 1.2 cm represents moderate aortic stenosis with moderate aortic insufficiency. Mitral Valve Mitral valve is minimally thickened, there is mild mitral regurgitation. Tricuspid Valve Tricuspid valve is grossly normal, there is mild tricuspid regurgitation, calculated right ventricular systolic pressure is 35 mmHg. Pulmonic Valve Pulmonic valve is poorly visualized. Great Vessels Aortic root is normal size. Inferior vena cava is poorly visualized. Pericardium No significant pericardial effusion noted. Conclusion 1. Mildly enlarged left atrium, normal left ventricular size, mild concentric left ventricular hypertrophy, estimated ejection fraction 55% with no regional wall motion abnormality, grade 1 diastolic dysfunction seen without tissue Doppler evidence of raise left atrial pressure. 2. Thickened and calcified aortic valve with moderate aortic stenosis, valve area is 1.2 cm???, there is moderate aortic insufficiency. 3. Mild mitral and tricuspid regurgitation. 4. No significant pericardial effusion noted. Electronically signed by : Kristofer Chou MD 10/17/2021 21:30:21
--- NOTE | 2021-10-17 10:03 | CA_ITS ---
FINAL REPORT TECHNIQUE: Color Doppler, duplex Doppler and islas scale sonography of the bilateral neck vasculature was performed. Velocities were measured in the carotid arteries. Stenosis evaluation based on velocity criteria. CLINICAL HISTORY: carotid bruit, CAD, VICKY FINDINGS: The peak systolic velocity of the right common carotid artery is 83 cm/sec and internal carotid artery 109 cm/sec. The diastolic velocity in the internal carotid artery is 20 cm/sec. The ICA/CCA ratio is 1.7. Visually, a moderate amount of plaque is seen. These findings are consistent with less than 50% stenosis. The external carotid artery is patent. The right vertebral artery is patent with antegrade flow. The peak systolic velocity of the left common carotid artery is 97 cm/sec and internal carotid artery 203 cm/sec. The diastolic velocity in the internal carotid artery is 53 cm/sec. The ICA/CCA ratio is 2.7. Visually, a small amount of plaque is seen. These findings are consistent with less than 50% stenosis. The external carotid artery is patent. The left vertebral artery is patent with antegrade flow. IMPRESSION: 50-69% left carotid stenosis. Less than 50% right carotid stenosis. If indicated, CTA or MRA could further evaluate. Reviewed, Interpreted and Dictated by Dawit Olivera III, MD Transcribed by Bruno Amaro Authenticated by Dawit Olivera III, MD on 10/17/2021 11:47:31 AM [facility]
== END ==
LOC: RT 10:03
PROVIDERS: PCP Emergency Medicine; Visit Provider Nurse Practitioner Family
DX: I25.118 Atherosclerotic heart disease of native coronary artery with other forms of angina pectoris; I65.23 Occlusion and stenosis of bilateral carotid arteries
CPT/HCPCS: 93306; 93880

== ENCOUNTER 2021-11-03 08:59 | Emergency (ER) | payer MEDICARE, SELFPAY ==
[2021-11-03 09:10] VITALS: BP 102/49; PULSE 81; RESP 18; TEMP 36.7; O2SAT 98; BMI 23.6
--- NOTE | 2021-11-03 09:24 | XR_ITS ---
FINAL REPORT CLINICAL HISTORY: fall on sunday, lt rib pain COMPARISON: 02/22/2021 FINDINGS: A single view of the chest with 3 views of the ribs were obtained. There is no acute cardiopulmonary process. The patient is status post median sternotomy. Left subclavian pacer is identified. There is a right subclavian chest port. No pneumothorax is identified. There is a left 8th distal rib fracture which is mildly displaced. IMPRESSION: Mildly displaced left 8th distal rib fracture. Reviewed, Interpreted and Dictated by Dawit Olivera III, MD Transcribed by Sheila Mendez Authenticated by Dawit Olivera III, MD on 11/03/2021 10:37:35 AM [facility]
--- NOTE | 2021-11-03 09:34 | HMH.EDUTC ---
[facility] Disposition Clinical Impression: Rib fracture Qualifiers: Encounter type: initial encounter Rib fracture type: single rib Fracture type: closed Laterality: left Qualified Code(s): S22.32XA - Fracture of one rib, left side, initial encounter for closed fracture Disposition: Home, Self-Care Condition on Discharge: Good Instructions: DI for Rib Fracture, Rib Fracture Additional Instructions: Take medication as prescribed Make sure to be up moving around Make sure to be taking deep breaths and cough to help prevent Pneumonia Follow up with your Family Doctor if no improvement or any worsening of symptoms Over the counter Lidocaine patches may help with pain and discomfort Straight to ER if any life threatening symptoms Prescriptions: Naproxen [Naproxen 500mg tab] 500 mg PO Q12HP PRN #20 tab PRN Reason: Moderate Pain Transmission Status: Pending to [facility] Referrals: Randy Flores APRN [Primary Care Provider] - As needed Time of Disposition: 10:52 Medical Decision Making - Ryan Inquiry Pt receiving controlled substance: No Ryan was queried for this patient: No Vital Signs: 11/03/21 09:10 Temperature 98.0 F Temperature Source Oral Pulse Rate [Right Brachial] 81 Respiratory Rate 18 Blood Pressure [Right Arm] 102/49 L Blood Pressure Mean [Right Arm] 66 Blood Pressure Source [Right Arm] Automatic Cuff Blood Pressure Position [Right Arm] Sitting 02 Sat by Pulse Oximetry 98 Oxygen Delivery Method Room Air - Radiology Data #1 Image(s): Chest (with left ribs) Image Reviewed: Yes I have reviewed radiologist's interpretation IMPRESSION: Mildly displaced left 8th distal rib fracture. [facility] HPI - General Stated complaint: AO L rib pain Time Seen by Provider: 11/03/21 09:15 Mode of Arrival: Ambulatory Source of Information: Patient Limitations: No Limitations Description of Symptoms (Recalled from Triage Doc. by RN): SON STATES THAT PATIENT FELL OVER A CHILD GATE ON SUNDAY. PATIENT C/O PAIN TO LEFT RIB AREA. DENIES LOC, SOA, OR ANY OTHER INJURIES HEENT Symptoms (Recalled from RN notes): No Resp Symptoms (Recalled from RN notes): No Skin Symptoms (Recalled from RN notes): No MS Symptoms (Recalled from RN notes): Yes Functional Status (Recalled from RN notes): WNL - History of Present Illness Provider Complaint: Patient states that he was walking in his house and fell over a baby gate and landed on it on his left side State that this was on Sunday and he has been having pain in his left ribs under his arm ever since Denies LOC denies SOA states that ribs just hurts when he moves certain ways - Related Data Home Medications Medication Instructions Recorded Confirmed tamsulosin 0.4 mg capsule 1 cap PO DAILY 06/09/21 10/17/21 Previous Rx's Medication Instructions Recorded lisinopril 20 mg tablet 20 mg PO DAILY #30 tab 01/14/21 ticagrelor 90 mg tablet 90 mg PO BID #60 tab 01/14/21 escitalopram oxalate 5 mg tablet 5 mg PO DAILY #90 tab 07/13/21 rosuvastatin 20 mg tablet 20 mg PO HS #90 tab 07/13/21 metoprolol succinate 25 mg 25 mg PO DAILY #90 tab 10/17/21 tablet,extended release 24 hr Naproxen [Naproxen 500mg tab] 500 mg PO Q12HP PRN #20 tab 11/03/21 Allergies Allergy/AdvReac Type Severity Reaction Status Date / Time No Known Allergies Allergy Verified 10/04/21 10:45 - Worker's Comp Is this a Worker's Comp case?: No [facility] History - Hepatitis A Screen Attestation statement:: This patient has been screened for Hepatitis A risk factors. I have reviewed the patient's past medical history: Yes Medical History: Reports:: Arrhythmia, Cancer, Carotid Stenosis, Chronic Obstructive Pulmonary Disease (COPD), Coronary Artery Disease, Hyperlipidemia, Hypertension, Internal Pacemaker, Myocardial Infarction, Valvular Heart Disease Denies:: Diabetes Mellitus Type 1, Diabetes Mellitus Type 2, MRSA, Seizures Other Medical History: Reports: Arthritis, Chemotherapy, Oth
[2021-11-03 10:54] VITALS: BP 102/49; PULSE 81; RESP 18; TEMP 36.7; O2SAT 98
== END 2021-11-03 10:59 | disposition home or self-care (01) ==
PROVIDERS: Emergency Provider Nurse Practitioner; PCP Nurse Practitioner Family
DX: S22.32XA Fracture of one rib, left side, initial encounter for closed fracture (principal); W18.09XA Striking against other object with subsequent fall, initial encounter; Y92.019 Unspecified place in single-family (private) house as the place of occurrence of the external cause; I10 Essential (primary) hypertension; J44.9 Chronic obstructive pulmonary disease, unspecified; I25.10 Atherosclerotic heart disease of native coronary artery without angina pectoris
CPT/HCPCS: 71101; 99213; G0463

== ENCOUNTER 2021-11-11 12:55 | Outpatient (CLI) | payer MEDICARE, SELFPAY ==
[2021-11-11 13:00] VITALS: BMI 21.7
[2021-11-11 13:18] LABS: Basophils # 0.7 K/mm3 (0-0.2); Basophils % 1.5 % (0.1-2.0); Eosinophils # 0.2 K/mm3 (0.0-0.4); Eosinophils % 0.5 % (0.1-12.0); Hematocrit 29.9 % (42.0-52.0); Hemoglobin 9.6 g/dL (14.1-18.0); Lymphocytes # 33.3 K/mm3 (0.7-4.5); Lymphocytes % 74.9 % (10-50); Mean Corpuscular HGB Conc 31.9 g/dL (31.8-35.4); Mean Corpuscular Hemoglobin 25.5 pg (27.0-31.2); Mean Corpuscular Volume 79.8 fl (80-94); Mean Platelet Volume 8.1 fl (7.4-10.4); Monocytes # 0.8 K/mm3 (0.1-1.0); Monocytes % 1.7 % (1.7-9.3); Neutrophils # 9.6 K/mm3 (1.8-7.8); Neutrophils % 21.5 % (37.0-80.0); Platelet Count 363 K/mm3 (142-424); Red Blood Count 3.75 M/mm3 (4.60-6.20)
[2021-11-11 13:24] LABS: Chloride 107 mmol/L (98-107); Potassium 3.7 mmoL/L (3.5-5.1); Sodium 137 mmol/L (136-145)
[2021-11-11 13:26] LABS: Blood Urea Nitrogen 20 mg/dl (9-20)
[2021-11-11 13:27] LABS: Alanine Aminotransferase 15 U/L (12-78); Albumin Level 3.5 g/dl (3.5-5.0); Albumin/Globulin Ratio 1.3 (1.1-1.8); Alkaline Phosphatase 84 U/L (38-126); Anion Gap 10.7 mEq/L (5-15); Aspartate Amino Transferase 34 U/L (17-59); Bilirubin,Total 0.4 mg/dl (0.2-1.3); Calcium 8.9 mg/dl (8.4-10.2); Carbon Dioxide 23 mmol/L (22.0-30.0); Creatinine Clearance Estimated 42 mL/min (50-200); Estimated Glomerular Filt Rate 53 ml/min (>60); GFR (African American) 64 ML/MIN (>60); Globulin 2.7 g/dL (1.3-3.2); Glucose 104 mg/dl (74-100); Total Protein,Serum 6.2 g/dl (6.3-8.2)
--- NOTE | 2021-11-11 13:34 | PC.NURSE ---
1334-Gladys Frye called divya foster at 1334 to report wbc 44.5. Rn repeated and verified pt name, , and lab value.result called to romy stokes for no new orders at this time.
[2021-11-11 13:35] LABS: White Blood Count 44.5 K/mm3 (4.8-10.8)
[2021-11-11 13:37] LABS: MANUAL DIFFERENTIAL MANUAL DIFFERENTIAL (MANUAL DIFF)
[2021-11-11 14:07] LABS: Eosinophils % 1 % (0-3); Hypochromasia 1+; Lymphocytes % 79 % (10-50); Monocytes % 1 % (2-9); Neutrophils % 19 % (42-76); Platelet Estimate Normal; Total Cells Counted 100
== END 2021-11-11 13:15 | disposition home or self-care (01) ==
LOC: INF 12:56
PROVIDERS: PCP Nurse Practitioner Family; Visit Provider Internal Medicine Medical Oncology
DX: C91.90 Lymphoid leukemia, unspecified not having achieved remission (principal); Z45.2 Encounter for adjustment and management of vascular access device
CPT/HCPCS: 36591; 80053; 85007; 85025; J1642

== ENCOUNTER 2021-12-12 10:30 | Inpatient (IN) | payer MEDICARE, SELFPAY ==
[2021-12-12] VITALS (13 sets, daily range): BP systolic 94–134; BP diastolic 47–71; PULSE 70–91; RESP 16–21; TEMP 36.6–37.8; O2SAT 93–100; BMI 19.9; BMI 19.1
--- NOTE | 2021-12-12 10:48 | HMH.EDGENADL ---
ED Disposition Clinical Impression: Urinary obstruction, CLL (chronic lymphocytic leukemia) Kidney injury Qualifiers: Encounter type: initial encounter Laterality: unspecified laterality Qualified Code(s): S37.009A - Unspecified injury of unspecified kidney, initial encounter Disposition: Admitted As Inpatient Condition on Discharge: Fair Referrals: Randy Flores APRN [Primary Care Provider] - - Critical Care Critical Care Time: No Attestation: On 12/12/21, the high probability of a clinically significant, sudden or life threatening deterioration of the following system(s) required my full and direct attention, intervention and personal management. The time I documented below is in addition to time spent performing reported procedures but includes the following listed in this critical care notation. Medical Decision Making - Medical Records Medical records reviewed: Yes: I reviewed the patient's medical records. - Ryan Inquiry Pt receiving controlled substance: No Vital Signs: 12/12/21 10:32 12/12/21 11:35 12/12/21 12:01 Temperature 98.5 F Temperature Source Oral Pulse Rate 70 85 Pulse Rate [Right Radial] 91 H Respiratory Rate 18 18 16 Blood Pressure 101/51 L 94/61 L Blood Pressure [Right Arm] 109/52 L Blood Pressure Mean 72 Blood Pressure Mean [Right Arm] 71 Blood Pressure Source [Right Arm] Automatic Cuff Blood Pressure Position [Right Arm] Sitting 02 Sat by Pulse Oximetry 100 93 L 99 Oxygen Delivery Method Room Air Room Air Room Air 12/12/21 12:31 12/12/21 13:00 Temperature Temperature Source Pulse Rate 70 70 Pulse Rate [Right Radial] Respiratory Rate 16 16 Blood Pressure 116/47 L 121/54 L Blood Pressure [Right Arm] Blood Pressure Mean 64 76 Blood Pressure Mean [Right Arm] Blood Pressure Source [Right Arm] Blood Pressure Position [Right Arm] 02 Sat by Pulse Oximetry 99 100 Oxygen Delivery Method Room Air Room Air - Lab Data Lab Results 12/12/21 10:40: SARS-CoV-2 (PCR) Not detected, Influenza A Untype (PCR) Not detected, Influenza Type B (PCR) Not detected 12/12/21 11:17: Urine Color Yellow, Urine Appearance Cloudy, Urine pH 6.0, Ur Specific [place] 1.010, Urine Protein Trace, Urine Glucose (UA) Negative, Urine Ketones Negative, Urine Blood 3+, Urine Nitrate Negative, Urine Bilirubin Negative, Urine Urobilinogen 0.2, Ur Leukocyte Esterase 3+ A, Urine RBC 5-10, Urine WBC 20-50, Ur Squamous Epith Cells Occasional, Urine Bacteria 2+ 12/12/21 11:28: WBC 59.8 H*, RBC 3.54 L, Hgb 8.4 L, Hct 26.2 L, MCV 74.2 L, MCH 23.8 L, MCHC 32.0, RDW 16.1, Plt Count 313, MPV 7.1 L, Neut % (Auto) 23.4 L, Lymph % (Auto) 74.3 H, [place] % (Auto) 2.0, Eos % (Auto) 0.1, Baso % (Auto) 0.2, Neut # (Auto) 14.0 H, Lymph # (Auto) 44.4 H, [place] # (Auto) 1.2 H, Eos # (Auto) 0.1, Baso # (Auto) 0.1, Total Counted 100, Neutrophils % (Manual) 9 L, Lymphocytes % (Manual) 89 H, Monocytes % (Manual) 2, Platelet Estimate Normal, Microcytosis 1+, Ovalocytes 2+ 12/12/21 11:28: Sodium 133 L, Potassium 3.4 L, Chloride 103, Carbon Dioxide 18 L, Anion Gap 15.4 H, BUN 52 H, Creatinine 3.20 H, Estimated Creat Clear 16, Estimated GFR 19 L*, Est GFR ( Amer) 23 L, Glucose 117 H, Calcium 8.7, Total Bilirubin 0.5, AST 108 H, ALT 59, Alkaline Phosphatase 102, Total Protein 6.5, Albumin 3.4 L, Globulin 3.1, Albumin/Globulin Ratio 1.1 12/12/21 11:28: PT 10.8, INR 0.95, APTT 32.4 H, Fibrinogen 785 H 12/12/21 11:28: D-Dimer 1.74 H 12/12/21 11:28: Uric Acid 8.2 12/12/21 12:33: Blood Type O Positive, Antibody Screen Positive Result diagrams: 12/12/21 11:28 12/12/21 11:28 Orders (Tests/Meds): ED MEDICATIONS Generic Name Dose Route Start Last Admin Trade Name Freq PRN Reason Stop Dose Admin Sodium Chloride 10 ml 12/12/21 10:47 Sodium Chloride 0.9% 10ml Flush Syringe IV 07/13/22 10:46 NEEDED PRN Maintain IV Site Discontinued Medications Generic Name Dose Route Start Last Admin Trade
[2021-12-12 11:21] LABS: Microscopic, Urine URINE MICROSCOPIC (MICROSCOPIC)
[2021-12-12 11:23] LABS: Appearance,Urine CLOUDY (Clear); Bilirubin,Urine Negative (Negative); Blood, Urine 3+ (Negative); Color,Urine YELLOW (Yellow); Glucose,Urine (UA) Negative (Negative); Ketones,Urine Negative (Negative); Leukocyte Esterase,Urine 3+ (Negative); Nitrate,Urine Negative (Negative); Protein,Urine TRACE (Negative); Urobilinogen,Urine 0.2 EU/dl (0.2)
--- NOTE | 2021-12-12 11:23 | PC.NURSE ---
Lab at bedside
[2021-12-12 11:37] LABS: Coronavirus 19, PCR Not Detected (NotDetected); Influenza A, PCR Not Detected (NotDetected); Influenza B, PCR Not Detected (NotDetected)
--- NOTE | 2021-12-12 11:39 | PC.NURSE ---
pt sleeping at this time, will continue to monitor
[2021-12-12 11:41] LABS: Basophils # 0.1 K/mm3 (0-0.2); Basophils % 0.2 % (0.1-2.0); Eosinophils # 0.1 K/mm3 (0.0-0.4); Eosinophils % 0.1 % (0.1-12.0); Hematocrit 26.2 % (42.0-52.0); Hemoglobin 8.4 g/dL (14.1-18.0); Lymphocytes # 44.4 K/mm3 (0.7-4.5); Lymphocytes % 74.3 % (10-50); Mean Corpuscular Hemoglobin 23.8 pg (27.0-31.2); Mean Corpuscular Volume 74.2 fl (80-94); Mean Platelet Volume 7.1 fl (7.4-10.4); Monocytes # 1.2 K/mm3 (0.1-1.0); Neutrophils % 23.4 % (37.0-80.0); Platelet Count 313 K/mm3 (142-424); Red Blood Count 3.54 M/mm3 (4.60-6.20); Red Cell Distribution Width 16.1 % (11.5-17.5)
[2021-12-12 11:42] LABS: Chloride 103 mmol/L (98-107); Potassium 3.4 mmoL/L (3.5-5.1); Sodium 133 mmol/L (136-145)
[2021-12-12 11:43] LABS: Squamous Epithelial Cell,Urine Occasional #/hpf (0-5); WBC,Urine 20-50 #/hpf (0-3)
[2021-12-12 11:44] LABS: Bacteria,Urine 2+ /lpf
[2021-12-12 11:45] LABS: Alanine Aminotransferase 59 U/L (12-78); Albumin Level 3.4 g/dl (3.5-5.0); Albumin/Globulin Ratio 1.1 (1.1-1.8); Alkaline Phosphatase 102 U/L (38-126); Anion Gap 15.4 mEq/L (5-15); Aspartate Amino Transferase 108 U/L (17-59); Bilirubin,Total 0.5 mg/dl (0.2-1.3); Blood Urea Nitrogen 52 mg/dl (9-20); Carbon Dioxide 18 mmol/L (22.0-30.0); Creatinine Clearance Estimated 16 mL/min (50-200); Estimated Glomerular Filt Rate 19 ml/min (>60); GFR (African American) 23 ML/MIN (>60); Globulin 3.1 g/dL (1.3-3.2); Total Protein,Serum 6.5 g/dl (6.3-8.2)
[2021-12-12 11:46] LABS: Calcium 8.7 mg/dl (8.4-10.2); Glucose 117 mg/dl (74-100); White Blood Count 59.8 K/mm3 (4.8-10.8)
[2021-12-12 11:47] LABS: MANUAL DIFFERENTIAL MANUAL DIFFERENTIAL (MANUAL DIFF)
--- NOTE | 2021-12-12 11:47 | PC.NURSE ---
notified ER of critical WBC
--- NOTE | 2021-12-12 12:09 | CT_ITS ---
FINAL REPORT CLINICAL HISTORY: dysuria, pain COMPARISON: August 24, 2021 FINDINGS: Axial CT images of the abdomen and pelvis were obtained without intravenous contrast. Coronal reformatted images were also obtained.This study was performed with techniques to keep radiation doses as low as reasonably achievable (ALARA). Individualized dose reduction techniques using automated exposure control or adjustment of mA and/or kV according to the patient's size were employed. Abdomen: There is mild left lung base atelectasis or scarring. There is a large hiatal hernia containing stomach and a portion of transverse colon. There is no evidence of renal stone. There is severe right and moderate left hydronephrosis and hydroureter, new from prior. The liver, spleen and pancreas have an unremarkable, unenhanced appearance. There is a low-attenuation right adrenal nodule consistent with an adenoma. There is moderate vascular calcification. There is retroperitoneal adenopathy in the abdomen and pelvis that is partially improved. Pelvis: Images of the pelvis reveal diffuse bladder wall thickening with adjacent stranding consistent with inflammation. There is a superior bladder diverticulum. There are enlarged bilateral inguinal lymph nodes. There is chronic deformity of the right iliac bone. There has been right hip arthroplasty. There is a small left inguinal hernia containing fat. IMPRESSION: New right worse than left hydronephrosis and hydroureter. Retroperitoneal and bilateral inguinal adenopathy, partially improved. Reviewed, Interpreted and Dictated by Dawit Olivera III, MD Transcribed by Bruno Amaro Authenticated and [facility]
[2021-12-12 12:20] LABS: Lymphocytes % 89 % (10-50); Monocytes % 2 % (2-9); Neutrophils % 9 % (42-76); Total Cells Counted 100
[2021-12-12 12:26] LABS: Microcytosis 1+; Platelet Estimate Normal
[2021-12-12 12:27] LABS: Ovalocytes 2+
[2021-12-12 12:38] LABS: Activated Partial Thrombo Time 32.4 seconds (22.8-30.6); INR 0.95 (0.9-1.1); Prothrombin Time 10.8 seconds (10.1-12.5)
[2021-12-12 12:40] LABS: D-Dimer 1.74 ug/mL (0.0-0.5)
--- NOTE | 2021-12-12 13:09 | PC.NURSE ---
rad notified of CT order
--- NOTE | 2021-12-12 13:13 | PC.NURSE ---
rad at transporting pt to CT via wheelchair
[2021-12-12 13:22] LABS: Fibrinogen 785 mg/dL (229.9-363.5)
[2021-12-12 13:37] LABS: Uric Acid 8.2 mg/dl (3.5-8.5)
--- NOTE | 2021-12-12 14:54 | PC.NURSE ---
Dr lady linda
--- NOTE | 2021-12-12 15:13 | PC.NURSE ---
Dr Pugh paged
--- NOTE | 2021-12-12 16:09 | PC.NURSE ---
lab at attempting to obtain blood cultures
--- NOTE | 2021-12-12 16:26 | PC.NURSE ---
report called to divya jackson on second floor at this time. States they will get the room ready and come down to transport pt.
--- NOTE | 2021-12-12 16:31 | PC.NURSE ---
divya zapata reaccessed pt port at this time r/t pt c/o pain when port flushed and no blood return from port. Upon reaccessing port blood return noted, no pain when flushing port, no swelling of skin around port site.
[2021-12-12 16:37] LABS: Lactic Acid 1.1 mmol/L (0.7-2.1)
--- NOTE | 2021-12-12 16:38 | PC.NURSE ---
notified ER MD of purulent drainage from osullivan catheter soon after insertion of catheter, with small blood clots. Pt c/o pain when the purulent drainage started from catheter, when the drainage slowed down pt reports pain decreasing.
[2021-12-13] VITALS: BP 139/68; PULSE 84; RESP 18; TEMP 37.8; O2SAT 96
[2021-12-13 04:00] VITALS: BP 128/68; PULSE 85; RESP 18; TEMP 36.8; O2SAT 96
[2021-12-13 05:00] VITALS: BMI 20.2
--- NOTE | 2021-12-13 05:27 | PC.NURSE ---
Pt continues to have a osullivan cath. The osullivan is putting out dark urine. The tubing noted to have lots of purulent drainage with sediment in the tubing. Pt has c/o feeling like he has to poop and has been on the toilet several times tonight and only able to pass gas. Pt abd is soft and bs are present in 4 quads. Pt unsteady on feet and assisted x 1 with all ambulation.
[2021-12-13 06:57] LABS: Basophils # 0.3 K/mm3 (0-0.2); Basophils % 0.6 % (0.1-2.0); Eosinophils # 0.1 K/mm3 (0.0-0.4); Eosinophils % 0.1 % (0.1-12.0); Hemoglobin 7.8 g/dL (14.1-18.0); Lymphocytes # 38.3 K/mm3 (0.7-4.5); Lymphocytes % 77.3 % (10-50); Mean Corpuscular HGB Conc 32.6 g/dL (31.8-35.4); Mean Corpuscular Hemoglobin 24.5 pg (27.0-31.2); Mean Corpuscular Volume 75.3 fl (80-94); Mean Platelet Volume 8.5 fl (7.4-10.4); Neutrophils # 9.9 K/mm3 (1.8-7.8); Platelet Count 360 K/mm3 (142-424); Red Blood Count 3.19 M/mm3 (4.60-6.20); Red Cell Distribution Width 17.8 % (11.5-17.5)
[2021-12-13 07:07] LABS: MANUAL DIFFERENTIAL MANUAL DIFFERENTIAL (MANUAL DIFF)
--- NOTE | 2021-12-13 07:14 | HMH.PHAVTE ---
[facility] Pharm[facility] VTE Monitoring - Patient Demographics Admission date: 12/12/21 Report Date: 12/13/21 Time: 07:14 Allergies/Adverse Reactions: Patient Allergies No Known Allergies Allergy (Verified 11/11/21 13:30) Height: 1.75 m Weight: 61.825 kg Patient Problems: Current Active Problems Kidney injury (Acute) Urinary obstruction (Acute) Chronic lymphocytic leukemia (Chronic) - VTE Risk Labs: VTE Related Lab Results Hgb 7.8 g/dL (14.1-18.0) L 12/13/21 06:37 Hct 24.0 % (42.0-52.0) L 12/13/21 06:37 Plt Count 360 K/mm3 (142-424) 12/13/21 06:37 PT 10.8 seconds (10.1-12.5) 12/12/21 11:28 INR 0.95 (0.9-1.1) 12/12/21 11:28 APTT 32.4 seconds (22.8-30.6) H 12/12/21 11:28 Fibrinogen 785 mg/dL (229.9-363.5) H 12/12/21 11:28 BUN 52 mg/dl (9-20) H 12/12/21 11:28 Creatinine 3.20 mg/dl (0.66-1.25) H 12/12/21 11:28 Estimated Creat Clear 16 mL/min (50-200) 12/12/21 11:28 VTE Risk Level: Very Low Risk - Prophylaxis VTE Prophylaxis Ordered?: Yes Types of VTE Prophylaxis: TEDS Knee High Location of Applied Device: Bilateral Lower Extremeties
--- NOTE | 2021-12-13 07:15 | HMH.PHAINT ---
MEDICATION RECONCILIATION COMPLETED ON PATIENT USING EXTERNAL FILL HISTORY FROM PHARMACY. -FLAKO MOHAN, TAVOD
[2021-12-13 07:22] LABS: White Blood Count 49.6 K/mm3 (4.8-10.8)
[2021-12-13 08:00] VITALS: BP 122/61; PULSE 73; RESP 17; TEMP 36.8; O2SAT 98
[2021-12-13 08:18] LABS: Eosinophils % 1 % (0-3); Lymphocytes % 86 % (10-50); Neutrophils % 13 % (42-76); Total Cells Counted 100
[2021-12-13 08:20] LABS: Microcytosis 1+; Platelet Estimate Normal
[2021-12-13 08:21] LABS: Ovalocytes 2+
--- NOTE | 2021-12-13 08:54 | PC.NURSE ---
0722 critical lab value received. WBC 49.6. notified Le Arriola face to face at 0750. no new orders at this time
[2021-12-13 09:38] LABS: Chloride 106 mmol/L (98-107); Sodium 133 mmol/L (136-145)
[2021-12-13 09:41] LABS: Blood Urea Nitrogen 38 mg/dl (9-20); Calcium 8.1 mg/dl (8.4-10.2); Carbon Dioxide 19 mmol/L (22.0-30.0); Creatinine Clearance Estimated 25 mL/min (50-200); Estimated Glomerular Filt Rate 32 ml/min (>60); GFR (African American) 39 ML/MIN (>60); Glucose 115 mg/dl (74-100); Potassium 3.3 mmoL/L (3.5-5.1)
[2021-12-13 09:42] LABS: Anion Gap 11.3 mEq/L (5-15)
--- NOTE | 2021-12-13 10:05 | HMH.HP ---
*Admission Date: 12/12/21 *Chief complaint: Weakness *History of present illness: 87-year-old male patient presents to the [facility] emergency department with reports of diarrhea last night, not feeling well, frequently urination, and unable to fully empty bladder. He does have a history of bladder cancer, no chemotherapy or radiation at this time and is scheduled for a scope with Dr. Herzog in the upcoming weeks. He also reports generalized weakness, fatigue, decreased appetite, and denies fever/chills/body aches. White blood cell count 59.8, hemoglobin 8.4, hematocrit 26.2 and platelets 313 BUN 52, creatinine 3.2, Pulse 91 CT scan of the abdomen and pelvis is concerning for thickened bladder wall and bilateral hydronephrosis. Concern for urinary obstruction. Anderson catheter placed. Urine pulmonary reveals gram-negative rods, he is receiving ceftriaxone IV Urology and heme-onc consult [facility] History I have reviewed the patient's past medical history: Yes Medical History: Reports:: Arrhythmia, Cancer, Carotid Stenosis, Chronic Obstructive Pulmonary Disease (COPD), Coronary Artery Disease, Hyperlipidemia, Hypertension, Internal Pacemaker, Myocardial Infarction, Valvular Heart Disease Denies:: Diabetes Mellitus Type 1, Diabetes Mellitus Type 2, MRSA, Seizures *Have you ever received a pneumonia vaccine?: Yes *Have you received a flu vaccine this season?: No Other Medical History: Reports: Arthritis, Chemotherapy, Other. Denies: Blood Transfusion Reaction Laterality Cases: Left: Arthroscopy Knee, Other, Right: Total Hip Replacement, Bilateral: Tonsillectomy Other Surgeries: Yes: No Previous Surgery, Angioplasty (1999), CABG, Cancer Surgery, Cardiac Catheterization, Cardiac Surgery, Colonoscopy, Coronary Stent, Open Heart Surgery, Pacemaker, Other Amputation: No Fractures: Yes - *Social History Last grade of school completed: High school graduate Smoking Status: Former smoker Tobacco Type: smokeless tobacco # Packs/Day (cigarettes): 1 #Yrs smoked (if former smoker): 30 Alcohol Intake: never Alcohol Intake Frequency:: holidays/special occasions only Substance Use Type: denies use *Occupational Status:: retired Housing: house Household Members: spouse, family *Travel in the last 8 weeks: None Family Hx:: No significant family history Review of Systems - Review of Systems Review of systems:: pertinent systems reviewed and negative unless documented below - Constitutional Reports fatigue, Reports weakness - Eyes Denies blurry vision, Denies double vision - ENT Denies dizziness, Denies dry mouth - *Cardiovascular Denies chest pain, Denies chest pain with activity - *Respiratory Denies chest congestion, Denies shortness of breath - *Gastrointestinal Reports change in stools, Reports loose stools, Denies abdominal pain, Denies bright, red blood in stools, Denies black, tarry stools - *Genitourinary Denies difficulty urinating, Denies frequent nighttime urination - *Musculoskeletal Denies joint pain, Denies back pain - Integumentary/Breasts Denies bleeding lesions, Denies change in skin color - *Neurologic Reports weakness, Denies unsteadiness, Denies dizziness, Denies headache(s), Denies numbness - Psychiatric Denies behavioral changes, Denies confusion - Endocrine Denies cold intolerance, Denies increased thirst - Hematologic/Lymphatic Denies easy bleeding, Denies easy bruising - Allergic/Immunologic Denies GI upset with certain foods, Denies tongue swelling Meds Home Medications Medication Instructions Recorded Confirmed Type lisinopril 20 mg tablet 20 mg PO DAILY #30 tab 01/14/21 12/12/21 Rx escitalopram oxalate 5 mg tablet 5 mg PO DAILY #90 tab 07/13/21 12/12/21 Rx rosuvastatin 20 mg tablet 20 mg PO HS #90 tab 07/13/21 12/12/21 Rx Metoprolol Succinate [Metoprolol 25 mg PO DAILY 12/13/21 12/13/21 History Succinate 25mg Tablet*] Naproxen [Naproxen 500mg tab] 500 mg PO BIDP
--- NOTE | 2021-12-13 11:20 | PC.NURSE ---
Up to chair with PT
[2021-12-13 11:32] VITALS: BMI 20.2
--- NOTE | 2021-12-13 11:41 | HMH.PTEV ---
Physical Therapy Evaluation Rehab PT IP Evaluation Start: 12/13/21 11:03 Freq: ONCE Status: Active Protocol: Document 12/13/21 11:37 DAVID (Rec: 12/13/21 11:41 DAVID [id number]) Subjective/History History History 87-year-old male patient presents to the [facility] emergency department with reports of diarrhea last night, not feeling well, frequently urination, and unable to fully empty bladder. He does have a history of bladder cancer, no chemotherapy or radiation at this time and is scheduled for a scope with Dr. Herzog in the upcoming weeks. He also reports generalized weakness, fatigue, decreased appetite, and denies fever/chills/body aches. Subjective Subjective PT AGREEABLETO GET oob AND TRANSFER TO CHAIR Rehab PT IP Eval Objective Appearance Patient Behavior Appropriate,Confused Patient Orientation Place,Name,Birthday Difficulty following instructions none Speech Pattern Appropriate Ambulation Patient Able to Ambulate Yes Ambulation Observation IP General Gait Pattern Observation Shuffling Step Ambulation Distance (feet) 10 Ambulation Assistive Device None Ambulation Ability Contact Guard/Hand Hold Balance Ability to Arise Able, uses arms to help Sitting Balance Steady, safe Standing Balance Steady, wide stance Dynamic Sitting Balance Ability Good Dynamic Standing Balance Ability Fair Transfers Bed Transfer Ability Independent Chair Transfer Ability Independent Sit to Stand Bed Transfer Ability Supervision/Stand by,Contact Guard/Hand Hold Sit to Stand Chair Transfer Ability Supervision/Stand by,Contact Guard/Hand Hold Rehab PT IP prob,goals,plan Problems Date of Evaluation: 12/13/21 PT IP Problems Gait,Balance,Safety Rehab Potential Rehab Potential Good Equipment Needs Assistive Devices None / NA,Straight Cane, Rolling / Wheeled Walker Plan PT Intervention Plan Bed Mobility,Transfers,Gait, Balance,Self care,Safety, Therapeutic Exercise PT Plan Frequency BID
--- NOTE | 2021-12-13 13:01 | PC.NURSE ---
multiple shifts from pump cleared at this time
--- NOTE | 2021-12-13 13:18 | HMH.CONS ---
*Admission Date: 12/12/21 *Reason for consult:: Urinary retention *History of present illness: Patient is an 81-year-old white male with a history of bladder cancer presented to the emergency room yesterday with urinary frequency, diarrhea, anorexia and generalized malaise. He also has a history of CLL is under Dr. Pugh's care for that. Lab work showed his creatinine elevated to 3.2 and his baseline is 1.3 or less. Notes from the emergency department indicate that patient had been up at night every 1-2 hours with small urine output. He denies any hematuria or malodorous urine. Urinalysis showed 3+ leukocyte esterase and 3+ blood with 2+ bacteria. Anderson catheter was placed but the amount obtained was not found. CT scan was performed which showed new findings of severe right hydronephrosis and moderate left hydronephrosis and hydroureter. Bladder showed diffuse bladder wall thickening with stranding in the bladder diverticulum. I last saw the patient on August when he had some urinary symptoms. At that time his urine appeared infected but his bladder scan showed residual of only 33 cc. Patient's creatinine has decreased to 2.0 overnight with Anderson drainage. [facility] History Medical History: Reports:: Arrhythmia, Cancer, Carotid Stenosis, Chronic Obstructive Pulmonary Disease (COPD), Coronary Artery Disease, Hyperlipidemia, Hypertension, Internal Pacemaker, Myocardial Infarction, Valvular Heart Disease Denies:: Diabetes Mellitus Type 1, Diabetes Mellitus Type 2, MRSA, Seizures *Have you ever received a pneumonia vaccine?: Yes *Have you received a flu vaccine this season?: No Other Medical History: Reports: Arthritis, Chemotherapy, Other. Denies: Blood Transfusion Reaction Laterality Cases: Left: Arthroscopy Knee, Other, Right: Total Hip Replacement, Bilateral: Tonsillectomy Other Surgeries: Yes: No Previous Surgery, Angioplasty (1999), CABG, Cancer Surgery, Cardiac Catheterization, Cardiac Surgery, Colonoscopy, Coronary Stent, Open Heart Surgery, Pacemaker, Other Amputation: No Fractures: Yes - *Social History Last grade of school completed: High school graduate Smoking Status: Former smoker Tobacco Type: smokeless tobacco # Packs/Day (cigarettes): 1 #Yrs smoked (if former smoker): 30 Alcohol Intake: never Alcohol Intake Frequency:: holidays/special occasions only Substance Use Type: denies use *Occupational Status:: retired Housing: house Household Members: spouse, family *Travel in the last 8 weeks: None Family Hx:: No significant family history Review of Systems - Review of Systems Review of systems:: pertinent systems reviewed and negative unless documented below - *Neurologic Reports weakness, Denies behavioral changes, Denies confusion, Denies unsteadiness, Denies dizziness, Denies headache(s), Denies numbness Meds Home Medications Medication Instructions Recorded Confirmed Type lisinopril 20 mg tablet 20 mg PO DAILY #30 tab 01/14/21 12/12/21 Rx escitalopram oxalate 5 mg tablet 5 mg PO DAILY #90 tab 07/13/21 12/12/21 Rx rosuvastatin 20 mg tablet 20 mg PO HS #90 tab 07/13/21 12/12/21 Rx Metoprolol Succinate [Metoprolol 25 mg PO DAILY 12/13/21 12/13/21 History Succinate 25mg Tablet*] Naproxen [Naproxen 500mg tab] 500 mg PO BIDP PRN 12/13/21 12/13/21 History Allergies Allergy/AdvReac Type Severity Reaction Status Date / Time No Known Allergies Allergy Verified 11/11/21 13:30 Exam Vital signs and Labs for Last 24 Hours: Temp Pulse Resp BP Pulse Ox 98.3 F 73 17 122/61 98 12/13/21 08:00 12/13/21 08:00 12/13/21 08:00 12/13/21 08:00 12/13/21 08:00 Laboratory Results - last 24 hr 12/12/21 11:17: Urine Color Yellow, Urine Appearance Cloudy, Urine pH 6.0, Ur Specific [place] 1.010, Urine Protein Trace, Urine Glucose (UA) Negative, Urine Ketones Negative, Urine Blood 3+, Urine Nitrate Negative, Urine Bilirubin Negative, Urine Urobilinogen 0.2, Ur Leukocyte Esterase 3+ A, Urine RBC 5-10, Urine WBC 20-
--- NOTE | 2021-12-13 13:56 | HMH.OTEV ---
OT Inpatient Evaluation Rehab OT IP Evaluation Start: 12/13/21 11:04 Freq: ONCE Status: Complete Protocol: [facility]13[facility]21 13[facility] (Rec: 12/13/21 13:55 [facility] [id number]) Rehab OT IP Assessment Subjective History Pt oriented x 3 on arrival. Pt agreeable to engage in therapy evaluation. Pt was admitted via ED on 12/12/21 due to weakness and urinary difficulty. Pt reports prior to being in the hospital he lived with is son and grandchildren. Pt claims he was independent with all ADLs and IADLs. He also still drove and did not use any type of AE during ambulation. Subjective I am ready to go home. Pt completd bed mobility and went from supine to sitting with sba. Pt sat at eob and donned socks with sba. Pt stood from eob with cga. Pt engaged in funtional transfer of ~15 feet with cga. Pt sat back down at eob with cga. Pt completed bed mobility and went from sitting to supine with sba. pt was left with call conner and all other needs in reach. Objective Patient Orientation Person,Place,Birthday Upper Extremity Gross ROM WFL Bed Mobility bed mobility-scooting,bed mobility - supine/sit,bed mobility - rolling Assist Level Supervision/Stand by Transfer Training Sit/Stand Transfer Assist Level Contact Guard/Hand Hold Lower Body Dressing Ability Standby Assistance Rehab OT IP prob,goals,plan Problems Date of Evaluation: 12/13/21 OT IP Problems Bed Mobility,Transfers,Gait, Balance,Self care,Safety Rehab Potential Rehab Potential Good Equipment Needs Assistive Devices None / NA Plan OT intervention Plan Bed Mobility,Transfers,Gait, Balance,Self care,Safety, Therapeutic Exercise OT Plan Frequency BID Duration LOS Discharge Goals Bed Mobility Ability Standby Assistance
--- NOTE | 2021-12-13 15:16 | PC.NURSE ---
rounded on patient who was resting, but family was at bedside. educated them on plan of care. family also asked about how he could receive dental care (pulled teeth) with his medicare insurance. did educate that wouldn't be something we could take care of here, but after some calls educated to maybe try calling the medicare office about options they could seek out to get dental insurance or call around to local dentists to see if their are different plans offered for special cases. family stated they were thankful for the suggestions and would call around. no other concerns about care in hospital nor any needs voiced. encouraged to ring out with any questions or concerns.
[2021-12-13 15:26] VITALS: BP 108/56; PULSE 66; RESP 17; TEMP 36.4; O2SAT 100
--- NOTE | 2021-12-13 16:12 | PC.NURSE ---
report given to zeeshan godwin rn at [phone]
[2021-12-13 19:53] VITALS: BP 156/70; PULSE 82; RESP 18; TEMP 36.6; O2SAT 98
[2021-12-14] VITALS: BP 139/68; PULSE 74; RESP 16; TEMP 37.3; O2SAT 98
[2021-12-14 00:31] VITALS: BP 125/100; PULSE 73; RESP 16; TEMP 36.7; O2SAT 100
[2021-12-14 04:00] VITALS: BP 132/65; PULSE 72; RESP 17; TEMP 37.1; O2SAT 97
[2021-12-14 05:00] VITALS: BMI 21.2
--- NOTE | 2021-12-14 06:02 | PC.NURSE ---
Pt slept all shift. Reported no pain. Anderson cath intact and clear yellow fluid noted. PT stated that he does not feel better but his labs continue to improve.
[2021-12-14 06:55] LABS: Basophils # 0.9 K/mm3 (0-0.2); Eosinophils # 0.2 K/mm3 (0.0-0.4); Eosinophils % 0.4 % (0.1-12.0); Hematocrit 21.9 % (42.0-52.0); Hemoglobin 7.5 g/dL (14.1-18.0); Lymphocytes # 33.4 K/mm3 (0.7-4.5); Lymphocytes % 77.7 % (10-50); Mean Corpuscular HGB Conc 34.2 g/dL (31.8-35.4); Mean Corpuscular Hemoglobin 24.8 pg (27.0-31.2); Mean Corpuscular Volume 72.7 fl (80-94); Mean Platelet Volume 8.3 fl (7.4-10.4); Monocytes # 0.8 K/mm3 (0.1-1.0); Monocytes % 1.8 % (1.7-9.3); Neutrophils # 7.8 K/mm3 (1.8-7.8); Neutrophils % 18.1 % (37.0-80.0); Platelet Count 369 K/mm3 (142-424); Red Blood Count 3.01 M/mm3 (4.60-6.20); Red Cell Distribution Width 17.6 % (11.5-17.5)
[2021-12-14 07:00] LABS: MANUAL DIFFERENTIAL MANUAL DIFFERENTIAL (MANUAL DIFF)
[2021-12-14 07:06] LABS: Chloride 105 mmol/L (98-107); Potassium 3.4 mmoL/L (3.5-5.1); Sodium 134 mmol/L (136-145)
[2021-12-14 07:09] LABS: Blood Urea Nitrogen 29 mg/dl (9-20); Creatinine Clearance Estimated 36 mL/min (50-200); Estimated Glomerular Filt Rate 45 ml/min (>60); GFR (African American) 54 ML/MIN (>60)
[2021-12-14 07:10] LABS: Anion Gap 10.4 mEq/L (5-15); Carbon Dioxide 22 mmol/L (22.0-30.0); Glucose 99 mg/dl (74-100)
--- NOTE | 2021-12-14 07:12 | PC.NURSE ---
Critical lab wbc. 43 trending down. Passed on to day shift Nurse. Stated she would notify Dr. Garcia.
[2021-12-14 07:50] LABS: Lymphocytes % 78 % (10-50); Monocytes % 1 % (2-9); Neutrophils % 19 % (42-76); Total Cells Counted 100
[2021-12-14 07:51] LABS: Microcytosis 1+
[2021-12-14 07:52] LABS: Anisocytosis 1+
[2021-12-14 07:53] LABS: Ovalocytes 2+; Platelet Estimate Normal; Poikilocytosis 1+
[2021-12-14 08:00] VITALS: BP 113/52; PULSE 76; RESP 16; TEMP 36.9; O2SAT 96
--- NOTE | 2021-12-14 09:22 | HMH.DCSUM ---
General - General Admission date:: 12/12/21 Discharge date: 12/14/21 HPI HPI: 87-year-old male patient presents to the [facility] emergency department with reports of diarrhea last night, not feeling well, frequently urination, and unable to fully empty bladder. He does have a history of bladder cancer, no chemotherapy or radiation at this time and is scheduled for a scope with Dr. Herzog in the upcoming weeks. He also reports generalized weakness, fatigue, decreased appetite, and denies fever/chills/body aches. White blood cell count 59.8, hemoglobin 8.4, hematocrit 26.2 and platelets 313 BUN 52, creatinine 3.2, Pulse 91 CT scan of the abdomen and pelvis is concerning for thickened bladder wall and bilateral hydronephrosis. Concern for urinary obstruction. Anderson catheter placed. Urine pulmonary reveals gram-negative rods, he is receiving ceftriaxone IV Urology and heme-onc consult Hospital Course Hospital Course: 87-year-old male patient presents to the [facility] emergency department with reports of diarrhea last night, not feeling well, frequently urination, and unable to fully empty bladder. He does have a history of bladder cancer, no chemotherapy or radiation at this time and is scheduled for a scope with Dr. Herzog in the upcoming weeks. He also reports generalized weakness, fatigue, decreased appetite, and denies fever/chills/body aches. Creatinine initially 3.2 with IV fluid bolus, maintenance IV fluids, and p.o. fluids has decreased to 1.5 Anderson catheter urine in the reddish urine Urology has seen and recommends: 81-year-old white male with history of bladder cancer now with lower urinary tract symptoms and signs of urosepsis. His urine and blood cultures are pending but gram stain reveals gram-positive organisms on preliminary. His white count is chronically elevated due to his CLL but is higher than normal on admission. His creatinine is improving with catheter drainage. CT scan shows a thickened bladder wall with new findings of bilateral hydroureteronephrosis concerning for bladder outlet obstruction. Patient is due for cystoscopy on Sunday, December 19. Recommend treating patient's current fraction and keeping the catheter in until his cystoscopy as an outpatient next week. Severe sepsis with acute organ dysfunction, UTI (urinary tract infection) Urine culture preliminary results around negative rods, he has received Rocephin IV and will be discharged on levofloxacin p.o. Urine culture will be followed and corrected if necessary ARTURO (acute kidney injury) Creatinine has corrected from 3.2 to currently 1.5 with use of IV fluid bolus, maintenance IV fluids and p.o. fluids Urothelial carcinoma of bladder He has an appointment with urology 12/19/2021 for cystoscopy Chronic lymphocytic leukemia Followed by Dr. Pugh Hem/OC (6) Urinary retention with incomplete bladder emptying Abdominal/pelvic CT revealed new right worse than left hydronephrosis and hydroureter. Retroperitoneal and bilateral inguinal adenopathy, partially improved. 81-year-old male patient sitting up in bed resting quietly, he denies any concerns/pains at present. Patient is a lot more alert today than yesterday, he is alert to person/place/time. Discussed discharge home today he is agreement with this and reports he has family at home to help with his care. He verbalized understanding he has neurology appointment scheduled for 12/19/2021 and understands Anderson catheter will remain in place. PLAN: 1. Discharge home today with Anderson catheter 2. Urology appointment scheduled next week 3. Levofloxacin 750 mg p.o. every 48 hours x3 doses 4. Follow-up with PCP in 1 week Objective Vital signs: Temp Pulse Resp BP Pulse Ox 98.5 F 76 16 113/52 L 96 12/14/21 08:00 12/14/21 08:00 12/14/21 08:00 12/14/21 08:00 12/14/21 08:00 no acute distress - *Routine HEENT Exam Head
--- NOTE | 2021-12-14 10:55 | SW/DCPLANNER ---
Addendum entered by Mikayla Boston 12/14/21 11:31: Per Yue huerta/ of : home health services will start Tuesday 12/19 for this patient. Original Note: I spoke with this patient regarding home health services this AM. Patient is agreeable to home health and prefers [facility] . Patient information/order will be faxed to [facility]. Patient will discharge home today.
--- NOTE | 2021-12-14 11:13 | HMH.PHAINT ---
DISCHARGE MEDICATION COUNSELING PROVIDED. DISCUSSED SHORT-COURSE LEVAQUIN AND HOW TO TAKE (EVERY 48 HOURS X3 DOSES), RECOMMEND TAKING WITH FOOD, MAY CAUSE GI UPSET, DIARRHEA. RARE SIDE EFFECT OF TENDON RUPTURE. PATIENT ENDORSED NO QUESTIONS AT THIS TIME.
--- NOTE | 2021-12-14 11:31 | PC.NURSE ---
Addendum entered by Taniya Santos RN 12/14/21 12:41: chest port deaccessed. Negra will be here shortly to get pt Original Note: All discharge data printed and ready to go. Pt prefers for this RN to wait for his daughter Negra to arrive to go over discharge instructions. Attempt made to notify Negra of discharge, no answer. Will try again later.
--- NOTE | 2021-12-15 14:46 | CARE MANAGER ---
Received return call related to discharge from hospital yesterday. They state they picked up his antibiotic that was ordered and are aware of follow up appointments. He is doing well and denies questions or concerns. KENYA Diaz
== END 2021-12-14 13:30 | disposition home health service (06) | DRG 872 ==
LOC: ER 13:42 → 2ND 21:08
PROVIDERS: Nurse Practitioner Family; Admitting Provider Emergency Medicine; Emergency Provider Emergency Medicine; PCP Nurse Practitioner Family; Visit Provider Emergency Medicine
DX: A41.9 Sepsis, unspecified organism (principal); N17.9 Acute kidney failure, unspecified; C91.90 Lymphoid leukemia, unspecified not having achieved remission; N39.0 Urinary tract infection, site not specified; C67.9 Malignant neoplasm of bladder, unspecified; R33.9 Retention of urine, unspecified; R65.20 Severe sepsis without septic shock
CPT/HCPCS: 36415; 51702; 74176; 80048; 80053; 81001; 83605; 84550; 85007; 85025; 85378; 85384; 85610; 85730; 86850; 86870; 87040; 87077; 87086; 87088; 87186; 97110; 97162; 97166; 97530; 99285; C9803; J0696; U0003; U0005

== ENCOUNTER 2021-12-15 13:02 | Outpatient (CLI) | payer MEDICARE, SELFPAY ==
[2021-12-15 13:42] VITALS: BMI 20.7
[2021-12-15 14:34] LABS: Iron 26 ug/dL (49-181)
[2021-12-15 14:43] LABS: Total Iron Binding Capacity 232 ug/dL (261-462)
[2021-12-15 15:11] LABS: Ferritin 211 ng/ml (17.9-464)
== END 2021-12-15 14:20 | disposition home or self-care (01) ==
LOC: INF 13:04
PROVIDERS: PCP Emergency Medicine; Visit Provider Internal Medicine Medical Oncology
DX: C91.10 Chronic lymphocytic leukemia of B-cell type not having achieved remission (principal); Z45.2 Encounter for adjustment and management of vascular access device
CPT/HCPCS: 36415; 82728; 83540; 83550; J1642

== ENCOUNTER → 2021-12-16 15:13 | Outpatient (CLI) | payer MEDICARE, SELFPAY | PROVIDERS: Visit Provider Urology | DX: D49.4 Neoplasm of unspecified behavior of bladder (principal); Z01.812 Encounter for preprocedural laboratory examination; Z20.822 Contact with and (suspected) exposure to COVID-19 | CPT/HCPCS: C9803; U0003; U0005 ==

== ENCOUNTER 2021-12-19 07:27 | Day surgery (SDC) | payer MEDICARE, SELFPAY ==
[2021-12-14 11:22] VITALS: BMI 23.3
[2021-12-19 07:41] VITALS: BP 131/59; PULSE 85; RESP 16; TEMP 36.4; O2SAT 94
[2021-12-19 08:41] VITALS: BP 158/75; PULSE 83; RESP 18; TEMP 36.8; O2SAT 99
[2021-12-19 08:58] VITALS: BP 158/75; PULSE 83; RESP 18; TEMP 36.8; O2SAT 99
--- NOTE | 2021-12-19 09:56 | P.OP_ITS ---
Date of procedure: 12/19/21 Pre-op Diagnosis:: History of bladder cancer, recent urinary retention with bilateral hydroureteronephrosis Post-op Diagnosis:: No evidence of bladder tumor recurrence today, bladder shows signs of bladder outlet obstruction Procedure performed:: Cystoscopy Surgeon:: Saeid Matias MD Anesthesia: local Estimated blood loss (mL): 0 Clinical Note:: Patient is an 81-year-old white male with a history of bladder cancer. He was recently hospitalized and CT scan showed bladder wall thickening with a new findings of bilateral hydroureteronephrosis. Patient was discharged home with his Anderson catheter and presents today for cystoscopic evaluation. Operative findings:: Bladder showed moderate to severe trabeculation without a median lobe enlargement. There is no evidence of bladder tumor recurrence. Operative note:: Patient taken to the cystoscopy suite after informed consent was obtained. On the stretcher his Anderson catheter was removed and he was prepped and draped in the standard surgical fashion. Patient continues on Levaquin from his recent hospitalization. 2% lidocaine placed into the urethra and clamped. For 5 minutes the clamp removed and the flexible cystoscope introduced into the urethral meatus. Scope passed into the bladder without difficulty and the bladder examined in a systematic fashion. There was moderate to severe trabeculation but no cellules or diverticula were noted. The ureteral orifices were well away from the bladder neck and were normal configuration. There was clear efflux of urine noted from each. The scope was retroflexed showing no evidence of a median lobe. Prostatic urethra showed by lobar hyperplasia 2 cm length prostate. The scope then removed. Patient tolerated procedure well there are no complications. He was allowed to go home today without his Anderson catheter. He was placed on tamsulosin I will see him back in 3 days in follow- up. We will obtain the bladder scan at his follow-up and if significantly elevated will discussed UroLift with the patient and his family. Condition: stable Disposition: same day Specimens:: None Complications:: None
== END 2021-12-19 08:58 | disposition home or self-care (01) ==
LOC: OUTP 07:29
PROVIDERS: PCP Nurse Practitioner Family; Visit Provider Urology
DX: R33.9 Retention of urine, unspecified (principal); N13.30 Unspecified hydronephrosis; Z85.51 Personal history of malignant neoplasm of bladder; I25.10 Atherosclerotic heart disease of native coronary artery without angina pectoris; J44.9 Chronic obstructive pulmonary disease, unspecified; I65.29 Occlusion and stenosis of unspecified carotid artery; Z79.899 Other long term (current) drug therapy
CPT/HCPCS: 52000

== ENCOUNTER 2021-12-21 09:56 | Outpatient (CLI) | payer MEDICARE, SELFPAY ==
[2021-12-21 10:15] VITALS: BP 81/42; PULSE 70; RESP 18; TEMP 36.7; O2SAT 100
[2021-12-21 10:58] VITALS: BP 99/52; PULSE 67; RESP 18; O2SAT 99
== END 2021-12-21 10:58 | disposition home or self-care (01) ==
LOC: INF 09:57
PROVIDERS: PCP Nurse Practitioner Family; Visit Provider Internal Medicine Medical Oncology
DX: C91.90 Lymphoid leukemia, unspecified not having achieved remission (principal)
CPT/HCPCS: 96365; J1439; J1642

== ENCOUNTER 2021-12-28 09:54 | Outpatient (CLI) | payer MEDICARE, SELFPAY ==
[2021-12-28 10:12] VITALS: BP 102/55; PULSE 67; RESP 18; TEMP 36.3; O2SAT 100
[2021-12-28 10:55] VITALS: BP 139/61; PULSE 69; RESP 18; O2SAT 99
== END 2021-12-28 11:06 | disposition home or self-care (01) ==
LOC: INF 09:55
PROVIDERS: PCP Physician Assistant; Visit Provider Internal Medicine Medical Oncology
DX: C91.10 Chronic lymphocytic leukemia of B-cell type not having achieved remission (principal)
CPT/HCPCS: 96365; J1439; J1642

== ENCOUNTER 2022-01-12 14:05 | Outpatient (CLI) | payer MEDICARE, SELFPAY ==
[2022-01-12 14:11] VITALS: BMI 20.5
[2022-01-12 14:26] LABS: Basophils # 0.7 K/mm3 (0-0.2); Basophils % 1.8 % (0.1-2.0); Eosinophils # 0.3 K/mm3 (0.0-0.4); Eosinophils % 0.8 % (0.1-12.0); Hematocrit 31.9 % (42.0-52.0); Hemoglobin 9.8 g/dL (14.1-18.0); Lymphocytes # 32.6 K/mm3 (0.7-4.5); Lymphocytes % 83.8 % (10-50); Mean Corpuscular HGB Conc 30.6 g/dL (31.8-35.4); Mean Corpuscular Hemoglobin 26.9 pg (27.0-31.2); Mean Corpuscular Volume 87.9 fl (80-94); Mean Platelet Volume 8.2 fl (7.4-10.4); Monocytes # 0.7 K/mm3 (0.1-1.0); Monocytes % 1.9 % (1.7-9.3); Neutrophils # 4.6 K/mm3 (1.8-7.8); Platelet Count 293 K/mm3 (142-424); Red Blood Count 3.63 M/mm3 (4.60-6.20); Red Cell Distribution Width 20.7 % (11.5-17.5); White Blood Count 38.9 K/mm3 (4.8-10.8)
[2022-01-12 14:34] LABS: MANUAL DIFFERENTIAL MANUAL DIFFERENTIAL (MANUAL DIFF); Neutrophils % 11.7 % (37.0-80.0)
[2022-01-12 14:40] LABS: Alanine Aminotransferase 40 U/L (12-78); Albumin Level 3.6 g/dl (3.5-5.0); Albumin/Globulin Ratio 1.3 (1.1-1.8); Alkaline Phosphatase 220 U/L (38-126); Anion Gap 14.9 mEq/L (5-15); Aspartate Amino Transferase 52 U/L (17-59); Bilirubin,Total 0.2 mg/dl (0.2-1.3); Blood Urea Nitrogen 16 mg/dl (9-20); Calcium 8.2 mg/dl (8.4-10.2); Carbon Dioxide 23 mmol/L (22.0-30.0); Chloride 106 mmol/L (98-107); Creatinine Clearance Estimated 47 mL/min (50-200); Estimated Glomerular Filt Rate 64 ml/min (>60); GFR (African American) 78 ML/MIN (>60); Globulin 2.8 g/dL (1.3-3.2); Glucose 115 mg/dl (74-100); Sodium 141 mmol/L (136-145); Total Protein,Serum 6.4 g/dl (6.3-8.2)
--- NOTE | 2022-01-12 14:59 | PC.NURSE ---
1415 labs collected via venipuncture to L hand per [place] Quezada RN/ patient here for labs only prior to seeing Dr. Pugh today.
[2022-01-12 15:05] LABS: Anisocytosis 1+; Lymphocytes % 89 % (10-50); Neutrophils % 11 % (42-76); Platelet Estimate Normal; Total Cells Counted 100
[2022-01-12 15:08] LABS: Hypochromasia 1+; Ovalocytes 1+
[2022-01-12 15:19] LABS: Potassium 2.9 mmoL/L (3.5-5.1)
--- NOTE | 2022-01-12 15:22 | PC.NURSE ---
critical lab results called from [facility]. potassium of 2.9. lab results, and name verified. notified, no new orders at this time.
== END 2022-01-12 14:17 | disposition home or self-care (01) ==
LOC: INF 14:06
PROVIDERS: PCP Physician Assistant; Visit Provider Internal Medicine Medical Oncology
DX: Z45.2 Encounter for adjustment and management of vascular access device (principal); C91.10 Chronic lymphocytic leukemia of B-cell type not having achieved remission
CPT/HCPCS: 36415; 80053; 85007; 85025

== ENCOUNTER → 2022-01-13 15:40 | Outpatient (CLI) | payer MEDICARE, SELFPAY | PROVIDERS: PCP Nurse Practitioner Family; Visit Provider Surgery | DX: Z01.812 Encounter for preprocedural laboratory examination (principal); Z20.822 Contact with and (suspected) exposure to COVID-19 | CPT/HCPCS: C9803; U0003; U0005 ==

== ENCOUNTER 2022-01-16 10:27 | Day surgery (SDC) | payer MEDICARE, SELFPAY ==
[2022-01-13 11:56] VITALS: BMI 24.2
[2022-01-16 10:45] VITALS: BP 152/73; PULSE 72; RESP 20; TEMP 36.3; O2SAT 98
[2022-01-16 11:22] LABS: Chloride 107 mmol/L (98-107)
[2022-01-16 11:23] LABS: Sodium 139 mmol/L (136-145)
[2022-01-16 11:26] LABS: Blood Urea Nitrogen 17 mg/dl (9-20); Calcium 8.7 mg/dl (8.4-10.2); Carbon Dioxide 29 mmol/L (22.0-30.0); Creatinine Clearance Estimated 51 mL/min (50-200); Estimated Glomerular Filt Rate 64 ml/min (>60); GFR (African American) 78 ML/MIN (>60); Glucose 92 mg/dl (74-100)
--- NOTE | 2022-01-16 11:34 | P.PN_ITS ---
[facility] Anesthesia Checklist - Structural Data Admitted From: Home Planned Operative Procedure/s: marco cath removal Consent for Planned Operative Procedure(s) Verified: Yes - Additional verifications Anesthesia Reactions: No Hx Blood Transfusions: No Blood Transfusion Reaction: No - Airway Assessment C-Spine Mobility Assessed: Yes TMJ Mobility Assessed: Yes Dentition: Edentulous - Neurological Assessment Level of Consciousness: Awake, Alert, Appropriate - Anesthesia Plan Anesthesia Risk discussed: Yes Anesthesia Plan: Verified ASA Class: III Anesthesia Type: MAC [facility] History I have reviewed the patient's past medical history: Yes Medical History: Reports:: Arrhythmia, Cancer (bladder, leukemia), Carotid Stenosis, Chronic Obstructive Pulmonary Disease (COPD), Coronary Artery Disease, Hyperlipidemia, Hypertension, Internal Pacemaker, Myocardial Infarction, Palpitations, Valvular Heart Disease Denies:: Diabetes Mellitus Type 1, Diabetes Mellitus Type 2, MRSA, Seizures *Have you ever received a pneumonia vaccine?: Yes *Have you received a flu vaccine this season?: Yes Other Medical History: Reports: Arthritis, Chemotherapy, Other. Denies: Blood Transfusion Reaction Anesthesia experience/problems:: none Laterality Cases: Left: Arthroscopy Knee, Other, Right: Total Hip Replacement, Bilateral: Tonsillectomy Other Surgeries: Yes: No Previous Surgery, Angioplasty (1999), CABG, Cancer Surgery, Cardiac Catheterization, Cardiac Surgery, Colonoscopy, Coronary Stent, Open Heart Surgery, Pacemaker, Other Amputation: No Fractures: Yes - *Social History Smoking Status: Former smoker Tobacco Type: smokeless tobacco # Packs/Day (cigarettes): 1 #Yrs smoked (if former smoker): 30 Alcohol Intake: never Alcohol Intake Frequency:: holidays/special occasions only Substance Use Type: denies use *Occupational Status:: retired Housing: house Household Members: family *Travel in the last 8 weeks: None Family Hx:: No significant family history
--- NOTE | 2022-01-16 12:20 | P.OP_ITS ---
Date of procedure: 01/16/22 Pre-op Diagnosis:: Dysfunctional port Post-op Diagnosis:: Same Procedure performed:: Removal of Port-A-Cath (right subclavian insertion) Surgeon:: Mik Liang MD TURPENTINE DISTILLER:: Stephen Rivera Anesthesia: MAC, local Estimated blood loss (mL): 5 Operative findings:: Port removed without difficulty Operative note:: After informed consent was obtained the patient was taken to the operating room and placed in the supine position. Monitored anesthesia care ensued and his right chest was prepped and draped in a sterile fashion. After infiltration local anesthetic incision was made overlying the port. The subcutaneous tissue was dissected with scalpel and electrocautery. The port hub was carefully elevated as the stay sutures were excised. The port was easily removed with catheter intact. No obvious complication noted. A combination of compression and electrocautery was utilized to achieve hemostasis. The deep subcutaneous tissue was reapproximated with interrupted Vicryl. Skin was then closed with running 4-0 Monocryl in a subcuticular fashion. Steri-Strips were applied and the patient was transferred to recovery in stable condition. Condition: stable Disposition: PACU Specimens:: Port removed. Not sent for pathologic evaluation Complications:: No immediate
[2022-01-16 12:23] VITALS: BP 108/59; PULSE 69; RESP 18; TEMP 36.2; O2SAT 97
[2022-01-16 12:33] VITALS: BP 150/77; PULSE 70; RESP 18; O2SAT 98
[2022-01-16 12:43] VITALS: BP 152/86; PULSE 72; RESP 18; O2SAT 98
[2022-01-16 12:49] VITALS: BP 152/86; PULSE 70; RESP 18; O2SAT 98
[2022-01-16 13:08] VITALS: BP 164/69; PULSE 66; RESP 18; TEMP 36.2; O2SAT 98
== END 2022-01-16 13:08 | disposition home or self-care (01) ==
LOC: OR 10:29
PROVIDERS: PCP Nurse Practitioner Family; Visit Provider Surgery
PROC: (CPT 36590; principal; 2022-01-16 11:45)
DX: T82.594D Other mechanical complication of infusion catheter, subsequent encounter (principal); C91.10 Chronic lymphocytic leukemia of B-cell type not having achieved remission; J44.9 Chronic obstructive pulmonary disease, unspecified; I25.10 Atherosclerotic heart disease of native coronary artery without angina pectoris; E78.5 Hyperlipidemia, unspecified; I10 Essential (primary) hypertension; I25.2 Old myocardial infarction
CPT/HCPCS: 36589; 80048; 96374

== ENCOUNTER 2022-02-09 13:45 | Outpatient (CLI) | payer MEDICARE, SELFPAY ==
[2022-02-09 13:51] VITALS: BMI 19.9
[2022-02-09 14:20] LABS: Basophils # 0.8 K/mm3 (0-0.2); Basophils % 1.7 % (0.1-2.0); Eosinophils # 0.6 K/mm3 (0.0-0.4); Eosinophils % 1.3 % (0.1-12.0); Hematocrit 41.5 % (42.0-52.0); Hemoglobin 12.4 g/dL (14.1-18.0); Lymphocytes # 37.6 K/mm3 (0.7-4.5); Lymphocytes % 83.1 % (10-50); Mean Corpuscular HGB Conc 29.8 g/dL (31.8-35.4); Mean Corpuscular Hemoglobin 27.9 pg (27.0-31.2); Mean Corpuscular Volume 93.7 fl (80-94); Monocytes # 0.8 K/mm3 (0.1-1.0); Monocytes % 1.7 % (1.7-9.3); Neutrophils # 5.5 K/mm3 (1.8-7.8); Platelet Count 240 K/mm3 (142-424); Red Blood Count 4.43 M/mm3 (4.60-6.20); Red Cell Distribution Width 17.3 % (11.5-17.5)
[2022-02-09 14:23] LABS: Neutrophils % 12.2 % (37.0-80.0)
[2022-02-09 14:24] LABS: White Blood Count 45.2 K/mm3 (4.8-10.8)
[2022-02-09 14:25] LABS: MANUAL DIFFERENTIAL MANUAL DIFFERENTIAL (MANUAL DIFF)
[2022-02-09 14:27] LABS: Alanine Aminotransferase 18 U/L (12-78); Albumin Level 4.6 g/dl (3.5-5.0); Albumin/Globulin Ratio 1.6 (1.1-1.8); Alkaline Phosphatase 130 U/L (38-126); Anion Gap 10.8 mEq/L (5-15); Aspartate Amino Transferase 31 U/L (17-59); Bilirubin,Total 0.2 mg/dl (0.2-1.3); Blood Urea Nitrogen 39 mg/dl (9-20); Calcium 9.5 mg/dl (8.4-10.2); Carbon Dioxide 24 mmol/L (22.0-30.0); Chloride 109 mmol/L (98-107); Creatinine Clearance Estimated 36 mL/min (50-200); Estimated Glomerular Filt Rate 49 ml/min (>60); GFR (African American) 59 ML/MIN (>60); Globulin 2.9 g/dL (1.3-3.2); Glucose 92 mg/dl (74-100); Potassium 4.8 mmoL/L (3.5-5.1); Sodium 139 mmol/L (136-145); Total Protein,Serum 7.5 g/dl (6.3-8.2)
[2022-02-09 14:29] LABS: Iron 104 ug/dL (49-181)
--- NOTE | 2022-02-09 14:32 | PC.NURSE ---
critical lab result called from [facility] in lab. WBC of 45.2. lab result, and name verified and repeated. notified and no new orders received.
[2022-02-09 14:39] LABS: Total Iron Binding Capacity 372 ug/dL (261-462)
[2022-02-09 14:50] LABS: Eosinophils % 2 % (0-3); Hypochromasia 2+; Lymphocytes % 88 % (10-50); Neutrophils % 10 % (42-76); Platelet Estimate Normal; Total Cells Counted 100
[2022-02-09 15:04] LABS: Ferritin 283 ng/ml (17.9-464)
== END 2022-02-09 14:15 | disposition home or self-care (01) ==
LOC: INF 13:46
PROVIDERS: PCP Physician Assistant; Visit Provider Internal Medicine Medical Oncology
DX: C91.10 Chronic lymphocytic leukemia of B-cell type not having achieved remission (principal); D64.9 Anemia, unspecified; Z45.2 Encounter for adjustment and management of vascular access device
CPT/HCPCS: 36415; 80053; 82728; 83540; 83550; 85007; 85025

== ENCOUNTER → 2022-02-15 08:47 | Outpatient (CLI) | payer MEDICARE, SELFPAY | PROVIDERS: PCP Nurse Practitioner Family; Visit Provider Surgery | DX: Z01.812 Encounter for preprocedural laboratory examination (principal); Z20.822 Contact with and (suspected) exposure to COVID-19 | CPT/HCPCS: C9803; U0003; U0005 ==

== ENCOUNTER 2022-02-16 08:58 | Day surgery (SDC) | payer MEDICARE, SELFPAY ==
[2022-02-16] VITALS (9 sets, daily range): BP systolic 121–150; BP diastolic 68–84; PULSE 60–69; RESP 14–18; TEMP 36.1–36.3; O2SAT 94–99
--- NOTE | 2022-02-16 | XR_ITS ---
FINAL REPORT CLINICAL HISTORY: PORTACATH, FT 2:42 FINDINGS: FLUORO TIME PROCEDURE: Fluoroscopy in the operating room. FINDINGS: Fluoroscopy time was provided by the radiology department for the clinical service. Two spot films were obtained. Fluoroscopy exposure time: 2:42 minutes IMPRESSION: See above Reviewed, Interpreted and Dictated by Dawit Olivera III, MD Transcribed by Latoya Hurd Authenticated and [facility]
--- NOTE | 2022-02-16 10:35 | HMH.ANESCL ---
[facility] Anesthesia Checklist - Patient Identification Patient Identification: Arm Band - Structural Data Admitted From: Home Planned Operative Procedure/s: Port-a-cath placement Consent for Planned Operative Procedure(s) Verified: Yes Verified Documents: Surgical Consent, History and Physical - NPO Status Verified Time NPO: 00:00 - Additional verifications Anesthesia Reactions: No Hx Blood Transfusions: No Blood Transfusion Reaction: No - Airway Assessment C-Spine Mobility Assessed: Yes (mp1) TMJ Mobility Assessed: Yes Dentition: Poor Dentition - Neurological Assessment Level of Consciousness: Awake, Alert - Anesthesia Plan Anesthesia Risk discussed: Yes Anesthesia Plan: Verified ASA Class: III Anesthesia Type: General [facility] History I have reviewed the patient's past medical history: Yes Medical History: Reports:: Arrhythmia, Cancer (leukemia), Carotid Stenosis, Chronic Obstructive Pulmonary Disease (COPD), Coronary Artery Disease, Hyperlipidemia, Hypertension, Internal Pacemaker, Myocardial Infarction, Palpitations, Valvular Heart Disease Denies:: Diabetes Mellitus Type 1, Diabetes Mellitus Type 2, MRSA, Seizures *Have you ever received a pneumonia vaccine?: Yes *Have you received a flu vaccine this season?: Yes Other Medical History: Reports: Arthritis, Chemotherapy, Other. Denies: Blood Transfusion Reaction Anesthesia experience/problems:: nac Laterality Cases: Left: Arthroscopy Knee, Other, Right: Total Hip Replacement, Bilateral: Tonsillectomy Other Surgeries: Yes: Angioplasty (2000), CABG, Cancer Surgery, Cardiac Catheterization, Cardiac Surgery, Colonoscopy, Coronary Stent, Open Heart Surgery, Pacemaker, Other Amputation: No Fractures: Yes - *Social History Last grade of school completed: High school graduate Smoking Status: Former smoker Tobacco Type: smokeless tobacco # Packs/Day (cigarettes): 1 #Yrs smoked (if former smoker): 30 Alcohol Intake: never Alcohol Intake Frequency:: holidays/special occasions only Substance Use Type: denies use *Occupational Status:: retired Housing: house Household Members: family *Travel in the last 8 weeks: None Family Hx:: No significant family history
--- NOTE | 2022-02-16 11:46 | SUR.OPER ---
1145- port-a-cath placed in right upper chest at this time.
--- NOTE | 2022-02-16 12:07 | HMH.OPNOTE ---
Date of procedure: 02/16/22 Pre-op Diagnosis:: Chronic lymphocytic leukemia Post-op Diagnosis:: Same Procedure performed:: Port-A-Cath placement Surgeon:: Mik Liang MD Anesthesia: MAC, local Estimated blood loss (mL): 10 Operative findings:: Port catheter position confirmed fluoroscopically Port flushed with 10 mL of heparinized saline Operative note:: After informed consent was obtained the patient was taken to the operating room and placed in the supine position. Monitored anesthesia care ensued and his neck and chest were prepped and draped in a sterile fashion. After infiltration local anesthetic a large bore needle was utilized to access the right subclavian vein. Utilizing a modified Seldinger technique the port catheter was placed in position and confirmed fluoroscopically. The port hub was then secured to the catheter. The hub was then secured to the underlying fascia with interrupted Prolene suture. The deep subcutaneous tissue was reapproximated with 2-0 Vicryl. The skin was then closed with 4-0 Monocryl. The port was flushed with 10 mL of heparinized saline without difficulty. Dressings were applied and the patient was transferred to recovery in stable condition. Chest x-ray pending. Condition: stable Disposition: PACU Specimens:: none Complications:: No immediate. Chest x-ray pending.
--- NOTE | 2022-02-16 12:18 | XR_ITS ---
FINAL REPORT CLINICAL HISTORY: post op port a cath FINDINGS: There is a left subclavian pacemaker. A right subclavian chest port terminates in the SVC. Cardiomegaly is noted. Postoperative changes are seen from median sternotomy. There is mild pulmonary scarring. No acute pulmonary abnormality is identified. There is no pneumothorax. The bony thorax is intact. IMPRESSION: Right subclavian chest port terminates in the SVC. No pneumothorax. Reviewed, Interpreted and Dictated by Dawit Olivera III, MD Transcribed by Bruno Amaro Authenticated and [facility]
--- NOTE | 2022-02-16 14:18 | SUR.PHASEII ---
1245-xray viewed. No pneumothorax read on report.
== END 2022-02-16 14:00 | disposition home or self-care (01) ==
LOC: OR 08:59
PROVIDERS: PCP Physician Assistant; Visit Provider Surgery
DX: C91.90 Lymphoid leukemia, unspecified not having achieved remission (principal); J44.9 Chronic obstructive pulmonary disease, unspecified; I25.10 Atherosclerotic heart disease of native coronary artery without angina pectoris; E78.5 Hyperlipidemia, unspecified; I10 Essential (primary) hypertension; Z79.899 Other long term (current) drug therapy
CPT/HCPCS: 36561; 77001; 71045; 76000; 96374; C1788; J1642; J2405

== ENCOUNTER 2022-03-07 09:47 | Outpatient (CLI) | payer MEDICARE, SELFPAY | END 2022-03-07 10:09 | disposition home or self-care (01) | LOC: INF 09:49 | PROVIDERS: PCP Physician Assistant; Visit Provider Internal Medicine Medical Oncology | DX: Z45.2 Encounter for adjustment and management of vascular access device (principal) | CPT/HCPCS: 96523; J1642 ==

== ENCOUNTER 2022-03-23 09:47 | Outpatient (CLI) | payer MEDICARE, SELFPAY ==
[2022-03-23 09:55] VITALS: BMI 21.4
[2022-03-23 10:22] LABS: Basophils # 0.5 K/mm3 (0-0.2); Basophils % 1.6 % (0.1-2.0); Eosinophils # 0.7 K/mm3 (0.0-0.4); Hematocrit 32.8 % (42.0-52.0); Hemoglobin 10.3 g/dL (14.1-18.0); Lymphocytes # 27.5 K/mm3 (0.7-4.5); Lymphocytes % 83.5 % (10-50); Mean Corpuscular HGB Conc 31.4 g/dL (31.8-35.4); Mean Corpuscular Hemoglobin 29.7 pg (27.0-31.2); Mean Corpuscular Volume 94.6 fl (80-94); Mean Platelet Volume 8.8 fl (7.4-10.4); Monocytes # 0.6 K/mm3 (0.1-1.0); Monocytes % 1.8 % (1.7-9.3); Neutrophils # 3.7 K/mm3 (1.8-7.8); Platelet Count 157 K/mm3 (142-424); Red Blood Count 3.47 M/mm3 (4.60-6.20); Red Cell Distribution Width 14.4 % (11.5-17.5)
[2022-03-23 10:23] LABS: Neutrophils % 11.2 % (37.0-80.0)
[2022-03-23 10:26] LABS: MANUAL DIFFERENTIAL MANUAL DIFFERENTIAL (MANUAL DIFF)
[2022-03-23 10:31] LABS: Chloride 104 mmol/L (98-107); Sodium 140 mmol/L (136-145)
[2022-03-23 10:34] LABS: Alanine Aminotransferase 17 U/L (12-78); Albumin Level 3.9 g/dl (3.5-5.0); Albumin/Globulin Ratio 1.7 (1.1-1.8); Alkaline Phosphatase 82 U/L (38-126); Aspartate Amino Transferase 41 U/L (17-59); Bilirubin,Total 0.4 mg/dl (0.2-1.3); Blood Urea Nitrogen 26 mg/dl (9-20); Carbon Dioxide 27 mmol/L (22.0-30.0); Creatinine Clearance Estimated 41 mL/min (50-200); Estimated Glomerular Filt Rate 53 ml/min (>60); GFR (African American) 64 ML/MIN (>60); Globulin 2.3 g/dL (1.3-3.2); Total Protein,Serum 6.2 g/dl (6.3-8.2)
[2022-03-23 10:35] LABS: Calcium 8.4 mg/dl (8.4-10.2); Glucose 108 mg/dl (74-100)
[2022-03-23 11:05] LABS: Lymphocytes % 85 % (10-50); Monocytes % 3 % (2-9); Neutrophils % 12 % (42-76); RBC Morphology Normal; Total Cells Counted 100
[2022-03-23 11:06] LABS: Platelet Estimate Normal
== END 2022-03-23 10:15 | disposition home or self-care (01) ==
LOC: INF 09:49
PROVIDERS: PCP Physician Assistant; Visit Provider Internal Medicine Medical Oncology
DX: Z45.2 Encounter for adjustment and management of vascular access device (principal); C91.10 Chronic lymphocytic leukemia of B-cell type not having achieved remission
CPT/HCPCS: 36591; 80053; 85007; 85025; J1642

== ENCOUNTER → 2022-04-20 13:30 | Outpatient (CLI) | payer MEDICARE, SELFPAY | PROVIDERS: PCP Physician Assistant; Visit Provider Physician Assistant | DX: R41.82 Altered mental status, unspecified (principal) | CPT/HCPCS: 87086; 87088; 87186 ==

== ENCOUNTER 2022-04-20 13:48 | Outpatient (CLI) | payer MEDICARE, SELFPAY | END 2022-04-20 14:10 | disposition home or self-care (01) | LOC: INF 13:49 | PROVIDERS: PCP Physician Assistant; Visit Provider Internal Medicine Medical Oncology | DX: C91.90 Lymphoid leukemia, unspecified not having achieved remission (principal); Z45.2 Encounter for adjustment and management of vascular access device; R82.90 Unspecified abnormal findings in urine | CPT/HCPCS: 87086; 87088; 87186; 96523; J1642 ==

== ENCOUNTER 2022-06-26 07:49 | Outpatient (CLI) | payer MEDICARE, SELFPAY ==
--- NOTE | 2022-06-26 07:53 | CT_ITS ---
FINAL REPORT TECHNIQUE: Axial CT images of the abdomen and pelvis were obtained before and after the administration of IV contrast. Oral contrast was administered.This study was performed with techniques to keep radiation doses as low as reasonably achievable (ALARA). Individualized dose reduction techniques using automated exposure control or adjustment of mA and/or kV according to the patient''s size were employed. CLINICAL HISTORY: LYMPHEMA COMPARISON: 12/12/2021 FINDINGS: Abdomen: The heart is normal in size. The liver has an unremarkable appearance, without evidence of mass or biliary duct dilatation. . The spleen is within normal limits. There is an 18 mm low-attenuation nodule in the right adrenal gland, stable from previous, likely represents adenoma. The pancreas has an unremarkable appearance. The kidneys enhance normally. The aorta is normal in caliber. There is widespread adenopathy throughout the abdomen and pelvis, visually worse. There is a para-aortic nodular mass at the level of the kidneys measuring 48 mm in transverse dimension, previously measured 26 mm. Other nodules are similarly enlarged. There is moderate vascular calcification. Precontrast images demonstrate no evidence of nephrolithiasis. Pelvis: The appendix is unremarkable. There is irregular anterior bladder wall thickening, may be inflammatory or neoplastic. Finding is similar to previous. There is no evidence of bowel obstruction. There is worsening widespread pelvic adenopathy. Left external iliac node measures 53 mm, previously measured 37 mm. There is worsening inguinal adenopathy. There are postoperative changes involving the right hip. There is a stable deformity of the right iliac bone. Note is made of sigmoid diverticulosis without evidence of diverticulitis. IMPRESSION: Worsening adenopathy consistent with worsening neoplastic involvement. Irregular anterior bladder wall thickening, may be inflammatory or neoplastic. Findings are similar to previous. Reviewed, Interpreted and Dictated by Dawit Olivera III, MD Transcribed by Sheila Mendez Authenticated and [facility]
--- NOTE | 2022-06-26 07:53 | CT_ITS ---
FINAL REPORT TECHNIQUE: Pre and post axial images of the chest was performed by computed tomography. Sagittal and coronal reformatted images were obtained and reviewed. This study was performed with techniques to keep radiation doses as low as reasonably achievable (ALARA). Individualized dose reduction techniques using automated exposure control or adjustment of mA and/or kV according to the patient's size were employed. CLINICAL HISTORY: LYMPHEMA COMPARISON: 03/09/2020 FINDINGS: The patient is status post median sternotomy. Left subclavian pacer is identified. There is also a right subclavian chest port. There are multiple enlarged mediastinal, hilar, and bilateral axillary base of the neck lymph nodes. Subcarinal node measures 52 mm, previously measured 32 mm. Largest left axillary node measures 35 mm, previously 27 mm. Multiple other nodes are similarly enlarged. There is a moderate hiatal hernia. There is a nodule in the right lung apex measuring 9 mm, previously measured 9 mm. There is mild scarring. Several less than 5 mm pulmonary nodules are stable. IMPRESSION: Worsening adenopathy consistent with worsening neoplastic involvement. Stable nonspecific pulmonary nodules. Reviewed, Interpreted and Dictated by Dawit Olivera III, MD Transcribed by Sheila Mendez Authenticated and [facility]
[2022-06-26 08:15] VITALS: BMI 21.4
[2022-06-26 08:26] LABS: Basophils # 1.1 K/mm3 (0-0.2); Basophils % 1.8 % (0.1-2.0); Eosinophils # 0.5 K/mm3 (0.0-0.4); Eosinophils % 0.8 % (0.1-12.0); Hematocrit 27.5 % (42.0-52.0); Hemoglobin 9.1 g/dL (14.1-18.0); Lymphocytes # 52.4 K/mm3 (0.7-4.5); Lymphocytes % 87.2 % (10-50); Mean Corpuscular HGB Conc 33.3 g/dL (31.8-35.4); Mean Corpuscular Hemoglobin 31.3 pg (27.0-31.2); Mean Platelet Volume 9.1 fl (7.4-10.4); Monocytes # 0.7 K/mm3 (0.1-1.0); Monocytes % 1.1 % (1.7-9.3); Neutrophils # 5.4 K/mm3 (1.8-7.8); Platelet Count 202 K/mm3 (142-424); Red Blood Count 2.92 M/mm3 (4.60-6.20); Red Cell Distribution Width 13.7 % (11.5-17.5)
--- NOTE | 2022-06-26 08:29 | INFXCTL.NOTE ---
0829-Sofia ESPINOZA called rn at 0829 to report wbc level 60.0.Rn repeated and verified pt name, , and lab value. result called to and no new orders received at this time.
[2022-06-26 08:30] LABS: MANUAL DIFFERENTIAL MANUAL DIFFERENTIAL (MANUAL DIFF)
[2022-06-26 08:35] LABS: Chloride 110 mmol/L (98-107); Potassium 4.6 mmoL/L (3.5-5.1); Sodium 139 mmol/L (136-145)
[2022-06-26 08:37] LABS: Blood Urea Nitrogen 30 mg/dl (9-20); Creatinine Clearance Estimated 41 mL/min (50-200); Estimated Glomerular Filt Rate 53 ml/min (>60); GFR (African American) 64 ML/MIN (>60)
[2022-06-26 08:38] LABS: Alanine Aminotransferase 11 U/L (12-78); Albumin Level 4.1 g/dl (3.5-5.0); Albumin/Globulin Ratio 1.8 (1.1-1.8); Alkaline Phosphatase 69 U/L (38-126); Anion Gap 9.6 mEq/L (5-15); Aspartate Amino Transferase 31 U/L (17-59); Calcium 8.9 mg/dl (8.4-10.2); Carbon Dioxide 24 mmol/L (22.0-30.0); Globulin 2.3 g/dL (1.3-3.2); Glucose 93 mg/dl (74-100); Total Protein,Serum 6.4 g/dl (6.3-8.2)
[2022-06-26 08:54] LABS: Eosinophils % 1 % (0-3); Lymphocytes % 90 % (10-50); Monocytes % 1 % (2-9); Neutrophils % 7 % (42-76); Total Cells Counted 100
[2022-06-26 08:55] LABS: Platelet Estimate Normal; RBC Morphology Normal
== END 2022-06-26 09:15 | disposition home or self-care (01) ==
LOC: RAD 07:50 → INF 08:11
PROVIDERS: PCP Emergency Medicine; Visit Provider Internal Medicine Medical Oncology
DX: C91.90 Lymphoid leukemia, unspecified not having achieved remission (principal)
CPT/HCPCS: 36591; 71270; 74178; 80053; 85007; 85025; J1642; Q9967

== ENCOUNTER 2022-06-27 17:00 | Emergency (ER) | payer MEDICARE, SELFPAY ==
[2022-06-27 17:05] VITALS: BP 130/56; PULSE 77; RESP 18; TEMP 36.8; O2SAT 98; BMI 20.7
[2022-06-27 17:55] VITALS: BMI 20.7
--- NOTE | 2022-06-27 17:56 | XR_ITS ---
PROCEDURE INFORMATION: Exam: XR Right Hip Exam date and time: 06/27/2022 6:07 PM Age: 81 years old Clinical indication: Injury or trauma; Fall; Blunt trauma (contusions or hematomas); Prior surgery; Surgery date: 6+ months; Surgery type: Patient had right hip surgery 2.5 years ago. Patient HX: Fell today on ice injuring right hip. TECHNIQUE: Imaging protocol: Radiologic exam of the Right hip. Views: 2 or 3 views hip with pelvis when performed. COMPARISON: CT ABDOMEN PELVIS WO/W CON 06/26/2022 8:57 AM FINDINGS: Bones/joints: Right total hip arthroplasty. Soft tissues: Unremarkable. IMPRESSION: Right total hip arthroplasty.
[2022-06-27 18:11] LABS: Chloride 107 mmol/L (98-107); Sodium 139 mmol/L (136-145)
[2022-06-27 18:14] LABS: Alanine Aminotransferase 15 U/L (12-78); Albumin/Globulin Ratio 1.9 (1.1-1.8); Alkaline Phosphatase 71 U/L (38-126); Aspartate Amino Transferase 36 U/L (17-59); Bilirubin,Total 0.9 mg/dl (0.2-1.3); Blood Urea Nitrogen 31 mg/dl (9-20); Calcium 9.6 mg/dl (8.4-10.2); Creatinine Clearance Estimated 40 mL/min (50-200); Estimated Glomerular Filt Rate 53 ml/min (>60); GFR (African American) 64 ML/MIN (>60); Globulin 2.1 g/dL (1.3-3.2); Glucose 94 mg/dl (74-100); Potassium 4.1 mmoL/L (3.5-5.1); Total Protein,Serum 6.1 g/dl (6.3-8.2)
--- NOTE | 2022-06-27 18:14 | PC.NURSE ---
PT TO XR
[2022-06-27 18:17] LABS: Basophils # 1.8 K/mm3 (0-0.2); Eosinophils # 0.2 K/mm3 (0.0-0.4); Eosinophils % 0.3 % (0.1-12.0); Hematocrit 24.8 % (42.0-52.0); Hemoglobin 8.2 g/dL (14.1-18.0); Lymphocytes # 48.2 K/mm3 (0.7-4.5); Lymphocytes % 80.5 % (10-50); Mean Corpuscular HGB Conc 32.9 g/dL (31.8-35.4); Mean Corpuscular Hemoglobin 31.2 pg (27.0-31.2); Mean Corpuscular Volume 94.6 fl (80-94); Monocytes # 0.7 K/mm3 (0.1-1.0); Monocytes % 1.2 % (1.7-9.3); Platelet Count 195 K/mm3 (142-424); Red Blood Count 2.62 M/mm3 (4.60-6.20); Red Cell Distribution Width 13.8 % (11.5-17.5)
[2022-06-27 18:20] LABS: MANUAL DIFFERENTIAL MANUAL DIFFERENTIAL (MANUAL DIFF); White Blood Count 59.9 K/mm3 (4.8-10.8)
[2022-06-27 18:27] LABS: Lymphocytes % 80 % (10-50); Monocytes % 2 % (2-9); Neutrophils % 18 % (42-76); Platelet Estimate Normal; Total Cells Counted 100
--- NOTE | 2022-06-27 18:30 | PC.NURSE ---
PT RETURNED FROM XR
[2022-06-27 18:31] LABS: Anion Gap 14.1 mEq/L (5-15); Carbon Dioxide 22 mmol/L (22.0-30.0)
--- NOTE | 2022-06-27 18:34 | PC.NURSE ---
LAB CALLED WITH JUAN CARLOS ZAVALETA AWARE
[2022-06-27 18:44] LABS: Coronavirus 19, PCR Not Detected (NotDetected); Influenza A, PCR Not Detected (NotDetected); Influenza B, PCR Not Detected (NotDetected)
--- NOTE | 2022-06-27 18:47 | PC.NURSE ---
ROUNDED ON PT, FAMILY AT BEDSIDE. NO NEEDS VOICED
--- NOTE | 2022-06-27 21:44 | CT_ITS ---
PROCEDURE INFORMATION: Exam: CT Pelvis Without Contrast; Skeletal Exam date and time: 06/27/2022 9:56 PM Age: 81 years old Clinical indication: Hip pain and pelvic pain; Right hip; Prior surgery; Additional info: Groin pain, unable to walk post fall TECHNIQUE: Imaging protocol: Computed tomography of the pelvis without contrast. Exam focused on the skeleton. Radiation optimization: All CT scans at this facility use at least one of these dose optimization techniques: automated exposure control; mA and/or kV adjustment per patient size (includes targeted exams where dose is matched to clinical indication); or iterative reconstruction. COMPARISON: CT ABDOMEN PELVIS WO/W CON 06/26/2022 8:57 AM FINDINGS: Bones/joints: Right total hip arthroplasty. Soft tissues: Unremarkable. Other findings: No acute traumatic abnormality identified. IMPRESSION: 1. No acute fracture. 2. Right total hip arthroplasty.
--- NOTE | 2022-06-27 21:45 | CT_ITS ---
PROCEDURE INFORMATION: Exam: CT Right Lower Extremity Without Contrast, Hip Exam date and time: 06/27/2022 9:58 PM Age: 81 years old Clinical indication: Pain; Hip; Right; Prior surgery; Additional info: Hip and groin pain, unable to walk TECHNIQUE: Imaging protocol: CT of the Right lower extremity without contrast was performed. Exam focused on the hip. Radiation optimization: All CT scans at this facility use at least one of these dose optimization techniques: automated exposure control; mA and/or kV adjustment per patient size (includes targeted exams where dose is matched to clinical indication); or iterative reconstruction. COMPARISON: CR XR HIP RT 2-3V W/PELVIS 06/27/2022 6:07 PM FINDINGS: Bones/joints: Right total hip arthroplasty. No definite acute fracture. Soft tissues: Normal. IMPRESSION: Right total hip arthroplasty. No definite acute fracture.
--- NOTE | 2022-06-27 21:45 | HMH.EDFALL ---
Discharge Plan Disposition Patient Disposition: Home, Self-Care Chief Complaint: Fall Prescriptions Prescriptions: No Action escitalopram oxalate 5 mg tablet 5 mg PO DAILY Qty: 90 1RF lisinopril 20 mg tablet 20 mg PO DAILY Qty: 90 5RF metoprolol succinate 25 mg tablet extended release 24 hr 25 mg PO DAILY Qty: 90 1RF rosuvastatin 20 mg tablet 20 mg PO HS Qty: 90 1RF potassium chloride 20 mEq tablet,ER particles/crystals 20 meq PO DAILY Qty: 90 1RF levofloxacin 500 mg tablet 500 mg PO DAILY Qty: 10 0RF hydrocodone-acetaminophen 1 TAB tablet 1 - 2 tab PO Q6HP PRN (Reason: post-op pain) Qty: 9 0RF Referrals Follow up/Referrals: James Garcia MD [Primary Care Provider] - See instructions Clinical Impressions Clinical Impression: Contusion of hip, right, Chronic lymphocytic leukemia, Fall Instructions Patient Instructions: DI for Hip Pain Discharge ED Provider: James Garcia Fall HPI General Chief Complaint: Fall Stated Complaint: AO [id number], Right Hip pain Time Seen by Provider: 06/27/22 21:46 Mode of Arrival: Wheelchair Limitations: No Limitations Description of Symptoms (Recalled from ER Triage Doc. by RN): PT WITH RIGHT HIP PAIN AFTER FALL, UNABLE TO BARE WEIGHT FULLY History of Present Illness HPI Narrative: slip on ice fall with pain rt hip earlier this afternoon - has had prev rt hip surg and has pain with mov and wt bearing complaint: fall Onset (ago): hour(s) Fall from: standing Fall witnessed: no Place fall occurred: home Loss of consciousness: none Prolonged down time: no Context: tripped/slipped Location of injury - extremities: Right: thigh Severity: moderate Associated symptoms (after fall): denies Related Data Previous Rx's Medication Instructions Recorded hydrocodone 5 mg-acetaminophen 325 1 - 2 tab PO Q6HP PRN post-op pain 02/16/22 mg tablet #9 tabs levofloxacin 500 mg tablet 500 mg PO DAILY #10 tabs 04/20/22 escitalopram oxalate 5 mg tablet 5 mg PO DAILY Depression #90 tabs 05/10/22 lisinopril 20 mg tablet 20 mg PO DAILY bp #90 tabs 05/10/22 metoprolol succinate 25 mg 25 mg PO DAILY Hypertension #90 05/10/22 tablet,extended release 24 hr tabs potassium chloride 20 mEq 20 meq PO DAILY Supplement #90 tabs 05/10/22 tablet,extended release(part/cryst) rosuvastatin 20 mg tablet 20 mg PO HS Cholesterol #90 tabs 05/10/22 Allergies Allergy/AdvReac Type Severity Reaction Status Date / Time No Known Allergies Allergy Verified 05/10/22 11:39 [facility] Disclaimer: The information contained in this section may have been updated after the patient was seen, as this information can be updated by other users. Medical History Abnormal echocardiogram Abnormal stress test Cardiac murmur Chronic back pain Chronic back pain greater than 3 months duration Chronic knee pain Dizziness Fatigue Intermittent left-sided chest pain Refill clinic medication management patient SOB (shortness of breath) Surgical History History of hemiarthroplasty of right hip Family History Other No significant family history Social History Smoking Status: Former smoker pack-years: 30 second hand exposure: No alcohol intake: never substance use type: denies use current occupational status: retired Travel in the last 8 weeks: None household members: family housing: house current occupation: retired current occupational exposures/hazards: No caffeine: No ROS Obtained: Yes All systems reviewed & no additional complaints except as documented Physical Exam General General appearance: alert Head Head exam: atraumatic Eye Eye exam: Present PERRL and EOMI ENT ENT exam: Present mucous membranes moist Neck Neck exam
--- NOTE | 2022-06-27 22:07 | PC.NURSE ---
back from ct scan
[2022-06-28 00:18] VITALS: BP 125/55; PULSE 78; RESP 18; TEMP 36.6; O2SAT 99
== END 2022-06-28 00:22 | disposition home or self-care (01) ==
PROVIDERS: Emergency Medicine; Emergency Provider Emergency Medicine; PCP Emergency Medicine
DX: M25.551 Pain in right hip (principal); M79.651 Pain in right thigh; M25.561 Pain in right knee; R07.9 Chest pain, unspecified; R06.02 Shortness of breath; R42 Dizziness and giddiness; Z20.822 Contact with and (suspected) exposure to COVID-19; R94.31 Abnormal electrocardiogram [ECG] [EKG]; R94.39 Abnormal result of other cardiovascular function study; R53.82 Chronic fatigue, unspecified; M54.9 Dorsalgia, unspecified; G89.29 Other chronic pain; Z79.899 Other long term (current) drug therapy; Z87.891 Personal history of nicotine dependence; W01.0XXA Fall on same level from slipping, tripping and stumbling without subsequent striking against object, initial encounter
CPT/HCPCS: 72192; 73502; 73700; 80053; 85007; 85025; 96374; 96375; 99285; C9803; U0003; U0005

== ENCOUNTER → 2022-06-29 12:30 | Outpatient (CLI) | payer MEDICARE, SELFPAY | END | disposition home or self-care (01) | LOC: INF 12:30 | PROVIDERS: PCP Emergency Medicine; Visit Provider Internal Medicine Medical Oncology | DX: Z45.2 Encounter for adjustment and management of vascular access device (principal) | CPT/HCPCS: 96523; G0463; J1642 ==

== ENCOUNTER 2022-07-06 09:45 | Outpatient (CLI) | payer MEDICARE, SELFPAY ==
[2022-07-06] VITALS (9 sets, daily range): BP systolic 96–144; BP diastolic 62–99; PULSE 68–73; RESP 18; TEMP 36.2–36.3; O2SAT 99–100
== END 2022-07-06 13:40 | disposition home or self-care (01) ==
LOC: INF 09:47
PROVIDERS: PCP Emergency Medicine; Visit Provider Internal Medicine Medical Oncology
DX: C91.10 Chronic lymphocytic leukemia of B-cell type not having achieved remission (principal); Z51.11 Encounter for antineoplastic chemotherapy
CPT/HCPCS: 96413; 96415; J1642; J9312

== ENCOUNTER 2022-07-13 13:41 | Outpatient (CLI) | payer MEDICARE, SELFPAY ==
[2022-07-13] VITALS (7 sets, daily range): BP systolic 96–124; BP diastolic 44–74; PULSE 70–78; RESP 18; TEMP 36.3; O2SAT 99–100; BMI 20.8
[2022-07-13 14:07] LABS: Basophils # 0.1 K/mm3 (0-0.2); Basophils % 0.4 % (0.1-2.0); Eosinophils # 0.2 K/mm3 (0.0-0.4); Eosinophils % 0.7 % (0.1-12.0); Hematocrit 26.8 % (42.0-52.0); Hemoglobin 8.4 g/dL (14.1-18.0); Lymphocytes # 21.8 K/mm3 (0.7-4.5); Mean Corpuscular HGB Conc 31.2 g/dL (31.8-35.4); Mean Corpuscular Hemoglobin 30.2 pg (27.0-31.2); Mean Corpuscular Volume 96.8 fl (80-94); Mean Platelet Volume 8.6 fl (7.4-10.4); Monocytes # 0.6 K/mm3 (0.1-1.0); Monocytes % 2.3 % (1.7-9.3); Neutrophils # 4.2 K/mm3 (1.8-7.8); Neutrophils % 15.5 % (37.0-80.0); Platelet Count 290 K/mm3 (142-424); Red Blood Count 2.77 M/mm3 (4.60-6.20); Red Cell Distribution Width 15.3 % (11.5-17.5); White Blood Count 26.9 K/mm3 (4.8-10.8)
[2022-07-13 14:12] LABS: Chloride 108 mmol/L (98-107); Sodium 137 mmol/L (136-145)
[2022-07-13 14:14] LABS: Blood Urea Nitrogen 48 mg/dl (9-20); Creatinine Clearance Estimated 33 mL/min (50-200); Estimated Glomerular Filt Rate 42 ml/min (>60); GFR (African American) 50 ML/MIN (>60)
[2022-07-13 14:15] LABS: Alanine Aminotransferase 11 U/L (12-78); Albumin Level 3.9 g/dl (3.5-5.0); Albumin/Globulin Ratio 1.6 (1.1-1.8); Alkaline Phosphatase 105 U/L (38-126); Aspartate Amino Transferase 26 U/L (17-59); Bilirubin,Total 0.9 mg/dl (0.2-1.3); Calcium 8.2 mg/dl (8.4-10.2); Carbon Dioxide 23 mmol/L (22.0-30.0); Globulin 2.4 g/dL (1.3-3.2); Glucose 95 mg/dl (74-100); MANUAL DIFFERENTIAL MANUAL DIFFERENTIAL (MANUAL DIFF); Total Protein,Serum 6.3 g/dl (6.3-8.2)
[2022-07-13 15:32] LABS: Anisocytosis 1+; Hypochromasia 2+; Lymphocytes % 86 % (10-50); Microcytosis 3+; Monocytes % 3 % (2-9); Neutrophils % 11 % (42-76); Platelet Estimate Normal; Total Cells Counted 100
== END 2022-07-13 17:29 | disposition home or self-care (01) ==
LOC: INF 13:42
PROVIDERS: PCP Emergency Medicine; Visit Provider Internal Medicine Medical Oncology
DX: C91.10 Chronic lymphocytic leukemia of B-cell type not having achieved remission (principal)
CPT/HCPCS: 80053; 85007; 85025; 96413; 96415; J1642; J9312

== ENCOUNTER 2022-07-20 09:30 | Outpatient (CLI) | payer MEDICARE, SELFPAY ==
[2022-07-20] VITALS (11 sets, daily range): BP systolic 92–163; BP diastolic 44–89; PULSE 69–79; RESP 16–18; O2SAT 99; BMI 20.8
[2022-07-20 10:05] LABS: Basophils # 0.2 K/mm3 (0-0.2); Basophils % 0.7 % (0.1-2.0); Eosinophils # 0.2 K/mm3 (0.0-0.4); Eosinophils % 0.9 % (0.1-12.0); Hematocrit 25.5 % (42.0-52.0); Hemoglobin 8.4 g/dL (14.1-18.0); Lymphocytes # 19.3 K/mm3 (0.7-4.5); Lymphocytes % 79.2 % (10-50); Mean Corpuscular Hemoglobin 30.7 pg (27.0-31.2); Mean Platelet Volume 8.6 fl (7.4-10.4); Monocytes # 0.4 K/mm3 (0.1-1.0); Monocytes % 1.8 % (1.7-9.3); Neutrophils # 4.2 K/mm3 (1.8-7.8); Neutrophils % 17.3 % (37.0-80.0); Platelet Count 214 K/mm3 (142-424); Red Blood Count 2.74 M/mm3 (4.60-6.20); Red Cell Distribution Width 15.1 % (11.5-17.5); White Blood Count 24.4 K/mm3 (4.8-10.8)
[2022-07-20 10:10] LABS: Chloride 107 mmol/L (98-107)
[2022-07-20 10:11] LABS: MANUAL DIFFERENTIAL MANUAL DIFFERENTIAL (MANUAL DIFF); Potassium 4.4 mmoL/L (3.5-5.1); Sodium 137 mmol/L (136-145)
[2022-07-20 10:13] LABS: Alanine Aminotransferase 13 U/L (12-78); Aspartate Amino Transferase 25 U/L (17-59); Blood Urea Nitrogen 33 mg/dl (9-20); Creatinine Clearance Estimated 40 mL/min (50-200); Estimated Glomerular Filt Rate 53 ml/min (>60); GFR (African American) 64 ML/MIN (>60)
[2022-07-20 10:14] LABS: Albumin Level 3.8 g/dl (3.5-5.0); Albumin/Globulin Ratio 1.7 (1.1-1.8); Alkaline Phosphatase 106 U/L (38-126); Anion Gap 11.4 mEq/L (5-15); Bilirubin,Total 0.7 mg/dl (0.2-1.3); Carbon Dioxide 23 mmol/L (22.0-30.0); Globulin 2.3 g/dL (1.3-3.2); Glucose 125 mg/dl (74-100); Total Protein,Serum 6.1 g/dl (6.3-8.2)
[2022-07-20 10:56] LABS: Lymphocytes % 79 % (10-50); Monocytes % 1 % (2-9); Neutrophils % 20 % (42-76); Platelet Estimate Normal; RBC Morphology Normal; Total Cells Counted 100
== END 2022-07-20 13:50 | disposition home or self-care (01) ==
LOC: INF 09:31
PROVIDERS: PCP Emergency Medicine; Visit Provider Internal Medicine Medical Oncology
DX: Z51.11 Encounter for antineoplastic chemotherapy (principal); C91.10 Chronic lymphocytic leukemia of B-cell type not having achieved remission
CPT/HCPCS: 80053; 85007; 85025; 96413; 96415; J1642; J9312

== ENCOUNTER 2022-07-27 09:53 | Outpatient (CLI) | payer MEDICARE, SELFPAY ==
[2022-07-27] VITALS (7 sets, daily range): BP systolic 102–134; BP diastolic 51–89; PULSE 69–71; RESP 18; TEMP 36.6; O2SAT 99; BMI 20.8
[2022-07-27 10:24] LABS: Chloride 112 mmol/L (98-107); Potassium 4.1 mmoL/L (3.5-5.1); Sodium 141 mmol/L (136-145)
[2022-07-27 10:27] LABS: Alanine Aminotransferase 13 U/L (12-78); Albumin/Globulin Ratio 1.7 (1.1-1.8); Alkaline Phosphatase 97 U/L (38-126); Anion Gap 10.1 mEq/L (5-15); Aspartate Amino Transferase 23 U/L (17-59); Basophils # 0.8 K/mm3 (0-0.2); Bilirubin,Total 0.6 mg/dl (0.2-1.3); Blood Urea Nitrogen 36 mg/dl (9-20); Carbon Dioxide 23 mmol/L (22.0-30.0); Creatinine Clearance Estimated 37 mL/min (50-200); Eosinophils # 0.3 K/mm3 (0.0-0.4); Eosinophils % 0.7 % (0.1-12.0); Estimated Glomerular Filt Rate 49 ml/min (>60); GFR (African American) 59 ML/MIN (>60); Globulin 2.4 g/dL (1.3-3.2); Hematocrit 27.6 % (42.0-52.0); Hemoglobin 9.1 g/dL (14.1-18.0); Lymphocytes # 31.8 K/mm3 (0.7-4.5); Lymphocytes % 78.5 % (10-50); Mean Corpuscular HGB Conc 32.8 g/dL (31.8-35.4); Mean Corpuscular Hemoglobin 30.6 pg (27.0-31.2); Mean Corpuscular Volume 93.5 fl (80-94); Mean Platelet Volume 8.5 fl (7.4-10.4); Monocytes # 0.9 K/mm3 (0.1-1.0); Monocytes % 2.2 % (1.7-9.3); Neutrophils # 6.7 K/mm3 (1.8-7.8); Neutrophils % 16.6 % (37.0-80.0); Platelet Count 236 K/mm3 (142-424); Red Blood Count 2.96 M/mm3 (4.60-6.20); Red Cell Distribution Width 15.1 % (11.5-17.5); Total Protein,Serum 6.4 g/dl (6.3-8.2)
[2022-07-27 10:28] LABS: Calcium 8.2 mg/dl (8.4-10.2)
[2022-07-27 10:30] LABS: Glucose 40 mg/dl (74-100)
--- NOTE | 2022-07-27 10:34 | PC.NURSE ---
1034-Roxy Hussein called rn at 1034 to report glucose level 40 and wbc level 40.5. RN repeated and verified pt name, ,and lab value. result called to divya stanton with and no new orders received at this time.
[2022-07-27 10:35] LABS: White Blood Count 40.5 K/mm3 (4.8-10.8)
[2022-07-27 10:36] LABS: MANUAL DIFFERENTIAL MANUAL DIFFERENTIAL (MANUAL DIFF)
[2022-07-27 11:02] LABS: Lymphocytes % 83 % (10-50); Monocytes % 2 % (2-9); Neutrophils % 15 % (42-76); Platelet Estimate Normal; RBC Morphology Normal; Total Cells Counted 100
== END 2022-07-27 14:31 | disposition home or self-care (01) ==
LOC: INF 09:54
PROVIDERS: PCP Emergency Medicine; Visit Provider Internal Medicine Medical Oncology
DX: Z51.11 Encounter for antineoplastic chemotherapy (principal); C91.10 Chronic lymphocytic leukemia of B-cell type not having achieved remission
CPT/HCPCS: 80053; 85007; 85025; 96413; 96415; J1642; J9312

== ENCOUNTER → 2022-08-03 08:34 | Outpatient (CLI) | payer MEDICARE, SELFPAY | PROVIDERS: PCP Emergency Medicine; Visit Provider Emergency Medicine | DX: C91.90 Lymphoid leukemia, unspecified not having achieved remission (principal) ==

== ENCOUNTER 2022-08-31 08:30 | Outpatient (CLI) | payer MEDICARE, SELFPAY ==
[2022-08-31 08:36] VITALS: BMI 20.5
[2022-08-31 08:51] LABS: Basophils # 0.2 K/mm3 (0-0.2); Eosinophils # 0.5 K/mm3 (0.0-0.4); Eosinophils % 2.7 % (0.1-12.0); Hematocrit 33.5 % (42.0-52.0); Hemoglobin 10.6 g/dL (14.1-18.0); Lymphocytes % 76.5 % (10-50); Mean Corpuscular HGB Conc 31.6 g/dL (31.8-35.4); Mean Corpuscular Hemoglobin 30.1 pg (27.0-31.2); Mean Corpuscular Volume 95.3 fl (80-94); Mean Platelet Volume 8.7 fl (7.4-10.4); Monocytes # 0.4 K/mm3 (0.1-1.0); Monocytes % 2.5 % (1.7-9.3); Neutrophils % 17.4 % (37.0-80.0); Platelet Count 237 K/mm3 (142-424); Red Blood Count 3.51 M/mm3 (4.60-6.20); Red Cell Distribution Width 13.8 % (11.5-17.5)
[2022-08-31 08:57] LABS: MANUAL DIFFERENTIAL MANUAL DIFFERENTIAL (MANUAL DIFF)
[2022-08-31 09:06] LABS: Alanine Aminotransferase 12 U/L (12-78); Albumin/Globulin Ratio 1.7 (1.1-1.8); Alkaline Phosphatase 71 U/L (38-126); Anion Gap 9.1 mEq/L (5-15); Aspartate Amino Transferase 27 U/L (17-59); Bilirubin,Total 0.5 mg/dl (0.2-1.3); Blood Urea Nitrogen 26 mg/dl (9-20); Calcium 8.6 mg/dl (8.4-10.2); Carbon Dioxide 24 mmol/L (22.0-30.0); Chloride 108 mmol/L (98-107); Creatinine Clearance Estimated 37 mL/min (50-200); Estimated Glomerular Filt Rate 49 ml/min (>60); GFR (African American) 59 ML/MIN (>60); Globulin 2.4 g/dL (1.3-3.2); Glucose 147 mg/dl (74-100); Potassium 4.1 mmoL/L (3.5-5.1); Sodium 137 mmol/L (136-145); Total Protein,Serum 6.4 g/dl (6.3-8.2)
[2022-08-31 09:18] LABS: Anisocytosis 1+; Hypochromasia 1+; Lymphocytes % 77 % (10-50); Monocytes % 1 % (2-9); Neutrophils % 22 % (42-76); Platelet Estimate Normal; Total Cells Counted 100
[2022-08-31 10:22] VITALS: BP 98/52; PULSE 70; RESP 20; TEMP 36.3; O2SAT 98
[2022-08-31 10:59] VITALS: BP 92/42; PULSE 70; RESP 20; TEMP 36.6; O2SAT 98
[2022-08-31 11:29] VITALS: BP 102/42; PULSE 60; RESP 20; O2SAT 98
[2022-08-31 11:59] VITALS: BP 114/50; PULSE 59; RESP 20; O2SAT 98
[2022-08-31 12:29] VITALS: BP 121/56; PULSE 59; RESP 20; O2SAT 98
[2022-08-31 13:26] VITALS: BP 137/59; PULSE 61; RESP 20; O2SAT 98
== END 2022-08-31 13:43 | disposition home or self-care (01) ==
LOC: INF 08:31
PROVIDERS: PCP Emergency Medicine; Visit Provider Internal Medicine Medical Oncology
DX: C81.00 Nodular lymphocyte predominant Hodgkin lymphoma, unspecified site (principal); C91.10 Chronic lymphocytic leukemia of B-cell type not having achieved remission
CPT/HCPCS: 80053; 85007; 85025; 96413; 96415; J1642; J9312

== ENCOUNTER 2022-10-12 09:04 | Outpatient (CLI) | payer MEDICARE, SELFPAY ==
[2022-10-12] VITALS (8 sets, daily range): BP systolic 88–143; BP diastolic 48–85; PULSE 59–75; RESP 18; TEMP 36.6; O2SAT 98–99; BMI 20.7
[2022-10-12 09:32] LABS: Basophils # 0.2 K/mm3 (0-0.2); Eosinophils # 0.4 K/mm3 (0.0-0.4); Eosinophils % 1.6 % (0.1-12.0); Hematocrit 35.4 % (42.0-52.0); Hemoglobin 11.2 g/dL (14.1-18.0); Lymphocytes # 19.1 K/mm3 (0.7-4.5); Lymphocytes % 80.4 % (10-50); Mean Corpuscular HGB Conc 31.7 g/dL (31.8-35.4); Mean Corpuscular Hemoglobin 28.7 pg (27.0-31.2); Mean Corpuscular Volume 90.5 fl (80-94); Mean Platelet Volume 9.1 fl (7.4-10.4); Monocytes # 0.5 K/mm3 (0.1-1.0); Monocytes % 2.2 % (1.7-9.3); Neutrophils # 3.5 K/mm3 (1.8-7.8); Platelet Count 175 K/mm3 (142-424); Red Blood Count 3.91 M/mm3 (4.60-6.20); Red Cell Distribution Width 13.6 % (11.5-17.5); White Blood Count 23.8 K/mm3 (4.8-10.8)
[2022-10-12 09:35] LABS: Neutrophils % 14.8 % (37.0-80.0)
[2022-10-12 09:36] LABS: Alanine Aminotransferase 12 U/L (12-78); Albumin Level 3.9 g/dl (3.5-5.0); Albumin/Globulin Ratio 1.7 (1.1-1.8); Alkaline Phosphatase 64 U/L (38-126); Aspartate Amino Transferase 29 U/L (17-59); Bilirubin,Total 0.6 mg/dl (0.2-1.3); Blood Urea Nitrogen 22 mg/dl (9-20); Calcium 8.3 mg/dl (8.4-10.2); Carbon Dioxide 27 mmol/L (22.0-30.0); Chloride 104 mmol/L (98-107); Creatinine Clearance Estimated 39 mL/min (50-200); Estimated Glomerular Filt Rate 53 ml/min (>60); GFR (African American) 64 ML/MIN (>60); Globulin 2.3 g/dL (1.3-3.2); Glucose 140 mg/dl (74-100); MANUAL DIFFERENTIAL MANUAL DIFFERENTIAL (MANUAL DIFF); Sodium 133 mmol/L (136-145); Total Protein,Serum 6.2 g/dl (6.3-8.2)
[2022-10-12 10:03] LABS: Lymphocytes % 84 % (10-50); Monocytes % 1 % (2-9); Neutrophils % 15 % (42-76); Platelet Estimate Normal; RBC Morphology Normal; Total Cells Counted 100
== END 2022-10-12 13:35 | disposition home or self-care (01) ==
LOC: INF 09:05
PROVIDERS: PCP Emergency Medicine; Visit Provider Internal Medicine Medical Oncology
DX: Z51.11 Encounter for antineoplastic chemotherapy (principal); C91.10 Chronic lymphocytic leukemia of B-cell type not having achieved remission; Z45.2 Encounter for adjustment and management of vascular access device
CPT/HCPCS: 80053; 85007; 85025; 96413; 96415; J1642; J9312

== ENCOUNTER 2022-11-09 09:25 | Outpatient (CLI) | payer MEDICARE, SELFPAY ==
[2022-11-09] VITALS (7 sets, daily range): BP systolic 83–127; BP diastolic 51–70; PULSE 71–76; RESP 18; TEMP 36.6; O2SAT 98–99; BMI 20.9
[2022-11-09 09:59] LABS: Chloride 102 mmol/L (98-107); Potassium 3.9 mmoL/L (3.5-5.1); Sodium 138 mmol/L (136-145)
[2022-11-09 10:02] LABS: Alanine Aminotransferase 17 U/L (12-78); Albumin Level 4.1 g/dl (3.5-5.0); Albumin/Globulin Ratio 1.8 (1.1-1.8); Alkaline Phosphatase 62 U/L (38-126); Anion Gap 16.9 mEq/L (5-15); Aspartate Amino Transferase 27 U/L (17-59); Bilirubin,Total 0.4 mg/dl (0.2-1.3); Blood Urea Nitrogen 32 mg/dl (9-20); Calcium 8.5 mg/dl (8.4-10.2); Carbon Dioxide 23 mmol/L (22.0-30.0); Creatinine Clearance Estimated 32 mL/min (50-200); Estimated Glomerular Filt Rate 42 ml/min (>60); GFR (African American) 50 ML/MIN (>60); Globulin 2.3 g/dL (1.3-3.2); Glucose 154 mg/dl (74-100); Total Protein,Serum 6.4 g/dl (6.3-8.2)
[2022-11-09 10:10] LABS: Basophils # 0.2 K/mm3 (0-0.2); Basophils % 0.8 % (0.1-2.0); Eosinophils # 0.5 K/mm3 (0.0-0.4); Eosinophils % 2.4 % (0.1-12.0); Hematocrit 36.8 % (42.0-52.0); Hemoglobin 12.1 g/dL (14.1-18.0); Lymphocytes # 17.6 K/mm3 (0.7-4.5); Lymphocytes % 79.8 % (10-50); Mean Corpuscular HGB Conc 32.8 g/dL (31.8-35.4); Mean Corpuscular Hemoglobin 28.9 pg (27.0-31.2); Mean Corpuscular Volume 88.1 fl (80-94); Mean Platelet Volume 8.9 fl (7.4-10.4); Monocytes # 0.7 K/mm3 (0.1-1.0); Neutrophils # 3.1 K/mm3 (1.8-7.8); Platelet Count 186 K/mm3 (142-424); Red Blood Count 4.18 M/mm3 (4.60-6.20); Red Cell Distribution Width 13.7 % (11.5-17.5); White Blood Count 22.1 K/mm3 (4.8-10.8)
[2022-11-09 10:11] LABS: MANUAL DIFFERENTIAL MANUAL DIFFERENTIAL (MANUAL DIFF)
[2022-11-09 11:10] LABS: Eosinophils % 2 % (0-3); Lymphocytes % 86 % (10-50); Monocytes % 3 % (2-9); Neutrophils % 9 % (42-76); Platelet Estimate Normal; RBC Morphology Normal; Total Cells Counted 100
== END 2022-11-09 13:40 | disposition home or self-care (01) ==
LOC: INF 09:26
PROVIDERS: PCP Emergency Medicine; Visit Provider Internal Medicine Medical Oncology
DX: C91.10 Chronic lymphocytic leukemia of B-cell type not having achieved remission (principal)
CPT/HCPCS: 80053; 85007; 85025; 96413; 96415; J1642; J9312

== ENCOUNTER 2022-12-07 13:36 | Outpatient (CLI) | payer MEDICARE, SELFPAY ==
[2022-12-07 13:40] VITALS: BMI 20.7
[2022-12-07 14:05] LABS: Basophils # 0.2 K/mm3 (0-0.2); Eosinophils # 0.6 K/mm3 (0.0-0.4); Eosinophils % 2.5 % (0.1-12.0); Hematocrit 36.8 % (42.0-52.0); Hemoglobin 11.7 g/dL (14.1-18.0); Lymphocytes # 16.7 K/mm3 (0.7-4.5); Lymphocytes % 76.5 % (10-50); Mean Corpuscular HGB Conc 31.7 g/dL (31.8-35.4); Mean Corpuscular Hemoglobin 27.8 pg (27.0-31.2); Mean Corpuscular Volume 87.7 fl (80-94); Mean Platelet Volume 9.1 fl (7.4-10.4); Monocytes # 0.6 K/mm3 (0.1-1.0); Monocytes % 2.7 % (1.7-9.3); Neutrophils # 3.8 K/mm3 (1.8-7.8); Neutrophils % 17.3 % (37.0-80.0); Platelet Count 173 K/mm3 (142-424); Red Cell Distribution Width 14.1 % (11.5-17.5)
[2022-12-07 14:12] LABS: Chloride 105 mmol/L (98-107); Potassium 4.5 mmoL/L (3.5-5.1); Sodium 137 mmol/L (136-145)
[2022-12-07 14:13] LABS: MANUAL DIFFERENTIAL MANUAL DIFFERENTIAL (MANUAL DIFF); White Blood Count 21.4 K/mm3 (4.8-10.8)
[2022-12-07 14:14] LABS: Alanine Aminotransferase 14 U/L (12-78); Aspartate Amino Transferase 30 U/L (17-59); Blood Urea Nitrogen 25 mg/dl (9-20); Creatinine Clearance Estimated 43 mL/min (50-200); Estimated Glomerular Filt Rate 58 ml/min (>60); GFR (African American) 70 ML/MIN (>60)
[2022-12-07 14:15] LABS: Albumin Level 4.1 g/dl (3.5-5.0); Albumin/Globulin Ratio 1.8 (1.1-1.8); Alkaline Phosphatase 69 U/L (38-126); Anion Gap 13.5 mEq/L (5-15); Bilirubin,Total 0.5 mg/dl (0.2-1.3); Calcium 8.8 mg/dl (8.4-10.2); Carbon Dioxide 23 mmol/L (22.0-30.0); Globulin 2.3 g/dL (1.3-3.2); Glucose 76 mg/dl (74-100); Total Protein,Serum 6.4 g/dl (6.3-8.2)
[2022-12-07 14:35] LABS: Eosinophils % 2 % (0-3); Lymphocytes % 72 % (10-50); Monocytes % 7 % (2-9); Neutrophils % 18 % (42-76); Platelet Estimate Slight Decrease; Total Cells Counted 100
[2022-12-07 14:37] LABS: Anisocytosis 2+
[2022-12-07 14:38] LABS: Acanthocytes 1+; Poikilocytosis 2+; Polychromasia 2+
== END 2022-12-07 14:33 | disposition home or self-care (01) ==
LOC: INF 13:36
PROVIDERS: PCP Emergency Medicine; Visit Provider Internal Medicine Medical Oncology
DX: C91.10 Chronic lymphocytic leukemia of B-cell type not having achieved remission (principal); Z45.2 Encounter for adjustment and management of vascular access device
CPT/HCPCS: 36591; 80053; 85007; 85025; J1642

== ENCOUNTER 2022-12-11 08:43 | Outpatient (CLI) | payer MEDICARE, SELFPAY ==
[2022-12-11] VITALS (7 sets, daily range): BP systolic 113–131; BP diastolic 41–59; PULSE 59–69; RESP 18; TEMP 36.6; O2SAT 96–97
== END 2022-12-11 12:15 | disposition home or self-care (01) ==
LOC: INF 08:44
PROVIDERS: PCP Emergency Medicine; Visit Provider Internal Medicine Medical Oncology
DX: C91.10 Chronic lymphocytic leukemia of B-cell type not having achieved remission (principal); Z51.11 Encounter for antineoplastic chemotherapy; Z45.2 Encounter for adjustment and management of vascular access device
CPT/HCPCS: 96413; 96415; J1642; J9312

== ENCOUNTER 2022-12-26 14:30 | Emergency (ER) | payer MEDICARE, SELFPAY ==
[2022-12-26 14:42] VITALS: BP 146/60; PULSE 70; RESP 15; TEMP 36.6; O2SAT 95; BMI 20.7
--- NOTE | 2022-12-26 14:46 | HMH.EDSKAF ---
Discharge Plan Disposition Patient Disposition: Home, Self-Care Condition: Fair Prescriptions Prescriptions: New cephalexin 500 mg capsule 500 mg PO Q6H 7 Days Qty: 28 0RF No Action lisinopril 20 mg tablet 20 mg PO DAILY Qty: 90 5RF acetaminophen-codeine 300-30 mg tablet 1 tab PO Q12H PRN (Reason: pain) Qty: 60 2RF escitalopram oxalate 5 mg tablet 5 mg PO DAILY Qty: 90 1RF rosuvastatin 20 mg tablet 20 mg PO HS Qty: 90 1RF tamsulosin [Flomax] 0.4 mg capsule 0.4 mg PO DAILY Qty: 30 2RF potassium chloride 20 mEq tablet,ER particles/crystals 20 meq PO DAILY Qty: 90 1RF metoprolol succinate 25 mg tablet extended release 24 hr 25 mg PO DAILY Qty: 90 1RF Referrals Follow up/Referrals: James Garcia MD [Primary Care Provider] - See instructions Clinical Impressions Clinical Impression: Cellulitis and abscess of hand, except fingers and thumb Instructions Patient Instructions: Cellulitis Print Language Print Language: Salvadorean Discharge ED Provider: Rafael Temple Skin/Abscess/FB HPI General Chief complaint: Skin/Abscess/Foreign Body Stated complaint: Knot heat/inflammation LT hand Time Seen by Provider: 12/26/22 14:46 Mode of Arrival: Ambulatory Source of Information: Patient Limitations: No Limitations Description of Symptoms (Recalled from ER Triage Doc. by RN): 82 yo M presents to ED with c/o left hand swelling and redness. symptoms began approx sunday night. History of Present Illness HPI narrative: The patient presents the emergency department with left hand swelling and erythema. complaint: other (Cellulitis ) Onset (ago): day(s) (2) Location: LUE Related Data Previous Rx's Medication Instructions Recorded lisinopril 20 mg tablet 20 mg PO DAILY bp #90 tabs 05/10/22 acetaminophen 300 mg-codeine 30 mg 1 tab PO Q12H PRN pain #60 tabs 10/04/22 tablet escitalopram oxalate 5 mg tablet 5 mg PO DAILY Depression #90 tabs 10/04/22 metoprolol succinate 25 mg 25 mg PO DAILY Hypertension #90 10/04/22 tablet,extended release 24 hr tabs potassium chloride 20 mEq 20 meq PO DAILY Supplement #90 tabs 10/04/22 tablet,extended release(part/cryst) rosuvastatin 20 mg tablet 20 mg PO HS Cholesterol #90 tabs 10/04/22 tamsulosin 0.4 mg capsule (Flomax) 0.4 mg PO DAILY prostate #30 caps 10/04/22 cephalexin 500 mg capsule 500 mg PO Q6H 7 days #28 caps 12/26/22 Allergies Allergy/AdvReac Type Severity Reaction Status Date / Time No Known Allergies [facility]ergy Verified 12[facility]07[facility]22 13:[facility] Disclaimer: The information contained in this section may have been updated after the patient was seen, as this information can be updated by other users. Medical History Abnormal echocardiogram Abnormal stress test Cardiac murmur Chronic back pain Chronic back pain greater than 3 months duration Chronic knee pain Dizziness Fatigue Intermittent left-sided chest pain Refill clinic medication management patient SOB (shortness of breath) Surgical History History of hemiarthroplasty of right hip Family History Other No significant family history Social History Smoking Status: Never smoker second hand exposure: No alcohol intake: former substance use type: denies use current occupational status: retired Travel in the last 8 weeks: None household members: family housing: house current occupation: retired current occupational exposures/hazards: No caffeine: No ROS Obtained: Yes Systems reviewed as appropriate & no additional complaints except as documented Constitutional Constitutional: Reports fatigue Musculoskeletal Musculoskeletal: Reports other (Erythema ) Endocrine Endocrine: Reports fatigue Physical Exam General General appearan
[2022-12-26 15:33] LABS: Basophils # 0.1 K/mm3 (0-0.2); Basophils % 0.8 % (0.1-2.0); Eosinophils # 0.4 K/mm3 (0.0-0.4); Eosinophils % 2.4 % (0.1-12.0); Hemoglobin 11.7 g/dL (14.1-18.0); Lymphocytes % 65.6 % (10-50); Mean Corpuscular HGB Conc 30.9 g/dL (31.8-35.4); Mean Corpuscular Hemoglobin 27.6 pg (27.0-31.2); Mean Corpuscular Volume 89.4 fl (80-94); Mean Platelet Volume 8.5 fl (7.4-10.4); Monocytes # 0.6 K/mm3 (0.1-1.0); Monocytes % 3.6 % (1.7-9.3); Neutrophils # 4.6 K/mm3 (1.8-7.8); Neutrophils % 27.6 % (37.0-80.0); Platelet Count 186 K/mm3 (142-424); Red Blood Count 4.25 M/mm3 (4.60-6.20); Red Cell Distribution Width 14.3 % (11.5-17.5); White Blood Count 16.8 K/mm3 (4.8-10.8)
[2022-12-26 15:34] LABS: MANUAL DIFFERENTIAL MANUAL DIFFERENTIAL (MANUAL DIFF)
[2022-12-26 15:44] LABS: Chloride 101 mmol/L (98-107); Potassium 4.7 mmoL/L (3.5-5.1); Sodium 136 mmol/L (136-145)
[2022-12-26 15:47] LABS: Anion Gap 13.7 mEq/L (5-15); Blood Urea Nitrogen 25 mg/dl (9-20); Calcium 8.6 mg/dl (8.4-10.2); Carbon Dioxide 26 mmol/L (22.0-30.0); Creatinine Clearance Estimated 43 mL/min (50-200); Estimated Glomerular Filt Rate 58 ml/min (>60); GFR (African American) 70 ML/MIN (>60); Glucose 73 mg/dl (74-100)
[2022-12-26 16:01] LABS: Eosinophils % 4 % (0-3); Hypochromasia 2+; Lymphocytes % 65 % (10-50); Monocytes % 1 % (2-9); Neutrophils % 30 % (42-76); Platelet Estimate Normal; Total Cells Counted 100
[2022-12-26 16:21] VITALS: BP 146/66; PULSE 70; RESP 15; TEMP 36.9
== END 2022-12-26 16:23 | disposition home or self-care (01) ==
PROVIDERS: Emergency Provider Emergency Medicine; PCP Emergency Medicine
DX: L03.114 Cellulitis of left upper limb (principal); L02.512 Cutaneous abscess of left hand; R01.1 Cardiac murmur, unspecified; C91.10 Chronic lymphocytic leukemia of B-cell type not having achieved remission; D84.821 Immunodeficiency due to drugs
CPT/HCPCS: 80048; 85007; 85025; 87040; 87077; 87186; 99284; J1642

== ENCOUNTER 2023-01-11 08:57 | Outpatient (CLI) | payer MEDICARE, SELFPAY ==
[2023-01-11] VITALS (7 sets, daily range): BP systolic 100–132; BP diastolic 55–67; PULSE 70–84; RESP 18; TEMP 36.8; O2SAT 98–99; BMI 20.7
[2023-01-11 09:22] LABS: Basophils # 0.2 K/mm3 (0-0.2); Basophils % 0.9 % (0.1-2.0); Eosinophils # 0.6 K/mm3 (0.0-0.4); Eosinophils % 2.9 % (0.1-12.0); Hematocrit 36.3 % (42.0-52.0); Hemoglobin 11.3 g/dL (14.1-18.0); Lymphocytes # 15.9 K/mm3 (0.7-4.5); Lymphocytes % 74.4 % (10-50); Mean Corpuscular HGB Conc 31.2 g/dL (31.8-35.4); Mean Corpuscular Hemoglobin 27.7 pg (27.0-31.2); Mean Corpuscular Volume 88.7 fl (80-94); Mean Platelet Volume 8.4 fl (7.4-10.4); Monocytes # 0.7 K/mm3 (0.1-1.0); Monocytes % 3.1 % (1.7-9.3); Neutrophils % 18.7 % (37.0-80.0); Platelet Count 169 K/mm3 (142-424); Red Blood Count 4.09 M/mm3 (4.60-6.20); Red Cell Distribution Width 14.5 % (11.5-17.5); White Blood Count 21.4 K/mm3 (4.8-10.8)
[2023-01-11 09:27] LABS: MANUAL DIFFERENTIAL MANUAL DIFFERENTIAL (MANUAL DIFF)
[2023-01-11 09:43] LABS: Chloride 109 mmol/L (98-107); Potassium 4.6 mmoL/L (3.5-5.1); Sodium 139 mmol/L (136-145)
[2023-01-11 09:45] LABS: Blood Urea Nitrogen 35 mg/dl (9-20); Creatinine Clearance Estimated 39 mL/min (50-200); Estimated Glomerular Filt Rate 53 ml/min (>60); GFR (African American) 64 ML/MIN (>60)
[2023-01-11 09:46] LABS: Alanine Aminotransferase 15 U/L (12-78); Albumin Level 4.2 g/dl (3.5-5.0); Albumin/Globulin Ratio 1.8 (1.1-1.8); Alkaline Phosphatase 63 U/L (38-126); Anion Gap 10.6 mEq/L (5-15); Aspartate Amino Transferase 30 U/L (17-59); Bilirubin,Total 0.3 mg/dl (0.2-1.3); Carbon Dioxide 24 mmol/L (22.0-30.0); Globulin 2.4 g/dL (1.3-3.2); Glucose 82 mg/dl (74-100); Total Protein,Serum 6.6 g/dl (6.3-8.2)
[2023-01-11 10:59] LABS: Eosinophils % 2 % (0-3); Lymphocytes % 87 % (10-50); Monocytes % 1 % (2-9); Neutrophils % 9 % (42-76); Nucleated Red Blood Cells 4; Total Cells Counted 100
[2023-01-11 11:01] LABS: Platelet Estimate Normal; RBC Morphology Normal
== END 2023-01-11 13:40 | disposition home or self-care (01) ==
LOC: INF 08:58
PROVIDERS: PCP Emergency Medicine; Visit Provider Internal Medicine Medical Oncology
DX: C91.10 Chronic lymphocytic leukemia of B-cell type not having achieved remission (principal); Z45.2 Encounter for adjustment and management of vascular access device
CPT/HCPCS: 80053; 85007; 85025; 96413; 96415; J1642; J9312

== ENCOUNTER 2023-02-22 08:52 | Outpatient (CLI) | payer MEDICARE, SELFPAY ==
[2023-02-22] VITALS (11 sets, daily range): BP systolic 123–157; BP diastolic 49–79; PULSE 60–74; RESP 16–18; O2SAT 96; BMI 21.9
[2023-02-22 09:28] LABS: Basophils # 0.2 K/mm3 (0-0.2); Basophils % 0.9 % (0.1-2.0); Eosinophils # 0.4 K/mm3 (0.0-0.4); Eosinophils % 2.4 % (0.1-12.0); Hemoglobin 11.2 g/dL (14.1-18.0); Lymphocytes # 13.8 K/mm3 (0.7-4.5); Lymphocytes % 75.4 % (10-50); Mean Corpuscular Hemoglobin 28.2 pg (27.0-31.2); Mean Corpuscular Volume 88.2 fl (80-94); Mean Platelet Volume 9.3 fl (7.4-10.4); Monocytes # 0.5 K/mm3 (0.1-1.0); Monocytes % 2.8 % (1.7-9.3); Neutrophils # 3.4 K/mm3 (1.8-7.8); Neutrophils % 18.5 % (37.0-80.0); Platelet Count 153 K/mm3 (142-424); Red Blood Count 3.97 M/mm3 (4.60-6.20); Red Cell Distribution Width 14.3 % (11.5-17.5); White Blood Count 18.3 K/mm3 (4.8-10.8)
[2023-02-22 09:33] LABS: MANUAL DIFFERENTIAL MANUAL DIFFERENTIAL (MANUAL DIFF)
[2023-02-22 09:36] LABS: Chloride 108 mmol/L (98-107)
[2023-02-22 09:37] LABS: Potassium 3.8 mmoL/L (3.5-5.1); Sodium 140 mmol/L (136-145)
[2023-02-22 09:39] LABS: Alanine Aminotransferase 17 U/L (12-78); Aspartate Amino Transferase 35 U/L (17-59); Blood Urea Nitrogen 29 mg/dl (9-20); Creatinine Clearance Estimated 40 mL/min (50-200); Estimated Glomerular Filt Rate 53 ml/min (>60); GFR (African American) 64 ML/MIN (>60)
[2023-02-22 09:40] LABS: Albumin Level 3.6 g/dl (3.5-5.0); Albumin/Globulin Ratio 1.6 (1.1-1.8); Alkaline Phosphatase 61 U/L (38-126); Anion Gap 11.8 mEq/L (5-15); Bilirubin,Total 0.5 mg/dl (0.2-1.3); Calcium 8.4 mg/dl (8.4-10.2); Carbon Dioxide 24 mmol/L (22.0-30.0); Globulin 2.3 g/dL (1.3-3.2); Glucose 163 mg/dl (74-100); Total Protein,Serum 5.9 g/dl (6.3-8.2)
[2023-02-22 09:46] LABS: Lymphocytes % 85 % (10-50); Monocytes % 2 % (2-9); Neutrophils % 13 % (42-76); Platelet Estimate Slight Decrease; RBC Morphology Normal; Total Cells Counted 100
== END 2023-02-22 14:24 | disposition home or self-care (01) ==
LOC: INF 08:53
PROVIDERS: PCP Physician Assistant; Visit Provider Internal Medicine Medical Oncology
DX: C91.10 Chronic lymphocytic leukemia of B-cell type not having achieved remission (principal); Z51.11 Encounter for antineoplastic chemotherapy; Z45.2 Encounter for adjustment and management of vascular access device; Z79.899 Other long term (current) drug therapy
CPT/HCPCS: 80053; 85007; 85025; 96413; 96415; J1642; J9312

== ENCOUNTER 2023-02-24 15:18 | Emergency (ER) | payer MEDICARE, SELFPAY ==
[2023-02-24 15:20] VITALS: BP 118/61; PULSE 88; RESP 18; TEMP 36.9; O2SAT 97; BMI 21.4
--- NOTE | 2023-02-24 15:24 | EXP.UTC ---
Discharge Plan Disposition Patient Disposition: Home, Self-Care Condition: Good Prescriptions Prescriptions: New prednisone 20 mg tablet 20 mg PO BID Qty: 10 0RF dextromethorphan-guaifenesin [Mucinex DM] 60-1,200 mg tablet extended release 12 hr 1 tab PO BID Qty: 20 0RF albuterol sulfate 90 mcg/actuation HFA aerosol inhaler 2 inh inhalation Q4-6H PRN (Reason: shortness of breath or wheezing) Qty: 6.7 0RF No Action lisinopril 20 mg tablet 20 mg PO DAILY Qty: 90 5RF acetaminophen-codeine 300-30 mg tablet 1 tab PO Q12H PRN (Reason: pain) Qty: 60 2RF escitalopram oxalate 5 mg tablet 5 mg PO DAILY Qty: 90 1RF rosuvastatin 20 mg tablet 20 mg PO HS Qty: 90 1RF tamsulosin [Flomax] 0.4 mg capsule 0.4 mg PO DAILY Qty: 30 2RF potassium chloride 20 mEq tablet,ER particles/crystals 20 meq PO DAILY Qty: 90 1RF metoprolol succinate 25 mg tablet extended release 24 hr 25 mg PO DAILY Qty: 90 1RF Referrals Follow up/Referrals: James Garcia MD [Primary Care Provider] - See instructions Activity Restrictions/Add. Instructions Additional Instructions/Restrictions: Return to ER if shortness of breath, pain, fever, etc Clinical Impressions Clinical Impression: Close exposure to 2019-nCoV Instructions Patient Instructions: DI for COVID-19 (Suspected or Confirmed ) Discharge ED Provider: Naima Robert [facility] [place] General Stated complaint: covid exposure Time Seen by Provider: 02/24/23 16:10 History of Present Illness Provider Complaint: Cough, congestion, shortness of air, upset stomach, body aches X 3 days. Has been exposed to COVID19. Can't recall if he was vaccinated. H/O CLL. Onset (ago): day(s) (3) Relieving factors: none Exacerbating factors: none Associated symptoms: cough, headaches, loss of appetite and shortness of breath Treatments prior to arrival: none Related Data Previous Rx's Medication Instructions Recorded lisinopril 20 mg tablet 20 mg PO DAILY bp #90 tabs 05/10/22 acetaminophen 300 mg-codeine 30 mg 1 tab PO Q12H PRN pain #60 tabs 10/04/22 tablet escitalopram oxalate 5 mg tablet 5 mg PO DAILY Depression #90 tabs 10/04/22 metoprolol succinate 25 mg 25 mg PO DAILY Hypertension #90 10/04/22 tablet,extended release 24 hr tabs potassium chloride 20 mEq 20 meq PO DAILY Supplement #90 tabs 10/04/22 tablet,extended release(part/cryst) rosuvastatin 20 mg tablet 20 mg PO HS Cholesterol #90 tabs 10/04/22 tamsulosin 0.4 mg capsule (Flomax) 0.4 mg PO DAILY prostate #30 caps 10/04/22 albuterol sulfate 90 mcg/actuation 2 inh inhalation Q4-6H PRN 02/24/23 aerosol inhaler shortness of breath or wheezing #6.7 grams dextromethorphan-guaifenesin ER 60 1 tab PO BID #20 tabs 02/24/23 mg-1,200 mg tab,extend release,12hr (Mucinex DM) prednisone 20 mg tablet 20 mg PO BID #10 tabs 02/24/23 Allergies Allergy/AdvReac Type Severity Reaction Status Date / Time No Known Allergies Allergy Verified 02/22/23 10:11 [facility] Disclaimer: The information contained in this section may have been updated after the patient was seen, as this information can be updated by other users. Medical History Abnormal echocardiogram Abnormal stress test Cardiac murmur Chronic back pain Chronic back pain greater than 3 months duration Chronic knee pain Dizziness Fatigue Intermittent left-sided chest pain Refill clinic medication management patient SOB (shortness of breath) Surgical History History of hemiarthroplasty of right hip Family History Other No significant family history Social History Smoking Status: Never smoker second hand exposure: No alcohol intake: former substance use type: denies use current occupational status: re
[2023-02-24 16:25] VITALS: BP 118/61; PULSE 88; RESP 18; TEMP 36.9; O2SAT 97
== END 2023-02-24 16:26 | disposition home or self-care (01) ==
PROVIDERS: Emergency Provider Physician Assistant; PCP Emergency Medicine
DX: U07.1 COVID-19 (principal); R51.9 Headache, unspecified; R06.02 Shortness of breath; R11.0 Nausea
CPT/HCPCS: 99212; 99214; G0463

== ENCOUNTER 2023-03-16 08:45 | Emergency (ER) | payer MEDICARE, SELFPAY ==
[2023-03-16 08:46] VITALS: BP 103/54; PULSE 71; RESP 21; TEMP 36.6; O2SAT 95; BMI 21.1
--- NOTE | 2023-03-16 08:57 | XR_ITS ---
FINAL REPORT CLINICAL HISTORY: fall, left rib pain COMPARISON: Chest radiograph 02/16/2023 FINDINGS: A single view of the chest with 3 views of the left ribs were obtained. Prior median sternotomy. There is a right-sided chest port. Left-sided pacer is present. There is no acute cardiopulmonary process. No pneumothorax is identified. No acute, displaced rib fracture identified. IMPRESSION: No acute process. Reviewed, Interpreted and Dictated by Dawit Olivera III, MD Transcribed by Yesi Garcia Authenticated and [facility]
--- NOTE | 2023-03-16 09:09 | EXP.UTC ---
Discharge Plan Disposition Patient Disposition: Home, Self-Care Condition: Good Prescriptions Prescriptions: New lidocaine 5 % adhesive patch,medicated 1 patch topical DAILY PRN (Reason: pain) Qty: 5 0RF Rx Instructions: leave on most painful area for up to 12 hrs then remove for 12 hours and leave patch off for 12 hours prior to applying another patch No Action lisinopril 20 mg tablet 20 mg PO DAILY Qty: 90 5RF acetaminophen-codeine 300-30 mg tablet 1 tab PO Q12H PRN (Reason: pain) Qty: 60 2RF escitalopram oxalate 5 mg tablet 5 mg PO DAILY Qty: 90 1RF rosuvastatin 20 mg tablet 20 mg PO HS Qty: 90 1RF tamsulosin [Flomax] 0.4 mg capsule 0.4 mg PO DAILY Qty: 30 2RF potassium chloride 20 mEq tablet,ER particles/crystals 20 meq PO DAILY Qty: 90 1RF metoprolol succinate 25 mg tablet extended release 24 hr 25 mg PO DAILY Qty: 90 1RF prednisone 20 mg tablet 20 mg PO BID Qty: 10 0RF dextromethorphan-guaifenesin [Mucinex DM] 60-1,200 mg tablet extended release 12 hr 1 tab PO BID Qty: 20 0RF albuterol sulfate 90 mcg/actuation HFA aerosol inhaler 2 inh inhalation Q4-6H PRN (Reason: shortness of breath or wheezing) Qty: 6.7 0RF Referrals Follow up/Referrals: Kp Tavarez MD [Primary Care Provider] - See instructions Activity Restrictions/Add. Instructions Additional Instructions/Restrictions: Ice to right eye brow area for 10-15 min every couple of hours may help with swelling and bruising Keep abrasions clean and dry on your face Make sure to move around Use patches for pain as prescribed Follow up with your Family Doctor if no improvement or any worsening of symptoms Clinical Impressions Clinical Impression: Contusion of rib on left side Qualifiers: Encounter type: initial encounter Qualified Code(s): S20.212A - Contusion of left front wall of thorax, initial encounter Instructions Patient Instructions: DI for Rib Contusion, DI for Abrasion Discharge ED Provider: Pat Villalba [facility] [place] HPI General Stated complaint: AO9/15@home, lac and pain in face, rib pain Mode of Arrival: Ambulatory Source of Information: Patient Limitations: No Limitations Time Seen by Provider: 03/16/23 09:09 Description of Symptoms (Recalled from Triage Doc. by RN): Patient complaint of falling this morning coming out of the bathroom and injured his left side of his face and ribs. HEENT Symptoms (Recalled from RN notes): No Resp Symptoms (Recalled from RN notes): No Skin Symptoms (Recalled from RN notes): Yes MS Symptoms (Recalled from RN notes): Yes Functional Status (Recalled from RN notes): wnl History of Present Illness Provider Complaint: Patient states that he was coming out of the bathroom this morning and walked outside and he tripped over a wire/cord that was laying on the ground and made him fall State that he hurt his left ribs again States that he fell a few years back and broke some ribs on that side and has some abrasions on his left cheek area and eyebrow where he fell in the gravel States that he was worried he may have broke a rib again Related Data Previous Rx's Medication Instructions Recorded lisinopril 20 mg tablet 20 mg PO DAILY bp #90 tabs 05/10/22 acetaminophen 300 mg-codeine 30 mg 1 tab PO Q12H PRN pain #60 tabs 10/04/22 tablet escitalopram oxalate 5 mg tablet 5 mg PO DAILY Depression #90 tabs 10/04/22 metoprolol succinate 25 mg 25 mg PO DAILY Hypertension #90 10/04/22 tablet,extended release 24 hr tabs potassium chloride 20 mEq 20 meq PO DAILY Supplement #90 tabs 10/04/22 tablet,extended release(part/cryst) rosuvastatin 20 mg tablet 20 mg PO HS Cholesterol #90 tabs 10/04/22 tamsulosin 0.4 mg capsule (Flomax) 0.4 mg PO DAILY prostate #30 caps 10/04/22 albuterol sulfate 90 mcg/actuation 2 inh inhalation Q4-6H PRN 02/24/23 aerosol inhaler shortness of breath or wheezing #6.7 grams dextromethorphan-guaifenesin ER 60 1 tab PO BID #20 tabs 02/24/23 m
[2023-03-16 10:51] VITALS: BP 103/54; PULSE 71; RESP 21; TEMP 36.6; O2SAT 95
== END 2023-03-16 10:52 | disposition home or self-care (01) ==
PROVIDERS: Emergency Provider Nurse Practitioner; PCP Family Medicine
DX: S20.212A Contusion of left front wall of thorax, initial encounter (principal); S00.81XA Abrasion of other part of head, initial encounter; R01.1 Cardiac murmur, unspecified; W01.198A Fall on same level from slipping, tripping and stumbling with subsequent striking against other object, initial encounter
CPT/HCPCS: 71101; 99212; 99214; G0463

== ENCOUNTER → 2023-03-22 08:19 | Outpatient (CLI) | payer MEDICARE, SELFPAY ==
[2023-03-22] VITALS (7 sets, daily range): BP systolic 109–122; BP diastolic 52–78; PULSE 84–103; RESP 18–20; TEMP 36.6; O2SAT 99–100; BMI 20.2
[2023-03-22 09:28] LABS: Basophils # 0.1 K/mm3 (0-0.2); Basophils % 0.4 % (0.1-2.0); Chloride 104 mmol/L (98-107); Eosinophils # 0.2 K/mm3 (0.0-0.4); Hematocrit 39.6 % (42.0-52.0); Hemoglobin 12.4 g/dL (14.1-18.0); Lymphocytes # 8.9 K/mm3 (0.7-4.5); Lymphocytes % 55.6 % (10-50); Mean Corpuscular HGB Conc 31.3 g/dL (31.8-35.4); Mean Corpuscular Hemoglobin 27.3 pg (27.0-31.2); Mean Corpuscular Volume 87.5 fl (80-94); Mean Platelet Volume 8.6 fl (7.4-10.4); Monocytes # 0.6 K/mm3 (0.1-1.0); Monocytes % 3.8 % (1.7-9.3); Neutrophils # 6.2 K/mm3 (1.8-7.8); Neutrophils % 39.2 % (37.0-80.0); Platelet Count 195 K/mm3 (142-424); Potassium 3.6 mmoL/L (3.5-5.1); Red Blood Count 4.53 M/mm3 (4.60-6.20); Red Cell Distribution Width 14.1 % (11.5-17.5); Sodium 140 mmol/L (136-145); White Blood Count 15.9 K/mm3 (4.8-10.8)
[2023-03-22 09:30] LABS: Blood Urea Nitrogen 30 mg/dl (9-20); Creatinine Clearance Estimated 39 mL/min (50-200); Estimated Glomerular Filt Rate 53 ml/min (>60); GFR (African American) 64 ML/MIN (>60); MANUAL DIFFERENTIAL MANUAL DIFFERENTIAL (MANUAL DIFF)
[2023-03-22 09:31] LABS: Alanine Aminotransferase 25 U/L (12-78); Albumin Level 3.6 g/dl (3.5-5.0); Albumin/Globulin Ratio 1.2 (1.1-1.8); Alkaline Phosphatase 96 U/L (38-126); Anion Gap 15.6 mEq/L (5-15); Aspartate Amino Transferase 42 U/L (17-59); Bilirubin,Total 0.6 mg/dl (0.2-1.3); Calcium 8.9 mg/dl (8.4-10.2); Carbon Dioxide 24 mmol/L (22.0-30.0); Globulin 3.1 g/dL (1.3-3.2); Glucose 123 mg/dl (74-100); Total Protein,Serum 6.7 g/dl (6.3-8.2)
[2023-03-22 09:55] LABS: Eosinophils % 2 % (0-3); Lymphocytes % 71 % (10-50); Monocytes % 4 % (2-9); Neutrophils % 20 % (42-76); Total Cells Counted 100
[2023-03-22 09:57] LABS: Acanthocytes 1+; Anisocytosis 1+; Platelet Estimate Slight Decrease; Poikilocytosis 1+
== END ==
LOC: LAB 08:51 → INF 09:23
PROVIDERS: PCP Physician Assistant; Visit Provider Internal Medicine Medical Oncology
DX: C91.10 Chronic lymphocytic leukemia of B-cell type not having achieved remission (principal)
CPT/HCPCS: 80053; 85007; 85025; 96413; 96415; J1642; J9312

== ENCOUNTER 2023-03-24 13:21 | Inpatient (IN) | payer MEDICARE, SELFPAY ==
[2023-03-24] VITALS (10 sets, daily range): BP systolic 106–159; BP diastolic 51–86; PULSE 59–120; RESP 18–49; TEMP 36.1–36.8; O2SAT 90–99; BMI 21.2
--- NOTE | 2023-03-24 13:28 | HMH.EDCP ---
Discharge Plan Disposition Patient Disposition: Still a Patient Condition: Good Clinical Impressions Clinical Impression: CHF (congestive heart failure) Qualifiers: Heart failure type: combined systolic and diastolic Heart failure chronicity: acute on chronic Qualified Code(s): I50.43 - Acute on chronic combined systolic (congestive) and diastolic (congestive) heart failure Discharge ED Provider: Lio Greer Chest Pain HPI <Kenny Tillman MD - Last Filed: 03/24/23 16:08> General Chief Complaint: Chest Pain Stated Complaint: chest pain Time Seen by Provider: 03/24/23 13:28 History of Present Illness HPI narrative: The patient presents to the emergency department complaining of a 1 day history of chest pain. He also feels short of breath. He states that the chest pain is reproducible with palpation of the chest. He fell about 1 week ago. He has a pacemaker. He has had open heart surgery. He has no other complaints. Related Data Home Medications Medication Instructions Recorded Confirmed lidocaine 5 % topical patch 1 patch topical DAILYP PRN Pain, 03/25/23 03/25/23 Mild lisinopril 20 mg tablet 20 mg PO DAILY High Blood Pressure 03/25/23 03/25/23 metoprolol succinate 50 mg capsule 50 mg PO DAILY High Blood Pressure 03/25/23 03/25/23 sprinkle, ext. release 24 hr tamsulosin 0.4 mg capsule (Flomax) 0.4 mg PO HS PROSTATE 03/25/23 03/25/23 Previous Rx's Medication Instructions Recorded escitalopram oxalate 5 mg tablet 5 mg PO DAILY Depression #90 tabs 10/04/22 potassium chloride 20 mEq 20 meq PO DAILY Supplement #90 tabs 10/04/22 tablet,extended release(part/cryst) rosuvastatin 20 mg tablet 20 mg PO HS Cholesterol #90 tabs 10/04/22 Allergies Allergy/AdvReac Type Severity Reaction Status Date / Time No Known Allergies Allergy Verified 03/22/23 09:24 PFSH <Kenny Tillman MD - Last Filed: 03/24/23 16:08> PFS Disclaimer: The information contained in this section may have been updated after the patient was seen, as this information can be updated by other users. Medical History Abnormal echocardiogram Abnormal stress test Cardiac murmur Chronic back pain Chronic back pain greater than 3 months duration Chronic knee pain Dizziness Fatigue Intermittent left-sided chest pain Refill clinic medication management patient SOB (shortness of breath) Surgical History History of hemiarthroplasty of right hip Family History Other No significant family history Social History (Updated 03/24/23 @ 21:02 by Renee Posada RN) Smoking Status: Former smoker pack-years: 30 second hand exposure: No alcohol intake: former substance use type: denies use current occupational status: retired Travel in the last 8 weeks: None household members: family housing: house current occupation: retired current occupational exposures/hazards: No caffeine: No <Kenny Tillman MD - Last Filed: 03/24/23 16:08> ROS Obtained: Yes All systems reviewed & no additional complaints except as documented Physical Exam <Kenny Tillman MD - Last Filed: 03/24/23 16:08> General General appearance: alert Head Head exam: atraumatic Eye Eye exam: Present normal appearance and PERRL ENT ENT exam: Present normal exam Neck Neck exam: Present normal inspection and full ROM; Absent tenderness or meningismus Chest Chest inspection: Present normal inspection, symmetric chest wall rise and tenderness (Reproducible tenderness about the pacemaker on the left side. No crepitus. There is a Port-A-Cath on the right side of the chest.) Respiratory Respiratory exam: Present normal lung sounds bilaterally; Absent respiratory distress or accessory muscle use Cardiovascular Cardiovascular exam: Present regular rate, normal rhythm and normal heart sounds Abdom
--- NOTE | 2023-03-24 14:02 | ECG_ITS ---
APPROVED REPORT Exam: Resting ECG HR:103 bpm ECG Measurements Heart Rate 103 AXES UT 185 P 49 QRSd 185 QRS -74 QT 384 T 109 QTc 444 Conclusion ELECTRONIC VENTRICULAR PACEMAKER ABNORMAL RHYTHM ECG UNCONFIRMED REPORT Electronically signed by : Eligio Flynn MD 03/27/2023 20:09:42
--- NOTE | 2023-03-24 14:36 | XR_ITS ---
PROCEDURE INFORMATION: Exam: XR Chest Exam date and time: 03/24/2023 2:57 PM Age: 82 years old Clinical indication: Other: Chest pain; Additional info: Cp TECHNIQUE: Imaging protocol: Radiologic exam of the chest. Views: 1 view. COMPARISON: CR XR RIBS LT MIN 3V W CXR1V 03/16/2023 8:57 AM FINDINGS: Tubes, catheters and devices: Pacemaker device. Lungs: Patchy bilateral interstitial infiltrates predominant volume in the lower lobes. Superimposed regions of bronchiectasis. Pleural spaces: Unremarkable. No pleural effusion. No pneumothorax. Heart/Mediastinum: Large hiatal hernia. Bones/joints: Unremarkable. IMPRESSION: Findings suggestive of interstitial pneumonia superimposed upon chronic changes.
--- NOTE | 2023-03-24 14:41 | PC.NURSE ---
RAD at BS for xray
[2023-03-24 14:54] LABS: Basophils # 0.2 K/mm3 (0-0.2); Basophils % 0.9 % (0.1-2.0); Eosinophils % 0.1 % (0.1-12.0); Hematocrit 40.2 % (42.0-52.0); Hemoglobin 11.9 g/dL (14.1-18.0); Lymphocytes # 9.9 K/mm3 (0.7-4.5); Lymphocytes % 39.4 % (10-50); Mean Corpuscular HGB Conc 29.7 g/dL (31.8-35.4); Mean Corpuscular Hemoglobin 26.7 pg (27.0-31.2); Mean Platelet Volume 9.2 fl (7.4-10.4); Monocytes # 0.9 K/mm3 (0.1-1.0); Monocytes % 3.4 % (1.7-9.3); Neutrophils # 14.1 K/mm3 (1.8-7.8); Neutrophils % 56.2 % (37.0-80.0); Platelet Count 195 K/mm3 (142-424); Red Blood Count 4.47 M/mm3 (4.60-6.20); Red Cell Distribution Width 14.1 % (11.5-17.5); White Blood Count 25.1 K/mm3 (4.8-10.8)
[2023-03-24 14:58] LABS: Chloride 104 mmol/L (98-107); MANUAL DIFFERENTIAL MANUAL DIFFERENTIAL (MANUAL DIFF); Potassium 4.4 mmoL/L (3.5-5.1); Sodium 134 mmol/L (136-145)
[2023-03-24 15:01] LABS: Alanine Aminotransferase 37 U/L (12-78); Albumin Level 3.4 g/dl (3.5-5.0); Albumin/Globulin Ratio 1.4 (1.1-1.8); Alkaline Phosphatase 89 U/L (38-126); Anion Gap 18.4 mEq/L (5-15); Aspartate Amino Transferase 44 U/L (17-59); Bilirubin,Total 0.6 mg/dl (0.2-1.3); Blood Urea Nitrogen 36 mg/dl (9-20); Calcium 8.5 mg/dl (8.4-10.2); Carbon Dioxide 16 mmol/L (22.0-30.0); Creatinine Clearance Estimated 37 mL/min (50-200); Estimated Glomerular Filt Rate 49 ml/min (>60); GFR (African American) 59 ML/MIN (>60); Globulin 2.4 g/dL (1.3-3.2); Glucose 99 mg/dl (74-100); Total Protein,Serum 5.8 g/dl (6.3-8.2)
[2023-03-24 15:14] LABS: Troponin I 0.05 ng/ml (0.00-0.034)
[2023-03-24 15:28] LABS: Lymphocytes % 51 % (10-50); Monocytes % 8 % (2-9); Neutrophils % 40 % (42-76); Total Cells Counted 100
[2023-03-24 15:29] LABS: Hypochromasia 2+; Platelet Estimate Normal
[2023-03-24 15:34] LABS: NT Pro Brain Natriuretic Pep. 11300 pg/mL (0-450)
--- NOTE | 2023-03-24 15:51 | PC.NURSE ---
Dr. Tillman at to update pt/family on POC
--- NOTE | 2023-03-24 16:47 | PC.NURSE ---
Pt ambulatory to bathroom with minimal assistance from family
--- NOTE | 2023-03-24 16:55 | PC.NURSE ---
Upon ambulating back to bed pt became tachycardic and tachypneic
--- NOTE | 2023-03-24 18:14 | PC.NURSE ---
Pt labs obtained via straight stick and sent to lab
[2023-03-24 18:31] LABS: Activated Partial Thrombo Time 29.1 seconds (22.8-30.6); INR 1.04 (0.9-1.1); Prothrombin Time 11.2 seconds (10.1-12.5)
[2023-03-24 18:42] LABS: Troponin I 0.05 ng/ml (0.00-0.034)
--- NOTE | 2023-03-24 18:59 | CT_ITS ---
PROCEDURE INFORMATION: Exam: CTA Chest With Contrast Exam date and time: 03/24/2023 7:18 PM Age: 82 years old Clinical indication: Shortness of breath; Other: Chest pain; Additional info: SOA, cp, high risk for pe TECHNIQUE: Imaging protocol: Computed tomographic angiography of the chest with contrast. Exam focused on the arteries. 3D rendering (Not supervised by radiologist): MIP and/or 3D reconstructed images were created by the technologist. Radiation optimization: All CT scans at this facility use at least one of these dose optimization techniques: automated exposure control; mA and/or kV adjustment per patient size (includes targeted exams where dose is matched to clinical indication); or iterative reconstruction. Contrast material: ISOVUE; Contrast volume: 70 ml; Contrast route: INTRAVENOUS (IV); REPORTING DATA: Count of CT and Cardiac NM exams in prior 12 months: This patient has received 4 known CTs and 0 known cardiac nuclear medicine studies in the 12 months prior to the current study. COMPARISON: CT CHEST WO/W CON 06/26/2022 8:57 AM FINDINGS: Pulmonary arteries: There is suboptimal opacification of pulmonary arteries due to contrast bolus timing. Aorta: Unremarkable. No aortic aneurysm. No aortic dissection. Lungs: Patchy bilateral ground-glass infiltrates with regions of consolidation and atelectasis at the left lung base are demonstrated. There are small bilateral pleural effusions which are new. Previously demonstrated calcified granulomas again identified anteriorly in the left upper lobe, as well as posteriorly in the right lower lobe. Regions of bronchiectasis and mucous plugging most pronounced at the left lung base. Pleural spaces: See Lungs finding. Heart: Unremarkable. No cardiomegaly. No pericardial effusion. Lymph nodes: persistent extensive axillary and mediastinal adenopathy. Persistent bulky mediastinal lymph nodes measuring up to 2.6 cm in the pretracheal space. Subcarinal lymph node measures approximately 4.4 cm in maximum dimensions on the current study is slightly smaller. Hilar adenopathy persists. There is incomplete visualization of adenopathy in the neck. Diaphragm: Large hiatal hernia through the foramen of Bochdalek's, increase in size compared with the previous study measuring 10.8 cm in transverse dimensions. Bones/joints: Unremarkable. No acute fracture. Soft tissues: Unremarkable. IMPRESSION: 1. No large or central pulmonary embolus. Evaluation of the peripheral pulmonary arteries is limited. 2. Persistent extensive adenopathy demonstrated throughout the mediastinum as well as partially visualized in the axilla and neck. Mediastinal adenopathy has slightly decreased in size. 3. Patchy bilateral ground-glass infiltrates with accompanying regions of consolidation and atelectasis. Findings compatible with pneumonia. 4. Small bilateral pleural effusions. 5. Acute fracture left posterolateral 5th and 6th ribs. 6. Please see above report for discussion of nonacute findings.
--- NOTE | 2023-03-24 19:30 | PC.NURSE ---
on phone with internal communications writer
--- NOTE | 2023-03-24 20:21 | EXP.HP ---
History of Present Illness *Admission Date: 03/24/23 *Reason for visit:: CP and SOB *History of present illness: This is a 82 yo male with extensive PMHx including CLL, CHF, CKD, CAD s/p CABG, HTN. pacemaker in place who came to the emergency department complaining of chest pain around left rib cage with shortness of air and difficulty breathing. Patient also has history of chronic ribs Fx s/p fall at home about one week ago. He also stated that the chest pain is reproducible with palpation of the chest. started about one day prior to hospital visit. He has no other complaints. Admitted for further work up and treatment. [facility] Disclaimer: The information contained in this section may have been updated after the patient was seen, as this information can be updated by other users. Medical History Abnormal echocardiogram Abnormal stress test Cardiac murmur Chronic back pain Chronic back pain greater than 3 months duration Chronic knee pain Dizziness Fatigue Intermittent left-sided chest pain Refill clinic medication management patient SOB (shortness of breath) Surgical History History of hemiarthroplasty of right hip Family History Other No significant family history Social History (Updated 03/24/23 @ 21:02 by Renee Posada RN) Smoking Status: Former smoker pack-years: 30 second hand exposure: No alcohol intake: former substance use type: denies use current occupational status: retired Travel in the last 8 weeks: None household members: family housing: house current occupation: retired current occupational exposures/hazards: No caffeine: No Review of Systems Review of Systems Review of systems:: pertinent systems reviewed and negative unless documented below Meds Home Medications and Allergies Home Medications Medication Instructions Recorded Confirmed Type escitalopram oxalate 5 mg tablet 5 mg PO DAILY Depression #90 tabs 10/04/22 03/24/23 Rx potassium chloride 20 mEq 20 meq PO DAILY Supplement #90 tabs 10/04/22 03/24/23 Rx tablet,extended release(part/cryst) rosuvastatin 20 mg tablet 20 mg PO HS Cholesterol #90 tabs 10/04/22 03/24/23 Rx lidocaine 5 % topical patch 1 patch topical DAILYP PRN Pain, 03/25/23 03/25/23 History Mild lisinopril 20 mg tablet 20 mg PO DAILY High Blood Pressure 03/25/23 03/25/23 History metoprolol succinate 50 mg capsule 50 mg PO DAILY High Blood Pressure 03/25/23 03/25/23 History sprinkle, ext. release 24 hr tamsulosin 0.4 mg capsule (Flomax) 0.4 mg PO HS PROSTATE 03/25/23 03/25/23 History New Prescriptions to Start Prescriptions: Allergies Allergy/AdvReac Type Severity Reaction Status Date / Time No Known Allergies Allergy Verified 03/22/23 09:24 Exam Data for Last 24 hours Vital signs and Labs for Last 24 Hours: Temp Pulse Resp BP Pulse Ox O2 Del Method O2 Flow Rate 97.0 F L 59 L 20 159/59 H 93 L Nasal Cannula 2 03/24/23 20:10 03/24/23 20:10 03/24/23 20:10 03/24/23 20:10 03/24/23 18:30 03/24/23 20:10 03/24/23 20:10 Laboratory Results - last 24 hr 03/24/23 14:00: WBC 25.1 H* D, RBC 4.47 L, Hgb 11.9 L, Hct 40.2 L, MCV 90.0, MCH 26.7 L, MCHC 29.7 L, RDW 14.1, Plt Count 195, MPV 9.2, Neut % (Auto) 56.2, Lymph % (Auto) 39.4, Green % (Auto) 3.4, Eos % (Auto) 0.1, Baso % (Auto) 0.9, Neut # (Auto) 14.1 H, Lymph # (Auto) 9.9 H, Green # (Auto) 0.9, Eos # (Auto) 0.0, Baso # (Auto) 0.2, Total Counted 100, Neutrophils % (Manual) 40 L, Band Neutrophils % 1.0, Lymphocytes % (Manual) 51 H, Monocytes % (Manual) 8, Platelet Estimate Normal, Hypochromasia 2+, Sodium 134 L, Potassium 4.4 D, Chloride 104, Carbon Dioxide 16 L, Anion Gap 18.4 H, BUN 36 H, Creatinine 1.40 H, Estimated Creat Clear 37, Estimated GFR 49 L, Est GFR ( Amer) 59, Glucose 99, Calcium 8.5, Tota
--- NOTE | 2023-03-24 20:53 | PC.NURSE ---
Patient arrived to floor via stretcher at 20:25.
[2023-03-24 21:29] LABS: Troponin I 0.08 ng/ml (0.00-0.034)
--- NOTE | 2023-03-24 23:18 | PC.NURSE ---
spoke with tile professional regarding patient being tachycardic and patient refusing chest pain. stated back ok
--- NOTE | 2023-03-24 23:18 | PC.NURSE ---
Addendum entered by Jil Bah RN 03/25/23 03:14: notified welfare case worker of patients troponin .08 Original Note: notified md of patients troponin .08
[2023-03-25] VITALS (39 sets, daily range): BP systolic 58–139; BP diastolic 31–80; PULSE 80–130; RESP 18–40; TEMP 36.4–38.3; O2SAT 88–100; BMI 21.6
[2023-03-25 02:53] LABS: Microscopic, Urine URINE MICROSCOPIC (MICROSCOPIC)
[2023-03-25 02:59] LABS: Appearance,Urine SL CLOUDY (Clear); Bilirubin,Urine Negative (Negative); Blood, Urine 1+ (Negative); Color,Urine YELLOW (Yellow); Glucose,Urine (UA) Negative (Negative); Ketones,Urine Negative (Negative); Leukocyte Esterase,Urine Negative (Negative); Nitrate,Urine Negative (Negative); PH,Urine 5.5 (5.0-8.5); Protein,Urine Negative (Negative); Specific Gravity, Urine 1.015 (1.005-1.030); Urobilinogen,Urine 0.2 EU/dl (0.2)
--- NOTE | 2023-03-25 02:59 | PC.NURSE ---
pt having frequency getting up and trying to void. stated he was feeling pressure and was uncomfortable. received orders to bladder scan and straight cath. scanned 320ccs and followed with cathing getting 320cc out. pt stated he felt relief. tolerated well
--- NOTE | 2023-03-25 03:09 | PC.NURSE ---
Patient was becoming more sob, tachycardic, O2 sats were dropping down to 80's and back up to 90's. pt was on 2L NC. pt had fine crackles noted and was trying to get up out of the bed to use the bathroom. CUT OFF TENDER GLASS notified to come assess the patient. CUT OFF TENDER GLASS entered the room and stated I don't know why you called me to come up here the patient isn't going to get better that fast. Orders were put in to give IV lasix and abx, notified svp business development of low blood pressure asking if still wanted me to administer the lasix. Stated to follow through with the orders. Around 0350 tech came out and notified me that patients blood pressure was 60's/40's patient was diaphoretic, satting in the 70's-80's, patient was becoming cyanotic. patient was still alert and oriented at this time with no complaints of pain. Called sv[employer] business development and received orders for 1L bolus. Charge nurse and two other nurses came to bedside to assist with patient. Patient wasn't improving, rainbow labs were drawn, respiratory was notified and came up to bedside. Patient was transferred to step down and placed on vapotherm and then switched to cpap. Patient was still hypotensive after receiving bolus. O2 sats improved on the cpap. svp business development was notified to see if he wanted to place any new orders for patient. He stated we were treating the monitor not the patient . hedy christine was called and md came to bedside to assess patient.
--- NOTE | 2023-03-25 03:12 | PC.NURSE ---
notified dry press operator helper of bp 98/56 after receiving order for iv lasix. stated to follow through with the order
[2023-03-25 03:17] LABS: RBC,Urine Occasional #/hpf (0-3); Squamous Epithelial Cell,Urine Occasional #/hpf (0-5); WBC,Urine 20-50 #/hpf (0-3)
[2023-03-25 03:18] LABS: Bacteria,Urine Trace /lpf
[2023-03-25 05:39] LABS: ABG Base Excess -7.6 mmol/L (-2.4-2.3); ABG HCO3 16.2 mmhg (22.0-26.0); ABG Oxygen Saturation 72 % (90-100); ABG PCO2 23.2 mmhg (35.0-45.0); ABG PH 7.46 mmol/L (7.35-7.45); ABG TCO2 16.9 mmhg (23-27)
[2023-03-25 05:41] LABS: ABG PO2 38.9 mmhg (80-100)
--- NOTE | 2023-03-25 06:01 | XR_ITS ---
PROCEDURE INFORMATION: Exam: XR Chest Exam date and time: 03/25/2023 6:16 AM Age: 82 years old Clinical indication: Shortness of breath; Patient HX: Change of condition, low o2 sats TECHNIQUE: Imaging protocol: Radiologic exam of the chest. Views: 1 view. COMPARISON: CR XR CHEST PORTABLE 03/24/2023 2:57 PM FINDINGS: Tubes, catheters and devices: Cardiac rhythm maintenance device is in place. Right-sided Port-A-Cath terminates in the region of the distal SVC. Lungs: Similar patchy bibasilar airspace opacities. Pleural spaces: No substantial pleural effusion. No pneumothorax. Heart/Mediastinum: Large hiatal hernia. Bones/joints: Prior median sternotomy. Redemonstrated left rib fractures. IMPRESSION: Similar patchy bibasilar airspace opacities, which may reflect atelectasis and/or pneumonia.
[2023-03-25 06:09] LABS: Basophils # 0.1 K/mm3 (0-0.2); Basophils % 0.9 % (0.1-2.0); Eosinophils # 0.1 K/mm3 (0.0-0.4); Eosinophils % 0.6 % (0.1-12.0); Hematocrit 34.4 % (42.0-52.0); Hemoglobin 10.9 g/dL (14.1-18.0); Lymphocytes % 27.7 % (10-50); Mean Corpuscular HGB Conc 31.6 g/dL (31.8-35.4); Mean Corpuscular Hemoglobin 27.5 pg (27.0-31.2); Mean Platelet Volume 9.5 fl (7.4-10.4); Monocytes # 0.4 K/mm3 (0.1-1.0); Monocytes % 3.8 % (1.7-9.3); Neutrophils # 7.3 K/mm3 (1.8-7.8); Platelet Count 158 K/mm3 (142-424); Red Blood Count 3.96 M/mm3 (4.60-6.20); Red Cell Distribution Width 14.3 % (11.5-17.5); White Blood Count 10.9 K/mm3 (4.8-10.8)
[2023-03-25 06:13] LABS: Alanine Aminotransferase 37 U/L (12-78); Albumin Level 2.7 g/dl (3.5-5.0); Albumin/Globulin Ratio 1.1 (1.1-1.8); Alkaline Phosphatase 75 U/L (38-126); Anion Gap 16.1 mEq/L (5-15); Aspartate Amino Transferase 53 U/L (17-59); Bilirubin,Total 0.5 mg/dl (0.2-1.3); Blood Urea Nitrogen 41 mg/dl (9-20); Calcium 7.6 mg/dl (8.4-10.2); Carbon Dioxide 16 mmol/L (22.0-30.0); Chloride 103 mmol/L (98-107); Chol/HDL Ratio 5.5 (1-3.5); Cholesterol 121 mg/dl (140-200); Creatinine Clearance Estimated 29 mL/min (50-200); Estimated Glomerular Filt Rate 36 ml/min (>60); GFR (African American) 44 ML/MIN (>60); Globulin 2.5 g/dL (1.3-3.2); Glucose 80 mg/dl (74-100); HDL Cholesterol 22 mg/dl (40-60); Magnesium 1.5 mg/dl (1.6-2.3); Phosphorous 4.1 mg/dl (2.5-4.5); Potassium 4.1 mmoL/L (3.5-5.1); Sodium 131 mmol/L (136-145); Total Protein,Serum 5.2 g/dl (6.3-8.2); Triglycerides 168 mg/dl (30-150); VLDL Cholesterol 34 mg/dL (0-40)
[2023-03-25 06:14] LABS: Activated Partial Thrombo Time 36.9 seconds (22.8-30.6); INR 1.18 (0.9-1.1); Prothrombin Time 12.6 seconds (10.1-12.5)
[2023-03-25 06:24] LABS: Direct LDL Cholesterol 52.62 mg/dL (100-129)
--- NOTE | 2023-03-25 07:27 | PC.NURSE ---
Pt. was started on a CPAP of 8 with 100% 02. After 45 min his settings were changed to CPAP of 10 with 50% 02. RT will continue to wean 02.
--- NOTE | 2023-03-25 07:45 | PC.NURSE ---
inserted osullivan catheter per order, UA sent
[2023-03-25 07:51] LABS: Adenovirus,PCR Not Detected (NotDetected)
[2023-03-25 07:52] LABS: Bordetella Pertussis Not Detected (NotDetected); Chlamydophila Pneumoniae, PCR Not Detected (NotDetected); Coronavirus 229E Not Detected (NotDetected); Coronavirus NL63 Not Detected (NotDetected); Coronavirus OC43 Not Detected (NotDetected); Coronovirus HKU1,PCR Not Detected (NotDetected); Human Metapneumovirus Not Detected (NotDetected); Influenza A, PCR Not Detected (NotDetected); Influenza AH1, 2009 Not Detected (NotDetected); Influenza AH1, PCR Not Detected (NotDetected); Influenza AH3,PCR Not Detected (NotDetected); Influenza B, PCR Not Detected (NotDetected); Mycoplasma Pneumoniae, PCR Not Detected (NotDetected); Parainfluenza 1, PCR Not Detected (NotDetected); Parainfluenza 2, PCR Not Detected (NotDetected); Parainfluenza 3, PCR Not Detected (NotDetected); Parainfluenza 4, PCR Not Detected (NotDetected); Respiratory Syncytial Virus Not Detected (NotDetected); Rhinovirus/Enterovirus Not Detected (NotDetected)
--- NOTE | 2023-03-25 07:55 | PC.NURSE ---
nurse x2 at bedside, 16F osullivan cath inserted, Pt tolerate well, Pt offers no complaints.
--- NOTE | 2023-03-25 08:14 | PC.NURSE ---
Addendum entered by Niru Johnson RN 03/25/23 08:17: bolus running at 250mL/hr per MD Sanabria at bedside Original Note: notifed MD Sanabria of pt's hypotension, instructed to give 1L LR bolus, bolus started
--- NOTE | 2023-03-25 08:45 | EXP.PHA.CONS ---
Pharmacy Consult Date: 03/25/23 Time: 08:45 Referring provider: DR BAER Reason for Consult:: VANCOMYCIN DOSING CONSULT Allergies Allergy/AdvReac Type Severity Reaction Status Date / Time No Known Allergies Allergy Verified 03/22/23 09:24 Home Medications Medication Instructions Recorded Confirmed Type lisinopril 20 mg tablet 20 mg PO DAILY bp #90 tabs 05/10/22 03/24/23 Rx acetaminophen 300 mg-codeine 30 mg 1 tab PO Q12H PRN pain #60 tabs 10/04/22 03/24/23 Rx tablet escitalopram oxalate 5 mg tablet 5 mg PO DAILY Depression #90 tabs 10/04/22 03/24/23 Rx metoprolol succinate 25 mg 25 mg PO DAILY Hypertension #90 10/04/22 03/24/23 Rx tablet,extended release 24 hr tabs potassium chloride 20 mEq 20 meq PO DAILY Supplement #90 tabs 10/04/22 03/24/23 Rx tablet,extended release(part/cryst) rosuvastatin 20 mg tablet 20 mg PO HS Cholesterol #90 tabs 10/04/22 03/24/23 Rx tamsulosin 0.4 mg capsule (Flomax) 0.4 mg PO DAILY prostate #30 caps 10/04/22 03/24/23 Rx lidocaine 5 % topical patch 1 patch topical DAILY PRN pain #5 03/16/23 03/24/23 Rx ea New Prescriptions to Start Prescriptions: Height: 1.73 m Weight: 64.609 kg Laboratory Results:: Laboratory Results - last 24 hr 03/24/23 14:00: WBC 25.1 H* D, RBC 4.47 L, Hgb 11.9 L, Hct 40.2 L, MCV 90.0, MCH 26.7 L, MCHC 29.7 L, RDW 14.1, Plt Count 195, MPV 9.2, Neut % (Auto) 56.2, Lymph % (Auto) 39.4, Morrison % (Auto) 3.4, Eos % (Auto) 0.1, Baso % (Auto) 0.9, Neut # (Auto) 14.1 H, Lymph # (Auto) 9.9 H, Morrison # (Auto) 0.9, Eos # (Auto) 0.0, Baso # (Auto) 0.2, Total Counted 100, Neutrophils % (Manual) 40 L, Band Neutrophils % 1.0, Lymphocytes % (Manual) 51 H, Monocytes % (Manual) 8, Platelet Estimate Normal, Hypochromasia 2+, Sodium 134 L, Potassium 4.4 D, Chloride 104, Carbon Dioxide 16 L, Anion Gap 18.4 H, BUN 36 H, Creatinine 1.40 H, Estimated Creat Clear 37, Estimated GFR 49 L, Est GFR ( Amer) 59, Glucose 99, Calcium 8.5, Total Bilirubin 0.6, AST 44, ALT 37 D, Alkaline Phosphatase 89, Troponin I 0.05 H, NT-Pro-B Natriuret Pep 97145 H, Total Protein 5.8 L, Albumin 3.4 L, Globulin 2.4, Albumin/Globulin Ratio 1.4 03/24/23 18:00: PT 11.2, INR 1.04, APTT 29.1, Troponin I 0.05 H 03/24/23 20:55: Troponin I 0.08 H 03/25/23 02:30: Urine Color Yellow, Urine Appearance Sl cloudy, Urine pH 5.5, Ur Specific Wink 1.015, Urine Protein Negative, Urine Glucose (UA) Negative, Urine Ketones Negative, Urine Blood 1+, Urine Nitrate Negative, Urine Bilirubin Negative, Urine Urobilinogen 0.2, Ur Leukocyte Esterase Negative, Urine RBC Occasional, Urine WBC 20-50, Ur Squamous Epith Cells Occasional, Urine Bacteria Trace 03/25/23 05:22: ABG pH 7.46 H, ABG pCO2 23.2 L, ABG pO2 38.9 L, ABG HCO3 16.2 L, ABG Total CO2 16.9 L, ABG O2 Saturation 72 L*, ABG Base Excess -7.6 L 03/25/23 05:50: WBC 10.9 H D, RBC 3.96 L, Hgb 10.9 L, Hct 34.4 L, MCV 87.0, MCH 27.5, MCHC 31.6 L, RDW 14.3, Plt Count 158, MPV 9.5, Neut % (Auto) 67.0, Lymph % (Auto) 27.7, Morrison % (Auto) 3.8, Eos % (Auto) 0.6, Baso % (Auto) 0.9, Neut # (Auto) 7.3, Lymph # (Auto) 3.0, Morrison # (Auto) 0.4, Eos # (Auto) 0.1, Baso # (Auto) 0.1, PT 12.6 H, INR 1.18 H, APTT 36.9 H, Sodium 131 L, Potassium 4.1, Chloride 103, Carbon Dioxide 16 L, Anion Gap 16.1 H, BUN 41 H, Creatinine 1.80 H D, Estimated Creat Clear 29, Estimated GFR 36 L, Est GFR ( Amer) 44 L D, Glucose 80, Lactate 4.0 H, Calcium 7.6 L, Phosphorus 4.1, Magnesium 1.5 L, Total Bilirubin 0.5, AST 53, ALT 37, Alkaline Phosphatase 75, Total Protein 5.2 L, Albumin 2.7 L D, Globulin 2.5, Albumin/Globulin Ratio 1.1, Triglycerides 168 H, Cholesterol 121 L, LDL Cholesterol Direct 52.62 L, VLDL Cholesterol 34, HDL Cholesterol 22 L, Cholesterol/HDL Ratio 5.5 H Medical History: Medical History (Updated 03/25/23 @ 03:33 by Devin Don APRN) Abnormal echocardiogram Abnormal stress test Cardiac murmur Chronic back pain Chronic back pain greater than 3 months duration Chronic knee pain Dizziness Fatigue
--- NOTE | 2023-03-25 09:01 | EXP.SEPSISRE ---
[facility] Tissue Perfusion Eval Sepsis Re-Evaluation Performed: Yes Date Performed: 03/25/23 Time Performed: 07:45
[2023-03-25 09:38] LABS: Coronavirus 19, PCR Detected (NotDetected)
[2023-03-25 10:01] LABS: Reflex Lactic Add Lactic Reflex
--- NOTE | 2023-03-25 11:41 | PC.NURSE ---
MD Sanabria instructed this RN to start another LR bolus at 500mL/hr, second bolus started
--- NOTE | 2023-03-25 11:55 | EXP.ACUTE.PN ---
Subjective *Date: 03/25/23 *Time: 16:35 Interval history: Patient interactive on morning exam but in distress and confused. Answers yes and no questions but is disoriented to place and time. Blood pressure soft on exam with MAP 55-60. Tolerated CPAP briefly overnight with improvement in oxygenation. Weaned to nasal cannula during morning rounds. Patient denies any chest pain. Repeat rounds later in the morning with family at bedside. Daughter states he appears more ill today than yesterday. Code discussion, patient made DNR. Informed her that his respiratory panel has returned since morning rounds, positive for COVID. Patient's condition appears consistent with septic shock secondary to COVID-pneumonia. Medical Exam Vital signs and Labs for Last 24 Hours: Vital Signs Temp Pulse Pulse Resp BP BP Pulse Ox 03/25/23 10:46 03/25/23 09:50 95 H 95/38 L 100 03/25/23 09:20 117 H 93/58 L 100 03/25/23 09:10 113 H 113/61 100 03/25/23 09:00 110 H 112/45 L 100 03/25/23 08:50 113 H 100/52 L 100 03/25/23 08:45 112 H 104/52 L 100 03/25/23 10:00 94 H 31 H 92/45 L 100 03/25/23 09:00 03/25/23 09:40 105 H 132/80 100 03/25/23 08:40 92 H 74/50 L 100 03/25/23 08:37 110 H 35 H 58/31 L 100 03/25/23 08:15 121 H 33 H 73/40 L 100 03/25/23 08:10 125 H 34 H 87/47 L 100 03/25/23 08:06 125 H 34 H 63/42 L 100 03/25/23 08:05 127 H 35 H 68/49 L 100 03/25/23 08:24 114 H 33 H 70/39 L 100 03/25/23 08:00 100.9 F H 126 H 33 H 63/45 L 100 03/25/23 05:40 03/25/23 03:00 03/25/23 04:00 120 H 03/25/23 00:00 110 H 03/24/23 21:15 120 H 03/25/23 04:00 97.6 F 127 H 24 65/46 L 93 L 03/25/23 00:00 97.9 F 108 H 18 98/58 L 93 L 03/24/23 21:00 98.0 F 106 H 18 108/86 L 96 03/24/23 21:00 03/24/23 20:00 03/24/23 23:00 03/24/23 20:10 97.0 F L 59 L 20 159/59 H 03/24/23 18:30 116 H 20 128/71 93 L 03/24/23 17:01 107 H 28 H 143/80 H 94 L 03/24/23 16:30 105 H 28 H 116/66 94 L 03/24/23 16:00 101 H 28 H 124/69 92 L 03/24/23 15:30 95 H 49 H 124/66 92 L 03/24/23 15:00 92 H 49 H 114/58 L 90 L 03/24/23 13:20 98.2 F 93 H 27 H 106/51 L 99 O2 Del Method O2 Flow Rate FiO2 03/25/23 10:46 Nasal Cannula 03/25/23 09:50 03/25/23 09:20 03/25/23 09:10 03/25/23 09:00 03/25/23 08:50 03/25/23 08:45 03/25/23 10:00 Nasal Cannula 4 03/25/23 09:00 BiPAP 03/25/23 09:40 03/25/23 08:40 03/25/23 08:37 BiPAP 03/25/23 08:15 BiPAP 03/25/23 08:10 BiPAP 03/25/23 08:06 BiPAP 03/25/23 08:05 BiPAP 03/25/23 08:24 BiPAP 03/25/23 08:00 BiPAP 03/25/23 05:40 Vapotherm 40 100 03/25/23 03:00 Nasal Cannula 3 03/25/23 04:00 03/25/23 00:00 03/24/23 21:15 03/25/23 04:00 Nasal Cannula 3 03/25/23 00:00 Nasal Cannula 2 03/24/23 21:00 Nasal Cannula 2 03/24/23 21:00 Nasal Cannula 2 03/24/23 20:00 Nasal Cannula 2 03/24/23 23:00 Nasal Cannula 2 03/24/23 20:10 Nasal Cannula 2 03/24/23 18:30 Nasal Cannula 2 03/24/23 17:01 03/24/23 16:30 03/24/23 16:00 03/24/23 15:30 03/24/23 15:00 03/24/23 13:20 Room Air Intake and Output 03/24/23 03/25/23 03/25/23 23:59 07:59 15:59 Intake Total 400 / 400 0 / 400 Output Total 0 / 0 450 / 450 0 / 450 Balance 0 / 400 -50 / -50 0 / -50 Intake: Intake, Oral Amount 100 / 100 0 / 100 Intake, Total IV Amount 300 / 300 0.9 % Sodium Chloride 1000ML 1, 300 / 300 000 ml @ 50 mls/hr IV .Q20H [facility] Rx#:[id number] Output: Output, Urine Amount 0 / 0 450 / 450 0 / 450 Other: Number of Unmeasured Voids 2 1 0 Number of Bowel Movements 1 1 Weight 63.506 kg 64.609 kg 64.609 kg Patient Weight 03/25/23 23:59 Weight 64.609 kg Laborat
[2023-03-25 12:54] LABS: Lactic Acid Follow Up (RFLX 1) 4.1 mmol/L (0.7-2.1)
--- NOTE | 2023-03-25 13:00 | PC.NURSE ---
notified MD Sanabria of pt's lactate of 4.1, no new orders at this time
--- NOTE | 2023-03-25 14:00 | PC.NURSE ---
notified MD Sanabria of pt's positive cultures, no new orders at this time, MD and Rx to re-start vanc
[2023-03-25 14:40] LABS: Reflex Lactic (2 hrs) Add Lactic Reflex
[2023-03-25 15:33] LABS: Lactic Acid Follow up (RFLX 2) 3.6 mmol/L (0.7-2.1)
[2023-03-25 17:23] LABS: Chloride 109 mmol/L (98-107); Sodium 135 mmol/L (136-145)
[2023-03-25 17:24] LABS: Potassium 3.6 mmoL/L (3.5-5.1)
[2023-03-25 17:27] LABS: Anion Gap 13.6 mEq/L (5-15); Blood Urea Nitrogen 39 mg/dl (9-20); Calcium 6.2 mg/dl (8.4-10.2); Carbon Dioxide 16 mmol/L (22.0-30.0); Creatinine Clearance Estimated 31 mL/min (50-200); Estimated Glomerular Filt Rate 39 ml/min (>60); GFR (African American) 47 ML/MIN (>60); Glucose 86 mg/dl (74-100)
--- NOTE | 2023-03-25 18:30 | PC.NURSE ---
levophed has been titrated off this shift, the highest rate was 12mcg/min and most of the day the rate was 6-8mcg/min
--- NOTE | 2023-03-25 20:30 | PC.NURSE ---
o2 sats maintaining at 88-89@, patient SOB with increased work of breathing, patient was attempting to get out of bed need to pee education provided on Anderson placement, family at bedside. Oxygen increased to 3LNC tolerating well. Oxygen maintaining > 90%
--- NOTE | 2023-03-25 22:00 | PC.NURSE ---
Patient started coughing and gurgling with medications. Coughed with each drink of water. Per daughter patient has been doing this the whole day whenever he would drink or eat. Patients HOB elevated to 30 degrees for high risk of aspiration
--- NOTE | 2023-03-25 22:55 | PC.NURSE ---
Blood culture results from [facility] in lab-- Aerobic Culture is Gram + Cocci in clusters
[2023-03-26] VITALS (63 sets, daily range): BP systolic 66–138; BP diastolic 31–99; PULSE 76–130; RESP 20–58; TEMP 36.3–37.5; O2SAT 90–100; BMI 21.4
--- NOTE | 2023-03-26 | PC.NURSE ---
Patient decompensated. Respirations 40-50 BPM, oxygen saturations dropped to 80% on 3lnc, patient very restless and anxious, attempting to pull at cath and IV lines. FAZAL Ness called, new orders received for 0.5mg Ativan IVP Q6hr PRN for agitation
--- NOTE | 2023-03-26 00:05 | PC.NURSE ---
Patient recieved ativan as ordered. No change in status. Bipap has been placed on patient 95% oxygen, respirations remain at 40BPM, Crackles heard throughout lung field that was not present on baseline at beginning of shift.
--- NOTE | 2023-03-26 02:05 | PC.NURSE ---
Addendum entered by Magda Wagner RN 03/26/23 02:07: MORPINE 2mg given at 1255. Currently, patient is resting with bipap on, is not as anxious as earlier in shift. Oxygen sats 92%, respirations 40 Original Note: Patient is resting with bipap on still breathing 40-50BPM, retractions are noted. Blood pressure dropped, oxygen is 93% Family at bedside 2mg Morphine IVP given per order.
--- NOTE | 2023-03-26 02:51 | PC.NURSE ---
Patients respirations are 43BPM, shaking and retractions are still present Morphine 2mg given see mar. Levophed resumed as blood pressure is 68/44 (52)
--- NOTE | 2023-03-26 03:20 | PC.NURSE ---
Levophed was stopped, responded well.
--- NOTE | 2023-03-26 03:44 | PC.NURSE ---
0248: levophed started back at 8mcg/min 0251: levophed titrated to 7mcg/min 0254: Levophed titrated to 6mcg/min 0257: Levophed titrated to 5mcg/min 0300: Levophed titrated to 4mcg/min 0303:Levophed titrated to 3mcg/min
--- NOTE | 2023-03-26 03:45 | PC.NURSE ---
0345: Levophed titrated to 4mcg
--- NOTE | 2023-03-26 04:15 | PC.NURSE ---
Angela eNss came to bedside new orders recieved to give 1LNS bolus, obtain ABG at 0700, Increase ativan frequency (see mar).
[2023-03-26 05:26] LABS: Basophils # 0.1 K/mm3 (0-0.2); Basophils % 0.7 % (0.1-2.0); Eosinophils # 0.1 K/mm3 (0.0-0.4); Eosinophils % 0.4 % (0.1-12.0); Hematocrit 36.4 % (42.0-52.0); Hemoglobin 11.1 g/dL (14.1-18.0); Lymphocytes # 3.9 K/mm3 (0.7-4.5); Lymphocytes % 25.5 % (10-50); Mean Corpuscular HGB Conc 30.6 g/dL (31.8-35.4); Mean Corpuscular Hemoglobin 26.6 pg (27.0-31.2); Mean Corpuscular Volume 86.9 fl (80-94); Mean Platelet Volume 8.6 fl (7.4-10.4); Monocytes # 0.3 K/mm3 (0.1-1.0); Monocytes % 1.7 % (1.7-9.3); Neutrophils # 10.8 K/mm3 (1.8-7.8); Neutrophils % 71.7 % (37.0-80.0); Platelet Count 130 K/mm3 (142-424); Red Blood Count 4.18 M/mm3 (4.60-6.20); Red Cell Distribution Width 14.3 % (11.5-17.5); White Blood Count 15.1 K/mm3 (4.8-10.8)
[2023-03-26 05:32] LABS: Chloride 107 mmol/L (98-107); Sodium 134 mmol/L (136-145)
[2023-03-26 05:33] LABS: Potassium 4.5 mmoL/L (3.5-5.1)
[2023-03-26 05:35] LABS: Alanine Aminotransferase 60 U/L (12-78); Albumin Level 2.4 g/dl (3.5-5.0); Alkaline Phosphatase 83 U/L (38-126); Anion Gap 12.5 mEq/L (5-15); Aspartate Amino Transferase 121 U/L (17-59); Bilirubin,Total 0.6 mg/dl (0.2-1.3); Blood Urea Nitrogen 51 mg/dl (9-20); Carbon Dioxide 19 mmol/L (22.0-30.0); Creatinine Clearance Estimated 23 mL/min (50-200); Estimated Glomerular Filt Rate 29 ml/min (>60); GFR (African American) 35 ML/MIN (>60)
[2023-03-26 05:36] LABS: Calcium 6.6 mg/dl (8.4-10.2); Globulin 2.3 g/dL (1.3-3.2); Glucose 104 mg/dl (74-100); Magnesium 2.6 mg/dl (1.6-2.3); Total Protein,Serum 4.7 g/dl (6.3-8.2)
[2023-03-26 05:40] LABS: MANUAL DIFFERENTIAL MANUAL DIFFERENTIAL (MANUAL DIFF)
--- NOTE | 2023-03-26 05:40 | PC.NURSE ---
0400: Levophed titrated to 5mcg/min 0405:Levophed titrated to 6mcg/min 0415:Levophed titrated to 7mcg/min
--- NOTE | 2023-03-26 05:41 | PC.NURSE ---
At this time patient is still tachypneic, tachycardia, hypotensive, and remains on bipap at 95% oxygen. Patient continues to have decreased urinary output, urine is bronwyn and cloudy. Morning labs have been obtained and resulted (see reports). Patient received 500ml NS bolus, IM magnesium this shift. Levophed remains on. Family is at bedside, extensive education and status updates have been provided throughout shift.
--- NOTE | 2023-03-26 06:15 | PC.NURSE ---
0600: Levophed titrated to 7mcg/min 0605:levophed titrated to 8mcg/min
[2023-03-26 06:16] LABS: Lymphocytes % 33 % (10-50); Monocytes % 1 % (2-9); Neutrophils % 66 % (42-76); Platelet Estimate Slight Decrease; Total Cells Counted 100
[2023-03-26 06:17] LABS: Poikilocytosis 1+
--- NOTE | 2023-03-26 06:36 | PC.NURSE ---
0630: Levophed titrated to 9mcg/min
[2023-03-26 06:41] LABS: ABG Base Excess -10.1 mmol/L (-2.4-2.3); ABG HCO3 14.8 mmhg (22.0-26.0); ABG Oxygen Saturation 97 % (90-100); ABG PCO2 24.6 mmhg (35.0-45.0); ABG PO2 90.7 mmhg (80-100); ABG TCO2 15.5 mmhg (23-27)
[2023-03-26 06:44] LABS: Allen's Test Acceptable; Oxygen 95% %; Pressure Support 5; Source Right Radial; Vent Rate 20
--- NOTE | 2023-03-26 07:22 | XR_ITS ---
FINAL REPORT TECHNIQUE: Single view chest CLINICAL HISTORY: increades dyspnea COMPARISON: 03/21/2023 FINDINGS: A single view of the chest was obtained. There is prior median sternotomy. There is been no change in right port or left pacemaker. The heart size is stable. Retrocardiac opacity containing air is favored represent a hiatal hernia. There has been interval development of bilateral mixed interstitial and alveolar opacities which are slightly asymmetric to the right. Findings may represent pulmonary edema or pneumonia. There is no pneumothorax. Osseous structures are unremarkable. IMPRESSION: Interval development of mixed interstitial and alveolar opacities which may represent pulmonary edema or pneumonia. Reviewed, Interpreted and Dictated by Marry Silva MD Transcribed by Quiana Enriquez Authenticated and [facility]
--- NOTE | 2023-03-26 09:07 | EXP.ACUTE.PN ---
Subjective *Date: 03/26/23 *Time: 11:49 Interval history: Patient more distressed this morning. Respiratory rate 30-40. Home BiPAP overnight. Blood pressures continue to drop with need for additional IV bolus overnight x1 L and increase in norepinephrine. Patient obtunded on morning exam. Family at bedside, discussed care plan. Medical Exam Vital signs and Labs for Last 24 Hours: Vital Signs Temp Pulse Pulse Resp BP Pulse Ox O2 Del Method 03/26/23 09:00 111 H 30 H 75/47 L 95 Vapotherm 03/26/23 08:45 105 H 136/94 H 100 BiPAP 03/26/23 08:30 118 H 32 H 78/48 L 100 BiPAP 03/26/23 08:00 99.4 F 109 H 28 H 83/31 L 100 BiPAP 03/26/23 07:30 112 H 75/41 L 98 BiPAP 03/26/23 08:55 94 L Vapotherm 03/26/23 08:00 110 H 03/26/23 07:26 115 H 100 BiPAP 03/26/23 07:00 99.1 F 118 H 40 H 109/55 L 03/26/23 06:56 100 BiPAP 03/26/23 06:52 BiPAP 03/26/23 06:44 116 H 42 H 81/45 L 100 BiPAP 03/26/23 06:35 03/26/23 06:40 116 H 03/26/23 06:40 113 H 03/26/23 06:05 115 H 32 H 77/45 L 100 BiPAP 03/26/23 06:00 114 H 30 H 66/46 L 100 BiPAP 03/26/23 04:48 110 H 03/26/23 04:15 115 H 34 H 82/45 L 100 BiPAP 03/26/23 04:10 112 H 38 H 80/50 L 100 BiPAP 03/26/23 04:03 120 H 35 H 88/51 L 100 BiPAP 03/26/23 05:00 BiPAP 03/26/23 05:00 99.0 F 112 H 38 H 112/47 L 100 BiPAP 03/26/23 04:00 108 H 38 H 100/48 L 100 BiPAP 03/26/23 04:00 120 H 95 BiPAP 03/26/23 03:15 120 H 42 H 133/99 H 100 BiPAP 03/26/23 03:00 BiPAP 03/26/23 02:30 115 H 43 H 68/44 L 100 BiPAP 03/26/23 03:00 118 H 43 H 78/51 L 100 BiPAP 03/26/23 02:00 99.5 F 100 H 42 H 81/46 L 100 BiPAP 03/26/23 00:00 90 03/26/23 01:00 BiPAP 03/26/23 01:00 83 40 H 72/31 L BiPAP 03/26/23 00:00 99.5 F 76 40 H 138/66 90 L Nasal Cannula 03/26/23 00:00 90 L Nasal Cannula 03/26/23 01:17 101 H 03/26/23 01:17 102 H 03/25/23 23:00 99.5 F 83 40 H 109/44 L 89 L Nasal Cannula 03/25/23 23:00 Nasal Cannula 03/25/23 20:35 93 L Nasal Cannula 03/25/23 20:30 88 L Nasal Cannula 03/25/23 22:00 88 30 H 124/42 L 92 L Nasal Cannula 03/25/23 20:00 80 03/25/23 21:00 83 34 H 98/60 L 95 03/25/23 21:00 Nasal Cannula 03/25/23 20:00 97.9 F 82 18 98/60 L 95 Nasal Cannula 03/25/23 20:00 30 H 95 Nasal Cannula 03/25/23 19:00 118 H 24 106/57 L 99 Nasal Cannula 03/25/23 19:17 Nasal Cannula 03/25/23 19:16 83 03/25/23 19:16 107 H 03/25/23 18:26 Nasal Cannula 03/25/23 18:00 82 35 H 115/65 95 Nasal Cannula 03/25/23 17:00 Nasal Cannula 03/25/23 17:00 113 H 34 H 113/57 L 99 Nasal Cannula 03/25/23 16:00 119 H 30 H 131/64 96 Nasal Cannula 03/25/23 16:00 110 H 03/25/23 15:28 100.3 F H 03/25/23 12:00 100 H 03/25/23 15:00 104 H 30 H 119/57 L 97 Nasal Cannula 03/25/23 14:55 Nasal Cannula 03/25/23 14:00 113 H 33 H 110/61 99 Nasal Cannula 03/25/23 12:00 115 H 03/25/23 12:00 87 03/25/23 12:00 100 Nasal Cannula 03/25/23 11:47 116 H 139/57 L 100 03/25/23 11:41 119 H 64/34 L 100 03/25/23 13:00 107 H 31 H 106/59 L 99 Nasal Cannula 03/25/23 12:00 96 H 34 H 114/55 L 100 Nasal Cannula 03/25/23 11:30 115 H 30 H 100/40 L 100 Nasal Cannula 03/25/23 11:15 120 H 33 H 106/58 L 100 Nasal Cannula 03/25/23 11:00 115 H 31 H 86/37 L 99 Nasal Cannula 03/25/23 13:00 Nasal Cannula 03/25/23 10:46 Nasal Cannula 03/25/23 09:50 95 H 95/38 L 100 03/25/23 09:20 117 H 93/58 L 100 03/25/23 09:10 113 H 113/61 100 03/25/23 10:00 94 H 31 H 92/45 L 100 Nasal Cannula 03/25/23 09:40 105 H 132/80 100 O2 Flow Rate FiO2 03/26/23 09:00 09
--- NOTE | 2023-03-26 09:57 | EXP.PULM.CON ---
History of Present Illness History of present illness: Mr. Davies is a 82-year-old, with reported medical history of CHFpEF, aortic stenosis CKD, CAD status post CABG, hypertension, CLL currently following with oncology clinic receiving Rituxan presented to the hospital complaining of chest pain and difficulty breathing [facility] Disclaimer: The information contained in this section may have been updated after the patient was seen, as this information can be updated by other users. Medical History (Updated 03/26/23 @ 10:01 by Heaven Rebolledo MD) Abnormal echocardiogram Abnormal stress test ARDS (adult respiratory distress syndrome) Cardiac murmur Chronic back pain Chronic back pain greater than 3 months duration Chronic knee pain Dizziness Fatigue Intermittent left-sided chest pain Refill clinic medication management patient SOB (shortness of breath) Surgical History History of hemiarthroplasty of right hip Family History Other No significant family history Social History (Updated 03/24/23 @ 21:02 by Renee Posada RN) Smoking Status: Former smoker pack-years: 30 second hand exposure: No alcohol intake: former substance use type: denies use current occupational status: retired Travel in the last 8 weeks: None household members: family housing: house current occupation: retired current occupational exposures/hazards: No caffeine: No Review of Systems Review of Systems Review of systems:: unable to obtain Review of systems (narrative): Patient lethargic altered not responding to verbal commands. Pulmonology Exam Inpatient Vital signs and Labs for Last 24 Hours: Temp Pulse Resp BP Pulse Ox O2 Del Method O2 Flow Rate 99.4 F 111 H 30 H 75/47 L 95 Vapotherm 40 03/26/23 08:00 03/26/23 09:00 03/26/23 09:00 03/26/23 09:00 03/26/23 09:00 03/26/23 09:00 03/26/23 08:55 FiO2 100 03/26/23 08:55 Laboratory Results - last 24 hr 03/25/23 12:30: Lactate 4.1 H 03/25/23 15:13: Lactate 3.6 H 03/25/23 17:15: Sodium 135 L, Potassium 3.6, Chloride 109 H, Carbon Dioxide 16 L, Anion Gap 13.6, BUN 39 H, Creatinine 1.70 H, Estimated Creat Clear 31, Estimated GFR 39 L, Est GFR ( Amer) 47 L, Glucose 86, Calcium 6.2 L 03/26/23 04:06: Specimen Source Right radial, O2 % 95%, ABG pH 7.40, ABG pCO2 24.6 L, ABG pO2 90.7, ABG HCO3 14.8 L, ABG Total CO2 15.5 L, ABG O2 Saturation 97, ABG Base Excess -10.1 L, Dima Test Acceptable, Vent Rate 20, PEEP Bipap 04/0503/26/23 05:17: WBC 15.1 H D, RBC 4.18 L, Hgb 11.1 L, Hct 36.4 L, MCV 86.9, MCH 26.6 L, MCHC 30.6 L, RDW 14.3, Plt Count 130 L, MPV 8.6, Neut % (Auto) 71.7, Lymph % (Auto) 25.5, [place] % (Auto) 1.7, Eos % (Auto) 0.4, Baso % (Auto) 0.7, Neut # (Auto) 10.8 H, Lymph # (Auto) 3.9, [place] # (Auto) 0.3, Eos # (Auto) 0.1, Baso # (Auto) 0.1, Total Counted 100, Neutrophils % (Manual) 66, Lymphocytes % (Manual) 33, Monocytes % (Manual) 1 L, Platelet Estimate Slight decrease, Poikilocytosis 1+, Sodium 134 L, Potassium 4.5 D, Chloride 107, Carbon Dioxide 19 L, Anion Gap 12.5, BUN 51 H D, Creatinine 2.20 H D, Estimated Creat Clear 23, Estimated GFR 29 L, Est GFR ( Amer) 35 L D, Glucose 104 H D, Calcium 6.6 L, Magnesium 2.6 H D, Total Bilirubin 0.6, AST 121 H D, ALT 60 D, Alkaline Phosphatase 83, Total Protein 4.7 L, Albumin 2.4 L D, Globulin 2.3, Albumin/Globulin Ratio 1.0 L I & O for Labs for Last 24 Hours: Intake & Output 03/23/23 03/24/23 03/25/23 03/26/23 23:59 23:59 23:59 23:59 Intake Total 4371 / 4421 1186.305 / 1186.305 Output Total 0 / 0 1250 / 1275 225 / 225 Balance 0 / 400 3121 / 3146 961.305 / 961.305 Weight 140 lb 0.108 oz 142 lb 7 oz 141 lb 4.708 oz Microbiology Reports for the Last 24 Hours: Microbiology 03/25/23 02:30 Urine,Catheterized Urine Culture - Preliminary NO GROWTH AFTER 24
[2023-03-26 12:15] LABS: ABG HCO3 15.1 mmhg (22.0-26.0); ABG Oxygen Saturation 87 % (90-100); ABG PCO2 26.1 mmhg (35.0-45.0); ABG PH 7.38 mmol/L (7.35-7.45); ABG PO2 55.4 mmhg (80-100); ABG TCO2 15.9 mmhg (23-27)
[2023-03-26 12:17] LABS: Oxygen 40L/100% %; Source Right Brachial
--- NOTE | 2023-03-26 17:56 | PC.NURSE ---
0730 norepinephrine increased to 10 mcg/min 0800 norepi increased to 12 mcg/min 0815 norepi increased to 14 mcg/min 0830 norepi increased to 16 mcg/min 0845 norepi increased to 18 mcg/min 0900 norepi increased to 20 mcg/min 1000 norepi increased to 22 mcg/min 1130 norepi decreased to 20 mcg/min 1145 norepi decreased to 18 mcg/min 1215 norepi decreased to 16 mcg/min 1300 norepi decreased to 14 mcg/min 1330 norepi decreased to 12 mcg/min 1400 norepi decreased to 10 mcg/min 1500 norepi decreased to 8 mcg/min 1530 norepi decreased to 6 mcg/min 1600 norepi decreased to 4 mcg/min 1630 norepi decreased to 2 mcg/min 1700 norepi turned off at this time
--- NOTE | 2023-03-26 18:25 | PC.NURSE ---
pt has edema in bilateral arms, arms propped up, ring removed from right index finger and given to daughter
[2023-03-26 20:26] LABS: Chloride 110 mmol/L (98-107); Potassium 4.5 mmoL/L (3.5-5.1); Sodium 137 mmol/L (136-145)
[2023-03-26 20:29] LABS: Anion Gap 18.5 mEq/L (5-15); Blood Urea Nitrogen 56 mg/dl (9-20); Calcium 6.4 mg/dl (8.4-10.2); Carbon Dioxide 13 mmol/L (22.0-30.0); Creatinine Clearance Estimated 22 mL/min (50-200); Estimated Glomerular Filt Rate 26 ml/min (>60); GFR (African American) 32 ML/MIN (>60); Glucose 142 mg/dl (74-100)
--- NOTE | 2023-03-26 23:00 | PC.NURSE ---
Addendum entered by Mary Dan RN 03/27/23 03:51: levophed titrated to 4mcg bp 91/44 (59) Original Note: levophed titrated to 3mcg bp 93/43(59)
[2023-03-27] VITALS (42 sets, daily range): BP systolic 89–136; BP diastolic 35–94; PULSE 81–130; RESP 20–28; TEMP 36.3–37.7; O2SAT 88–100; BMI 24.3
--- NOTE | 2023-03-27 06:15 | PC.NURSE ---
Patient slept this shift. Pain treated per AUG. Levophed drip at 4mcg/min vasopressin at 0.04unit. Remains on vapotherm. Anderson draining at bedside with adequate amount of urine. Family updated on POC.
--- NOTE | 2023-03-27 06:39 | PC.NURSE ---
levophed titrated to 5mcg at this time (41)
[2023-03-27 07:08] LABS: Basophils # 0.1 K/mm3 (0-0.2); Basophils % 0.3 % (0.1-2.0); Eosinophils % 0.1 % (0.1-12.0); Hematocrit 30.4 % (42.0-52.0); Hemoglobin 9.6 g/dL (14.1-18.0); Lymphocytes # 5.2 K/mm3 (0.7-4.5); Lymphocytes % 25.8 % (10-50); Mean Corpuscular HGB Conc 31.6 g/dL (31.8-35.4); Mean Corpuscular Hemoglobin 27.4 pg (27.0-31.2); Mean Corpuscular Volume 86.6 fl (80-94); Mean Platelet Volume 10.3 fl (7.4-10.4); Monocytes # 0.5 K/mm3 (0.1-1.0); Monocytes % 2.7 % (1.7-9.3); Neutrophils # 14.2 K/mm3 (1.8-7.8); Neutrophils % 71.1 % (37.0-80.0); Platelet Count 134 K/mm3 (142-424); Red Blood Count 3.51 M/mm3 (4.60-6.20); Red Cell Distribution Width 14.5 % (11.5-17.5)
[2023-03-27 07:17] LABS: MANUAL DIFFERENTIAL MANUAL DIFFERENTIAL (MANUAL DIFF)
--- NOTE | 2023-03-27 07:18 | PC.NURSE ---
Levophed titrated to 6mcg bp 99/38 (58)
[2023-03-27 07:21] LABS: Alanine Aminotransferase 46 U/L (12-78); Albumin Level 2.2 g/dl (3.5-5.0); Albumin/Globulin Ratio 0.9 (1.1-1.8); Alkaline Phosphatase 95 U/L (38-126); Anion Gap 18.6 mEq/L (5-15); Aspartate Amino Transferase 104 U/L (17-59); Bilirubin,Total 0.6 mg/dl (0.2-1.3); Blood Urea Nitrogen 61 mg/dl (9-20); Calcium 6.6 mg/dl (8.4-10.2); Carbon Dioxide 13 mmol/L (22.0-30.0); Chloride 111 mmol/L (98-107); Creatinine Clearance Estimated 27 mL/min (50-200); Estimated Glomerular Filt Rate 29 ml/min (>60); GFR (African American) 35 ML/MIN (>60); Globulin 2.4 g/dL (1.3-3.2); Glucose 129 mg/dl (74-100); Potassium 4.6 mmoL/L (3.5-5.1); Sodium 138 mmol/L (136-145); Total Protein,Serum 4.6 g/dl (6.3-8.2)
[2023-03-27 08:10] LABS: Lymphocytes % 37 % (10-50); Monocytes % 3 % (2-9); Neutrophils % 60 % (42-76); Total Cells Counted 100
[2023-03-27 08:11] LABS: Platelet Estimate Slight Decrease; RBC Morphology Normal
--- NOTE | 2023-03-27 09:18 | EXP.PULM.PN ---
Subjective *Date: 03/27/23 *Time: 10:18 Interval history: No acute respiratory vents overnight. Pulmonology Exam Inpatient Vital signs and Labs for Last 24 Hours: Temp Pulse Resp BP Pulse Ox O2 Del Method O2 Flow Rate 97.3 F L 105 H 28 H 105/53 L 98 Vapotherm 40 03/27/23 08:12 03/27/23 07:00 03/27/23 07:00 03/27/23 07:00 03/27/23 07:00 03/27/23 07:00 03/27/23 06:00 FiO2 80 03/27/23 06:00 Laboratory Results - last 24 hr 03/26/23 11:42: Specimen Source Right brachial, O2 % 40l/100%, ABG pH 7.38, ABG pCO2 26.1 L, ABG pO2 55.4 L, ABG HCO3 15.1 L, ABG Total CO2 15.9 L, ABG O2 Saturation 87 L*, ABG Base Excess -10.0 L, Dima Test N/a 03/26/23 20:15: Sodium 137, Potassium 4.5, Chloride 110 H, Carbon Dioxide 13 L, Anion Gap 18.5 H, BUN 56 H, Creatinine 2.40 H, Estimated Creat Clear 22, Estimated GFR 26 L, Est GFR ( Amer) 32 L, Glucose 142 H D, Calcium 6.4 L 03/27/23 06:15: WBC 20.0 H D, RBC 3.51 L, Hgb 9.6 L, Hct 30.4 L, MCV 86.6, MCH 27.4, MCHC 31.6 L, RDW 14.5, Plt Count 134 L, MPV 10.3, Neut % (Auto) 71.1, Lymph % (Auto) 25.8, [place] % (Auto) 2.7, Eos % (Auto) 0.1, Baso % (Auto) 0.3, Neut # (Auto) 14.2 H, Lymph # (Auto) 5.2 H, [place] # (Auto) 0.5, Eos # (Auto) 0.0, Baso # (Auto) 0.1, Total Counted 100, Neutrophils % (Manual) 60, Lymphocytes % (Manual) 37, Monocytes % (Manual) 3, Platelet Estimate Slight decrease, RBC Morphology Normal, Sodium 138, Potassium 4.6, Chloride 111 H, Carbon Dioxide 13 L, Anion Gap 18.6 H, BUN 61 H, Creatinine 2.20 H, Estimated Creat Clear 27, Estimated GFR 29 L, Est GFR ( Amer) 35 L, Glucose 129 H, Calcium 6.6 L, Total Bilirubin 0.6, AST 104 H, ALT 46, Alkaline Phosphatase 95, Total Protein 4.6 L, Albumin 2.2 L, Globulin 2.4, Albumin/Globulin Ratio 0.9 L I & O for Labs for Last 24 Hours: Intake & Output 03/24/23 03/25/23 03/26/23 03/27/23 23:59 23:59 23:59 23:59 Intake Total 4371 / 4421 1978.305 / 1990.305 440.554 / 440.554 Output Total 0 / 0 1250 / 1275 660 / 710 625 / 625 Balance 0 / 400 3121 / 3146 1318.305 / 1280.305 -184.446 / -184.446 Weight 140 lb 0.108 oz 142 lb 7 oz 141 lb 4.708 oz 160 lb 5 oz Microbiology Reports for the Last 24 Hours: Microbiology 03/24/23 14:00 Blood Blood Culture - Final Staphylococcus aureus 03/24/23 14:05 Blood Blood Culture - Final Staphylococcus aureus 03/25/23 02:30 Urine,Catheterized Urine Culture - Final NO GROWTH AFTER 48 HOURS Constitutional: Present severe distress Head: Present normocephalic and atraumatic ENT: Present normal exam, normal oropharynx and mucous membranes moist Neck: Present normal inspection and full ROM Respiratory: Present respiratory distress, rhonchi and diminished air movement; Absent wheezes or able to speak in complete sentences Cardiac: Present S1/S2, Tachycardia and radial pulses present GI: Present soft and distention; Absent tenderness or guarding Skin: Present intact; Absent cyanosis or jaundice Neuro: Absent alert, awake or oriented x 3 Extremities: Present normal inspection; Absent clubbing or cyanosis Psychiatric: Present normal affect and cooperative Assessment and Plan *Assessment and plan (1) ARDS (adult respiratory distress syndrome): Status: Acute Category: Medical Code(s): J80 - Acute respiratory distress syndrome (2) Acute hypoxemic respiratory failure: Status: Acute Category: Medical Code(s): J96.01 - Acute respiratory failure with hypoxia (3) COVID: Status: Acute Category: Medical Code(s): U07.1 - COVID-19 (4) Bilateral pleural effusion: Status: Acute Category: Medical Code(s): J90 - Pleural effusion, not elsewhere classified Plan Mr. Davies is a 82-year-old, with reported medical history of CHFpEF, aortic stenosis CKD, CAD status post CABG, hypertension, CLL currently following with oncology clinic receiving Rituxan
--- NOTE | 2023-03-27 12:07 | PC.NURSE ---
start of shift pt levophed infusing at 6mcg 1130 drip increased to 8 mcg
--- NOTE | 2023-03-27 14:15 | PC.NURSE ---
[id number] Rebolledo face to face that pt has blood cultures positive with MRSA as well as nasal swab is positive. [id number] Sahni face to face that pt has rhythm change with ventricular beats noted. also notified him face to face that pt nasal swab is MRSA positive, as well as all blood cultures.
--- NOTE | 2023-03-27 15:01 | EXP.PN ---
Subjective *Date: 03/27/23 *Time: 15:45 Interval history: Patient is seen and examined today. I am accompanied by nursing staff (Aracelis). The patient is accompanied by his daughter Negra and 2 sisters who are at bedside. Nursing staff report that he is continuing to require 40 L of oxygen via Vapotherm with FiO2 80% and ongoing tachycardia and low blood pressures requiring 2 IV pressor support. His daughter at bedside has reiterated he is not to be intubated. His morning labs identify persistent leukocytoses and downward trend hemoglobin. His basic metabolic profile identifies potassium 4.6 with increasing BUN and creatinine 2.2. Pulmonology continues to follow. Ongoing goals of care conversations occurring. Exam Data for Last 24 hours Vital signs and Labs for Last 24 Hours: Temp Pulse Resp BP Pulse Ox O2 Del Method O2 Flow Rate 100 F H 104 H 22 107/44 L 96 Vapotherm 40 03/27/23 11:22 03/27/23 14:00 03/27/23 14:00 03/27/23 14:00 03/27/23 14:00 03/27/23 14:00 03/27/23 14:00 FiO2 80 03/27/23 14:00 Laboratory Results - last 24 hr 03/26/23 20:15: Sodium 137, Potassium 4.5, Chloride 110 H, Carbon Dioxide 13 L, Anion Gap 18.5 H, BUN 56 H, Creatinine 2.40 H, Estimated Creat Clear 22, Estimated GFR 26 L, Est GFR ( Amer) 32 L, Glucose 142 H D, Calcium 6.4 L 03/27/23 06:15: WBC 20.0 H D, RBC 3.51 L, Hgb 9.6 L, Hct 30.4 L, MCV 86.6, MCH 27.4, MCHC 31.6 L, RDW 14.5, Plt Count 134 L, MPV 10.3, Neut % (Auto) 71.1, Lymph % (Auto) 25.8, [place] % (Auto) 2.7, Eos % (Auto) 0.1, Baso % (Auto) 0.3, Neut # (Auto) 14.2 H, Lymph # (Auto) 5.2 H, [place] # (Auto) 0.5, Eos # (Auto) 0.0, Baso # (Auto) 0.1, Total Counted 100, Neutrophils % (Manual) 60, Lymphocytes % (Manual) 37, Monocytes % (Manual) 3, Platelet Estimate Slight decrease, RBC Morphology Normal, Sodium 138, Potassium 4.6, Chloride 111 H, Carbon Dioxide 13 L, Anion Gap 18.6 H, BUN 61 H, Creatinine 2.20 H, Estimated Creat Clear 27, Estimated GFR 29 L, Est GFR ( Amer) 35 L, Glucose 129 H, Calcium 6.6 L, Total Bilirubin 0.6, AST 104 H, ALT 46, Alkaline Phosphatase 95, Total Protein 4.6 L, Albumin 2.2 L, Globulin 2.4, Albumin/Globulin Ratio 0.9 L I & O for Last 24 hours: Intake & Output 03/24/23 03/25/23 03/26/23 03/27/23 23:59 23:59 23:59 23:59 Intake Total 4371 / 4421 1978.305 / 1990.305 949.554 / 949.554 Output Total 0 / 0 1250 / 1275 660 / 710 975 / 975 Balance 0 / 400 3121 / 3146 1318.305 / 1280.305 -25.446 / -25.446 Weight 63.506 kg 64.609 kg 64.09 kg 72.717 kg Microbiology Reports for the Last 24 Hours: Microbiology 03/26/23 17:00 Blood Blood Culture - Preliminary 03/25/23 14:45 Nose - Nasal MRSA Culture - Final 03/26/23 14:35 Blood Blood Culture - Preliminary 03/24/23 14:00 Blood Blood Culture - Final Staphylococcus aureus 03/24/23 14:05 Blood Blood Culture - Final Staphylococcus aureus 03/25/23 02:30 Urine,Catheterized Urine Culture - Final NO GROWTH AFTER 48 HOURS Constitutional Constitutional: cachectic, chronically ill appearing and somnolent *Routine HEENT Exam Head: Present normocephalic and atraumatic Eye: Present EOMI and PERRL ENT: Present mucous membranes dry *Routine Neck Exam Neck: Present supple and trachea midline; Absent lymphadenopathy *Routine Respiratory Exam Respiratory: Present accessory muscle use, respiratory distress, rhonchi, wheezes and symmetric chest movement *Routine Cardiovascular Exam Cardiovascular: Present tachycardia *Routine Abdominal Exam Abdominal: Present soft and normoactive bowel sounds; Absent tenderness *Routine Extremities Exam Extremities: Absent edema *Routine Skin Exam Skin: Absent rash *Routine Neurological Exam Neurological: Present altered mental status Routine Psychiatric Exam Psychiatric: Present unable to assess Assessment and Plan *Assessment and plan (1) Sepsis: Status: A
--- NOTE | 2023-03-27 15:38 | DIET.NUTRFU ---
Patient has had poor to no po intake since 03/26 d/t respiratory status. He has been on vapotherm and levophed. Provider had a POC discussion with family today to review nutritional status and TF options. Will continue to follow
[2023-03-27 15:41] LABS: Magnesium 2.6 mg/dl (1.6-2.3)
[2023-03-28] VITALS (32 sets, daily range): BP systolic 83–144; BP diastolic 50–79; PULSE 104–130; RESP 19–37; TEMP 36.3–37.6; O2SAT 88–100; BMI 24.3
[2023-03-28 08:31] LABS: MANUAL DIFFERENTIAL MANUAL DIFFERENTIAL (MANUAL DIFF)
[2023-03-28 08:35] LABS: Basophils # 0.2 K/mm3 (0-0.2); Basophils % 0.5 % (0.1-2.0); Hematocrit 34.8 % (42.0-52.0); Hemoglobin 10.5 g/dL (14.1-18.0); Lymphocytes # 10.1 K/mm3 (0.7-4.5); Lymphocytes % 33.9 % (10-50); Mean Corpuscular HGB Conc 30.2 g/dL (31.8-35.4); Mean Corpuscular Hemoglobin 27.7 pg (27.0-31.2); Mean Corpuscular Volume 91.6 fl (80-94); Mean Platelet Volume 8.6 fl (7.4-10.4); Monocytes # 0.6 K/mm3 (0.1-1.0); Monocytes % 2.1 % (1.7-9.3); Neutrophils % 63.5 % (37.0-80.0); Platelet Count 140 K/mm3 (142-424); Red Cell Distribution Width 14.4 % (11.5-17.5)
[2023-03-28 08:47] LABS: White Blood Count 29.9 K/mm3 (4.8-10.8)
[2023-03-28 09:12] LABS: Vancomycin,Trough 8.8 ug/mL (5.0-10.0)
--- NOTE | 2023-03-28 09:51 | EXP.PHA.PN ---
Subjective *Date: 03/28/23 *Time: 09:51 Medical Exam Vital signs and Labs for Last 24 Hours: Vital Signs Temp Pulse Pulse Resp BP Pulse Ox O2 Del Method 03/28/23 08:00 127 H 34 H 128/69 93 L Vapotherm 03/28/23 07:29 98.1 F 03/28/23 06:00 122 H 26 H 110/65 99 Vapotherm 03/28/23 05:00 124 H 26 H 144/73 H 95 Vapotherm 03/28/23 05:00 Vapotherm 03/28/23 04:00 110 H 03/28/23 04:00 97.4 F L 03/28/23 05:20 121 H 03/28/23 05:20 120 H 03/28/23 05:20 96 Vapotherm 03/28/23 04:00 106 H 19 120/72 100 Vapotherm 03/28/23 03:42 100 Vapotherm 03/28/23 03:00 Vapotherm 03/28/23 03:00 105 H 19 124/69 100 Vapotherm 03/28/23 02:00 106 H 20 109/63 L 100 Vapotherm 03/28/23 01:00 114 H 23 128/75 97 Vapotherm 03/28/23 00:00 110 H 03/28/23 00:57 Vapotherm 03/28/23 00:00 98.1 F 03/28/23 00:00 109 H 25 H 131/76 100 Vapotherm 03/27/23 23:53 Vapotherm 03/27/23 23:00 110 H 25 H 132/75 99 Mechanical Ventilation 03/27/23 23:00 Vapotherm 03/27/23 23:33 81 03/27/23 23:33 83 03/27/23 22:00 103 H 24 114/64 100 Vapotherm 03/27/23 20:00 110 H 03/27/23 21:00 Vapotherm 03/27/23 20:00 100 Vapotherm 03/27/23 21:00 97.8 F 98 H 20 109/44 L 100 Vapotherm 03/27/23 20:00 97.8 F 03/27/23 19:00 108 H 22 107/57 L 98 Vapotherm 03/27/23 18:54 Vapotherm 03/27/23 17:30 116 H 22 126/54 L 96 Vapotherm 03/27/23 16:30 102 H 24 119/68 96 Vapotherm 03/27/23 15:30 104 H 24 110/49 L 97 Mechanical Ventilation 03/27/23 15:00 103 H 24 116/43 L 97 Vapotherm 03/27/23 14:30 103 H 22 113/63 97 Vapotherm 03/27/23 18:17 Vapotherm 03/27/23 18:17 83 03/27/23 18:16 81 03/27/23 18:00 114 H 24 111/58 L 99 Vapotherm 03/27/23 17:12 123 H 24 115/76 92 L Vapotherm 03/27/23 17:00 Vapotherm 03/27/23 16:00 102 H 03/27/23 16:39 123 H 97 Vapotherm 03/27/23 16:00 102 H 24 105/70 L 97 Vapotherm 03/27/23 16:00 97 Vapotherm 03/27/23 15:00 Vapotherm 03/27/23 15:16 98.3 F 03/27/23 12:00 109 H 03/27/23 13:30 106 H 24 111/55 L 97 Vapotherm 03/27/23 12:30 106 H 22 104/40 L 96 Vapotherm 03/27/23 11:30 113 H 22 89/52 L 94 L Vapotherm 03/27/23 11:00 130 H 24 136/94 H 88 L Vapotherm 03/27/23 10:30 102 H 22 100/39 L 97 Vapotherm 03/27/23 10:00 102 H 24 100/44 L 96 Vapotherm 03/27/23 14:00 104 H 22 107/44 L 96 Vapotherm 03/27/23 13:00 108 H 22 115/44 L 98 Vapotherm 03/27/23 12:00 109 H 22 99/40 L 99 Vapotherm 03/27/23 12:00 106 H 97 Vapotherm 03/27/23 13:00 Vapotherm 03/27/23 11:00 Vapotherm 03/27/23 11:22 100 F H 03/27/23 11:22 88 03/27/23 11:22 86 O2 Flow Rate FiO2 03/28/23 08:00 40 80 09/27/23 07:29 03/28/23 06:00 40 80 03/28/23 05:00 40 80 03/28/23 05:00 40 03/28/23 04:00 03/28/23 04:00 03/28/23 05:20 03/28/23 05:20 03/28/23 05:20 40 80 03/28/23 04:00 40 80 03/28/23 03:42 40 80 03/28/23 03:00 40 03/28/23 03:00 40 80 03/28/23 02:00 40 80 03/28/23 01:00 40 80 03/28/23 00:00 03/28/23 00:57 40 03/28/23 00:00 03/28/23 00:00 40 80 03/27/23 23:53 40 80 03/27/23 23:00 40 80 03/27/23 23:00 40 03/27/23 23:33 03/27/23 23:33 03/27/23 22:00 40 80 03/27/23 20:00 03/27/23 21:00 40 03/27/23 20:00 40 80 03/27/23 21:00 40 80 03/27/23 20:00 03/27/23 19:00 80 03/27/23 18:54 03/27/23 17:30 80 03/27/23 16:30 80 03/27/23 15:30 80 03/27/23 15:00 80 03/27/23 14:30 80 03/27/23 18:17 40 80 03/27/23 18:17 03/27/23 18:16 03/27/23 18:00 80 03/27/23 17:12 80 03/27/23 17:00 40 03/27/23 16:00 03/27/23 16:39 40 80 03/27
[2023-03-28 10:11] LABS: Alanine Aminotransferase 52 U/L (12-78); Albumin Level 2.4 g/dl (3.5-5.0); Alkaline Phosphatase 166 U/L (38-126); Anion Gap 19.4 mEq/L (5-15); Aspartate Amino Transferase 124 U/L (17-59); Bilirubin,Total 0.5 mg/dl (0.2-1.3); Blood Urea Nitrogen 63 mg/dl (9-20); Calcium 7.3 mg/dl (8.4-10.2); Carbon Dioxide 12 mmol/L (22.0-30.0); Chloride 119 mmol/L (98-107); Creatinine Clearance Estimated 29 mL/min (50-200); Estimated Glomerular Filt Rate 32 ml/min (>60); GFR (African American) 39 ML/MIN (>60); Globulin 2.3 g/dL (1.3-3.2); Glucose 141 mg/dl (74-100); Potassium 5.4 mmoL/L (3.5-5.1); Sodium 145 mmol/L (136-145); Total Protein,Serum 4.7 g/dl (6.3-8.2)
[2023-03-28 10:25] LABS: Lymphocytes % 49 % (10-50); Monocytes % 1 % (2-9); Neutrophils % 49 % (42-76); Total Cells Counted 100
[2023-03-28 10:28] LABS: Hypochromasia 1+; Platelet Estimate Moderate Decrease; RBC Morphology Normal
--- NOTE | 2023-03-28 10:46 | EXP.PHA.CONS ---
Pharmacy Consult Date: 03/28/23 Time: 10:46 Referring provider: DR DUKES Reason for Consult:: VANCOMYCIN TROUGH LEVEL OBTAINED Allergies Allergy/AdvReac Type Severity Reaction Status Date / Time No Known Allergies Allergy Verified 03/22/23 09:24 Home Medications Medication Instructions Recorded Confirmed Type escitalopram oxalate 5 mg tablet 5 mg PO DAILY Depression #90 tabs 10/04/22 03/24/23 Rx potassium chloride 20 mEq 20 meq PO DAILY Supplement #90 tabs 10/04/22 03/24/23 Rx tablet,extended release(part/cryst) rosuvastatin 20 mg tablet 20 mg PO HS Cholesterol #90 tabs 10/04/22 03/24/23 Rx lidocaine 5 % topical patch 1 patch topical DAILYP PRN Pain, 03/25/23 03/25/23 History Mild lisinopril 20 mg tablet 20 mg PO DAILY High Blood Pressure 03/25/23 03/25/23 History metoprolol succinate 50 mg capsule 50 mg PO DAILY High Blood Pressure 03/25/23 03/25/23 History sprinkle, ext. release 24 hr tamsulosin 0.4 mg capsule (Flomax) 0.4 mg PO HS PROSTATE 03/25/23 03/25/23 History New Prescriptions to Start Prescriptions: Height: 1.73 m Weight: 72.717 kg Laboratory Results:: Laboratory Results - last 24 hr 03/27/23 06:15: Magnesium 2.6 H 03/28/23 08:10: WBC 29.9 H* D, RBC 3.80 L, Hgb 10.5 L, Hct 34.8 L, MCV 91.6, MCH 27.7, MCHC 30.2 L, RDW 14.4, Plt Count 140 L, MPV 8.6, Neut % (Auto) 63.5, Lymph % (Auto) 33.9, [place] % (Auto) 2.1, Eos % (Auto) 0.0 L, Baso % (Auto) 0.5, Neut # (Auto) 19.0 H, Lymph # (Auto) 10.1 H, [place] # (Auto) 0.6, Eos # (Auto) 0.0, Baso # (Auto) 0.2, Total Counted 100, Neutrophils % (Manual) 49, Band Neutrophils % 1.0, Lymphocytes % (Manual) 49, Monocytes % (Manual) 1 L, Platelet Estimate Moderate decrease, RBC Morphology Normal, Hypochromasia 1+, Sodium 145, Potassium 5.4 H, Chloride 119 H, Carbon Dioxide 12 L, Anion Gap 19.4 H, BUN 63 H, Creatinine 2.00 H, Estimated Creat Clear 29, Estimated GFR 32 L, Est GFR ( Amer) 39 L, Glucose 141 H, Calcium 7.3 L, Total Bilirubin 0.5, AST 124 H, ALT 52, Alkaline Phosphatase 166 H, Total Protein 4.7 L, Albumin 2.4 L, Globulin 2.3, Albumin/Globulin Ratio 1.0 L, Vancomycin Trough 8.8 Medical History: Medical History (Updated 03/26/23 @ 10:01 by Heaven Rebolledo MD) Abnormal echocardiogram Abnormal stress test ARDS (adult respiratory distress syndrome) Cardiac murmur Chronic back pain Chronic back pain greater than 3 months duration Chronic knee pain Dizziness Fatigue Intermittent left-sided chest pain Refill clinic medication management patient SOB (shortness of breath) Assessment and Plan Assessment and plan all Dx Assessment and Plan for all problems:: Pharmacokinetic dosing service Weight: 72.717 Kilograms Vancomycin single level analysis: Current dose being given: 1000 mg Current dosing interval: 36 hrs Current infusion time (hrs): 2 Single level Trough Data: Trough level obtained: 8.8 mcg/ml Timing of trough - # of hrs before next dose: 0.5 Hrs Desired peak: 35 mcg/ml Desired trough: 12.5 mcg/ml Diagnosis: PNEUMONIA, ICU Estimated PK Parameters: New rate constant (david): 0.035 hr-1 Half-life: 19.80 Hours Vd from levels: 47.27 Liters (0.7 L/kg) CLvanco=?? 1.654 L/hr Estimated New Dose and Interval Recommended dose: 1142.2 mg Recommended interval: 31.4 Hrs Recommendations: Give Vancomycin 1250 mg q 36 hrs. Infuse over 2 hrs Expected Cpeak: 35.7 mcg/mL Expected Ctrough: 10.9 mcg/mL AUC 0-24 /GUADALUPE Data: GUADALUPE 0.5 mcg/mL:?? AUC/GUADALUPE:? 1007.7 GUADALUPE 1.0 mcg/mL:?? AUC/GUADALUPE:? 503.8 Thank you for the consult
--- NOTE | 2023-03-28 10:59 | DIET.NUTRFU ---
During rounds, provider indicated family wants to start enteral nutrition. Provider reviewed POC yesterday and that prognosis is poor and that patient has been unable to eat d/t sedation meds and respiratory status. Provider plans to place NG tube and TF to provide nutritional needs. Nutritional needs are 1800kcal and 57.6gm protein with fluid at 1440ml (hx of CHF). Patient received IVF fluid on 03/24 and 03/25, 03/26 and dextrose with norepinephrine Bitartrate on 03/27. He is also receiving ABT in NaCl today had 250ml already. Labs reviewed. To best meet needs d/t COVID dx and renal fxn of BUN 63 and Cr 2.6 will start Nepro at 20ml/hr and increase Q4H if tolerated to goal rate of 35ml/hr providing 1512kcal, 68gm protein and 610ml formula water, provide flush of 100ml [id number] for total fluid of 1210ml/day. Will continue to monitor
--- NOTE | 2023-03-28 12:22 | EXP.PULM.PN ---
Subjective *Date: 03/28/23 *Time: 12:22 Interval history: No significant respiratory events overnight. Pulmonology Exam Inpatient Vital signs and Labs for Last 24 Hours: Temp Pulse Resp BP Pulse Ox O2 Del Method O2 Flow Rate 98.9 F 126 H 34 H 128/69 93 L Vapotherm 40 03/28/23 11:17 03/28/23 11:53 03/28/23 08:00 03/28/23 08:00 03/28/23 08:00 03/28/23 08:00 03/28/23 08:00 FiO2 80 03/28/23 08:00 Laboratory Results - last 24 hr 03/27/23 06:15: Magnesium 2.6 H 03/28/23 08:10: WBC 29.9 H* D, RBC 3.80 L, Hgb 10.5 L, Hct 34.8 L, MCV 91.6, MCH 27.7, MCHC 30.2 L, RDW 14.4, Plt Count 140 L, MPV 8.6, Neut % (Auto) 63.5, Lymph % (Auto) 33.9, [place] % (Auto) 2.1, Eos % (Auto) 0.0 L, Baso % (Auto) 0.5, Neut # (Auto) 19.0 H, Lymph # (Auto) 10.1 H, [place] # (Auto) 0.6, Eos # (Auto) 0.0, Baso # (Auto) 0.2, Total Counted 100, Neutrophils % (Manual) 49, Band Neutrophils % 1.0, Lymphocytes % (Manual) 49, Monocytes % (Manual) 1 L, Platelet Estimate Moderate decrease, RBC Morphology Normal, Hypochromasia 1+, Sodium 145, Potassium 5.4 H, Chloride 119 H, Carbon Dioxide 12 L, Anion Gap 19.4 H, BUN 63 H, Creatinine 2.00 H, Estimated Creat Clear 29, Estimated GFR 32 L, Est GFR ( Amer) 39 L, Glucose 141 H, Calcium 7.3 L, Total Bilirubin 0.5, AST 124 H, ALT 52, Alkaline Phosphatase 166 H, Total Protein 4.7 L, Albumin 2.4 L, Globulin 2.3, Albumin/Globulin Ratio 1.0 L, Vancomycin Trough 8.8 I & O for Labs for Last 24 Hours: Intake & Output 09/2403/26/23 03/27/23 03/28/23 23:59 23:59 23:59 23:59 Intake Total 4371 / 4421 1978.305 / 9986.091 6028.892 / 1314.892 497 / 497 Output Total 1250 / 1275 660 / 710 1795 / 1810 480 / 480 Balance 3121 / 3146 1318.305 / 1280.305 -501.108 / -495.108 Weight 142 lb 7 oz 141 lb 4.708 oz 160 lb 5.017 oz 160 lb 5 oz Microbiology Reports for the Last 24 Hours: Microbiology 03/26/23 14:35 Blood Blood Culture - Preliminary Gram Positive Cocci 03/26/23 17:00 Blood Blood Culture - Preliminary Gram Positive Cocci 03/25/23 14:45 Nose - Nasal MRSA Culture - Final Constitutional: Present severe distress Head: Present normocephalic and atraumatic ENT: Present normal exam, normal oropharynx and mucous membranes moist Neck: Present normal inspection and full ROM Respiratory: Present respiratory distress, rhonchi and diminished air movement; Absent wheezes or able to speak in complete sentences Cardiac: Present S1/S2, Tachycardia and radial pulses present GI: Present soft and distention; Absent tenderness or guarding Skin: Present intact; Absent cyanosis or jaundice Neuro: Absent alert, awake or oriented x 3 Extremities: Present normal inspection; Absent clubbing or cyanosis Psychiatric: Present normal affect and cooperative Assessment and Plan *Assessment and plan (1) ARDS (adult respiratory distress syndrome): Status: Acute Category: Medical Code(s): J80 - Acute respiratory distress syndrome (2) Acute hypoxemic respiratory failure: Status: Acute Category: Medical Code(s): J96.01 - Acute respiratory failure with hypoxia (3) COVID: Status: Acute Category: Medical Code(s): U07.1 - COVID-19 (4) Bilateral pleural effusion: Status: Acute Category: Medical Code(s): J90 - Pleural effusion, not elsewhere classified Plan Mr. Davies is a 82-year-old, with reported medical history of CHFpEF, aortic stenosis CKD, CAD status post CABG, hypertension, CLL currently following with oncology clinic receiving Rituxan presented to the hospital complaining of chest pain and difficulty breathing. Patient upon admission needing increasing oxygen from his admission. On high flow nasal cannula. His COVID-19 PCR also resulted positive. Patient is now being treated for sepsis with broad-spectrum antibiotic including vancomycin and cefepime along with remdesivir for his COVID-1
--- NOTE | 2023-03-28 15:18 | EXP.PN ---
Subjective *Date: 03/28/23 *Time: 15:18 Interval history: Patient is seen and examined at bedside. He is accompanied by his daughter Palak. I am accompanied by nursing staff. Nursing staff report that he remains afebrile with ongoing tachycardia and stable blood pressures on IV pressor support. He is still requiring Vapotherm oxygen 40 L. Family at bedside request continued care with restrictions on intubation. We discussed adding NG tube today with nutrition. His morning labs identify acidosis with leukocytoses and stable hemoglobin. His creatinine remains at 2.0. His repeat blood cultures are identifying gram-positive cocci. Exam Data for Last 24 hours Vital signs and Labs for Last 24 Hours: Temp Pulse Resp BP Pulse Ox O2 Del Method O2 Flow Rate 99.4 F 124 H 31 H 89/52 L 90 L Vapotherm 40 03/28/23 15:13 03/28/23 14:00 03/28/23 14:00 03/28/23 14:00 03/28/23 14:00 03/28/23 14:00 03/28/23 13:00 FiO2 100 03/28/23 13:00 Laboratory Results - last 24 hr 03/27/23 06:15: Magnesium 2.6 H 03/28/23 08:10: WBC 29.9 H* D, RBC 3.80 L, Hgb 10.5 L, Hct 34.8 L, MCV 91.6, MCH 27.7, MCHC 30.2 L, RDW 14.4, Plt Count 140 L, MPV 8.6, Neut % (Auto) 63.5, Lymph % (Auto) 33.9, [place] % (Auto) 2.1, Eos % (Auto) 0.0 L, Baso % (Auto) 0.5, Neut # (Auto) 19.0 H, Lymph # (Auto) 10.1 H, [place] # (Auto) 0.6, Eos # (Auto) 0.0, Baso # (Auto) 0.2, Total Counted 100, Neutrophils % (Manual) 49, Band Neutrophils % 1.0, Lymphocytes % (Manual) 49, Monocytes % (Manual) 1 L, Platelet Estimate Moderate decrease, RBC Morphology Normal, Hypochromasia 1+, Sodium 145, Potassium 5.4 H, Chloride 119 H, Carbon Dioxide 12 L, Anion Gap 19.4 H, BUN 63 H, Creatinine 2.00 H, Estimated Creat Clear 29, Estimated GFR 32 L, Est GFR ( Amer) 39 L, Glucose 141 H, Calcium 7.3 L, Total Bilirubin 0.5, AST 124 H, ALT 52, Alkaline Phosphatase 166 H, Total Protein 4.7 L, Albumin 2.4 L, Globulin 2.3, Albumin/Globulin Ratio 1.0 L, Vancomycin Trough 8.8 I & O for Last 24 hours: Intake & Output 03/25/23 03/26/23 03/27/23 03/28/23 23:59 23:59 23:59 23:59 Intake Total 4371 / 4421 1978.305 / 0507.901 8003.892 / 1314.892 597.674 / 597.674 Output Total 1250 / 1275 660 / 710 1795 / 1810 480 / 480 Balance 3121 / 3146 1318.305 / 1280.305 -501.108 / -495.108 117.674 / 117.674 Weight 64.609 kg 64.09 kg 72.717 kg 72.717 kg Microbiology Reports for the Last 24 Hours: Microbiology 03/26/23 14:35 Blood Blood Culture - Preliminary Gram Positive Cocci 03/26/23 17:00 Blood Blood Culture - Preliminary Gram Positive Cocci Constitutional Constitutional: cachectic, chronically ill appearing and somnolent *Routine HEENT Exam Head: Present normocephalic and atraumatic Eye: Present EOMI and PERRL ENT: Present mucous membranes dry *Routine Neck Exam Neck: Present supple and trachea midline; Absent lymphadenopathy *Routine Respiratory Exam Respiratory: Present accessory muscle use, respiratory distress, rhonchi, wheezes and symmetric chest movement *Routine Cardiovascular Exam Cardiovascular: Present tachycardia *Routine Abdominal Exam Abdominal: Present soft and normoactive bowel sounds; Absent tenderness *Routine Extremities Exam Extremities: Absent edema *Routine Skin Exam Skin: Absent rash *Routine Neurological Exam Neurological: Present altered mental status Routine Psychiatric Exam Psychiatric: Present unable to assess Assessment and Plan *Assessment and plan (1) Sepsis: Status: Acute Qualifiers: Sepsis type: sepsis due to unspecified organism Sepsis acute organ dysfunction status: with acute organ dysfunction Severe sepsis acute organ dysfunction type: acute respiratory failure Acute respiratory failure type: with hypoxia Severe sepsis shock status: without septic shock Qualified Code(s): A41.9 - Sepsis, unspecified organism; R65.20 - Severe sepsis without septic shock; J96.01 -
--- NOTE | 2023-03-28 16:03 | PC.NURSE ---
clarified with family about placing feeding tube, family does not want feeding tube at this time
--- NOTE | 2023-03-28 20:34 | PC.NURSE ---
Start of shift; Vapotherm 40L/100% Vasopressin gtt 0.03 units/min 2001 Vasopressin titrated down to 0.02 units/min
--- NOTE | 2023-03-28 21:17 | PC.NURSE ---
Pt noted to be wet from urine. On assessment, osullivan cath twisted. 200 ml urine immediatley drained from osullivan at this time.
--- NOTE | 2023-03-28 22:18 | PC.NURSE ---
2105 Vaso down to 0.01 units/min 2215 Vaso put on standby at this time.
--- NOTE | 2023-03-28 23:34 | PC.NURSE ---
2305 vasopressin restarted at 0.01 units/min
[2023-03-29] VITALS (31 sets, daily range): BP systolic 78–138; BP diastolic 45–84; PULSE 82–124; RESP 22–33; TEMP 36.7–37.9; O2SAT 89–96
--- NOTE | 2023-03-29 06:00 | XR_ITS ---
PROCEDURE INFORMATION: Exam: XR Chest Exam date and time: 03/29/2023 5:47 AM Age: 82 years old Clinical indication: Condition or disease; Lung condition and disease; Hypoxia TECHNIQUE: Imaging protocol: Radiologic exam of the chest. Views: 1 view. COMPARISON: CR XR CHEST PORTABLE 03/26/2023 8:31 AM FINDINGS: Tubes, catheters and devices: Central venous catheter and pacemaker are unchanged. Lungs: Bilateral perihilar opacities are unchanged compared to the prior study. Pleural spaces: Unremarkable. No pleural effusion. No pneumothorax. Heart/Mediastinum: The heart is borderline enlarged. Bones/joints: Unremarkable. IMPRESSION: Persistent bilateral opacities likely pulmonary edema although superimposed infiltrate can not be entirely excluded.
[2023-03-29 06:40] LABS: Anion Gap 13.9 mEq/L (5-15); Blood Urea Nitrogen 64 mg/dl (9-20); Calcium 7.1 mg/dl (8.4-10.2); Carbon Dioxide 23 mmol/L (22.0-30.0); Chloride 114 mmol/L (98-107); Creatinine Clearance Estimated 33 mL/min (50-200); Estimated Glomerular Filt Rate 36 ml/min (>60); GFR (African American) 44 ML/MIN (>60); Glucose 188 mg/dl (74-100); Phosphorous 4.7 mg/dl (2.5-4.5); Potassium 4.9 mmoL/L (3.5-5.1); Sodium 146 mmol/L (136-145)
[2023-03-29 06:42] LABS: Basophils # 0.1 K/mm3 (0-0.2); Basophils % 0.3 % (0.1-2.0); Eosinophils % 0.1 % (0.1-12.0); Hematocrit 32.1 % (42.0-52.0); Hemoglobin 10.1 g/dL (14.1-18.0); Lymphocytes # 8.1 K/mm3 (0.7-4.5); Lymphocytes % 34.4 % (10-50); Mean Corpuscular HGB Conc 31.3 g/dL (31.8-35.4); Mean Corpuscular Hemoglobin 27.2 pg (27.0-31.2); Mean Corpuscular Volume 86.9 fl (80-94); Mean Platelet Volume 10.2 fl (7.4-10.4); Monocytes # 0.7 K/mm3 (0.1-1.0); Monocytes % 2.8 % (1.7-9.3); Neutrophils # 14.7 K/mm3 (1.8-7.8); Neutrophils % 62.4 % (37.0-80.0); Platelet Count 118 K/mm3 (142-424); Red Cell Distribution Width 14.9 % (11.5-17.5); White Blood Count 23.6 K/mm3 (4.8-10.8)
[2023-03-29 06:46] LABS: MANUAL DIFFERENTIAL MANUAL DIFFERENTIAL (MANUAL DIFF)
--- NOTE | 2023-03-29 06:48 | PC.NURSE ---
Dilt gtt put on standby at this time due to HR dropping into 60s. Pt continues to be afib
[2023-03-29 06:56] LABS: Procalcitonin 9.22 ng/mL (0.0-2.0)
[2023-03-29 07:27] LABS: NT Pro Brain Natriuretic Pep. 43100 pg/mL (0-450)
--- NOTE | 2023-03-29 08:44 | DIET.NUTRFU ---
Nursing reviewed patient's condition with family and the possible discomfort inserting a NG tube would cause and they decided to hold off on the tube placement. TF was not initiated at this time. Based on his poor prognosis TF would not prolong his life and may not beneficial at this time. Will readdress as family wishes. Will change diet order to NPO at this time.
[2023-03-29 08:45] LABS: Lymphocytes % 60 % (10-50); Monocytes % 3 % (2-9); Neutrophils % 37 % (42-76); Platelet Estimate Slight Decrease; RBC Morphology Normal; Total Cells Counted 100
--- NOTE | 2023-03-29 09:08 | EXP.PULM.PN ---
Subjective *Date: 03/29/23 *Time: 11:20 Interval history: Worsening respiratory distress needing increasing FiO2 to 100% yesterday. Pulmonology Exam Inpatient Vital signs and Labs for Last 24 Hours: Temp Pulse Resp BP Pulse Ox O2 Del Method O2 Flow Rate 99.0 F 115 H 28 H 121/71 93 L Vapotherm 40 03/29/23 08:11 03/29/23 08:00 03/29/23 08:00 03/29/23 08:00 03/29/23 08:00 03/29/23 08:00 03/29/23 08:00 FiO2 100 03/29/23 08:00 Laboratory Results - last 24 hr 03/28/23 08:10: Total Counted 100, Neutrophils % (Manual) 49, Band Neutrophils % 1.0, Lymphocytes % (Manual) 49, Monocytes % (Manual) 1 L, Platelet Estimate Moderate decrease, RBC Morphology Normal, Hypochromasia 1+, Sodium 145, Potassium 5.4 H, Chloride 119 H, Carbon Dioxide 12 L, Anion Gap 19.4 H, BUN 63 H, Creatinine 2.00 H, Estimated Creat Clear 29, Estimated GFR 32 L, Est GFR ( Amer) 39 L, Glucose 141 H, Calcium 7.3 L, Total Bilirubin 0.5, AST 124 H, ALT 52, Alkaline Phosphatase 166 H, Total Protein 4.7 L, Albumin 2.4 L, Globulin 2.3, Albumin/Globulin Ratio 1.0 L, Vancomycin Trough 8.8 03/29/23 06:11: WBC 23.6 H*, RBC 3.70 L, Hgb 10.1 L, Hct 32.1 L, MCV 86.9, MCH 27.2, MCHC 31.3 L, RDW 14.9, Plt Count 118 L, MPV 10.2, Neut % (Auto) 62.4, Lymph % (Auto) 34.4, [place] % (Auto) 2.8, Eos % (Auto) 0.1, Baso % (Auto) 0.3, Neut # (Auto) 14.7 H, Lymph # (Auto) 8.1 H, [place] # (Auto) 0.7, Eos # (Auto) 0.0, Baso # (Auto) 0.1, Total Counted 100, Neutrophils % (Manual) 37 L, Lymphocytes % (Manual) 60 H, Monocytes % (Manual) 3, Platelet Estimate Slight decrease, RBC Morphology Normal, Sodium 146 H, Potassium 4.9, Chloride 114 H, Carbon Dioxide 23, Anion Gap 13.9, BUN 64 H, Creatinine 1.80 H, Estimated Creat Clear 33, Estimated GFR 36 L, Est GFR ( Amer) 44 L, Glucose 188 H D, Calcium 7.1 L, Phosphorus 4.7 H, Magnesium 3.0 H D, NT-Pro-B Natriuret Pep 32377 H, Procalcitonin 9.22 H I & O for Labs for Last 24 Hours: Intake & Output 03/26/23 03/27/23 03/28/23 03/29/23 23:59 23:59 23:59 23:59 Intake Total 1977.305 / 1781.585 6843.892 / 0728.123 0239.922 / 1282.922 895.734 / 895.734 Output Total 660 / 710 1795 / 1810 905 / 995 450 / 450 Balance 1318.305 / 1280.305 -501.108 / -495.108 265.922 / 287.922 445.734 / 445.734 Weight 141 lb 4.708 oz 160 lb 5.017 oz 160 lb 5 oz Microbiology Reports for the Last 24 Hours: Microbiology 03/26/23 17:00 Blood Blood Culture - Final Staphylococcus aureus 03/26/23 14:35 Blood Blood Culture - Final Staphylococcus aureus Constitutional: Present severe distress Head: Present normocephalic and atraumatic ENT: Present normal exam, normal oropharynx and mucous membranes moist Neck: Present normal inspection and full ROM Respiratory: Present respiratory distress, rhonchi and diminished air movement; Absent wheezes or able to speak in complete sentences Cardiac: Present S1/S2, Tachycardia and radial pulses present GI: Present soft and distention; Absent tenderness or guarding Skin: Present intact; Absent cyanosis or jaundice Neuro: Absent alert, awake or oriented x 3 Extremities: Present normal inspection; Absent clubbing or cyanosis Psychiatric: Present normal affect and cooperative Assessment and Plan *Assessment and plan (1) ARDS (adult respiratory distress syndrome): Status: Acute Category: Medical Code(s): J80 - Acute respiratory distress syndrome (2) Acute hypoxemic respiratory failure: Status: Acute Category: Medical Code(s): J96.01 - Acute respiratory failure with hypoxia (3) COVID: Status: Acute Category: Medical Code(s): U07.1 - COVID-19 (4) Bilateral pleural effusion: Status: Acute Category: Medical Code(s): J90 - Pleural effusion, not elsewhere classified Plan Mr. Davies is a 82-year-old, with reported medical history of CHFpEF, aortic stenosis CKD, CAD status post CABG, hyperte
--- NOTE | 2023-03-29 10:10 | PC.NURSE ---
bp 129/81 (97), turned vasopressin drip off
--- NOTE | 2023-03-29 14:54 | XR_ITS ---
FINAL REPORT CLINICAL HISTORY: NG PLACEMENT FOR TUBE FEEDS FINDINGS: A single supine view the abdomen and a view of the chest were obtained. An NG tube is not identified on either the chest film or abdominal film. It may be curled in the patient's mouth. There are changes from median sternotomy. Bilateral pulmonary opacities are nonspecific and could be related to edema or pneumonia. The bowel gas pattern is nonspecific but nonobstructive. IMPRESSION: No NG tube identified on either the chest or the abdomen film. Recommend repositioning. The tube may be curled in the patient's mouth. Nonspecific but nonobstructive bowel gas pattern. Authenticated and ERN
--- NOTE | 2023-03-29 15:13 | DIET.NUTRFU ---
Showed slight improvement in labs and off vasopressors. NG was placed and waiting for placement check. TF order in Nepro to start at 10ml/hr with goal rate of 35ml/hr. Changed the flush d/t increase on sodium bicarbonate in dextrose, already received 568ml, yesterday only received 224ml. Will continue to monitor
--- NOTE | 2023-03-29 16:46 | PC.NURSE ---
this RN had placed NGT in right nare at 65cm but KUB read coiled, this RN and charge weigher Maribell attempted to replace NGT with no success, MD Sahni attempted to place NGT and OGT without success, updated pt's family that will have to have placed with fluroscopy or surgically, notified MD Sahni that would need to place order for either of those before can proceed with feeding tube
--- NOTE | 2023-03-29 16:59 | EXP.PN ---
Subjective *Date: 03/29/23 *Time: 16:59 Interval history: Patient is seen and examined today. I am accompanied by nursing staff (Bianca). She reports that they have been unable to pass the NG tube and family declined placement yesterday. Nursing staff report that he remains afebrile with ongoing oxygen requirements of 40 L with FiO2 100% increased respiratory rates, ongoing tachycardia and stable blood pressures off his weaned pressor support. He tolerated his IV bicarbonate therapy yesterday with resolved metabolic acidosis and morning creatinine 1.8. His CBC identifies an improved leukocytoses with stable hemoglobin and some low platelets on Zyvox therapy. His daughter Palak is at bedside and ongoing goals of care conversation are occurring. We discussed nutrition and healing. Pulmonology continues to follow. Exam Data for Last 24 hours Vital signs and Labs for Last 24 Hours: Temp Pulse Resp BP Pulse Ox O2 Del Method O2 Flow Rate 99.0 F 113 H 31 H 106/64 L 93 L Vapotherm 40 03/29/23 08:11 03/29/23 16:30 03/29/23 16:30 03/29/23 16:30 03/29/23 16:30 03/29/23 16:49 03/29/23 16:49 FiO2 100 03/29/23 16:30 Laboratory Results - last 24 hr 03/29/23 06:11: WBC 23.6 H*, RBC 3.70 L, Hgb 10.1 L, Hct 32.1 L, MCV 86.9, MCH 27.2, MCHC 31.3 L, RDW 14.9, Plt Count 118 L, MPV 10.2, Neut % (Auto) 62.4, Lymph % (Auto) 34.4, [place] % (Auto) 2.8, Eos % (Auto) 0.1, Baso % (Auto) 0.3, Neut # (Auto) 14.7 H, Lymph # (Auto) 8.1 H, [place] # (Auto) 0.7, Eos # (Auto) 0.0, Baso # (Auto) 0.1, Total Counted 100, Neutrophils % (Manual) 37 L, Lymphocytes % (Manual) 60 H, Monocytes % (Manual) 3, Platelet Estimate Slight decrease, RBC Morphology Normal, Sodium 146 H, Potassium 4.9, Chloride 114 H, Carbon Dioxide 23, Anion Gap 13.9, BUN 64 H, Creatinine 1.80 H, Estimated Creat Clear 33, Estimated GFR 36 L, Est GFR ( Amer) 44 L, Glucose 188 H D, Calcium 7.1 L, Phosphorus 4.7 H, Magnesium 3.0 H D, NT-Pro-B Natriuret Pep 87868 H, Procalcitonin 9.22 H I & O for Last 24 hours: Intake & Output 03/26/23 03/27/23 03/28/23 03/29/23 23:59 23:59 23:59 23:59 Intake Total 1977.305 / 7839.677 1763.892 / 7567.391 4577.922 / 7357.112 4875.734 / 1445.734 Output Total 660 / 710 1795 / 1810 905 / 995 875 / 875 Balance 1318.305 / 1280.305 -501.108 / -495.108 265.922 / 287.922 570.734 / 570.734 Weight 64.09 kg 72.717 kg 72.717 kg Microbiology Reports for the Last 24 Hours: Microbiology 03/26/23 17:00 Blood Blood Culture - Final Staphylococcus aureus 03/26/23 14:35 Blood Blood Culture - Final Staphylococcus aureus Constitutional Constitutional: cachectic, chronically ill appearing and somnolent *Routine HEENT Exam Head: Present normocephalic and atraumatic Eye: Present EOMI and PERRL ENT: Present mucous membranes dry *Routine Neck Exam Neck: Present supple and trachea midline; Absent lymphadenopathy *Routine Respiratory Exam Respiratory: Present accessory muscle use, respiratory distress, rhonchi, wheezes and symmetric chest movement *Routine Cardiovascular Exam Cardiovascular: Present tachycardia *Routine Abdominal Exam Abdominal: Present soft and normoactive bowel sounds; Absent tenderness *Routine Extremities Exam Extremities: Absent edema *Routine Skin Exam Skin: Absent rash *Routine Neurological Exam Neurological: Present altered mental status Routine Psychiatric Exam Psychiatric: Present unable to assess Assessment and Plan *Assessment and plan (1) Sepsis: Status: Acute Qualifiers: Sepsis type: sepsis due to unspecified organism Sepsis acute organ dysfunction status: with acute organ dysfunction Severe sepsis acute organ dysfunction type: acute respiratory failure Acute respiratory failure type: with hypoxia Severe sepsis shock status: without septic shock Qualified Code(s): A41.9 - Sepsis, unspecified organism; R65.20 - Severe sepsis with
[2023-03-30] VITALS (20 sets, daily range): BP systolic 96–143; BP diastolic 52–87; PULSE 101–128; RESP 22–32; TEMP 37.7–38.6; O2SAT 78–96; BMI 23.2
[2023-03-30 06:42] LABS: Basophils # 0.1 K/mm3 (0-0.2); Basophils % 0.2 % (0.1-2.0); Eosinophils % 0.1 % (0.1-12.0); Hematocrit 34.4 % (42.0-52.0); Hemoglobin 10.5 g/dL (14.1-18.0); Lymphocytes # 8.4 K/mm3 (0.7-4.5); Lymphocytes % 30.9 % (10-50); Mean Corpuscular HGB Conc 30.5 g/dL (31.8-35.4); Mean Corpuscular Hemoglobin 26.8 pg (27.0-31.2); Mean Corpuscular Volume 87.7 fl (80-94); Monocytes # 0.9 K/mm3 (0.1-1.0); Monocytes % 3.3 % (1.7-9.3); Neutrophils # 17.9 K/mm3 (1.8-7.8); Neutrophils % 65.4 % (37.0-80.0); Platelet Count 83 K/mm3 (142-424); Red Blood Count 3.93 M/mm3 (4.60-6.20); Red Cell Distribution Width 14.6 % (11.5-17.5); White Blood Count 27.3 K/mm3 (4.8-10.8)
[2023-03-30 06:44] LABS: MANUAL DIFFERENTIAL MANUAL DIFFERENTIAL (MANUAL DIFF)
[2023-03-30 06:57] LABS: Anion Gap 11.6 mEq/L (5-15); Blood Urea Nitrogen 60 mg/dl (9-20); Calcium 7.2 mg/dl (8.4-10.2); Carbon Dioxide 33 mmol/L (22.0-30.0); Chloride 108 mmol/L (98-107); Creatinine Clearance Estimated 37 mL/min (50-200); Estimated Glomerular Filt Rate 45 ml/min (>60); GFR (African American) 54 ML/MIN (>60); Glucose 181 mg/dl (74-100); Potassium 4.6 mmoL/L (3.5-5.1); Sodium 148 mmol/L (136-145)
--- NOTE | 2023-03-30 08:46 | PC.NURSE ---
TECH NOTE; NOTIFIED NURSE OF TEMPERATURE FOR 0800 VITAL SIGNS Landy CHILDRESS, SRNA
--- NOTE | 2023-03-30 08:46 | PC.NURSE ---
[id number] Sahni face to face that pt platelets decreased from 118 to 83. states this is related to zyvox. per hold lovenox
[2023-03-30 10:43] LABS: Hypochromasia 1+; Lymphocytes % 44 % (10-50); Monocytes % 2 % (2-9); Neutrophils % 54 % (42-76); Platelet Estimate Moderate Decrease; Total Cells Counted 100
--- NOTE | 2023-03-30 11:18 | DIET.NUTRFU ---
Provider and nursing staff was unable to place NG tube yesterday. Therefore patient has not had nutrition for 6 days and TPN is not appropriate in this situation. Provider requested X-ray to take down to help with insertion. Family is now having decisions on POC again and may not want feeding tube. Will continue to follow as needed
--- NOTE | 2023-03-30 11:26 | EXP.PULM.PN ---
Subjective *Date: 03/30/23 *Time: 11:26 Interval history: No significant improvement in clinical status Pulmonology Exam Inpatient Vital signs and Labs for Last 24 Hours: Temp Pulse Resp BP Pulse Ox O2 Del Method O2 Flow Rate 100.4 F H 128 H 24 135/87 90 L Vapotherm 40 03/30/23 08:00 03/30/23 11:00 03/30/23 11:00 03/30/23 11:00 03/30/23 11:00 03/30/23 11:00 03/30/23 11:00 FiO2 100 03/30/23 11:00 Laboratory Results - last 24 hr 03/30/23 06:10: WBC 27.3 H*, RBC 3.93 L, Hgb 10.5 L, Hct 34.4 L, MCV 87.7, MCH 26.8 L, MCHC 30.5 L, RDW 14.6, Plt Count 83 L D, MPV 10.0, Neut % (Auto) 65.4, Lymph % (Auto) 30.9, [place] % (Auto) 3.3, Eos % (Auto) 0.1, Baso % (Auto) 0.2, Neut # (Auto) 17.9 H, Lymph # (Auto) 8.4 H, [place] # (Auto) 0.9, Eos # (Auto) 0.0, Baso # (Auto) 0.1, Total Counted 100, Neutrophils % (Manual) 54, Lymphocytes % (Manual) 44, Monocytes % (Manual) 2, Platelet Estimate Moderate decrease, Hypochromasia 1+, Sodium 148 H, Potassium 4.6, Chloride 108 H, Carbon Dioxide 33 H, Anion Gap 11.6, BUN 60 H, Creatinine 1.50 H, Estimated Creat Clear 37, Estimated GFR 45 L, Est GFR ( Amer) 54 L D, Glucose 181 H, Calcium 7.2 L I & O for Labs for Last 24 Hours: Intake & Output 03/27/23 03/28/23 03/29/23 03/30/23 23:59 23:59 23:59 23:59 Intake Total 1293.892 / 7048.646 3318.922 / 5273.594 2129.734 / 3598.734 1746 / 1746 Output Total 1795 / 1810 905 / 995 1300 / 1600 650 / 650 Balance -501.108 / -495.108 265.922 / 870.922 7045.734 / 7341.079 4512 / 1096 Weight 160 lb 5.017 oz 160 lb 5 oz 153 lb 4 oz Microbiology Reports for the Last 24 Hours: Microbiology 03/26/23 17:00 Blood Blood Culture - Final Staphylococcus aureus 03/26/23 14:35 Blood Blood Culture - Final Staphylococcus aureus Constitutional: Present severe distress Head: Present normocephalic and atraumatic ENT: Present normal exam, normal oropharynx and mucous membranes moist Neck: Present normal inspection and full ROM Respiratory: Present respiratory distress, rhonchi and diminished air movement; Absent wheezes or able to speak in complete sentences Cardiac: Present S1/S2, Tachycardia and radial pulses present GI: Present soft and distention; Absent tenderness or guarding Skin: Present intact; Absent cyanosis or jaundice Neuro: Absent alert, awake or oriented x 3 Extremities: Present normal inspection; Absent clubbing or cyanosis Psychiatric: Present normal affect and cooperative Assessment and Plan *Assessment and plan (1) ARDS (adult respiratory distress syndrome): Status: Acute Category: Medical Code(s): J80 - Acute respiratory distress syndrome (2) Acute hypoxemic respiratory failure: Status: Acute Category: Medical Code(s): J96.01 - Acute respiratory failure with hypoxia (3) COVID: Status: Acute Category: Medical Code(s): U07.1 - COVID-19 (4) Bilateral pleural effusion: Status: Acute Category: Medical Code(s): J90 - Pleural effusion, not elsewhere classified Plan Mr. Davies is a 82-year-old, with reported medical history of CHFpEF, aortic stenosis CKD, CAD status post CABG, hypertension, CLL currently following with oncology clinic receiving Rituxan presented to the hospital complaining of chest pain and difficulty breathing. Patient upon admission needing increasing oxygen from his admission. On high flow nasal cannula. His COVID-19 PCR also resulted positive. Patient is now being treated for sepsis with broad-spectrum antibiotic including vancomycin and cefepime along with remdesivir for his COVID-19 pneumonia. Blood cultures upon admission growing gram-positive cocci Staph aureus positive for mecA gene. CTA upon admission no evidence of pulmonary embolism, bilateral diffuse groundglass opacities. Chest x-ray continues show bilateral significant worsening pulmonary infiltrates. Interval update: Con
--- NOTE | 2023-03-30 13:25 | EXP.PN ---
Subjective *Date: 03/30/23 *Time: 13:31 Interval history: Patient is seen and examined today. I am accompanied by nursing staff. The patient is accompanied by his daughter. The daughter changed her mind about the feeding tube yesterday and staff were unable to pass after multiple attempts. Nursing staff reports a Tmax 100.2 with ongoing tachycardia and oxygen requirements of 40 L with 100% FiO2. His morning labs identify persistent leukocytosis with a downward trend of platelets on Zyvox therapy. His hemoglobin is stable. His electrolytes identify sodium 148 potassium 4.6 his BUN is 60 and his creatinine is down to 1.5 (baseline 1.2). I have discussed the patient's nutritional status with his daughter at bedside and she reports that other families will be arriving today with ongoing goals of care conversation and consideration for comfort care measures. Exam Data for Last 24 hours Vital signs and Labs for Last 24 Hours: Temp Pulse Resp BP Pulse Ox O2 Del Method O2 Flow Rate 100.4 F H 122 H 24 104/56 L 88 L Vapotherm 40 03/30/23 08:00 03/30/23 13:00 03/30/23 13:00 03/30/23 13:00 03/30/23 13:00 03/30/23 13:00 03/30/23 13:00 FiO2 100 03/30/23 13:00 Laboratory Results - last 24 hr 03/30/23 06:10: WBC 27.3 H*, RBC 3.93 L, Hgb 10.5 L, Hct 34.4 L, MCV 87.7, MCH 26.8 L, MCHC 30.5 L, RDW 14.6, Plt Count 83 L D, MPV 10.0, Neut % (Auto) 65.4, Lymph % (Auto) 30.9, [place] % (Auto) 3.3, Eos % (Auto) 0.1, Baso % (Auto) 0.2, Neut # (Auto) 17.9 H, Lymph # (Auto) 8.4 H, [place] # (Auto) 0.9, Eos # (Auto) 0.0, Baso # (Auto) 0.1, Total Counted 100, Neutrophils % (Manual) 54, Lymphocytes % (Manual) 44, Monocytes % (Manual) 2, Platelet Estimate Moderate decrease, Hypochromasia 1+, Sodium 148 H, Potassium 4.6, Chloride 108 H, Carbon Dioxide 33 H, Anion Gap 11.6, BUN 60 H, Creatinine 1.50 H, Estimated Creat Clear 37, Estimated GFR 45 L, Est GFR ( Amer) 54 L D, Glucose 181 H, Calcium 7.2 L I & O for Last 24 hours: Intake & Output 03/27/23 03/28/23 03/29/23 03/30/23 23:59 23:59 23:59 23:59 Intake Total 1293.892 / 3564.122 8600.922 / 3579.891 3389.734 / 3598.734 2095 / 2095 Output Total 1795 / 1810 905 / 995 1300 / 1600 1490 / 1490 Balance -501.108 / -495.108 265.922 / 847.159 5891.734 / 1998.734 606 / 606 Weight 72.717 kg 72.717 kg 69.513 kg Constitutional Constitutional: cachectic, chronically ill appearing and somnolent *Routine HEENT Exam Head: Present normocephalic and atraumatic Eye: Present EOMI and PERRL ENT: Present mucous membranes dry *Routine Neck Exam Neck: Present supple and trachea midline; Absent lymphadenopathy *Routine Respiratory Exam Respiratory: Present accessory muscle use, respiratory distress, rhonchi, wheezes and symmetric chest movement *Routine Cardiovascular Exam Cardiovascular: Present tachycardia *Routine Abdominal Exam Abdominal: Present soft and normoactive bowel sounds; Absent tenderness *Routine Extremities Exam Extremities: Absent edema *Routine Skin Exam Skin: Absent rash *Routine Neurological Exam Neurological: Present altered mental status Routine Psychiatric Exam Psychiatric: Present unable to assess Assessment and Plan *Assessment and plan (1) Sepsis: Status: Acute Qualifiers: Acute respiratory failure type: with hypoxia Sepsis acute organ dysfunction status: with acute organ dysfunction Sepsis type: sepsis due to unspecified organism Severe sepsis acute organ dysfunction type: acute respiratory failure Severe sepsis shock status: without septic shock Qualified Code(s): A41.9 - Sepsis, unspecified organism; R65.20 - Severe sepsis without septic shock; J96.01 - Acute respiratory failure with hypoxia Category: Medical Code(s): A41.9 - Sepsis, unspecified organism (2) COVID: Status: Acute Category: Medical Code(s): U07.1 - COVID-19 (3) Acute hypoxemic respiratory failure: Status: Acute Category: Medical
--- NOTE | 2023-03-30 13:30 | PC.NURSE ---
TECH NOTE; NOTIFIED NURSE OF HIGH TEMPERATURE FOR 1200 VITAL SIGNS Landy CHILDRESS, SRNA
--- NOTE | 2023-03-30 14:13 | PC.NURSE ---
late entry: 929 attempted to take pt down to radiology for placement of NG/OG tube. after transferring pt to nrb on 15lpm pt sats were noted to be 86%. increased to 25 lpm sats increased to 88%. per radiology pt would be unable to wear nrb while in fluroscopy procedure r/t tube being placed ng/og. notified , who advised situation be discussed with pt daughter Lali. discussed with lali at bedside who advised that she did not want pt to go down for procedure and have condition worsen.
--- NOTE | 2023-03-30 16:09 | EXP.EVENT.NO ---
Patient's daughter and BONNIE Cid has decided to transition her father's care to DNR comfort care. She is requesting to de-escalate care including antibiotics. She request no further blood draws or lab evaluations. She is awaiting on 1 other brother from [place] and they plan to transition his Vapotherm to nasal cannula oxygen. She requests that we continue with his comfort meds including parentally administered controlled substances for comfort care. Staff will reach out to [facility] and inform consultants concerning de-escalation of care. Orders have been entered.
--- NOTE | 2023-03-30 16:29 | PC.NURSE ---
[address] Sahni face to face that pt family has elected to change pt to comfort care. and will notify staff when they want pt transitioned to nasal cannula from vapotherm. courtesy cart provided for family as well.
--- NOTE | 2023-03-30 17:37 | PC.NURSE ---
pt transitioned to 4 lpm nc per family request for comfort care
[2023-03-31] VITALS: BP 108/65; PULSE 117; PULSE 120; RESP 30; O2SAT 72
--- NOTE | 2023-03-31 02:45 | PC.NURSE ---
At 0220 patient heart rate and pulse oximeter noted to drop significantly. Entered room to patient having agonal breathing. Daughter, Negra, woken up at this time and AVI Stafford notified. Family declined any needs at this time. At 0244 patient noted to have no breathing and no pulse. Rivera CÁRDENAS present at this time.
--- NOTE | 2023-03-31 02:47 | EXP.DEATH.NO ---
Pronouncement Note Date and Time of Date of : 03/31/23 Time of : 02:44 PCOD Preliminary cause of : Respiratory arrest Contributing Factors (1) Sepsis: (2) COVID: (3) Acute hypoxemic respiratory failure: (4) Bilateral pleural effusion: (5) Hyponatremia: (6) Rib fracture: (7) CLL (chronic lymphocytic leukemia): (8) Urinary obstruction: (9) Bladder tumor: (10) HLD (hyperlipidemia): (11) History of coronary artery bypass graft: (12) Hypertension: (13) Pacemaker: Additional Data Confirmation of : no pulse, no respirations and no heart sounds Family: at bedside Attending/PCP notified?: Yes Attending physician: Kaitlyn. Was code activated?: No Autopsy requested?: No qualifications examiner notified?: No Organ bank notified?: Yes Advance directives: No
--- NOTE | 2023-03-31 02:49 | EXP.DEATH.DS ---
Documented by User: [email or web address] Centeno 03/31/23 02:55 Discharge Sum: Prov Provider Primary care physician: Referral ProviderMD Visit Care Team Role Provider Type Referral Provider, Primary Care Provider Referring Helenkarinecam Rebolledo MD Other Providers Staff Physician Lio Greer MD Emergency Provider ER Physician Ankit Sanabria MD Admit Provider Staff Physician Attending Provider Consults: 03/25/23 05:44 Pulmonology Consult [Consult to Pulmonology] [CONS] Stat Consulting Provider: Heaven Rebolledo Reason For Consult: hypoxic respiratory failure 03/28/23 12:18 Consult to Dietary [Nutrition Consult] [CONS] Routine Comment: Reason for Nutrition Consult: Tube Feeding, Initiate Discharge Sum: Diag PCOD Cause of : Respiratory arrest Contributing Factors (1) Sepsis: (2) COVID: (3) Acute hypoxemic respiratory failure: (4) Bilateral pleural effusion: (5) Hyponatremia: (6) Rib fracture: (7) CLL (chronic lymphocytic leukemia): (8) Urinary obstruction: (9) Bladder tumor: (10) HLD (hyperlipidemia): (11) History of coronary artery bypass graft: (12) Hypertension: (13) Pacemaker: Discharge Sum: Summary Date and Time Date of admission: 03/24/23 20:43 Date of : 03/31/23 Time of : 02:44 Hospital Course prior to Hospital Course Information: 82 yo male with extensive PMHX including CLL, CHF, CKD, CAD s/p CABG, HTN, pacemaker in place who came to the emergency department complaining of chest pain around left rib cage with shortness of air and difficulty breathing. Admitted to [facility] on 03/24/23. Initial concern for CHF exacerbation given BNP of 11,000 versus pneumonia in setting of CLL. Care course transition to treatment for severe sepsis as blood pressure dropped. Antibiotics were added. Found to be positive for COVID. Patient has continued to have progressive decline. Developing worsening ARTURO and worsening respiratory distress. Patient and family's wish is to be DNR. Continuing treatment with antimicrobials and antiviral. 03/30/23 Pt transitioned to comfort care. Summary Details: Pt peacefully with family at bedside. Pt was transitioned to comfort care on 03/30/23. Additional Data Confirmation of as documented by pronouncing clinician: no pulse, no respirations and no heart sounds Family: at bedside Attending/PCP notified?: Yes Attending physician: Elio Sahni MD Was code activated?: No Autopsy requested?: No commercial title examiner notified?: No Organ bank notified?: Yes Advance directives: No Hospice patient?: No Documented by User: Renan Sahni MD 03/31/23 07:20 Discharge Sum: Prov Provider Admitting clinician: Ankit Sanabria Attending physician on admission: Ankit Sanabria Discharge Sum: Diag Contributing Factors (1) Sepsis: (2) COVID: (3) Acute hypoxemic respiratory failure: (4) Bilateral pleural effusion: (5) Hyponatremia: (6) Rib fracture: (7) CLL (chronic lymphocytic leukemia): (8) Urinary obstruction: (9) Bladder tumor: (10) HLD (hyperlipidemia): (11) History of coronary artery bypass graft: (12) Hypertension: (13) Pacemaker:
--- NOTE | 2023-03-31 02:56 | PC.NURSE ---
NAN notified of patient , ruled out for donation. Kassie Flores with ref .
== END 2023-03-31 05:47 | disposition expired | DRG 871 ==
LOC: ER 18:06 → 2ND 20:14
PROVIDERS: Emergency Medicine; Family Medicine; Internal Medicine Pulmonary Disease; Nurse Practitioner Family; Admitting Provider Internal Medicine Adolescent Medicine; Emergency Provider Emergency Medicine; Visit Provider Internal Medicine Adolescent Medicine
DX: A41.02 Sepsis due to Methicillin resistant Staphylococcus aureus (principal); J12.82 Pneumonia due to coronavirus disease 2019; Z51.5 Encounter for palliative care; R65.21 Severe sepsis with septic shock; U07.1 COVID-19; J80 Acute respiratory distress syndrome; I50.1 Left ventricular failure, unspecified; E87.1 Hypo-osmolality and hyponatremia; C91.10 Chronic lymphocytic leukemia of B-cell type not having achieved remission; M84.48XA Pathological fracture, other site, initial encounter for fracture; N17.9 Acute kidney failure, unspecified; I50.32 Chronic diastolic (congestive) heart failure; S22.42XG Multiple fractures of ribs, left side, subsequent encounter for fracture with delayed healing; N13.9 Obstructive and reflux uropathy, unspecified; D49.4 Neoplasm of unspecified behavior of bladder; E78.2 Mixed hyperlipidemia; Z95.1 Presence of aortocoronary bypass graft; Z95.0 Presence of cardiac pacemaker; I11.0 Hypertensive heart disease with heart failure; Z96.641 Presence of right artificial hip joint; G89.29 Other chronic pain; M54.9 Dorsalgia, unspecified; M25.569 Pain in unspecified knee; Z87.891 Personal history of nicotine dependence; I35.0 Nonrheumatic aortic (valve) stenosis; Z66 Do not resuscitate
CPT/HCPCS: 36415; 71045; 71275; 74018; 80048; 80053; 80061; 80202; 81001; 82803; 83605; 83735; 83880; 84100; 84145; 84484; 85007; 85014; 85018; 85025; 85048; 85049; 85610; 85730; 87040; 87077; 87081; 87086; 87186; 87581; 87632; 87798; 93005; 94640; 94660; 94760; 94761; 96413; 96415; 99285; J0456; J0692; J0696; J1450; J1642; J2020; J3370; J9312; Q9967